=== PATIENT | male | born 1965 | race Caucasian/White ===

== ENCOUNTER 2018-01-21 14:20 | Observation (INO) | payer BC ==
--- OUTSIDE RECORDS SUMMARY | 2018-01-21 15:28 | XMS REPORT | Clinical Summary ---
:1965 Author Organization [facility] Address [address] [place] [address] Care Team Providers Name Role Phone French Walker MD Primary Care Provider Allergies Active Allergy Reactions Severity Noted Date Comments Codeine 02/08/2016 Iodinated Contrast- Oral And Iv Dye 02/08/2016 Penicillins 02/08/2016 Current Medications Prescription Sig. Disp. Refills Start Date End Date Status metoprolol succinate Toprol XL 25 mg Active XL (TOPROL XL) 25 MG tablet,extended 24 hr tablet release lovastatin (MEVACOR) lovastatin 20 mg Active 20 MG tablet tablet metoclopramide metoclopramide 10 mg Active (REGLAN) 10 MG tablet tablet oasukubr-dfqxhatjr-qff naproxen 500 mg tablet Active thol 500 mg -0.0375 %-5 % combo pack, tablet and patch traMADol (ULTRAM) 50 tramadol 50 mg tablet Active mg tablet Active Problems Problem Noted Date Abdominal pain 07/08/2016 SBO (small bowel obstruction) ([facility]) 03/26/2016 Ileostomy status ([facility]) 02/28/2016 Diverticulitis of colon 02/08/2016 Left lower quadrant pain 02/08/2016 Family History Medical History Relation Name Comments Diabetes Father Heart disease Father Relation Name Status Comments Father Social History Tobacco Use Types Packs/Day Years Used Date Never Smoker Alcohol Use Drinks/Week oz/Week Comments Yes occasionally Sex Assigned at Date Recorded Not on file Last Filed Vital Signs Not on file Plan of Treatment Health Maintenance Due Date Last Done Comments COLON CANCER SCREENING 2017 SHINGRIX VACCINE (#1) 2017 INFLUENZA VACCINE 10/31/2017 Results Not on fileafter 01/20/2017 Insurance Payer Benefit Plan / Group Subscriber ID Type Phone Address BCBS BCBS CHOICE PPO/F[employer]ER[employer] EMPL PPO xxxxxxxxxxxx PPO [id number] [place] Home: [phone]
--- OUTSIDE RECORDS SUMMARY | 2018-01-21 15:34 | XMS REPORT | Continuity of Care Document ---
:1965 Author Organization Interface Problems Problem Status Onset Classification Date Comments Source Date Reported ILEOSTOMY STATUS Active [address] DIVERTICULITIS Active [address] DIVERTICULITIS, ACUTE Active Condition Medical 014 4 Group Discharge Diagnosis: Diverticulitis 0[place] [address] [place] BACK PAIN Active [address] [place] PALPITATIONS Active Condition [facility] 014 4 Group INSOMNIA Active Condition Medical 014 4 Group Insomnia<sup>5</sup> Active Problem Data [facility] 014 6 migrated Medical from [facility] on 08/31/14. Palpitations<sup>6</brown Active Problem Data [facility] p> 014 6 migrated Medical from [facility] on 08/31/14. Insomnia<sup>6</sup> Active Problem Data [facility] 014 6 migrated Medical from [facility] on 08/31/14. Palpitations<sup>7</brown Active Problem Data [facility] p> 014 6 migrated Medical from [facility] on 08/31/14. BRONCHITIS, ACUTE WITH Inactive Condition [facility] MILD BRONCHOSPASM 013 4 Group Acute bronchitis with Resolved Problem Data [facility] bronchospasm<sup>1</brown 013 6 migrated Medical p> from [facility] on 10/16[facility]14. KNEE PAIN, LEFT, ACUTE Inactive Condition Medical 013 4 Group KNEE PAIN Inactive Condition [facility] 012 4 Group HYPERLIPIDEMIA Active Condition [facility] 012 4 Group Hyperlipidemia<sup>4</ Active Problem Data [facility] sup> 012 6 migrated Medical [facility] 08/31[facility]14. Hyperlipidemia<sup>5</ Active Problem Data [facility] sup> 012 6 migrated Medical [facility] 08/31[facility]14. NEED PROPHYLACTIC Inactive Condition Medical VACCINATION&INOCULATIO 012 4 Group N FLU WELL ADULT Active Condition Medical 012 4 Group BACK PAIN Inactive Condition Medical 012 4 Group NEED PROPH VAC W/COMB Inactive Condition Medical [id number] 012 4 Group VAC Backache<sup>1</sup> Resolved Problem Data [facility] 012 6 migrated Medical from [facility] on 10/16/14. Backache<sup>2</sup> Resolved Problem Data [facility] 012 6 migrated Medical from [facility] on 10/16/14. FH DIABETES - DM Inactive Condition Medical 4 Group FH HEART DISEASE Inactive Condition Medical 4 Group FH STROKE Inactive Condition Medical 4 Group HYPERTENSION - BENIGN Active Condition Medical ESSENTIAL 4 Group G E R D Active Condition Medical 4 Group Benign Active Problem Data [facility] hypertension<sup>2</brown 6 migrated Medical p> from [facility] on 08/31/14. Diverticulitis of Active Problem [facility] colon [address] [place] [address] Center Gastroesophageal Active Problem Data [facility] reflux 6 migrated Medical disease<sup>3</sup> from [facility] on 08/31/14. Chronic GERD Resolved Problem [address] HTN (<span Active Problem ID="[id number]">[facility] [address] [place], rmed</span>) [facility] Hypercholesterolemia Active Problem [address] Benign Active Problem Data [facility] hypertension<sup>3</brown 6 migrated Medical p> from [facility] on 08/31/14. Gastroesophageal Active Problem Data [facility] reflux 6 migrated Medical disease<sup>4</sup> from [facility] on 08/31/14. OTHER SPECIFIED Active [facility] CONGENITAL DEFORMITIES [facility] Medications Medication Details Route Status Patient Ordering Order Source Instructions Provider Date tramadol 50 mg=1 tab, PO, Active [place] hydrochloride 50 Q4H, PRN Pain, X 2016 Medical MG Oral Tablet 10 day, # 60 Center tab, 0 Refill(s), given to patient atorvastatin 10 mg, 1 tab, No Longer [facility] Route: PO, Drug Active 2015 Medical form: TAB, Center Bedtime, Dosing Weight 86.364, kg, Start date: 03/15/16 21:00:00 PERSONNEL ASSISTANT, Duration: 30 day, Stop date: 04/13/16 21:00:00 CSTNotes: (Same As: Lipitor) Enoxaparin 40 mg, 0.4 mL, No Longer [facility] Route: SUB-Q, Active 2015 Medical Drug form: INJ, [place] [id number], Dosing Weight 86.364, kg, Start date: 03/15/16 10:00:00 PERSONNEL ASSISTANT, Duration: 30 day, Stop date: 04/13/16 10:00:00 CSTNotes: (Same as: Lovenox) 24 HR Metoprolol 50 mg, 1 tab, No Longer [facility] Tartrate 50 MG Route: PO, Drug Active 2015 Medical Extended Release form: ERTAB, [place] Tablet [Toprol] Daily, Start date: 03/15/16 9:00:00 PERSONNEL ASSISTANT, Duration: 30 day, Stop date: 04/13/16 9:00:00 CSTNotes: (Same as: Toprol XL) May split tab, but do not crush. Nexium 10 mg, Route: Inactive [facility] PO, Daily, 2015 Medical Dosing Weight Center 86.364, kg, Start date: 03/15/16 9:00:00 PERSONNEL ASSISTANT, Duration: 30 day, Stop date: 04/13/16 9:00:00 PERSONNEL ASSISTANT Protonix 40 mg, 1 tab, No Longer [facility] Route: PO, Drug Active 2015 Medical form: ECTAB, Center Before Breakfast, Start date: 03/15/16 7:30:00 PERSONNEL ASSISTANT, Duration: 30 day, Stop date: 04/13/16 7:30:00 CSTNotes: Tablet should not be chewed or crushed. (Same as: Protonix) tramadol 100 mg, 2 tab, No Longer [place] hydrochloride 50 Route: PO, Drug Active 2015 Medical MG Oral Tablet form: TAB, Q4H, Center Dosing Weight 86.364, kg, PRN Pain Score 7-10, Start date: 03/15/16 7:26:00 PERSONNEL ASSISTANT, Duration: 30 day, Stop date: 04/14/16 7:25:00 CSTNotes: Not to exceed 400mg/day. (Same As: Ultram) gabapentin 300 300 mg, 1 cap, No Longer [place] MG Oral Capsule Route: PO, Drug Active 2015 Medical form: CAP, Q8H, Center Dosing Weight 87.727, kg, (CrCl > 60 ml/min), Start date: 03/15/16 0:00:00 PERSONNEL ASSISTANT, Duration: 30 day, Stop date: 04/13/16 16:00:00 CSTNotes: (Same as: Neurontin) Ofirmev 1,000 mg, 100 No Longer [place] mL, Route: IV, Active 2015 Medical Drug form: INJ, Center Q6H, Dosing Weight 87.727, kg, for > or=50 kg, Start date: 03/15/16 0:00:00 PERSONNEL ASSISTANT, Duration: 3 day, Stop date: 03/17/16 18:00:00 CSTNotes: Infuse over 15 minutes Do not exceed 4gm/day of acetaminophen MEDICATION WASTE Product Size: 1000 mg Product Wasted: ___ mg Ketorolac 15 mg, 1 mL, No Longer [place] Route: IVP, Drug Active 2015 Medical form: INJ, Q6H, Center Dosing Weight 86.364, kg, Start date: 03/15/16 0:00:00 PERSONNEL ASSISTANT, Duration: 6 doses or times, Stop date: 03/16/16 6:00:00 CSTNotes: (Same as:Toradol) IV bolus must be given >15 seconds. Give IM administration slowly and deeply into the muscle. Not for use > 4 days. Oxycodone 10 mg, 2 tab, No Longer [place] Hydrochloride 5 Route: PO, Drug Active 2015 Medical MG Oral Tablet form: TAB, Q4H, Center Dosing Weight 87.727, kg, PRN Pain Score 6-10, Start date: 03/14/16 19:32:00 PERSONNEL ASSISTANT, Duration: 30 day, Stop date: 04/13/16 19:31:00 CSTNotes: (Same as: Roxicodone) D5W 1/2NS + KCL 1,000 mL, Rate: No Longer [place] 20mEq/L 1000ml 50 ml/hr, Infuse Active 2015 Medical ([facility]) 1,000 over: 20 hr, Center mL Route: IV, Dosing Weight 86.364 kg, Total Volume: 1,000, Start date: 03/14/16 19:32:00 PERSONNEL ASSISTANT, Stop date: 04/13/16 19:31:00 CSTNotes: PREMIX IV - Do Not Alter WASTE: F/P - Sink; E - Municipal Trash Bin Saline Flush 10 ml, Route: No Longer [place] 0.9% IVP, Drug Form: Active 2015 Medical INJ, Dosing Center Weight 86.364, kg, PRN, PRN Line Flush, Start date: 03/14/16 19:32:00 PERSONNEL ASSISTANT, Duration: 30 day, Stop date: 04/13/16 19:31:00 CSTNotes: Same as: BD Posiflush Sterile Ondansetron 4 mg, 2 mL, No Longer [place] Route: IVP, Drug Active 2015 Medical form: INJ, Q6H, Center Dosing Weight 86.364, kg, PRN Nausea & Vomiting, Start date: 03/14/16 19:32:00 PERSONNEL ASSISTANT, Duration: 30 day, Stop date: 04/13/16 19:31:00 CSTNotes: (Same as: Josefina) MEDICATION WASTE Product Size: 4 mg Product Wasted: ___ mg Hydromorphone 0.2 mg, 0.1 mL, No Longer [place] Route: IVP, Drug Active 2015 Medical form: INJ, Q2H, Center Dosing Weight 87.727, kg, PRN Pain Score 4-6, Start date: 03/14/16 19:32:00 PERSONNEL ASSISTANT, Duration: 30 day, Stop date: 04/13/16 19:31:00 CSTNotes: Same as Dilaudid Ondansetron 4 mg, Route: Inactive 03/15[facility] IVP, ONCE, 2015 Medical Dosing Weight Center 86.364, kg, PRN Nausea & Vomiting, Start date: 03/14/16 19:25:00 PERSONNEL ASSISTANT Hydralazine 10 mg, Route: Inactive 03/15[facility] IVP, Q20Min, 2015 Medical Dosing Weight Center 86.364, kg, PRN Elevated BP, Start date: 03/14/16 19:25:00 PERSONNEL ASSISTANT, Duration: 2 doses or times, Stop date: Limited # of times Hydromorphone 0.5 mg, Route: Inactive 03/15[facility] IVP, Q5Min, 2015 Medical Dosing Weight Center 86.364, kg, PRN Pain Score 7-10, Start date: 03/14/16 19:25:00 PERSONNEL ASSISTANT, Duration: 4 doses or times, Stop date: Limited # of times Naloxone 0.4 mg, Route: Inactive 03/15[facility] IVP, Q2MIN, 2015 Medical Dosing Weight Center 86.364, kg, PRN Narcotic Reversal, Start date: 03/14/16 19:25:00 PERSONNEL ASSISTANT, Duration: 8 doses or times, Stop date: Limited # of times Flumazenil 0.2 mg, Route: Inactive 03/15[facility] IVP, PRN, Dosing 2015 Medical Weight 86.364, Center kg, PRN Benzodiazepine Reversal, Initial dose, Start date: 03/14/16 19:25:00 PERSONNEL ASSISTANT, Duration: 30 day, Stop date: 04/13/16 19:24:00 PERSONNEL ASSISTANT bupivacaine 20 mL, Route: No Longer 03/15[facility] liposome InFILtration(loc Active 2015 Medical al), Drug Form: Center INJ, ONCALL, Start date: 03/14/16 19:00:00 PERSONNEL ASSISTANT, Duration: 1 doses or timesNotes: (Same as: Exparel) NOT FOR IV use Postoperative analgesia: Infiltration (local): Dose is based on surgical site and volume required to cover the area (in general, the maximum total dose is 266 mg). Bunionectomy: 7 mL into the tissues surrounding the osteotomy and 1 mL into the subcutaneous tissue of the surgical site (total dose=8 mL [106 mg]) Hemorrhoidectomy : 30 mL (20 mL vial diluted with 10 mL NS) divided and administered as 6 injections of 5 mL each (total dose=30 mL [266 mg]) Flagyl 500 mg, 100 mL, No Longer [facility] Route: IVPB, Active 2015 Medical Drug form: INJ, Center PRE OP, Start date: 03/14/16 15:00:00 PERSONNEL ASSISTANT, Duration: 1 day, Stop date: 03/15/16 14:59:00 CSTNotes: (Same as: Flagyl) Avoid alcohol. Levaquin 750 mg, 150 mL, No Longer [facility] Route: IV, Drug Active 2015 Medical form: SOLN, PRE Center OP, Start date: 03/14/16 15:00:00 PERSONNEL ASSISTANT, Duration: 1 day, Stop date: 03/15/16 14:59:00 CSTNotes: (Same as:Levaquin) Lactated Ringers 1,000 mL, Rate: No Longer [facility] 1,000 mL 40 ml/hr, Infuse Active 2015 Medical over: 25 hr, [place] Route: IV, Dosing Weight 86.364 kg, Total Volume: 1,000, Start date: 03/14/16 13:56:00 PERSONNEL ASSISTANT, Duration: 30 day, Stop date: 04/13/16 13:55:00 PERSONNEL ASSISTANT tramadol See Active [facility] hydrochloride 50 Instructions, 2016 Medical MG Oral Tablet PRN Pain, 1-2 Center tab PO Q4-6h prn pain, # 50 tab, 0 Refill(s) Sodium Chloride 500 mL, 500 Inactive [facility] 0.154 MEQ/ML ml/hr, Infuse 2015 Medical Injectable Over: 1 hr, [place] Solution Route: IV, 500, Drug form: INJ, ONCE, Priority: STAT, Dosing Weight 87.727 kg, Start date: 01/13/16 17:43:00 CDT, Duration: 1 doses or times, Stop date: 01/13/16 17:43:00 CDT Tylenol 650 mg, 2 tab, No Longer [facility] Route: PO, Drug Active 2015 Medical form: TAB, Q6H, Center Dosing Weight 87.727, kg, PRN Pain Score 1-3, Start date: 01/13/16 7:16:00 CDT, Duration: 30 day, Stop date: 02/12/16 7:15:00 CSTNotes: Do not exceed 4 gm/day. (Same as: Tylenol) tramadol 100 mg, 2 tab, No Longer [place] hydrochloride 50 Route: PO, Drug Active 2015 Medical MG Oral Tablet form: TAB, Q4H, Center Dosing Weight 87.727, kg, PRN Pain Score 7-10, Start date: 01/13/16 7:16:00 CDT, Duration: 30 day, Stop date: 02/12/16 7:15:00 CSTNotes: Not to exceed 400mg/day. (Same As: Ultram) tramadol 50 mg, 1 tab, No Longer [place] hydrochloride 50 Route: PO, Drug Active 2015 Medical MG Oral Tablet form: TAB, Q4H, Center Dosing Weight 87.727, kg, PRN Pain Score 4-6, Start date: 01/13/16 7:15:00 CDT, Duration: 30 day, Stop date: 02/12/16 7:14:00 CSTNotes: Not to exceed 400mg/day. (Same As: Ultram) sodium chloride 500 mL, Rate: Inactive [facility] 0.9% 500 ml INJ 500 ml/hr, 2015 Medical 500 mL Infuse over: 1 Center hr, Route: IV, Dosing Weight 87.727 kg, Total Volume: 500, BOLUS, Priority: STAT, Start date: 01/10/16 17:46:00 CDT, Duration: 1 doses or times, Stop date: 01/11/16 17:45:00 CDT Reglan 10 mg, 2 mL, No Longer [facility] Route: IVP, Drug Active 2015 Medical form: INJ, Q6H, Center Dosing Weight 87.727, kg, Start date: 01/10/16 12:00:00 CDT, Duration: 30 day, Stop date: 02/09/16 6:00:00 CSTNotes: (Same as: Reglan) Ofirmev 1,000 mg, 100 No Longer [facility] mL, Route: IVPB, Active 2015 Medical Drug form: INJ, Center Q8H, PRN Pain 4-6/Temp > 100.4 F, Start date: 01/08/16 20:49:00 CDT, Stop date: 02/07/16 20:48:00 CSTNotes: Infuse over 15 minutes Do not exceed 4gm/day of acetaminophen MEDICATION WASTE Product Size: 1000 mg Product Wasted: ___ mg Ofirmev 1,000 mg, Route: Inactive [place] IV, Drug form: 2016 Medical INJ, Q8H, Dosing Center Weight 87.727, kg, PRN Pain 4-6/Temp > 100.4 F, for > or=50 kg, Start date: 01/08/16 20:16:00 CDT, Duration: 30 day, Stop date: 02/07/16 20:15:00 PERSONNEL ASSISTANT phenol 1 spray, Route: No Longer [facility] TOP, Daily, Drug Active 2015 Medical form: SPRY, PRN Center Sore Throat, Start date: 01/08/16 19:15:00 CDT, Duration: 30 day, Stop date: 02/07/16 19:14:00 CSTNotes: Chloraseptic [place] (Same as: Chloraseptic, Sore Throat [place]) WASTE: F/P - Black; E - Municipal Trash Bin D5W 1/2NS + KCL 1,000 mL, Rate: No Longer [place] 20mEq/L 1000ml 125 ml/hr, Active 2015 Medical ([facility]) 1,000 Infuse over: 8 Center mL hr, Route: IV, Dosing Weight 87.727 kg, Total Volume: 1,000, Start date: 01/08/16 5:21:00 CDT, Duration: 30 day, Stop date: 02/07/16 5:20:00 CSTNotes: PREMIX IV - Do Not Alter WASTE: F/P - Sink; E - Municipal Trash Bin Acetaminophen 1,000 mg, 2 tab, No Longer [facility] Route: PO, Drug Active 2015 Medical form: TAB, Q6H, Center Dosing Weight 87.727, kg, Start date: 01/07/16 18:00:00 CDT, Duration: 30 day, Stop date: 02/06/16 12:00:00 CSTNotes: Max acetaminophen 4000 mg/day (4 gm/day). (Same as: Tylenol Extra Strength) sodium chloride 1,000 mL, Rate: No Longer [place] 0.9% 1000 ml INJ 50 ml/hr, Infuse Active 2015 Medical 1,000 mL over: 20 hr, Center Route: IV, Dosing Weight 87.727 kg, Total Volume: 1,000, Start date: 01/07/16 8:25:00 CDT, Duration: 30 day, Stop date: 02/06/16 8:24:00 PERSONNEL ASSISTANT 24 HR Metoprolol 50 mg, 1 tab, No Longer [place] Tartrate 50 MG Route: PO, Drug Active 2015 Medical Extended Release form: ERTAB, [place] Tablet [Toprol] Daily, Start date: 01/06/16 9:00:00 CDT, Duration: 30 day, Stop date: 02/04/16 9:00:00 CDTNotes: (Same as: Toprol XL) May split tab, but do not crush. Nexium 40 mg, Route: No Longer [facility] PO, Daily, Active 2015 Medical Dosing Weight Center 87.727, kg, Start date: 01/06/16 9:00:00 CDT, Duration: 30 day, Stop date: 02/04/16 9:00:00 CDT atorvastatin 20 mg, 1 tab, No Longer [facility] Route: PO, Drug Active 2015 Medical form: TAB, Center Daily, Dosing Weight 87.727, kg, Start date: 01/06/16 9:00:00 CDT, Duration: 30 day, Stop date: 02/04/16 9:00:00 CDTNotes: (Same As: Lipitor) influenza virus 0.5 mL, Route: Inactive [place] vaccine, IM, Drug Form: 2015 Medical inactivated SUSP, Daily, Center Start date: 01/06/16 9:00:00 CDT, Duration: 1 doses or times, Stop date: 01/06/16 9:00:00 CDTNotes: (Same as: Fluzone Quadrivalent, Fluarix Quadrivalent) For 3 years of age and older (0.5 mL IM) Shake well before use Protonix 40 mg, 1 tab, No Longer [facility] Route: PO, Drug Active 2015 Medical form: ECTAB, Center Daily, Start date: 01/06/16 9:00:00 CDT, Duration: 30 day, Stop date: 02/04/16 9:00:00 CDT Enoxaparin 40 mg, 0.4 mL, No Longer [place] Route: SUB-Q, Active 2015 Medical Drug form: INJ, Center [id number], Dosing Weight 87.727, kg, Start date: 01/06/16 9:00:00 CDT, Duration: 30 day, Stop date: 02/04/16 9:00:00 CDTNotes: (Same as: Lovenox) Hydromorphone 15 mg, 30 mL, No Longer [place] Route: IV, EELER Active 2015 Medical Dose: 0.2 mg, Center EELER Lockout: 8 minutes, Continuous Basal Rate: 0 mg, 4 Hour Limit (In MG): 6, Drug Form: INJ, Continuous, Start date: 01/06/16 7:30:00 CDT, Duration: 30 day, Stop date: 02/05/16 7:29:00 CDTNotes: (Same as: Dilaudid) conc=0.5 mg/ml Hydromorphone EELER Dose: ;Delay: ;Basal: Hydromorphone 15 mg, 30 mL, No Longer [place] Route: IV, Active 2015 Medical Initial Loading Center Dose: 0.4mg, EELER Dose: 0.2 mg, [place] Lockout: 8 minutes, Continuous Basal Rate: 0.05 mg, 4 Hour Limit (In MG): 6, Drug Form: INJ, Continuous, Start date: 01/05/16 19:30:00 CDT, Duration: 30 day, Stop date: ...Notes: (Same as: Dilaudid) conc=0.5 mg/ml Hydromorphone EELER Dose: ;Delay: ;Basal: Naloxone 0.04 mg, 0.1 mL, No Longer [place] Route: IVP, Drug Active 2015 Medical form: INJ, Center Q2MIN, Dosing Weight 87.727, kg, PRN Narcotic Reversal, Start date: 01/05/16 19:20:00 CDT, Duration: 30 day, Stop date: 02/04/16 19:19:00 CDTNotes: Same as Narcan Ofirmev 1,000 mg, 100 No Longer [facility] mL, Route: IV, Active 2015 Medical Drug form: INJ, Center Q6H, Dosing Weight 87.727, kg, for > or=50 kg, Start date: 01/05/16 18:00:00 CDT, Duration: 3 day, Stop date: 01/08/16 12:00:00 CDTNotes: Infuse over 15 minutes Do not exceed 4gm/day of acetaminophen MEDICATION WASTE Product Size: 1000 mg Product Wasted: ___ mg Ketorolac 15 mg, 1 mL, No Longer [facility] Route: IVP, Drug Active 2015 Medical form: INJ, Q6H, Center Dosing Weight 87.727, kg, Start date: 01/05/16 18:00:00 CDT, Duration: 6 doses or times, Stop date: 01/07/16 0:00:00 CDTNotes: (Same as:Toradol) IV bolus must be given >15 seconds. Give IM administration slowly and deeply into the muscle. Not for use > 4 days. Dilaudid 1 mg, Route: Inactive [facility] IVP, ONCE, 2015 Medical Dosing Weight Center 87.727, kg, Priority: STAT, Start date: 01/05/16 17:49:00 CDT, Stop date: 01/05/16 17:49:00 CDT Dilaudid 1 mg, Route: IV, Inactive [facility] ONCE, Dosing 2015 Medical Weight 87.727, Center kg, Start date: 01/05/16 16:30:00 CDT, Stop date: 01/05/16 16:30:00 CDT gabapentin 300 300 mg, 1 cap, No Longer [facility] MG Oral Capsule Route: PO, Drug Active 2015 Medical form: CAP, Q8H, Center Dosing Weight 87.727, kg, (CrCl > 60 ml/min), Start date: 01/05/16 16:00:00 CDT, Duration: 30 day, Stop date: 02/04/16 8:00:00 CDTNotes: (Same as: Neurontin) Lyrica 100 mg, Route: Inactive [facility] PO, ONCE, Dosing 2015 Medical Weight 87.727, Center kg, Start date: 01/05/16 15:07:00 CDT, Stop date: 01/05/16 15:07:00 CDT tramadol 50 mg, 1 tab, Inactive [facility] hydrochloride 50 Route: PO, Drug 2015 Medical MG Oral Tablet form: TAB, ONCE, Center Dosing Weight 87.727, kg, Start date: 01/05/16 15:07:00 CDT, Stop date: 01/05/16 15:07:00 CDT Flumazenil 0.2 mg, 2 mL, Inactive [facility] Route: IVP, Drug 2015 Medical form: INJ, PRN, Center Dosing Weight 87.727, kg, PRN Benzodiazepine Reversal, Initial dose, Start date: 01/05/16 13:30:00 CDT, Duration: 1 day, Stop date: 01/06/16 13:29:00 CDTNotes: (Same as: Romazicon) Naloxone 0.4 mg, 1 mL, Inactive [facility] Route: IVP, Drug 2015 Medical form: INJ, Center Q2MIN, Dosing Weight 87.727, kg, PRN Narcotic Reversal, Start date: 01/05/16 13:30:00 CDT, Duration: 8 doses or times, Stop date: Limited # of timesNotes: Same as Narcan Ondansetron 4 mg, 2 mL, Inactive [facility] Route: IVP, Drug 2015 Medical form: INJ, ONCE, Center Dosing Weight 87.727, kg, PRN Nausea & Vomiting, Start date: 01/05/16 13:30:00 CDTNotes: (Same as: Zofran) MEDICATION WASTE Product Size: 4 mg Product Wasted: ___ mg Promethazine 6.25 mg, 0.25 Inactive [facility] mL, Route: IVPB, 2015 Medical Drug form: INJ, Center ONCE, Dosing Weight 87.727, kg, PRN Nausea & Vomiting, Start date: 01/05/16 13:30:00 CDTNotes: Do not give IV push. (Same as: Phenergan) Hydromorphone 0.5 mg, 0.25 mL, Inactive [facility] Route: IVP, Drug 2015 Medical form: INJ, Center Q5Min, Dosing Weight 87.727, kg, PRN Pain Score 7-10, Start date: 01/05/16 13:30:00 CDT, Duration: 8 doses or times, Stop date: 01/06/16 0:00:00 CDTNotes: Same as: Dilaudid Saline Flush 10 ml, Route: No Longer [facility] 0.9% IVP, Drug Form: Active 2016 Medical INJ, Dosing Center Weight 87.727, kg, PRN, PRN Line Flush, Start date: 01/05/16 13:21:00 CDT, Duration: 30 day, Stop date: 02/04/16 13:20:00 CDTNotes: (Same as: BD Posiflush) Oxycodone 5 mg, 1 tab, No Longer [facility] Hydrochloride 5 Route: PO, Drug Active 2015 Medical MG Oral Tablet form: TAB, Q4H, Center Dosing Weight 87.727, kg, PRN Pain Score 4-6, Start date: 01/05/16 13:21:00 CDT, Duration: 30 day, Stop date: 02/04/16 13:20:00 CDTNotes: (Same as: Roxicodone) D5W 1/2NS + KCL 1,000 mL, Rate: No Longer [facility] 20mEq/L 1000ml 100 ml/hr, Active 2015 Medical ([facility]) 1,000 Infuse over: 10 Center mL hr, Route: IV, Dosing Weight 87.727 kg, Total Volume: 1,000, Start date: 01/05/16 13:21:00 CDT, Duration: 30 day, Stop date: 02/04/16 13:20:00 CDTNotes: PREMIX IV - Do Not Alter WASTE: F/P - Sink; E - Municipal Trash Bin Hydromorphone 0.5 mg, 0.25 mL, No Longer [facility] Route: IVP, Drug Active 2015 Medical form: INJ, Q2H, Center Dosing Weight 87.727, kg, PRN Pain Score 4-6, Start date: 01/05/16 13:21:00 CDT, Stop date: 02/04/16 13:20:00 CDTNotes: (Same as: Dilaudid) Ondansetron 4 mg, 2 mL, No Longer [facility] Route: IVP, Drug Active 2015 Medical form: INJ, Q6H, [place] Dosing Weight 87.727, kg, PRN Nausea & Vomiting, Start date: 01/05/16 13:21:00 CDT, Duration: 30 day, Stop date: 02/04/16 13:20:00 CDTNotes: (Same as: Zofran) MEDICATION WASTE Product Size: 4 mg Product Wasted: ___ mg bupivacaine 20 mL, Route: Inactive [facility] liposome InFILtration(loc 2016 Medical al), Drug Form: [place] INJ, ONCE, Start date: 01/05/16 7:03:00 CDT, Stop date: 01/05/16 7:03:00 CDTNotes: (Same as: Exparel) NOT FOR IV use Postoperative analgesia: Infiltration (local): Dose is based on surgical site and volume required to cover the area (in general, the maximum total dose is 266 mg). Bunionectomy: 7 mL into the tissues surrounding the osteotomy and 1 mL into the subcutaneous tissue of the surgical site (total dose=8 mL [106 mg]) Hemorrhoidectomy : 30 mL (20 mL vial diluted with 10 mL NS) divided and administered as 6 injections of 5 mL each (total dose=30 mL [266 mg]) Aspirin 81 MG 81 mg=1 tab, PO, Active [facility] Enteric Coated Daily, # 90 tab, 2016 Medical Tablet 3 Refill(s) [place] Lactated Ringers 1,000 mL, Rate: No Longer [facility] 1,000 mL 40 ml/hr, Infuse Active 2015 Medical over: 25 hr, [place] Route: IV, Dosing Weight 87.727 kg, Total Volume: 1,000, Start date: 01/05/16 5:59:00 CDT, Duration: 30 day, Stop date: 02/04/16 5:58:00 CDT Flagyl 500 mg, 100 mL, Inactive [facility] Route: IVPB, 2015 Medical Drug form: INJ, Center PRE OP, Start date: 01/05/16 5:00:00 CDT, Duration: 1 day, Stop date: 01/06/16 4:59:00 CDTNotes: (Same as: Flagyl) Avoid alcohol. Levaquin 750 mg, 150 mL, Inactive [place] Route: IV, Drug 2015 Medical form: SOLN, PRE Center OP, Start date: 01/05/16 5:00:00 CDT, Duration: 1 day, Stop date: 01/06/16 4:59:00 CDTNotes: (Same as:Levaquin) Nexium PO, Daily, 0 Active [facility] Refill(s) 2015 [facility] atorvastatin PO, Daily, 0 Active [facility] Refill(s) 2015 [facility] 24 HR Metoprolol 50 mg=1 tab, PO, Active [place] Tartrate 50 MG Daily, # 90 tab, 2015 Medical Extended Release 3 Refill(s) [place] Tablet [Toprol] levofloxacin 500 500 mg=1 tab, No Longer [place] mg oral tablet PO, Daily, # 7 Active 2015 Medical tab, 0 Refill(s) Center Metronidazole 500 mg=1 tab, No Longer [place] PO, BID, # 14 Active 2015 Medical tab, 0 Refill(s) Center PRILOSEC OTC 1 tab by mouth Active Medical TBEC once a day 2013 Group CIPRO 500 MG 1 tab by mouth Active Medical TABS twice a day 2013 Group FLAGYL 500 MG 1 tab by mouth Active Medical TABS three times a 2013 Group day BENTYL 10 MG 1 tab four times Active Medical CAPS a day 2013 Group Ondansetron 4 MG 4 mg=1 tab, PO, Active Disintegrating TID, as needed 2013 Tablet [Zofran] for nausea/vomiting, # 12 tab, 0 Refill(s) Dicyclomine 20 mg=1 tab, PO, Active Hydrochloride 20 QID, # 28 tab, 0 2013 [place] [facility] Oral Tablet Refill(s) [Bentyl] Ciprofloxacin 500 mg=1 tab, Active 500 MG Oral PO, Q12H, # 14 2013 Tablet [Cipro] tab, 0 Refill(s) Metronidazole 500 mg=1 tab, Active 500 MG Oral PO, Q8H, # 21 2013 [facility] Tablet tab, 0 Refill(s) Zofran 4 mg, Route: Inactive IVP, Drug form: 2013 [facility] INJ, ONCE, Dosing Weight 90, kg, Priority: STAT, Start date: 12/17/13 0:08:00, Stop date: 12/17/13 0:08:00 Ciprofloxacin 500 mg, Route: Inactive PO, ONCE, Dosing 2013 [facility] Weight 90, kg, Priority: STAT, Start date: 12/17/13 0:08:00, Stop date: 12/17/13 0:08:00 Metronidazole 500 mg, Route: Inactive PO, ONCE, Dosing 2013 [facility] Weight 90, kg, Priority: STAT, Start date: 12/17/13 0:08:00, Stop date: 12/17/13 0:08:00 Ondansetron 4 mg, 2 mL, Inactive Route: IVP, Drug 2013 [facility] form: INJ, ONCE, Dosing Weight 90, kg, Priority: STAT, Start date: 12/16/13 22:33:00, Stop date: 12/16/13 22:33:00Notes: (Same as: Zofran) Morphine 4 mg, 2 mL, Inactive Route: IVP, Drug 2013 [facility] form: INJ, ONCE, Dosing Weight 90, kg, Priority: STAT, Start date: 12/16/13 22:33:00, Stop date: 12/16/13 22:33:00Notes: (Same as:MORPhine Sulfate) HYDROCODONE-ACET 1 tablet every No Longer Medical AMINOPHEN 5-325 4-6 hours as Active 2013 Group MG TABS needed for pain METOPROLOL 1 tablet daily Active Medical SUCCINATE ER 25 2013 Group MG [id number] ASPIRIN LOW DOSE one po daily Active Medical 81 MG TABS 2013 Group ZOLPIDEM one po q hs No Longer Medical TARTRATE ER 12.5 Active 2013 Group MG CR-TABS ZOLPIDEM one po q hs Active Medical TARTRATE ER 12.5 2013 Group MG CR-TABS PROMETHAZINE 5 mls po qhs prn Inactive Medical VC/CODEINE cough 2012 Group 6.25-5-10 MG/5ML SYRP BROMFED DM 5 ml q 8 hrs prn No Longer Medical 30-2-10 MG/5ML cough Active 2012 Group SYRP MEDROL (ZURI) 4 Take as directed No Longer Medical MG TABS with food x 6 Active 2012 Group days MEDROL (ZURI) 4 Take as directed No Longer Medical MG TABS with food x 6 Active 2012 Group days PROAIR HFA 108 1-2 puffs Q6 No Longer 11/25/ Medical (90 BASE) hours prn short Active 2012 Group MCG/ACT AERS of breath/wheezing ZITHROMAX TAB 2 tabs po now, No Longer Medical 250MG then 1 po q d x Active 2012 Group 4 days PROAIR HFA 108 1-2 puffs Q6 No Longer Medical (90 BASE) hours prn short Active 2012 Group MCG/ACT AERS of breath/wheezing PROAIR HFA 108 1-2 puffs Q6 No Longer Medical (90 BASE) hours prn short Active 2012 Group MCG/ACT AERS of breath/wheezing FAMOTIDINE 20 MG one po daily No Longer Medical TABS Active 2012 Group LOVASTATIN 20 MG Take on tablet Active Medical TABS by mouth every 2012 Group day LOVASTATIN 20 MG Take on tablet Active Medical TABS by mouth every 2012 Group day FAMOTIDINE 20 MG one po daily No Longer Medical TABS Active 2012 Group FAMOTIDINE 20 MG one po daily No Longer Medical TABS Active 2012 Group MOBIC 7.5 MG TAB 1 po qd No Longer Medical Active 2012 Group MOBIC 7.5 MG TAB 1 po qd No Longer Medical Active 2012 Group MOBIC 7.5 MG TAB one po daily No Longer Medical Active 2011 Group MOBIC 7.5 MG TAB one po daily No Longer Medical Active 2011 Group LISINOPRIL 20 MG One po daily No Longer Medical TABS Active 2011 Group LISINOPRIL 20 MG One po daily Active Medical TABS 2012 Group LISINOPRIL 20 MG One po daily No Longer 08/31/ Medical TABS Active 2012 Group Allergies, Adverse Reactions, Alerts Substance Category Reaction Severity Reaction Status Date Comments Source type Reported CODEINE Drug CODEINE allergy 2 Medical Group PCN Drug PCN allergy 2 Medical Group codeine<sup> Assertion Drug Active Data [facility] 1</sup> [facility]. Originally documented as CODEINE. Sick penicillins< Assertion Drug Active Data [place] sup>2</sup> allergy 2 migrated Medical from [facility] on 10/29/14. Originally documented as PCN. Child codeine Assertion Drug Active allergy [place] penicillins Assertion Drug Active allergy [place] contrast Assertion Drug Active [facility] media allergy Medical (iodine-base Center d) Immunizations Immunization Date Site Status Last Comments Source Given Updated influenza virus Left completed [facility] vaccine, 6 deltoid Medical inactivated Center diphtheria/pertu completed GE Result [facility] ssis, 2 Comment: tdap. Medical acel/tetanus Migrated from Center adult<sup>1</sup OBS ; Data > migrated from [employer] [facility] on 05/19/2015. dT (Diphtheria completed Medical and Tetanus) 2 Group booster dT (Diphtheria completed Medical and Tetanus) 2 Group booster given tetanus-diphther Right completed GE Result [facility] ia 2 Deltoid Comment: tdap. Medical toxoids<sup>3</s Migrated from Center up> OBS ; Data migrated from [facility] [employer] on 05/19/2015. diphtheria-tetan Right completed GE Result [facility] us 2 Deltoid Comment: tdap. Medical toxoids<sup>2</s Migrated from Center up> OBS ; Data migrated from [facility] [employer] on 10/14/2014. Results Order Name Results Value Reference Date Interpretation Comments Source Range CHEM PANEL eGFR 94 03/16 Result Comment: The eGFR is calculated using the CKD-EPI formula. In most young, healthy individuals the eGFR will be >90 mL/ min/1.73m2. The eGFR declines with age. An eGFR of 60-89 may be normal in [facility] mL/min/1.7 some populations, particularly the elderly, for whom the CKD-EPI formula has not been extensively validated. Use of the eGFR is not recommended in the following populations: [address] Individuals with unstable creatinine concentrations, including patients and those with serious co-morbid conditions. Patients with extremes in muscle mass or diet. The data above are obtained from the National Kidney Disease Education Program (NKDEP) which additionally recommends that when the eGFR is used in patients with extremes of body mass index for purposes of drug dosing, the eGFR should be multiplied by the estimated BMI. CHEM PANEL Creatinine 0.94 mg/dL 0.50 - 03/16 [facility] 1.40 [facility] CHEM PANEL Chloride Lvl 103 meq/L 95 - 109 03/16 [facility] CHEM PANEL CO2 30 meq/L 24 - 32 03/[address] CHEM PANEL Sodium Lvl 140 meq/L 135 - 145 03/16 [facility]2015 [facility] CHEM PANEL Potassium 3.6 meq/L 3.5 - 5.1 03/16 [facility] CHEM PANEL Calcium Lvl 8.2 mg/dL 8.5 - 10.5 03/[address] CHEM PANEL Glucose Lvl 117 mg/dL 70 - 99 03/16 [facility]2015 [facility] CHEM PANEL BUN 10 mg/dL 7 - 22 03/[address] CHEM PANEL AGAP 10.6 meq/L 10.0 - 03/16 [facility] 20.0 [facility] CHEM PANEL Phosphorus 2.6 mg/dL 2.5 - 4.5 03/16 [facility] CHEM PANEL Magnesium 2.6 mg/dL 1.8 - 2.4 03/16 [facility] HEMATOLOGY Monocytes # 0.5 K/CMM 0.0 - 0.8 03/16 [facility] HEMATOLOGY Eosinophils 0.1 K/CMM 0.0 - 0.5 03/16 [facility] 2016 [facility] HEMATOLOGY Lymphocytes 0.9 K/CMM 1.0 - 5.5 03/16 [facility] 2016 [facility] HEMATOLOGY Monocytes 10.1 % 2.0 - 12.0 03/16 [facility] HEMATOLOGY Basophils 0.3 % 0.0 - 1.0 03/16 [facility] HEMATOLOGY Segs-Bands # 3.6 K/CMM 1.5 - 8.1 03/16 [facility] HEMATOLOGY Eosinophils 1.4 % 0.0 - 4.0 03/16 [facility] HEMATOLOGY Segs 70.7 % 45.0 - 03/16 [place] 75.0 [facility] HEMATOLOGY Lymphocytes 17.5 % 20.0 - 03/16 [place] 40.0 [facility] HEMATOLOGY Platelet 195 K/CMM 133 - 450 03/16 [facility] HEMATOLOGY MPV 8.9 fL 7.4 - 10.4 03/16 [facility] HEMATOLOGY Hgb 12.7 g/dL 14.0 - 03/16 [place] 18.0 [facility] HEMATOLOGY MCHC 33.9 g/dL 32.0 - 03/16 [place] 36.0 [facility] HEMATOLOGY RDW 14.3 % 11.5 - 03/16 14.5 [facility] HEMATOLOGY MCV 83.0 fL 80.0 - 03/16 [place] 94.0 [facility] HEMATOLOGY MCH 28.2 pg 27.0 - 03/16 [facility] 31.0 [facility] HEMATOLOGY Hct 37.5 % 42.0 - 03/16 [place] 54.0 [facility] HEMATOLOGY WBC 5.1 K/CMM 3.7 - 10.4 03/16 [facility] HEMATOLOGY RBC 4.52 M/CMM 4.70 - 03/16 [place] 6.10 [facility] CHEM PANEL Phosphorus 2.9 mg/dL 2.5 - 4.5 03/15 [facility] CHEM PANEL Magnesium 2.1 mg/dL 1.8 - 2.4 03/15 [facility] Lvl [facility] CHEM PANEL eGFR 99 03/15 Result Comment: The eGFR is calculated using the CKD-EPI formula. In most young, healthy individuals the eGFR will be >90 mL/ min/1.73m2. The eGFR declines with age. An eGFR of 60-89 may be normal in [facility] mL/min/1. some populations, particularly the elderly, for whom the CKD-EPI formula has not been extensively validated. Use of the eGFR is not recommended in the following populations: [address] Individuals with unstable creatinine concentrations, including patients and those with serious co-morbid conditions. Patients with extremes in muscle mass or diet. The data above are obtained from the National Kidney Disease Education Program (NKDEP) which additionally recommends that when the eGFR is used in patients with extremes of body mass index for purposes of drug dosing, the eGFR should be multiplied by the estimated BMI. CHEM PANEL Creatinine 0.91 mg/dL 0.50 - 03/15 [facility] Lvl 1.40 [facility] CHEM PANEL BUN 11 mg/dL 7 - 22 03/15 [facility]2015 [facility] CHEM PANEL Potassium 4.0 meq/L 3.5 - 5.1 03/15 [facility] Lvl [facility] CHEM PANEL Sodium Lvl 137 meq/L 135 - 145 03/[address] CHEM PANEL Glucose Lvl 117 mg/dL 70 - 99 03/[address] CHEM PANEL Chloride Lvl 100 meq/L 95 - 109 03/[address] CHEM PANEL CO2 23 meq/L 24 - 32 03/[address] CHEM PANEL Calcium Lvl 8.1 mg/dL 8.5 - 10.5 03/[address] CHEM PANEL AGAP 18.0 meq/L 10.0 - 03/15 [facility] 20.0 [facility] HEMATOLOGY Monocytes # 0.2 K/CMM 0.0 - 0.8 03/15 [facility] HEMATOLOGY Basophils 0.1 % 0.0 - 1.0 03/[address] HEMATOLOGY Segs-Bands # 8.1 K/CMM 1.5 - 8.1 03/15 [facility] HEMATOLOGY Lymphocytes 0.5 K/CMM 1.0 - 5.5 03/15 [facility] # /2015 [facility] HEMATOLOGY Lymphocytes 5.2 % 20.0 - 03/15 [facility] 40.0 [facility] HEMATOLOGY Segs 92.9 % 45.0 - 03/15 [facility] 75.0 [facility] HEMATOLOGY Monocytes 1.7 % 2.0 - 12.0 03/[address] HEMATOLOGY Eosinophils 0.1 % 0.0 - 4.0 03/[address] HEMATOLOGY MPV 8.6 fL 7.4 - 10.4 03/[address] HEMATOLOGY Platelet 207 K/CMM 133 - 450 03/15 [facility] HEMATOLOGY RDW 14.1 % 11.5 - 03/15 [place] 14.5 [facility] HEMATOLOGY MCHC 34.7 g/dL 32.0 - 03/15 [place] 36.0 [facility] HEMATOLOGY MCH 28.3 pg 27.0 - 03/15 [place] 31.0 [facility] HEMATOLOGY MCV 81.7 fL 80.0 - 03/15 [place] 94.0 /2015 [facility] HEMATOLOGY WBC 8.8 K/CMM 3.7 - 10.4 03/15 /2015 [facility] HEMATOLOGY Hct 39.3 % 42.0 - 03/15 [place] 54.0 [facility] HEMATOLOGY Hgb 13.6 g/dL 14.0 - 03/15 [place] 18.0 [facility] HEMATOLOGY RBC 4.81 M/CMM 4.70 - 03/15 [place] 6. [facility] BLOOD BANK Antibody Negative 03/14 [facility] RESULTS Scr [facility] (03/14/16 2:01 PM) [place] BLOOD BANK ABO/Rh O POS 03/14 [facility] RESULTS [facility] ELECTROLYT CO2 25 meq/L 24 - 32 01/13 [facility] ES [facility] ELECTROLYT Calcium Lvl 9.2 mg/dL 8.5 - 10.5 01/13 [facility] ELECTROLYT eGFR 102 01/13 Result Comment: The eGFR is calculated using the CKD-EPI formula. In most young, healthy individuals the eGFR will be >90 mL/ min/1.73m2. The eGFR declines with age. An eGFR of 60-89 may be normal in [facility] mL/min/1. some populations, particularly the elderly, for whom the CKD-EPI formula has not been extensively validated. Use of the eGFR is not recommended in the following populations: [place] [address] [facility] Individuals with unstable creatinine concentrations, including patients and those with serious co-morbid conditions. Patients with extremes in muscle mass or diet. The data above are obtained from the National Kidney Disease Education Program (NKDEP) which additionally recommends that when the eGFR is used in patients with extremes of body mass index for purposes of drug dosing, the eGFR should be multiplied by the estimated BMI. ELECTROLYT Potassium 4.5 meq/L 3.5 - 5.1 01/13 [facility] Lvl /2015 [facility] ELECTROLYT Chloride Lvl 102 meq/L 95 - 109 01/13 [facility] ES [facility] Center ELECTROLYT Sodium Lvl 137 meq/L 135 - 145 01/13 [facility] ES [facility] ELECTROLYT Glucose Lvl 104 mg/dL 70 - 99 01/13 [facility] ES [facility] ELECTROLYT Creatinine 0.88 mg/dL 0.50 - 01/13 [facility] ES Lvl 1.40 /2015 [facility] ELECTROLYT BUN 9 mg/dL 7 - 22 01/13 [facility] ES [facility] ELECTROLYT AGAP 14.5 meq/L 10.0 - 01/13 [facility] ES 20.0 [facility] HEMATOLOGY RBC 4.33 M/CMM 4.70 - 01/13 [facility] 6.10 [facility] HEMATOLOGY WBC 5.4 K/CMM 3.7 - 10.4 01/13 /2015 [facility] HEMATOLOGY MCHC 35.4 g/dL 32.0 - 01/13 [facility] 36.0 [facility] HEMATOLOGY RDW 13.4 % 11.5 - 01/13 [facility] 14.5 [facility] HEMATOLOGY MCH 29.1 pg 27.0 - 01/13 [facility] 31.0 [facility] HEMATOLOGY Hgb 12.6 g/dL 14.0 - 01/13 [facility] 18.0 [facility] HEMATOLOGY Hct 35.5 % 42.0 - 01/13 [place] 54.0 [facility] HEMATOLOGY MCV 82.0 fL 80.0 - 01/13 [place] 94.0 [facility] HEMATOLOGY Platelet 359 K/CMM 133 - 450 01/13 [facility] HEMATOLOGY MPV 8.3 fL 7.4 - 10.4 01/13 /2015 [facility] HEMATOLOGY Eosinophils 0.1 K/CMM 0.0 - 0.5 01/13 [facility] HEMATOLOGY Monocytes # 0.6 K/CMM 0.0 - 0.8 01/13 [facility] HEMATOLOGY Lymphocytes 1.4 K/CMM 1.0 - 5.5 01/13 [facility] HEMATOLOGY Segs-Bands # 3.3 K/CMM 1.5 - 8.1 01/13 /2015 [facility] HEMATOLOGY Segs 61.8 % 45.0 - 01/13 [facility] 75.0 [facility] HEMATOLOGY Lymphocytes 25.2 % 20.0 - 01/13 [facility] 40.0 [facility] HEMATOLOGY Basophils 0.7 % 0.0 - 1.0 01/13 [facility] HEMATOLOGY Monocytes 10.4 % 2.0 - 12.0 01/13 [facility] HEMATOLOGY Eosinophils 1.9 % 0.0 - 4.0 01/13 [facility] CHEM PANEL BUN 12 mg/dL 7 - 22 01/12 [facility] CHEM PANEL Glucose Lvl 114 mg/dL 70 - 99 01/12 [facility] CHEM PANEL Calcium Lvl 9.4 mg/dL 8.5 - 10.5 01/12 [facility] CHEM PANEL Chloride Lvl 99 meq/L 95 - 109 01/12 [facility] CHEM PANEL Potassium 4.4 meq/L 3.5 - 5.1 01/12 [facility] l [facility] CHEM PANEL Sodium Lvl 134 meq/L 135 - 145 01/12 [facility] CHEM PANEL CO2 28 meq/L 24 - 32 01/12 [facility] CHEM PANEL Creatinine 0.83 mg/dL 0.50 - 01/12 [facility] Lvl 1.40 [facility] CHEM PANEL eGFR 104 01/12 Result Comment: The eGFR is calculated using the CKD-EPI formula. In most young, healthy individuals the eGFR will be >90 mL/ min/1.73m2. The eGFR declines with age. An eGFR of 60-89 may be normal in [facility] mL/min/1. some populations, particularly the elderly, for whom the CKD-EPI formula has not been extensively validated. Use of the eGFR is not recommended in the following populations: [address] Individuals with unstable creatinine concentrations, including patients and those with serious co-morbid conditions. Patients with extremes in muscle mass or diet. The data above are obtained from the National Kidney Disease Education Program (NKDEP) which additionally recommends that when the eGFR is used in patients with extremes of body mass index for purposes of drug dosing, the eGFR should be multiplied by the estimated BMI. CHEM PANEL AGAP 11.4 meq/L 10.0 - 01/12 [facility] 20.0 [facility] HEMATOLOGY Eosinophils 0.1 K/CMM 0.0 - 0.5 01/12 [place] # /2016 [facility] HEMATOLOGY Monocytes # 0.4 K/CMM 0.0 - 0.8 01/12 [facility] HEMATOLOGY Lymphocytes 1.3 K/CMM 1.0 - 5.5 01/12 # /2015 [facility] HEMATOLOGY Segs-Bands # 4.0 K/CMM 1.5 - 8.1 01/12 [facility] HEMATOLOGY Basophils 0.6 % 0.0 - 1.0 01/12 [facility] HEMATOLOGY Eosinophils 1.9 % 0.0 - 4.0 01/12 [facility] HEMATOLOGY Monocytes 7.2 % 2.0 - 12.0 01/12 [facility] HEMATOLOGY Lymphocytes 21.5 % 20.0 - 01/12 [place] 40.0 [facility] HEMATOLOGY Segs 68.8 % 45.0 - 01/12 [place] 75.0 [facility] HEMATOLOGY MPV 8.0 fL 7.4 - 10.4 01/12 [facility] HEMATOLOGY Platelet 322 K/CMM 133 - 450 01/12 [facility] HEMATOLOGY RDW 13.5 % 11.5 - 01/12 [place] 14.5 [facility] HEMATOLOGY MCHC 34.5 g/dL 32.0 - 01/12 [place] 36.0 [facility] HEMATOLOGY MCH 28.3 pg 27.0 - 01/12 [place] 31.0 [facility] HEMATOLOGY MCV 82.0 fL 80.0 - 01/12 [place] 94.0 [facility] HEMATOLOGY Hct 35.8 % 42.0 - 01/12 [place] 54.0 [facility] HEMATOLOGY Hgb 12.3 g/dL 14.0 - 01/12 [place] 18.0 [facility] HEMATOLOGY RBC 4.36 M/CMM 4.70 - 01/12 [place] 6.10 [facility] HEMATOLOGY WBC 5.8 K/CMM 3.7 - 10.4 01/12 [facility] CHEM PANEL Magnesium 2.3 mg/dL 1.8 - 2.4 01/11 [facility] Lvl [facility] ELECTROLYT Chloride Lvl 100 meq/L 95 - 109 01/11 [facility] ES [facility] ELECTROLYT CO2 28 meq/L 24 - 32 01/11 [facility] ELECTROLYT eGFR 107 01/11 Result Comment: The eGFR is calculated using the CKD-EPI formula. In most young, healthy individuals the eGFR will be >90 mL/ min/1.73m2. The eGFR declines with age. An eGFR of 60-89 may be normal in [facility] mL/min/1. some populations, particularly the elderly, for whom the CKD-EPI formula has not been extensively validated. Use of the eGFR is not recommended in the following populations: [address] Individuals with unstable creatinine concentrations, including patients and those with serious co-morbid conditions. Patients with extremes in muscle mass or diet. The data above are obtained from the National Kidney Disease Education Program (NKDEP) which additionally recommends that when the eGFR is used in patients with extremes of body mass index for purposes of drug dosing, the eGFR should be multiplied by the estimated BMI. ELECTROLYT Calcium Lvl 9.7 mg/dL 8.5 - 10.5 01/11 [facility] ELECTROLYT Potassium 3.9 meq/L 3.5 - 5.1 01/11 [facility] ELECTROLYT Creatinine 0.77 mg/dL 0.50 - 01/11 [facility] Lvl 1.40 [facility] ELECTROLYT Sodium Lvl 137 meq/L 135 - 145 01/11 [facility] ELECTROLYT BUN 10 mg/dL 7 - 22 01/11 [facility] ELECTROLYT Glucose Lvl 122 mg/dL 70 - 99 01/11 [facility] ELECTROLYT AGAP 12.9 meq/L 10.0 - 01/11 [facility] 20.0 [facility] HEMATOLOGY Basophils 0.6 % 0.0 - 1.0 01/11 [facility] /[address] [place] [address] HEMATOLOGY Segs-Bands # 4.0 K/CMM 1.5 - 8.1 01/[address] HEMATOLOGY Lymphocytes 1.3 K/CMM 1.0 - 5.5 01/11 [facility] /2015 [facility] HEMATOLOGY Monocytes # 0.5 K/CMM 0.0 - 0.8 01/11 [facility] /[address] [place] [address] HEMATOLOGY Eosinophils 0.1 K/CMM 0.0 - 0.5 01/11 [facility] HEMATOLOGY Monocytes 8.5 % 2.0 - 12.0 01/11 [facility] HEMATOLOGY Eosinophils 2.2 % 0.0 - 4.0 01/11 [facility] HEMATOLOGY Lymphocytes 21.7 % 20.0 - 01/11 [place] 40.0 [facility] HEMATOLOGY Segs 67.0 % 45.0 - 01/11 [place] 75.0 [facility] HEMATOLOGY Platelet 348 K/CMM 133 - 450 01/11 [facility] HEMATOLOGY MPV 8.2 fL 7.4 - 10.4 01/11 [facility] HEMATOLOGY MCHC 33.9 g/dL 32.0 - 01/11 [place] 36.0 [facility] HEMATOLOGY RDW 13.7 % 11.5 - 01/11 [place] 14.5 [facility] HEMATOLOGY Hgb 12.8 g/dL 14.0 - 01/11 [place] 18.0 [facility] HEMATOLOGY RBC 4.53 M/CMM 4.70 - 01/11 6. [facility] [facility] HEMATOLOGY WBC 6.0 K/CMM 3.7 - 10.4 01/11 [facility] HEMATOLOGY MCH 28.2 pg 27.0 - 01/11 [place] 31.0 [facility] HEMATOLOGY Hct 37.7 % 42.0 - 01/11 [place] 54.0 [facility] HEMATOLOGY MCV 83.1 fL 80.0 - 01/11 [place] 94.0 [facility] Abdomen AP Abdomen AP EXAM: XR ABDOMEN 1 VIEW 01/07 - [facility] DX DX - [facility] DATE: 01/08/2016 6:30 PM CDT Read by: Emilia De MD Dictated Date/time: 01/09/16 08:37 Electronically Signed by: Emilia De MD 01/09/16 08:37 FINAL REPORT INDICATION: Tube placement/removal/reposition ADDITIONAL INFORMATION: None. COMPARISON: None. TECHNIQUE: AP view of the abdomen. FINDINGS: Nasogastric tube side port overlies the gastric fundus. IMPRESSION: 1. Nasogastric tube side port overlies the gastric fundus. URINE AND UA Nitrite Negative Negative 01/07 [facility] STOOL [facility] (01/08/16 6:24 AM) [place] URINE AND UA Leuk Est Negative Negative 01/07 [facility] (01/08/16 6:24 AM) [place] URINE AND UA RBC 3 /HPF 0 - 2 01/07 [facility] URINE AND UA Mucus Few /LPF None Seen 01/07 [facility] /LPF [facility] URINE AND UA Sq Epi None Seen 01/07 [facility] URINE AND UA <=1.0 0.1 - 1.0 01/07 [facility] Urobilinogen mg/dL [facility] URINE AND UA Color Yellow Yellow 01/07 [facility] *NA* Center (01/08/16 6:24 AM) URINE AND UA Turbidity Clear Clear 01/07 [facility] (01/08/16 6:24 AM) [place] URINE AND UA Spec Grav 1.009 <=1.030 01/07 [facility] URINE AND UA pH 5.5 5.0 - 8.0 01/07 [facility] URINE AND UA Protein 10 mg/dL Negative 01/07 [facility] mg/dL [facility] URINE AND UA Glucose Negative Negative 01/07 [facility] mg/dL mg/dL [facility] URINE AND UA Ketones 20 mg/dL Negative 01/07 [facility] mg/dL [facility] URINE AND UA Bili Negative Negative 01/07 [facility] *NA* [place] (01/08/16 6:24 AM) URINE AND UA Blood Small Negative 01/07 [facility] *ABN* [place] (01/08/16 6:24 AM) URINE AND UA WBC 2 /HPF 0 - 5 01/07 [facility] [place] [facility] CHEM PANEL Phosphorus 2.8 mg/dL 2.5 - 4.5 01/07 [facility]2015 [facility] CHEM PANEL Magnesium 2.1 mg/dL 1.8 - 2.4 01/07 [facility] Lvl [facility] Abdomen AP Abdomen AP EXAM: XR ABDOMEN 1 VIEW 01/07 - [facility] DX DX - [facility] DATE: 01/08/2016 5:04 AM CDT Read by: Gene Skelton MD Dictated Date/time: 01/08/16 11:06 Electronically Signed by: Gene Skelton MD 01/08/16 11:08 FINAL REPORT INDICATION: Nausea COMPARISON: 01/05/2016 TECHNIQUE: Single AP view of the abdomen. 2 image(s) obtained. FINDINGS: Lines and tubes: None. Lower thorax: Unremarkable where visualized. Bowel: Mild to moderate diffuse gaseous distention of small bowel and proximal colon is noted with small bowel in the left upper central abdomen measuring 3.5 cm. No definite evidence of obstruction. Small air seen in the rectum. Solid organs: No abnormal mass or organomegaly seen. Calcifications: No abnormal calcifications found. Bones: No acute abnormality. Other: None IMPRESSION: Increase in moderate diffuse gaseous dilation of small bowel measuring up to 3.5 cm with small air and stool seen in the proximal colon and rectum. Findings may represent worsening ileus. Continued monitoring advised. Chest Chest 1view EXAM: XR CHEST 1 VIEW 01/[address] [facility] DATE: 01/08/2016 4:53 AM CDT Read by: Brett Comer MD Dictated Date/time: 01/08/16 14:01 Electronically Signed by: Brett Comer MD 01/08/16 14:03 FINAL REPORT INDICATION: Fever COMPARISON: 12/17/2012. TECHNIQUE: AP chest FINDINGS: Lines and tubes: None. Lungs and pleura: There is subsegmental atelectasis in the lung bases. No definite focal consolidation. Heart and mediastinum: Heart size is normal. Stable mediastinal contours. IMPRESSION: 1. No acute findings. 2. Mild subsegmental atelectasis in the lung bases. CHEM PANEL Phosphorus 2.6 mg/dL 2.5 - 4.5 01/[address] CHEM PANEL Magnesium 2.4 mg/dL 1.8 - 2.4 01/[address] CHEM PANEL Phosphorus 4.0 mg/dL 2.5 - 4.5 01/[address] Abdomen AP Abdomen AP EXAM: XR ABDOMEN 1 VIEW 01/04 [facility] DX [facility] DATE: 01/05/2016 4:32 PM CDT Read by: Evangelina Cardona MD Dictated Date/time: 01/06/16 09:00 Electronically Signed by: Evangelina Cardona MD 01/06/16 09:00 FINAL REPORT INDICATION: Abdominal pain, acute COMPARISON: 01/05/2016 TECHNIQUE: AP view of the abdomen. FINDINGS: A Ling catheter in situ. Bowel: Moderately gas-distended stomach. No dilated small bowel loops or colon. Solid organs: No abnormal mass or organomegaly seen. No abnormal calcifications found. Bones: Unremarkable. IMPRESSION: Moderately gas-distended stomach. No dilated bowel loops. Abdomen 2 Abdomen 2 EXAM: XR ABDOMEN 1 VIEW 01/04 - [facility] views DX views /2015 - [facility] DATE: 01/05/2016 1:23 PM CDT Read by: Emilia De MD Dictated Date/time: 01/05/16 13:51 Electronically Signed by: Emilia De MD 01/05/16 13:52 FINAL REPORT INDICATION: MISSING NEEDLE ADDITIONAL INFORMATION: None. COMPARISON: None. TECHNIQUE: AP and lateral views of the abdomen. FINDINGS: The missing needle is not identified overlying the abdomen and pelvis. IMPRESSION: No radiopaque foreign body is seen. BLOOD BANK Antibody Negative 01/04 [facility] RESULTS Scrn [facility] (01/05/16 6:01 AM) [place] BLOOD BANK ABO/Rh O POS 01/04 [place] RESULTS /2015 [facility] HEMATOLOGY PTT 41.1 s 22.9 - 01/04 [place] 35.8 /2015 [facility] HEMATOLOGY PT 13.3 s 12.0 - 01/04 [facility] 14.7 /2015 [facility] HEMATOLOGY INR 0.99 0.85 - 01/04 [facility] 1.17 [facility] Chemistry CHOLESTEROL 137 mg/dl - 199 12/25 Group [facility] TRIGLYCERIDE 173 mg/dl - 149 12/25 Group Chemistry HDL 39 mg/dl >=61 12/25 Group Chemistry LDL 63 mg/dl - 99 12/25 Group Chemistry SODIUM 137 MEQ/L 135 - 145 12/25 [facility] mmol/L Group Chemistry POTASSIUM 4.5 MEQ/L 3.5 - 5.1 12/25 [facility] mmol/L Group Chemistry CREATININE 1.0 mg/dL 0.5 - 1.4 12/25 Group Chemistry BUN 14 mg/dL 7 - 22 12/25 Group Chemistry BUN/CREAT 14 6 - 12/25 Group Chemistry ALBUMIN 4.1 g/dL 3.5 - 5.0 12/25 Group Chemistry CALCIUM 9.5 mg/dL 8.5 - 10.5 12/25 Group Chemistry SGPT (ALT) 36 U/L 0 - 65 12/25 Group Chemistry SGOT (AST) 19 U/L 0 - 37 12/25 Group Chemistry ALK PHOS 67 U/L 39 - 136 12/25 Group Chemistry TSH 3.140 0.360 - 12/25 [facility] uIU/mL 3.740 /2013 Group Chemistry PSA 1.12 ng/mL 0.00 - 12/25 4.00 Group Hematology HGB 15.4 g/dL 14.0 - 12/25 [facility] 18.0 Group Hematology HCT 45.4 % 42.0 - 12/25 54.0 Group Hematology PLATELETS 355 K/CMM 133 - 450 12/25 mm3 Group Urinalysis UA COLOR Yellow 12/25 Group Urinalysis BACTERIA URN Occasional 12/25 Group Chemistry SODIUM 139 MEQ/L 135 - 145 12/18 [facility] mmol/L Group Chemistry POTASSIUM 3.8 MEQ/L 3.5 - 5.1 12/18 [facility] mmol/L Group Chemistry CREATININE 1.1 mg/dL 0.5 - 1.4 12/18 Group Chemistry BUN 16 mg/dL 7 - 22 12/18 Group Chemistry BUN/CREAT 15 6 - 25 12/18 Group Chemistry ALBUMIN 3.9 g/dL 3.5 - 5.0 12/18 Group Chemistry CALCIUM 9.6 mg/dL 8.5 - 10.5 12/18 Group Chemistry SGPT (ALT) 32 U/L 0 - 65 12/18 Group Chemistry SGOT (AST) 14 U/L 0 - 37 12/18 Group Chemistry ALK PHOS 73 U/L 39 - 136 12/18 Group Chemistry SODIUM 139 MEQ/L 135 - 145 12/18 [facility] mmol/L Group Chemistry POTASSIUM 3.8 MEQ/L 3.5 - 5.1 12/18 [facility] mmol/L Group Chemistry CREATININE 1.1 mg/dL 0.5 - 1.4 12/18 Group Chemistry BUN 16 mg/dL 7 - 22 12/18 Group Chemistry BUN/CREAT 15 6 - 25 12/18 Group Chemistry ALBUMIN 3.9 g/dL 3.5 - 5.0 12/18 [facility] Chemistry CALCIUM 9.6 mg/dL 8.5 - 10.5 12/18 Group Chemistry SGPT (ALT) 32 U/L 0 - 65 12/18 Group Chemistry SGOT (AST) 14 U/L 0 - 37 12/18 Group Chemistry ALK PHOS 73 U/L 39 - 136 12/18 Group Chemistry SODIUM 139 MEQ/L 135 - 145 12/18 [facility] mmol/L Group Chemistry POTASSIUM 3.8 MEQ/L 3.5 - 5.1 12/18 [facility] mmol/L Group Chemistry CREATININE 1.1 mg/dL 0.5 - 1.4 12/18 Group Chemistry BUN 16 mg/dL 7 - 12/18 Group Chemistry BUN/CREAT 15 6 - 25 12/18 Group Chemistry SODIUM 139 MEQ/L 135 - 145 12/18 [facility] mmol/L Group Chemistry POTASSIUM 3.8 MEQ/L 3.5 - 5.1 12/18 [facility] mmol/L Group Chemistry CREATININE 1.1 mg/dL 0.5 - 1.4 12/18 Group Chemistry BUN 16 mg/dL 7 - 12/18 Group Chemistry BUN/CREAT 15 6 - 25 12/18 Group Hematology HGB 15.0 g/dL 14.0 - 12/18 [facility] Group Hematology HCT 44.6 % 42.0 - 12/18 Medical . Group Hematology PLATELETS 289 K/CMM 133 - 450 12/18 Group Hematology HGB 15.0 g/dL 14.0 - 12/18 Group Hematology HCT 44.6 % 42.0 - 12/18 Medical .0 Group Hematology PLATELETS 289 K/CMM 133 - 450 12/18 /mm3 Group URINE AND UA <=1.0 0.1 - 1.0 12/17 STOOL Urobilinogen mg/dL [facility] URINE AND UA Color Ltyellow 12/17 [place] URINE AND UA Sq Epi None Seen 12/17 [place] URINE AND UA Spec Grav 1.012 <=1.030 12/17 [place] URINE AND UA Turbidity Clear Clear 12/17 [facility] (12/16/13 10:35 PM) URINE AND UA Leuk Est Negative Negative 12/17 [facility] (12/16/13 10:35 PM) URINE AND UA Nitrite Negative Negative 12/17 [facility] (12/16/13 10:35 PM) URINE AND UA RBC 2 /HPF 0 - 2 12/17 [facility] URINE AND UA WBC 1 /HPF 0 - 5 12/17 [facility] URINE AND UA Bili Negative Negative 12/17 [facility] *NA* (12/16/13 10:35 PM) URINE AND UA Ketones Trace Negative 12/17 [facility] mg/dL mg/dL [facility] URINE AND UA pH 5.0 5.0 - 8.0 12/17 [facility] URINE AND UA Glucose Negative Negative 12/17 [facility] mg/dL mg/dL [facility] URINE AND UA Protein Negative Negative 12/17 [facility] mg/dL mg/dL [facility] URINE AND UA Blood Moderate Negative 12/17 [facility] *ABN* (12/16/13 10:35 PM) CHEM PANEL eGFR 90 12/17 1Result Comment: The eGFR is calculated using the CKD-EPI formula. In most young, healthy individuals the eGFR will be >90 mL/ min/1.73m2. The eGFR declines with age. An eGFR of 60-89 may be normal in mL/min/1.7 /2013 some populations, particularly the elderly, for whom the CKD-EPI formula has not been extensively validated. Use of the eGFR is not recommended in the following populations: [facility] 3m2 Individuals with unstable creatinine concentrations, including patients and those with serious co-morbid conditions. Patients with extremes in muscle mass or diet. The data above are obtained from the National Kidney Disease Education Program (NKDEP) which additionally recommends that when the eGFR is used in patients with extremes of body mass index for purposes of drug dosing, the eGFR should be multiplied by the estimated BMI. CHEM PANEL Alk Phos 79 unit/L 39 - 136 12/17 [place] CHEM PANEL AST 16 unit/L 0 - 37 12/17 [place] CHEM PANEL ALT 33 unit/L 0 - 65 12/17 [place] CHEM PANEL Bili Total 0.7 mg/dL 0.2 - 1.3 12/17 [place] CHEM PANEL Total 7.8 g/dL 6.4 - 8.4 12/17 [place] CHEM PANEL Calcium Lvl 9.3 mg/dL 8.5 - 10.5 12/17 [place] CHEM PANEL Albumin Lvl 4.2 g/dL 3.5 - 5.0 12/17 [place] CHEM PANEL CO2 27 meq/L 24 - 32 12/17 [place] CHEM PANEL Sodium Lvl 136 meq/L 135 - 145 12/17 [place] CHEM PANEL Creatinine 1.0 mg/dL 0.5 - 1.4 12/17 [facility] [place] CHEM PANEL BUN 12 mg/dL 7 - 22 12/17 [place] CHEM PANEL Chloride Lvl 102 meq/L 95 - 109 12/17 [place] CHEM PANEL Potassium 3.7 meq/L 3.5 - 5.1 12/17 [facility] [place] CHEM PANEL Glucose Lvl 100 mg/dL 70 - 99 12/17 2Interpretive Data: Adult reference range values reflect the clinical guidelines of the [place] [employer]. [facility] CHEM PANEL A/G Ratio 1.2 0.7 - 1.6 12/17 [place] CHEM PANEL B/C Ratio 12 6 - 25 12/17 [facility] CHEM PANEL Globulin 3.6 g/dL 2.0 - 4.0 12/17 [place] CHEM PANEL AGAP 10.7 meq/L 10.0 - 12/17 [facility] 20.0 [facility] HEMATOLOGY Lymphocytes 1.5 K/CMM 1.0 - 5.5 12/17 /2013 [facility] HEMATOLOGY Monocytes # 0.8 K/CMM 0.0 - 0.8 12/17 [facility] HEMATOLOGY Segs-Bands # 9.9 K/CMM 1.5 - 8.1 12/17 [facility] HEMATOLOGY Basophils 0.3 % 0.0 - 1.0 12/17 [facility] HEMATOLOGY Eosinophils 0.4 % 0.0 - 4.0 12/17 [facility] HEMATOLOGY Monocytes 6.4 % 2.0 - 12.0 12/17 [facility] HEMATOLOGY Lymphocytes 12.5 % 20.0 - 12/17 [facility] 40.0 /2013 [facility] HEMATOLOGY Segs 80.4 % 45.0 - 12/17 [facility] 75.0 /2013 [facility] HEMATOLOGY MCV 85.6 fL 80.0 - 12/17 94.0 /2013 [facility] HEMATOLOGY Hct 43.7 % 42.0 - 12/17 54.0 /2013 [facility] HEMATOLOGY Hgb 14.9 g/dL 14.0 - 12/17 18.0 /2013 [facility] HEMATOLOGY RBC 5.10 M/CMM 4.70 - 12/17 [facility] 6.10 /2013 [facility] HEMATOLOGY WBC 12.3 K/CMM 3.7 - 10.4 12/17 [facility] HEMATOLOGY Platelet 277 K/CMM 133 - 450 12/17 [facility] HEMATOLOGY MCH 29.1 pg 27.0 - 12/17 31.0 /2013 [facility] HEMATOLOGY MCHC 34.0 g/dL 32.0 - 12/17 36.0 /2013 [facility] HEMATOLOGY MPV 9.0 fL 7.4 - 10.4 12/17 [facility] HEMATOLOGY RDW 12.9 % 11.5 - 12/17 14.5 [place] Chemistry MAGNESIUM 2.1 mg/dL 1.8 - 2.4 09/25 Group Chemistry SODIUM 137 MEQ/L 135 - 145 09/25 [facility] mmol/L Group Chemistry POTASSIUM 4.2 MEQ/L 3.5 - 5.1 09/25 [facility] mmol/L Group Chemistry CREATININE 0.8 mg/dL 0.5 - 1.4 09/25 Group Chemistry BUN 16 mg/dL 7 - 22 09/25 Group Chemistry BUN/CREAT 20 6 - 25 09/25 Group Chemistry MAGNESIUM 2.1 mg/dL 1.8 - 2.4 09/25 Group Chemistry SODIUM 137 MEQ/L 135 - 145 09/25 [facility] mmol/L Group Chemistry POTASSIUM 4.2 MEQ/L 3.5 - 5.1 09/25 Medical mmol/L Group Chemistry CREATININE 0.8 mg/dL 0.5 - 1.4 09/25 Group Chemistry BUN 16 mg/dL 7 - 09/25 Group Chemistry MAGNESIUM 2.1 mg/dL 1.8 - 2.4 09/25 Group Chemistry MAGNESIUM 2.1 mg/dL 1.8 - 2.4 09/25 Group Chemistry SODIUM 137 MEQ/L 135 - 145 09/25 [facility] mmol/L Group Chemistry POTASSIUM 4.2 MEQ/L 3.5 - 5.1 09/25 [facility] mmol/L Group Chemistry CREATININE 0.8 mg/dL 0.5 - 1.4 09/25 Group Chemistry BUN 16 mg/dL - 09/25 Group Chemistry BUN/CREAT 20 - 09/25 Group Chemistry ALBUMIN 4.4 g/dL 3.5 - 5.0 09/25 [facility] CALCIUM 9.0 mg/dL 8.5 - 10.5 09/25 [facility] SGPT (ALT) 33 U/L 0 - 65 09/25 [facility] Chemistry SGOT (AST) 18 U/L 0 - 37 09/25 Group Chemistry ALK PHOS 76 U/L 39 - 136 09/25 Group Chemistry TSH 3.110 0.360 - 09/25 [facility] uIU/mL 3.740 /2013 Group Chemistry SODIUM 137 MEQ/L 135 - 145 09/25 [facility] mmol/L Group Chemistry POTASSIUM 4.2 MEQ/L 3.5 - 5.1 09/25 [facility] mmol/L Group Chemistry CREATININE 0.8 mg/dL 0.5 - 1.4 09/25 Group Chemistry BUN 16 mg/dL - 09/25 Group Chemistry BUN/CREAT 20 - 09/25 Group Chemistry ALBUMIN 4.4 g/dL 3.5 - 5.0 09/25 [facility] CALCIUM 9.0 mg/dL 8.5 - 10.5 09/25 [facility] Chemistry SGPT (ALT) 33 U/L 0 - 65 09/25 Group Chemistry SGOT (AST) 18 U/L 0 - 37 09/25 Group Chemistry ALK PHOS 76 U/L 39 - 136 09/25 Group Chemistry TSH 3.110 0.360 - 09/25 [facility] uIU/mL 3.740 Group Chemistry MAGNESIUM 2.1 mg/dL 1.8 - 2.4 09/25 Group Chemistry SODIUM 137 MEQ/L 135 - 145 09/25 Medical mmol/L Group Chemistry POTASSIUM 4.2 MEQ/L 3.5 - 5.1 09/25 [facility] mmol/L Group Chemistry CREATININE 0.8 mg/dL 0.5 - 1.4 09/25 Group Chemistry BUN 16 mg/dL 7 - 09/25 Group Chemistry BUN/CREAT 20 6 - 25 09/25 Group Chemistry ALBUMIN 4.4 g/dL 3.5 - 5.0 09/25 Group Chemistry CALCIUM 9.0 mg/dL 8.5 - 10.5 09/25 Group Chemistry SGPT (ALT) 33 U/L 0 - 65 09/25 Group Chemistry SGOT (AST) 18 U/L 0 - 37 09/25 Group Chemistry ALK PHOS 76 U/L 39 - 136 09/25 Group Chemistry TSH 3.110 0.360 - 09/25 [facility] uIU/mL 3.740 Group Chemistry MAGNESIUM 2.1 mg/dL 1.8 - 2.4 09/25 Group Chemistry SODIUM 137 MEQ/L 135 - 145 09/25 mmol/L Group Chemistry POTASSIUM 4.2 MEQ/L 3.5 - 5.1 09/25 [facility] mmol/L Group Chemistry CREATININE 0.8 mg/dL 0.5 - 1.4 09/25 Group Chemistry BUN 16 mg/dL 7 - 09/25 Group Hematology HGB 14.6 g/dL 14.0 - 09/25 18. Group Hematology HCT 44.3 % 42.0 - 09/25 [facility] 54.0 Group Hematology PLATELETS 263 K/CMM 133 - 450 09/25 Group Hematology HGB 14.6 g/dL 14.0 - 09/25 18. Group Hematology HCT 44.3 % 42.0 - 09/25 [facility] 54.0 /2013 Group Hematology PLATELETS 263 K/CMM 133 - 450 09/25 Medical / Group Hematology HGB 14.6 g/dL 14.0 - 09/25 Medical 18.0 Group Hematology HCT 44.3 % 42.0 - 09/25 [facility] 54.0 /2013 Group Hematology PLATELETS 263 K/CMM 133 - 450 09/25 Medical /mm3 Group Chemistry SODIUM 135 MEQ/L 135 - 145 05/14 [facility] mmol/L Group Chemistry POTASSIUM 4.1 MEQ/L 3.5 - 5.1 05/14 [facility] mmol/L Group Chemistry CREATININE 1.1 mg/dL 0.5 - 1.4 05/14 Group Chemistry BUN 16 mg/dL - 05/14 Group Chemistry BUN/CREAT 15 6 - 25 05/14 Group Chemistry ALBUMIN 4.3 g/dL 3.5 - 5.0 05/14 Group Chemistry SODIUM 135 MEQ/L 135 - 145 05/14 Medical mmol/L Group Chemistry POTASSIUM 4.1 MEQ/L 3.5 - 5.1 05/14 [facility] mmol/L Group Chemistry CREATININE 1.1 mg/dL 0.5 - 1.4 05/14 Group Chemistry BUN 16 mg/dL - 05/14 Group Chemistry SODIUM 135 MEQ/L 135 - 145 05/14 [facility] mmol/L Group Chemistry POTASSIUM 4.1 MEQ/L 3.5 - 5.1 05/14 [facility] mmol/L Group Chemistry CREATININE 1.1 mg/dL 0.5 - 1.4 05/14 Group Chemistry BUN 16 mg/dL - 05/14 Group Chemistry BUN/CREAT 15 6 - 25 05/14 Group Chemistry ALBUMIN 4.3 g/dL 3.5 - 5.0 05/14 Group Chemistry CALCIUM 9.6 mg/dL 8.5 - 10.5 05/14 Group Chemistry SGPT (ALT) 34 U/L 0 - 65 05/14 Group Chemistry SGOT (AST) 17 U/L 0 - 37 05/14 Group Chemistry ALK PHOS 76 U/L 39 - 136 05/14 Group Chemistry SODIUM 135 MEQ/L 135 - 145 05/14 [facility] mmol/L Group Chemistry POTASSIUM 4.1 MEQ/L 3.5 - 5.1 05/14 [facility] mmol/L Group Chemistry CREATININE 1.1 mg/dL 0.5 - 1.4 05/14 Group Chemistry BUN 16 mg/dL 7 - 22 05/14 Group Chemistry BUN/CREAT 15 6 - 25 05/14 Group Chemistry ALBUMIN 4.3 g/dL 3.5 - 5.0 05/14 Group Chemistry CALCIUM 9.6 mg/dL 8.5 - 10.5 05/14 Group Chemistry SGPT (ALT) 34 U/L 0 - 65 05/14 Group Chemistry SGOT (AST) 17 U/L 0 - 37 05/14 Group Chemistry ALK PHOS 76 U/L 39 - 136 05/14 Group Chemistry SODIUM 135 MEQ/L 135 - 145 05/14 [facility] mmol/L Group Chemistry POTASSIUM 4.1 MEQ/L 3.5 - 5.1 05/14 Medical mmol/L Group Chemistry CREATININE 1.1 mg/dL 0.5 - 1.4 05/14 Group Chemistry BUN 16 mg/dL 7 - 05/14 Group Chemistry BUN/CREAT 15 6 - 25 05/14 Group Chemistry ALBUMIN 4.3 g/dL 3.5 - 5.0 05/14 Group Chemistry CALCIUM 9.6 mg/dL 8.5 - 10.5 05/14 Group Chemistry SGPT (ALT) 34 U/L 0 - 65 05/14 Group Chemistry SGOT (AST) 17 U/L 0 - 37 05/14 Group Chemistry ALK PHOS 76 U/L 39 - 136 05/14 Group Chemistry BUN/CREAT 15 6 - 25 05/14 Group Chemistry SODIUM 135 MEQ/L 135 - 145 05/14 Medical mmol/L Group Chemistry POTASSIUM 4.1 MEQ/L 3.5 - 5.1 05/14 [facility] mmol/L Group Chemistry CREATININE 1.1 mg/dL 0.5 - 1.4 05/14 Group Chemistry BUN 16 mg/dL 7 - 05/14 Group Chemistry BUN/CREAT 15 6 - 25 05/14 Group Chemistry CHOLESTEROL 159 mg/dl 120 - 200 12/04 Group Chemistry TRIGLYCERIDE 104 mg/dl 0 - 200 12/04 Group Chemistry HDL 59 mg/dl >=35 12/04 Group Chemistry SODIUM 136 MEQ/L 135 - 145 12/04 [facility] mmol/L Group Chemistry POTASSIUM 3.8 MEQ/L 3.5 - 5.1 12/04 [facility] mmol/L Group Chemistry BUN 15 mg/dL 7 - 12/04 Group Chemistry CHOLESTEROL 159 mg/dl 120 - 200 12/04 Group Chemistry TRIGLYCERIDE 104 mg/dl 0 - 200 12/04 Group Chemistry HDL 59 mg/dl >=35 12/04 Group Chemistry SODIUM 136 MEQ/L 135 - 145 12/04 [facility] mmol/L Group Chemistry POTASSIUM 3.8 MEQ/L 3.5 - 5.1 12/04 [facility] mmol/L Group Chemistry CHOLESTEROL 159 mg/dl 120 - 200 12/04 Group Chemistry TRIGLYCERIDE 104 mg/dl 0 - 200 12/04 Group Chemistry CHOLESTEROL 159 mg/dl 120 - 200 12/04 Group Chemistry TRIGLYCERIDE 104 mg/dl 0 - 200 12/04 Group Chemistry HDL 59 mg/dl >=35 12/04 Group Chemistry LDL 79 mg/dl 0 - 129 12/04 Group Chemistry SODIUM 136 MEQ/L 135 - 145 12/04 [facility] mmol/L Group Chemistry POTASSIUM 3.8 MEQ/L 3.5 - 5.1 12/04 [facility] mmol/L Group Chemistry BUN 15 mg/dL 7 - 12/04 Group Chemistry CREATININE 1.0 mg/dL 0.5 - 1.4 12/04 Group Chemistry BUN/CREAT 15 6 - 25 12/04 Group Chemistry ALBUMIN 4.1 g/dL 3.5 - 5.0 12/04 Group Chemistry CALCIUM 9.1 mg/dL 8.5 - 10.5 12/04 Group Chemistry SGOT (AST) 16 U/L 0 - 37 12/04 Group Chemistry SGPT (ALT) 41 U/L 0 - 65 12/04 Group Chemistry ALK PHOS 67 U/L 39 - 136 12/04 Group Chemistry HDL 59 mg/dl >=35 12/04 Group Chemistry SODIUM 136 MEQ/L 135 - 145 12/04 [facility] mmol/L Group Chemistry POTASSIUM 3.8 MEQ/L 3.5 - 5.1 12/04 [facility] mmol/L Group Chemistry BUN 15 mg/dL 7 - 22 12/04 Group Chemistry CREATININE 1.0 mg/dL 0.5 - 1.4 12/04 Group Chemistry BUN/CREAT 15 6 - 25 12/04 Group Chemistry ALBUMIN 4.1 g/dL 3.5 - 5.0 12/04 Group Chemistry CALCIUM 9.1 mg/dL 8.5 - 10.5 12/04 Group Chemistry SGOT (AST) 16 U/L 0 - 37 12/04 Group Chemistry SGPT (ALT) 41 U/L 0 - 65 12/04 Group Chemistry ALK PHOS 67 U/L 39 - 136 12/04 Group Chemistry CHOLESTEROL 159 mg/dl 120 - 200 12/04 Group Chemistry TRIGLYCERIDE 104 mg/dl 0 - 200 12/04 Group Chemistry HDL 59 mg/dl >=35 12/04 Group Chemistry LDL 79 mg/dl 0 - 129 12/04 Group Chemistry SODIUM 136 MEQ/L 135 - 145 12/04 [facility] mmol/L Group Chemistry POTASSIUM 3.8 MEQ/L 3.5 - 5.1 12/04 mmol/L Group Chemistry BUN 15 mg/dL 7 - 22 12/04 Group Chemistry CREATININE 1.0 mg/dL 0.5 - 1.4 12/04 Group Chemistry BUN/CREAT 15 6 - 25 12/04 Group Chemistry ALBUMIN 4.1 g/dL 3.5 - 5.0 12/04 Group Chemistry CALCIUM 9.1 mg/dL 8.5 - 10.5 12/04 Group Chemistry SGOT (AST) 16 U/L 0 - 37 12/04 Group Chemistry SGPT (ALT) 41 U/L 0 - 65 12/04 Group Chemistry ALK PHOS 67 U/L 39 - 136 12/04 Group Chemistry CHOLESTEROL 159 mg/dl 120 - 200 12/04 Group Chemistry TRIGLYCERIDE 104 mg/dl 0 - 200 12/04 Group Chemistry HDL 59 mg/dl >=35 12/04 Group Chemistry LDL 79 mg/dl 0 - 129 12/04 Group Chemistry SODIUM 136 MEQ/L 135 - 145 12/04 [facility] mmol/L Group Chemistry CHOLESTEROL 209 mg/dl 120 - 200 08/31 Group Chemistry TRIGLYCERIDE 110 mg/dl 0 - 200 08/31 Group Chemistry HDL 49 mg/dl >=35 08/31 Group Chemistry LDL 138 mg/dl 0 - 129 08/31 Group Chemistry TSH 2.300 0.360 - 08/31 [facility] uIU/mL 3.740 Group Chemistry SODIUM 140 MEQ/L 135 - 145 08/31 [facility] mmol/L Group Chemistry POTASSIUM 4.3 MEQ/L 3.5 - 5.1 08/31 [facility] mmol/L Group Chemistry BUN 15 mg/dL 7 - 22 08/31 Group Chemistry CREATININE 1.0 mg/dL 0.5 - 1.4 08/31 Group Chemistry BUN/CREAT 15 6 - 25 08/31 Group Chemistry ALBUMIN 4.4 g/dL 3.5 - 5.0 08/31 Group Chemistry CALCIUM 9.5 mg/dL 8.5 - 10.5 08/31 Group Chemistry SGOT (AST) 14 U/L 0 - 37 08/31 Group Chemistry SGPT (ALT) 32 U/L 0 - 65 08/31 Group Chemistry ALK PHOS 63 U/L 39 - 136 08/31 Group Chemistry PSA 0.83 ng/mL 0.00 - 08/31 4. Group Chemistry CHOLESTEROL 209 mg/dl 120 - 200 06 Group Chemistry TRIGLYCERIDE 110 mg/dl 0 - 200 08/31 Group Chemistry HDL 49 mg/dl >=35 08/31 Group Chemistry LDL 138 mg/dl 0 - 129 08/31 Group Chemistry TSH 2.300 0.360 - 08/31 [facility] uIU/mL 3.74 Group Chemistry SODIUM 140 MEQ/L 135 - 145 08/31 [facility] mmolL Group Chemistry POTASSIUM 4.3 MEQ/L 3.5 - 5.1 08/31 [facility] mmolL Group Chemistry BUN 15 mg/dL 7 - 22 08/31 Group Chemistry CREATININE 1.0 mg/dL 0.5 - 1.4 08/31 Group Chemistry BUN/CREAT 15 6 - 25 08/31 Group Chemistry ALBUMIN 4.4 g/dL 3.5 - 5.0 08/31 Group Chemistry CALCIUM 9.5 mg/dL 8.5 - 10.5 08/31 Group Chemistry SGOT (AST) 14 U/L 0 - 37 08/31 Group Chemistry SGPT (ALT) 32 U/L 0 - 65 08/31 Group Chemistry ALK PHOS 63 U/L 39 - 136 08/31 Group Chemistry PSA 0.83 ng/mL 0.00 - 08/31 4.00 Group Chemistry CHOLESTEROL 209 mg/dl 120 - 200 08/31 Group Chemistry TRIGLYCERIDE 110 mg/dl 0 - 200 08/31 Group Chemistry HDL 49 mg/dl >=35 08/31 Group Chemistry LDL 138 mg/dl 0 - 129 08/31 Group Chemistry TSH 2.300 0.360 - 08/31 [facility] uIU/mL 3.740 Group Hematology HGB 14.5 g/dL 14.0 - 08/31 18.0 Group Hematology HCT 43.6 % 42.0 - 08/31 54.0 Group Hematology PLATELETS 266 K/CMM 133 - 450 06 Group Hematology HGB 14.5 g/dL 14.0 - 08/31 [facility] 18.0 [facility] Hematology HCT 43.6 % 42.0 - 08/31 Medical 54.0 /2012 Group Hematology PLATELETS 266 K/CMM 133 - 450 08/31 Medical /mm3 /2011 Group Vital Signs Vital Sign Value Date Comments Source Respitory Rate 18 03/16/2016 [facility] Systolic (mm Hg) 115 03/16/2016 [facility] Diastolic (mm Hg) 67 03/16/2016 [facility] Temperature Oral (F) 97.9 F 03/16/2016 [facility] Heart Rate 61 03/16/2016 [facility] Temperature Oral (F) 98.0 F 03/16/2016 [facility] Respitory Rate 18 03/16/2016 [facility] Systolic (mm Hg) 117 03/16/2016 [facility] Diastolic (mm Hg) 77 03/16/2016 [facility] Heart Rate 58 03/16/2016 [facility] Respitory Rate 16 03/16/2016 [facility] Heart Rate 61 03/16/2016 [facility] Temperature Oral (F) 97.9 F 03/16/2016 [facility] Systolic (mm Hg) 107 03/16/2016 [facility] Diastolic (mm Hg) 67 03/16/2016 [facility] Weight 86.364 03/15/2016 [facility] Height 180.34 cm 03/15/2016 [facility] BMI Calculated 26.56 03/15/2016 [facility] Weight 86.364 03/14/2016 [facility] BMI Calculated 26.56 03/14/2016 [facility] Height 180.34 cm 03/14/2016 [facility] Weight 86.364 2016 [facility] BMI Calculated 26.56 2016 [facility] Height 180.34 cm 2016 [facility] Heart Rate 74 01/14/2016 [facility] Systolic (mm Hg) 124 01/14/2016 [facility] Diastolic (mm Hg) 72 01/14/2016 [facility] Temperature Oral (F) 98.0 F 01/14/2016 [facility] Respitory Rate 18 01/14/2016 [facility] Systolic (mm Hg) 129 01/14/2016 [facility] Diastolic (mm Hg) 80 01/14/2016 [facility] Respitory Rate 18 01/14/2016 [facility] Heart Rate 78 01/14/2016 [facility] Temperature Oral (F) 97.9 F 01/14/2016 [facility] Heart Rate 80 01/14/2016 [facility] Systolic (mm Hg) 118 01/14/2016 [facility] Diastolic (mm Hg) 80 01/14/2016 [facility] Respitory Rate 18 01/14/2016 [facility] Temperature Oral (F) 98.1 F 01/14/2016 [facility] Weight 87.727 01/06/2016 [facility] BMI Calculated 26.97 01/06/2016 [facility] Height 180.34 cm 01/06/2016 [facility] Weight 87.727 01/05/2016 [facility] BMI Calculated 26.97 01/05/2016 [facility] Height 180.34 cm 01/05/2016 [facility] Height 180.34 cm 12/31/2015 [facility] BMI Calculated 26.97 12/31/2015 [facility] Weight 87.727 12/31/2015 [facility] Weight 193.8 12/25/2013 [facility] Temperature Oral (F) 96.5 F 12/25/2013 [facility] Respitory Rate 16 12/25/2013 [facility] Heart Rate 86 12/25/2013 [facility] Systolic (mm Hg) 115 12/25/2013 [facility] Diastolic (mm Hg) 70 12/25/2013 [facility] Height 70 12/18/2013 [facility] Weight 194.13 12/18/2013 [facility] Temperature Oral (F) 96.9 F 12/18/2013 [facility] Heart Rate 77 12/18/2013 [facility] Systolic (mm Hg) 102 12/18/2013 [facility] Diastolic (mm Hg) 78 12/18/2013 [facility] Temperature Oral (F) 99.3 F 12/17/2013 [facility] 80 12/17/2013 [facility] Systolic (mm Hg) 109 12/17/2013 [facility] Respitory Rate 20 12/17/2013 [facility] Diastolic (mm Hg) 69 12/17/2013 [facility] Temperature Oral (F) 100.4 F 12/17/2013 [facility] Height 182.88 cm 12/17/2013 [facility] BMI Calculated 26.91 12/17/2013 [facility] Weight 90 12/17/2013 [facility] Systolic (mm Hg) 139 12/17/2013 [facility] Diastolic (mm Hg) 82 12/17/2013 [facility] Heart Rate 101 12/17/2013 [facility] Respitory Rate 20 12/17/2013 [facility] Temperature Oral (F) 98.3 F 12/17/2013 [facility] Weight 198.25 10/28/2013 [facility] Temperature Oral (F) 97.3 F 10/28/2013 [facility] Systolic (mm Hg) 110 10/28/2013 [facility] Diastolic (mm Hg) 60 10/28/2013 [facility] Heart Rate 97 10/28/2013 [facility] Weight 201 09/25/2013 [facility] Temperature Oral (F) 97.2 F 09/25/2013 [facility] Systolic (mm Hg) 112 09/25/2013 [facility] Diastolic (mm Hg) 70 09/25/2013 [facility] Heart Rate 87 09/25/2013 [facility] Weight 197 11/25/2012 [facility] Temperature Oral (F) 96.5 F 11/25/2012 [facility] Systolic (mm Hg) 109 11/25/2012 [facility] Diastolic (mm Hg) 71 11/25/2012 [facility] Heart Rate 104 11/25/2012 [facility] Weight 197.25 09/11/2012 [facility] Temperature Oral (F) 96.6 F 09/11/2012 [facility] Systolic (mm Hg) 117 09/11/2012 [facility] Diastolic (mm Hg) 69 09/11/2012 [facility] Heart Rate 100 09/11/2012 [facility] Weight 193 05/14/2012 [facility] Temperature Oral (F) 96.0 F 05/14/2012 [facility] Systolic (mm Hg) 106 05/14/2012 [facility] Diastolic (mm Hg) 67 05/14/2012 [facility] Heart Rate 70 05/14/2012 [facility] Weight 194 12/05/2011 [facility] Temperature Oral (F) 95.1 F 12/05/2011 [facility] Systolic (mm Hg) 109 12/05/2011 [facility] Diastolic (mm Hg) 72 12/05/2011 [facility] Heart Rate 72 12/05/2011 [facility] Weight 194.4 09/01/2011 [facility] Height 70 09/01/2011 [facility] Temperature Oral (F) 96.4 F 09/01/2011 [facility] Systolic (mm Hg) 113 09/01/2011 [facility] Diastolic (mm Hg) 63 09/01/2011 [facility] Heart Rate 78 09/01/2011 [facility] Encounters Location Location Encounter Encounter Reason Attending ADM DC Status Source Details Type Number For Provider Date Date Visit [facility] Office [id number] Fabby 09/25 09/25 [facility] Visit 0010 MD Anand /2013 Medical [facility] Lab Report [id number] Fabby 09/25 09/25 [place] 5880 MD Anand /2013 Medical [facility] Office [id number] [facility] 10/28 10/28 [facility] Visit 2030 MD Anand /2013 [facility] Lab Report [id number] Fabby 12/17 12/17 [place] 8230 MD Anand /2013 Medical Medical [facility] [id number] [place] 12/17 12/17 [facility] Emergency Athamn /2013 [facility] Lab Report [id number] Fabby 12/18 12/18 [place] 3050 MD Anand /2013 Medical [facility] Lab Report [id number] Fabby 12/25 12/25 [place] 2190 MD Anand /2013 Medical [facility] Office [id number] [facility] 12/25 12/25 [facility] Visit 8180 MD Anand /2013 Medical Medical [facility] Outpatient [id number] [facility] 09/28 [facility] QUDD [facility] Inpatient [id number] Ted Flores 01/04 01/13 [facility] /2015 [facility] Inpatient [id number] Ted Flores 03/14 03/16 [facility] /2015 [facility] Procedures Procedure Code Date Perfomer Comments Source smoking/tobacco 12/18/2013 yes Medical cessation, Group patient education and counseling smoking/tobacco 10/28/2013 yes Medical cessation, Group patient education and counseling smoking/tobacco 14 09/25/2013 yes Medical cessation, Group patient education and counseling [facility] [id number] [id number] [facility] Vasectomy [id number] [facility]
--- OUTSIDE RECORDS SUMMARY | 2018-01-21 15:35 | XMS REPORT | Continuity of Care Document ---
:1965 Author Organization [facility] Care Team Providers Name Role Phone MD Anand, Fabby Unavailable Unavailable Insurance Providers Payer name Policy type / Coverage Policy ID Covered green party ID Policy Sullivan type AETNA - AHF - CHOICE (POS II) AETNA - AHF - CHOICE (POS II) [place]ET[place] - [place] - CHOICE (POS II) AETNA - AHF - CHOICE (POS II) AETNA - AHF - CHOICE (POS II) AETNA - AHF - CHOICE (POS II) AETNA - AHF - CHOICE (POS II) AETNA - AHF - CHOICE (POS II) AETNA - AHF - CHOICE (POS II) AETNA - AHF - CHOICE (POS II) AETNA - AHF - CHOICE (POS II) AETNA - AHF - CHOICE (POS II) AETNA - AHF - CHOICE (POS II) AETNA - AHF - CHOICE (POS II) Encounters Encounter Performer Location Date Office Visit Fabby Michel MD [facility] Sep 25, 2013 [place] Allergies, Adverse Reactions, Alerts Type Substance Reaction Status Drug allergy CODEINE Sick Active Drug allergy PCN Child Active Problems Problem Effective Dates Problem Status FH DIABETES - DM Inactive FH HEART DISEASE Inactive FH STROKE Inactive NEED PROPHYLACTIC VACCINATION&INOCULATION FLU Sep 01, 2011 Inactive HYPERTENSION - BENIGN ESSENTIAL Active G E R D Active WELL ADULT Sep 01, 2011 Inactive BACK PAIN Sep 01, 2011 Inactive NEED PROPH VAC W/COMB [id number] VAC Sep 01, 2011 Inactive HYPERLIPIDEMIA Sep 04, 2011 Active KNEE PAIN Dec 05, 2011 Inactive KNEE PAIN, LEFT, ACUTE Sep 11, 2012 Inactive BRONCHITIS, ACUTE WITH MILD BRONCHOSPASM Nov 25, 2012 Inactive PALPITATIONS Sep 25, 2013 Active INSOMNIA Sep 25, 2013 Active Procedures Date Description Comments Sep 01, 2011 smoking status former smoker Sep 25, 2013 smoking status Former smoker Sep 25, 2013 smoking/tobacco cessation, patient education and yes counseling Medications Medication Instructions Start Date Status LISINOPRIL 20 MG TABS One po daily Sep 01, 2011 Active MOBIC 7.5 MG TAB one po daily Dec 05, 2011 Inactive LOVASTATIN 20 MG TABS Take on tablet by mouth every Sep 11, 2012 Active day MOBIC 7.5 MG TAB 1 po qd May 14, 2012 Inactive PROMETHAZINE VC/CODEINE 5 mls po qhs prn cough Dec 20, 2012 Inactive 6.25-5-10 MG/5ML SYRP BROMFED DM 30-2-10 MG/5ML SYRP 5 ml q 8 hrs prn cough Dec 20, 2012 Inactive MEDROL (ZURI) 4 MG TABS Take as directed with food x 6 Dec 16, 2012 Inactive days PROAIR HFA 108 (90 BASE) MCG/ACT 1-2 puffs Q6 hours prn short of Nov 25, 2012 Inactive AERS breath/wheezing ZITHROMAX TAB 250MG 2 tabs po now, then 1 po q d x Nov 25, 2012 Inactive 4 days FAMOTIDINE 20 MG TABS one po daily Sep 11, 2012 Inactive ZOLPIDEM TARTRATE ER 12.5 MG one po q hs Sep 25, 2013 Active CR-TABS Immunizations Vaccine Date Status dT (Diphtheria and Tetanus) booster Sep 01, 2011 completed Vital Signs Date Description Test Result Sep 01, 2011 weight E&M WEIGHT 194.4 lb Sep 01, 2011 height E&M HEIGHT 70 in Sep 01, 2011 temperature E&M TEMPERATURE 96.4 deg f Sep 01, 2011 blood pressure, systolic BP SYSTOLIC 113 mm Hg Sep 01, 2011 blood pressure, diastolic BP DIASTOLIC 63 mm Hg Sep 01, 2011 pulse rate E&M PULSE RATE 78 /min Dec 05, 2011 weight E&M WEIGHT 194 lb Dec 05, 2011 temperature E&M TEMPERATURE 95.1 deg f Dec 05, 2011 blood pressure, systolic BP SYSTOLIC 109 mm Hg Dec 05, 2011 blood pressure, diastolic BP DIASTOLIC 72 mm Hg Dec 05, 2011 pulse rate E&M PULSE RATE 72 /min May 14, 2012 weight E&M WEIGHT 193 lb May 14, 2012 temperature E&M TEMPERATURE 96.0 deg f May 14, 2012 blood pressure, systolic BP SYSTOLIC 106 mm Hg May 14, 2012 blood pressure, diastolic BP DIASTOLIC 67 mm Hg May 14, 2012 pulse rate E&M PULSE RATE 70 /min Sep 11, 2012 weight E&M WEIGHT 197.25 lb Sep 11, 2012 temperature E&M TEMPERATURE 96.6 deg f Sep 11, 2012 blood pressure, systolic BP SYSTOLIC 117 mm Hg Sep 11, 2012 blood pressure, diastolic BP DIASTOLIC 69 mm Hg Sep 11, 2012 pulse rate E&M PULSE RATE 100 /min Nov 25, 2012 weight E&M WEIGHT 197 lb Nov 25, 2012 temperature E&M TEMPERATURE 96.5 deg f Nov 25, 2012 blood pressure, systolic BP SYSTOLIC 109 mm Hg Nov 25, 2012 blood pressure, diastolic BP DIASTOLIC 71 mm Hg Nov 25, 2012 pulse rate E&M PULSE RATE 104 /min Sep 25, 2013 weight E&M WEIGHT 201 lb Sep 25, 2013 temperature E&M TEMPERATURE 97.2 deg f Sep 25, 2013 blood pressure, systolic BP SYSTOLIC 112 mm Hg Sep 25, 2013 blood pressure, diastolic BP DIASTOLIC 70 mm Hg Sep 25, 2013 pulse rate E&M PULSE RATE 87 /min Results Date Description Test Name Value Reference Interpretation Status Sep 25, hemoglobin, blood HGB 14.6 g/dL 14.0-18.0 2013Sep 25, hematocrit, blood HCT 44.3 % 42.0-54.0 2013Sep 25, platelet count PLATELETS 263 K/CMM [phone] /mm3 Aug 31, hemoglobin, blood HGB 14.5 g/dL 14.0-18.0 2011Aug 31, hematocrit, blood HCT 43.6 % 42.0-54.0 2011Aug 31, platelet count PLATELETS 266 K/CMM [phone] /mm3 Sep 25, hemoglobin, blood HGB 14.6 g/dL 14.0-18.0 2013Sep 25, hematocrit, blood HCT 44.3 % 42.0-54.0 2013Sep 25, platelet count PLATELETS 263 K/CMM 298-492 5815 /mm3 Dec 04, cholesterol, serum CHOLESTEROL 159 mg/dl [phone] Dec 04, triglyceride, serum, TRIGLYCERIDE 104 mg/dl 0-200 2011 fasting Dec 04, HDL cholesterol, HDL 59 mg/dl >=35 2011 serum Dec 04, sodium, serum SODIUM 136 MEQ/L [phone] mmol/L Dec 04, potassium, serum POTASSIUM 3.8 MEQ/L 3.5-5.1 2011 mmol/L Dec 04, urea nitrogen, blood BUN 15 mg/dL 7-22 2011Dec 04, creatinine, serum CREATININE 1.0 mg/dL 0.5-1.4 2011Dec 04, urea BUN/CREAT 15 null 6-25 2011 nitrogen/creatinine ratio, serum Dec 04, albumin, serum ALBUMIN 4.1 g/dL 3.5-5.0 2011Dec 04, calcium, serum CALCIUM 9.1 mg/dL 8.5-10.5 2011Dec 04, aspartate SGOT (AST) 16 U/L 0-37 2011 aminotransferase (SGOT), serum Dec 04, alanine SGPT (ALT) 41 U/L 0-65 2011 aminotransferase (SGPT), serum Dec 04, alkaline ALK PHOS 67 U/L 39-136 2011 phosphatase, serum May 14, sodium, serum SODIUM 135 MEQ/L [phone] mmol/L May 14, potassium, serum POTASSIUM 4.1 MEQ/L 3.5-5.1 2012 mmol/L May 14, creatinine, serum CREATININE 1.1 mg/dL 0.5-1.4 2012May 14, urea nitrogen, blood BUN 16 mg/dL 10-21May 14, urea BUN/CREAT 15 null 6-2012 nitrogen/creatinine ratio, serum May 14, albumin, serum ALBUMIN 4.3 g/dL 3.5-5.0 2012May 14, calcium, serum CALCIUM 9.6 mg/dL 8.5-10.5 2012May 14, alanine SGPT (ALT) 34 U/L 0-65 2012 aminotransferase (SGPT), serum May 14, aspartate SGOT (AST) 17 U/L 0-37 2012 aminotransferase (SGOT), serum May 14, alkaline ALK PHOS 76 U/L 39-136 2012 phosphatase, serum Sep 25, magnesium, serum MAGNESIUM 2.1 mg/dL 1.8-2.4 2013Sep 25, sodium, serum SODIUM 137 MEQ/L 142-213 7280 mmol/L Sep 25, potassium, serum POTASSIUM 4.2 MEQ/L 3.5-5.1 2013 mmol/L Sep 25, creatinine, serum CREATININE 0.8 mg/dL 0.5-1.4 2013Sep 25, urea nitrogen, blood BUN 16 mg/dL -2013Sep 25, urea BUN/CREAT 20 null 6-25 2013 nitrogen/creatinine ratio, serum Sep 25, albumin, serum ALBUMIN 4.4 g/dL 3.5-5.0 2013Sep 25, calcium, serum CALCIUM 9.0 mg/dL 8.5-10.5 2013Sep 25, alanine SGPT (ALT) 33 U/L 0-65 2013 aminotransferase (SGPT), serum Sep 25, aspartate SGOT (AST) 18 U/L 0-37 2013 aminotransferase (SGOT), serum Sep 25, alkaline ALK PHOS 76 U/L 39-136 2013 phosphatase, serum Sep 25, thyroid stimulating TSH 3.110 0.360-3.740 2013 hormone, serum uIU/mL Aug 31, cholesterol, serum CHOLESTEROL 209 mg/dl 120-200 High 2011Aug 31, triglyceride, serum, TRIGLYCERIDE 110 mg/dl 0-200 2011 fasting Aug 31, HDL cholesterol, HDL 49 mg/dl >=35 2011 serum Aug 31, LDL cholesterol, LDL 138 mg/dl 0-129 High 2011 serum Aug 31, thyroid stimulating TSH 2.300 0.360-3.740 2011 hormone, serum uIU/mL Aug 31, sodium, serum SODIUM 140 MEQ/L [phone] mmol/L Aug 31, potassium, serum POTASSIUM 4.3 MEQ/L 3.5-5.1 2011 mmol/L Aug 31, urea nitrogen, blood BUN 15 mg/dL 7-22 2011Aug 31, creatinine, serum CREATININE 1.0 mg/dL 0.5-1.4 2011Aug 31, urea BUN/CREAT 15 null 6-25 2011 nitrogen/creatinine ratio, serum Aug 31, albumin, serum ALBUMIN 4.4 g/dL 3.5-5.0 2011Aug 31, calcium, serum CALCIUM 9.5 mg/dL 8.5-10.5 2011Aug 31, aspartate SGOT (AST) 14 U/L 0-37 2011 aminotransferase (SGOT), serum Aug 31, alanine SGPT (ALT) 32 U/L 0-65 2011 aminotransferase (SGPT), serum Aug 31, alkaline ALK PHOS 63 U/L 39-136 2011 phosphatase, serum Aug 31, prostate specific PSA 0.83 0.00-4.00 2012 antigen ng/mL Sep , cholesterol, serum CHOLESTEROL 159 mg/dl [phone] Sep 04, triglyceride, serum, TRIGLYCERIDE 104 mg/dl 0-200 2011 fasting Sep 04, HDL cholesterol, HDL 59 mg/dl >=35 2012 serum Sep 04, LDL cholesterol, LDL 79 mg/dl 0-129 2011 serum Sep , sodium, serum SODIUM 136 MEQ/L [phone] mmol/L Sep , potassium, serum POTASSIUM 3.8 MEQ/L 3.5-5.1 2011 mmol/L Dec 04, urea nitrogen, blood BUN 15 mg/dL -2011Dec 04, creatinine, serum CREATININE 1.0 mg/dL 0.5-1.4 2011Dec 04, urea BUN/CREAT 15 null 6-25 2011 nitrogen/creatinine ratio, serum Dec 04, albumin, serum ALBUMIN 4.1 g/dL 3.5-5.0 2011Dec 04, calcium, serum CALCIUM 9.1 mg/dL 8.5-10.5 2011Dec 04, aspartate SGOT (AST) 16 U/L 0-37 2011 aminotransferase (SGOT), serum Dec 04, alanine SGPT (ALT) 41 U/L 0-65 2011 aminotransferase (SGPT), serum Dec 04, alkaline ALK PHOS 67 U/L 39-136 2011 phosphatase, serum May 14, sodium, serum SODIUM 135 MEQ/L [phone] mmol/L May 14, potassium, serum POTASSIUM 4.1 MEQ/L 3.5-5.1 2012 mmol/L May 14, creatinine, serum CREATININE 1.1 mg/dL 0.5-1.4 2012May 14, urea nitrogen, blood BUN 16 mg/dL -2012May 14, urea BUN/CREAT 15 null 6-25 2012 nitrogen/creatinine ratio, serum May 14, albumin, serum ALBUMIN 4.3 g/dL 3.5-5.0 2012May 14, calcium, serum CALCIUM 9.6 mg/dL 8.5-10.5 2012May 14, alanine SGPT (ALT) 34 U/L 0-65 2012 aminotransferase (SGPT), serum May 14, aspartate SGOT (AST) 17 U/L 0-37 2012 aminotransferase (SGOT), serum May 14, alkaline ALK PHOS 76 U/L 39-136 2012 phosphatase, serum Sep 25, magnesium, serum MAGNESIUM 2.1 mg/dL 1.8-2.4 2013Sep 25, sodium, serum SODIUM 137 MEQ/L [phone] mmol/L Sep 25, potassium, serum POTASSIUM 4.2 MEQ/L 3.5-5.1 2013 mmol/L Sep 25, creatinine, serum CREATININE 0.8 mg/dL 0.5-1.4 2013Sep 25, urea nitrogen, blood BUN 16 mg/dL -2013Sep 25, urea BUN/CREAT 20 null 6-25 2013 nitrogen/creatinine ratio, serum Sep 25, albumin, serum ALBUMIN 4.4 g/dL 3.5-5.0 2013Sep 25, calcium, serum CALCIUM 9.0 mg/dL 8.5-10.5 2013Sep 25, alanine SGPT (ALT) 33 U/L 0-65 2013 aminotransferase (SGPT), serum Sep 25, aspartate SGOT (AST) 18 U/L 0-37 2013 aminotransferase (SGOT), serum Sep 25, alkaline ALK PHOS 76 U/L 39-136 2013 phosphatase, serum Sep 25, thyroid stimulating TSH 3.110 0.360-3.740 2014 hormone, serum uIU/mL
--- OUTSIDE RECORDS SUMMARY | 2018-01-21 15:36 | XMS REPORT | Continuity of Care Document ---
:1965 Author Organization [facility] Care Team Providers Name Role Phone MD Anand, Fabby Unavailable Unavailable Insurance Providers Payer name Policy type / Coverage Policy ID Covered constitution party ID Policy Sullivan type AETNA - [...] Location Date Office Visit Fabby Michel MD [facility] Dec 25, 2013 [place] Allergies, Adverse Reactions, Alerts Type Substance Reaction Status Drug allergy CODEINE Sick Active Drug allergy PCN Child Active Problems Problem Effective Dates Problem Status FH DIABETES - DM Inactive FH HEART DISEASE Inactive FH STROKE Inactive NEED PROPHYLACTIC VACCINATION&INOCULATION FLU Sep 01, 2011 Inactive HYPERTENSION - BENIGN ESSENTIAL Active G E R D Active WELL ADULT Sep 01, 2011 Active BACK PAIN Sep 01, 2011 Inactive NEED PROPH VAC W/COMB [id number] VAC Sep 01, 2011 Inactive HYPERLIPIDEMIA Sep 04, 2011 Active KNEE PAIN Dec 05, 2011 Inactive KNEE PAIN, LEFT, ACUTE Sep 11, 2012 Inactive BRONCHITIS, ACUTE WITH MILD BRONCHOSPASM Nov 25, 2012 Inactive PALPITATIONS Sep 25, 2013 Active INSOMNIA Sep 25, 2013 Active DIVERTICULITIS, ACUTE Dec 18, 2013 Active Procedures Date Description Comments Sep 01, 2011 smoking status former smoker Sep 25, 2013 smoking status Former smoker Sep 25, 2013 smoking/tobacco cessation, patient education and yes counseling Oct 28, 2013 smoking status Former smoker Oct 28, 2013 smoking/tobacco cessation, patient education and yes counseling Dec 18, 2013 smoking status Former smoker Dec 18, 2013 smoking/tobacco cessation, patient education and yes counseling Dec 25, 2013 smoking status Never smoker Medications Medication Instructions Start Date Status MOBIC 7.5 MG TAB one po daily Dec 05, 2011 Inactive MOBIC 7.5 MG TAB 1 po qd [...] one po daily Sep 11, 2012 Inactive LISINOPRIL 20 MG TABS One po daily Sep 01, 2011 Inactive LOVASTATIN 20 MG TABS Take on tablet by mouth every Sep 11, 2012 Active day METOPROLOL SUCCINATE ER 25 MG 1 tablet daily Oct 28, 2013 Active [id number] ASPIRIN LOW DOSE 81 MG TABS one po daily Oct 28, 2013 Active HYDROCODONE-ACETAMINOPHEN 5-325 1 tablet every 4-6 hours as Dec 17, 2013 Inactive MG TABS needed for pain ZOLPIDEM TARTRATE ER 12.5 MG one po q hs Sep 25, 2013 Inactive CR-TABS PRILOSEC OTC TBEC 1 tab by mouth once a day Dec 18, 2013 Active CIPRO 500 MG TABS 1 tab by mouth twice a day Dec 18, 2013 Active FLAGYL 500 MG TABS 1 tab by mouth three times a Dec 18, 2013 Active day BENTYL 10 MG CAPS 1 tab four times a day Dec 18, 2013 Active Immunizations Vaccine Date Status dT (Diphtheria and Tetanus) booster given Sep 01, 2011 completed Vital Signs Date Description Test Result Sep 01, 2011 weight Alonzo Boyer WEIGHT 194.4 lb Sep 01, 2011 height E&M - 8302-2 HEIGHT 70 in Sep 01, 2011 temperature E&M TEMPERATURE 96.4 deg f Sep 01, 2011 blood pressure, systolic - 8480-6 BP SYSTOLIC 113 mm Hg Sep 01, 2011 blood pressure, diastolic - 8462-4 BP DIASTOLIC 63 mm Hg Sep 01, 2011 pulse rate E&M - 8867-4 PULSE RATE 78 /min Dec 05, 2011 weight Alonzo Boyer WEIGHT 194 lb Dec 05, 2011 temperature E&M TEMPERATURE 95.1 deg f Dec 05, 2011 blood pressure, systolic - 8480-6 BP SYSTOLIC 109 mm Hg Dec 05, 2011 blood pressure, diastolic - 8462-4 BP DIASTOLIC 72 mm Hg Dec 05, 2011 pulse rate E&M - 8867-4 PULSE RATE 72 /min May 14, 2012 weight Alonzo Boyer WEIGHT 193 lb May 14, 2012 temperature E&M TEMPERATURE 96.0 deg f May 14, 2012 blood pressure, systolic - 8480-6 BP SYSTOLIC 106 mm Hg May 14, 2012 blood pressure, diastolic - 8462-4 BP DIASTOLIC 67 mm Hg May 14, 2012 pulse rate E&M - 8867-4 PULSE RATE 70 /min Sep 11, 2012 weight Alonzo Boyer WEIGHT 197.25 lb Sep 11, 2012 temperature E&M TEMPERATURE 96.6 deg f Sep 11, 2012 blood pressure, systolic - 8480-6 BP SYSTOLIC 117 mm Hg Sep 11, 2012 blood pressure, diastolic - 8462-4 BP DIASTOLIC 69 mm Hg Sep 11, 2012 pulse rate E&M - 8867-4 PULSE RATE 100 /min Nov 25, 2012 weight Alonzo Cabrales9 WEIGHT 197 lb Nov 25, 2012 temperature E&M TEMPERATURE 96.5 deg f Nov 25, 2012 blood pressure, systolic - 8480-6 BP SYSTOLIC 109 mm Hg Nov 25, 2012 blood pressure, diastolic - 8462-4 BP DIASTOLIC 71 mm Hg Nov 25, 2012 pulse rate E&M - 8867-4 PULSE RATE 104 /min Sep 25, 2013 weight Lilliam&M - 3141-9 WEIGHT 201 lb Sep 25, 2013 temperature E&M TEMPERATURE 97.2 deg f Sep 25, 2013 blood pressure, systolic - 8480-6 BP SYSTOLIC 112 mm Hg Sep 25, 2013 blood pressure, diastolic - 8462-4 BP DIASTOLIC 70 mm Hg Sep 25, 2013 pulse rate E&M - 8867-4 PULSE RATE 87 /min Oct 28, 2013 weight E&M - 3141-9 WEIGHT 198.25 lb Oct 28, 2013 temperature E&M TEMPERATURE 97.3 deg f Oct 28, 2013 blood pressure, systolic - 8480-6 BP SYSTOLIC 110 mm Hg Oct 28, 2013 blood pressure, diastolic - 8462-4 BP DIASTOLIC 60 mm Hg Oct 28, 2013 pulse rate E&M - 8867-4 PULSE RATE 97 /min Dec 18, 2013 height E&M - 8302-2 HEIGHT 70 in Dec 18, 2013 weight Lilliam&M - 3141-9 WEIGHT 194.13 lb Dec 18, 2013 temperature E&M TEMPERATURE 96.9 deg f Dec 18, 2013 pulse rate E&M - 8867-4 PULSE RATE 77 /min Dec 18, 2013 blood pressure, systolic - 8480-6 BP SYSTOLIC 102 mm Hg Dec 18, 2013 blood pressure, diastolic - 8462-4 BP DIASTOLIC 78 mm Hg Dec 25, 2013 weight Lilliam&M - 3141-9 WEIGHT 193.8 lb Dec 25, 2013 temperature E&M TEMPERATURE 96.5 deg f Dec 25, 2013 respiratory rate E&M - 9279-1 RESP RATE 16 /min Dec 25, 2013 pulse rate E&M - 8867-4 PULSE RATE 86 /min Dec 25, 2013 blood pressure, systolic - 8480-6 BP SYSTOLIC 115 mm Hg Dec 25, 2013 blood pressure, diastolic - 8462-4 BP DIASTOLIC 70 mm Hg Results Date Description Test Name Value Reference Interpretation Status Sep 25, hemoglobin, blood HGB 14.6 g/dL 14.0-18.0 2013Sep 25, hematocrit, blood HCT 44.3 % 42.0-54.0 2013Sep 25, platelet count PLATELETS 263 K/CMM 189-241 2514 /mm3 Dec 18, hemoglobin, blood HGB 15.0 g/dL 14.0-18.0 2013Dec 18, hematocrit, blood HCT 44.6 % 42.0-54.0 2013Dec 18, platelet count PLATELETS 289 K/CMM 575-925 7158 /mm3 Aug 31, hemoglobin, blood HGB 14.5 g/dL 14.0-18.0 2011Aug 31, hematocrit, blood HCT 43.6 % 42.0-54.0 2011Aug 31, platelet count PLATELETS 266 K/CMM 834-043 3742 /mm3 Sep 25, hemoglobin, blood HGB 14.6 g/dL 14.0-18.0 2013Sep 25, hematocrit, blood HCT 44.3 % 42.0-54.0 2013Sep 25, platelet count PLATELETS 263 K/CMM 861-839 8098 /mm3 Dec 18, hemoglobin, blood HGB 15.0 g/dL 14.0-18.0 2013Dec 18, hematocrit, blood HCT 44.6 % 42.0-54.0 2013Dec 18, platelet count PLATELETS 289 K/CMM 665-962 1101 /mm3 Dec 25, hemoglobin, blood HGB 15.4 g/dL 14.0-18.0 2013Dec 25, hematocrit, blood HCT 45.4 % 42.0-54.0 2013Dec 25, platelet count PLATELETS 355 K/CMM 854-056 1370 /mm3 Dec 25, urine color UA COLOR Yellow null Yellow 2013Dec 25, bacteria, urine BACTERIA URN Occasional None Seen 2013 microscopy null Dec 04, cholesterol, serum CHOLESTEROL 159 mg/dl [phone] Dec 04, triglyceride, TRIGLYCERIDE 104 mg/dl 0-200 2011 serum, fasting Dec 04, HDL cholesterol, HDL 59 mg/dl >=35 2011 serum Dec 04, sodium, serum SODIUM 136 MEQ/L 225-174 6302 mmol/L Dec 04, potassium, serum POTASSIUM 3.8 MEQ/L 3.5-5.1 2011 mmol/L Dec 04, urea nitrogen, BUN 15 mg/dL 7-22 2011 blood Dec 04, creatinine, serum CREATININE 1.0 mg/dL 0.5-1.4 [...] May 14, sodium, serum SODIUM 135 MEQ/L 270-548 1105 mmol/L May 14, potassium, serum POTASSIUM 4.1 MEQ/L 3.5-5.1 2012 mmol/L May 14, creatinine, serum CREATININE 1.1 mg/dL 0.5-1.4 2012May 14, urea nitrogen, BUN 16 mg/dL -2012 blood May 14, urea BUN/CREAT 15 null 6-25 2012 [...] 2013Sep 25, sodium, serum SODIUM 137 MEQ/L 974-534 3552 mmol/L Sep 25, potassium, serum POTASSIUM 4.2 MEQ/L 3.5-5.1 2013 mmol/L Sep 25, creatinine, serum CREATININE 0.8 mg/dL 0.5-1.4 2013Sep 25, urea nitrogen, BUN 16 mg/dL -2013 blood Sep 25, urea BUN/CREAT 20 null 6-25 2013 [...] serum Sep 25, thyroid stimulating TSH 3.110 uIU/mL 0.360-3.740 2014 hormone, serum Dec 18, sodium, serum SODIUM 139 MEQ/L 521-139 9215 mmol/L Dec 18, potassium, serum POTASSIUM 3.8 MEQ/L 3.5-5.1 2013 mmol/L Dec 18, creatinine, serum CREATININE 1.1 mg/dL 0.5-1.4 2013Dec 18, urea nitrogen, BUN 16 mg/dL 7-2013 blood Dec 18, urea BUN/CREAT 15 null 6-25 2013 nitrogen/creatinine ratio, serum Dec 18, albumin, serum ALBUMIN 3.9 g/dL 3.5-5.0 2013Dec 18, calcium, serum CALCIUM 9.6 mg/dL 8.5-10.5 2013Dec 18, alanine SGPT (ALT) 32 U/L 0-65 2013 aminotransferase (SGPT), serum Dec 18, aspartate SGOT (AST) 14 U/L 0-37 2013 aminotransferase (SGOT), serum Dec 18, alkaline ALK PHOS 73 U/L 39-136 2013 phosphatase, serum Aug 31, cholesterol, serum CHOLESTEROL 209 mg/dl 120-200 High 2011Aug 31, triglyceride, TRIGLYCERIDE 110 mg/dl 0-200 2011 serum, fasting Aug 31, HDL cholesterol, HDL 49 mg/dl >=35 2011 serum Aug 31, LDL cholesterol, LDL 138 mg/dl 0-129 High 2011 serum Aug 31, thyroid stimulating TSH 2.300 uIU/mL 0.360-3.740 2011 hormone, serum Aug 31, sodium, serum SODIUM 140 MEQ/L 308-685 6940 mmol/L Aug 31, potassium, serum POTASSIUM 4.3 MEQ/L 3.5-5.1 2011 mmol/L Aug 31, urea nitrogen, BUN 15 mg/dL -2011 blood Aug 31, creatinine, serum CREATININE 1.0 mg/dL 0.5-1.4 [...] serum Aug 31, prostate specific PSA 0.83 ng/mL 0.00-4.00 2012 antigen Dec 04, cholesterol, serum CHOLESTEROL 159 mg/dl [phone] Sep , triglyceride, TRIGLYCERIDE 104 mg/dl 0-200 2011 serum, fasting Dec 04, HDL cholesterol, HDL 59 mg/dl >=35 2011 serum Sep , LDL cholesterol, LDL 79 mg/dl 0-129 2011 serum Sep , sodium, serum SODIUM 136 MEQ/L 201-911 4072 mmol/L Dec 04, potassium, serum POTASSIUM 3.8 MEQ/L 3.5-5.1 2011 mmol/L Dec 04, urea nitrogen, BUN 15 mg/dL -2011 blood Dec 04, creatinine, serum CREATININE 1.0 mg/dL 0.5-1.4 2011 Sep , urea BUN/CREAT 15 null 6-25 2011 nitrogen/creatinine ratio, serum Dec 04, albumin, serum ALBUMIN 4.1 g/dL 3.5-5.0 2011 Sep , calcium, serum CALCIUM 9.1 mg/dL 8.5-10.5 2011 Sep , aspartate SGOT (AST) 16 U/L 0-37 2011 aminotransferase (SGOT), serum Dec 04, alanine SGPT (ALT) 41 U/L 0-65 2011 aminotransferase (SGPT), serum Dec 04, alkaline ALK PHOS 67 U/L 39-136 2011 phosphatase, serum Feb , sodium, serum SODIUM 135 MEQ/L 158-897 9133 mmol/L b , potassium, serum POTASSIUM 4.1 MEQ/L 3.5-5.1 2012 mmol/L Feb , creatinine, serum CREATININE 1.1 mg/dL 0.5-1.4 2012 Feb , urea nitrogen, BUN 16 mg/dL -2012 blood Feb , urea BUN/CREAT 15 null 6-25 2012 nitrogen/creatinine ratio, serum May 14, albumin, serum ALBUMIN 4.3 g/dL 3.5-5.0 2012 Feb , calcium, serum CALCIUM 9.6 mg/dL 8.5-10.5 2012 Fe, alanine SGPT (ALT) 34 U/L 0-65 2012 aminotransferase (SGPT), serum b , aspartate SGOT (AST) 17 U/L 0-37 2012 aminotransferase (SGOT), serum b , alkaline ALK PHOS 76 U/L 39-136 2012 phosphatase, serum Renny 26, magnesium, serum MAGNESIUM 2.1 mg/dL 1.8-2.4 2013Sep 25, sodium, serum SODIUM 137 MEQ/L 654-125 4076 mmol/L Sep 25, potassium, serum POTASSIUM 4.2 MEQ/L 3.5-5.1 2013 mmol/L Sep 25, creatinine, serum CREATININE 0.8 mg/dL 0.5-1.4 2013Sep 25, urea nitrogen, BUN 16 mg/dL -2013 blood Sep 25, urea BUN/CREAT 20 null 6-25 2013 [...] serum Sep 25, thyroid stimulating TSH 3.110 uIU/mL 0.360-3.740 2013 hormone, serum Dec 18, sodium, serum SODIUM 139 MEQ/L 852-557 0587 mmol/L Dec 18, potassium, serum POTASSIUM 3.8 MEQ/L 3.5-5.1 2013 mmol/L Dec 18, creatinine, serum CREATININE 1.1 mg/dL 0.5-1.4 2013Dec 18, urea nitrogen, BUN 16 mg/dL 10-21 blood Dec 18, urea BUN/CREAT 15 null 6-25 2013 nitrogen/creatinine ratio, serum Dec 18, albumin, serum ALBUMIN 3.9 g/dL 3.5-5.0 2013Dec 18, calcium, serum CALCIUM 9.6 mg/dL 8.5-10.5 2013Dec 18, alanine SGPT (ALT) 32 U/L 0-65 2013 aminotransferase (SGPT), serum Dec 18, aspartate SGOT (AST) 14 U/L 0-37 2013 aminotransferase (SGOT), serum Dec 18, alkaline ALK PHOS 73 U/L 39-136 2013 phosphatase, serum Sep , cholesterol, serum CHOLESTEROL 137 mg/dl <=199 2013 Sep , triglyceride, TRIGLYCERIDE 173 mg/dl <=149 High 2013 serum, fasting Dec 25, HDL cholesterol, HDL 39 mg/dl >=61 Low 2013 serum Dec 25, LDL cholesterol, LDL 63 mg/dl <=99 2013 serum Dec 25, sodium, serum SODIUM 137 MEQ/L 572-278 5627 mmol/L Dec 25, potassium, serum POTASSIUM 4.5 MEQ/L 3.5-5.1 2013 mmol/L Dec 25, creatinine, serum CREATININE 1.0 mg/dL 0.5-1.4 2013Dec 25, urea nitrogen, BUN 14 mg/dL 7-2013 blood Dec 25, urea BUN/CREAT 14 null 6-2013 nitrogen/creatinine ratio, serum Dec 25, albumin, serum ALBUMIN 4.1 g/dL 3.5-5.0 2013Dec 25, calcium, serum CALCIUM 9.5 mg/dL 8.5-10.5 2013Dec 25, alanine SGPT (ALT) 36 U/L 0-65 2013 aminotransferase (SGPT), serum Dec 25, aspartate SGOT (AST) 19 U/L 0-37 2013 aminotransferase (SGOT), serum Dec 25, alkaline ALK PHOS 67 U/L 39-136 2013 phosphatase, serum Dec 25, thyroid stimulating TSH 3.140 uIU/mL 0.360-3.740 2013 hormone, serum Dec 25, prostate specific PSA 1.12 ng/mL 0.00-4.00 2013 antigen
--- OUTSIDE RECORDS SUMMARY | 2018-01-21 15:36 | XMS REPORT | Continuity of Care Document ---
:[address] [facility] Care Team Providers Name Role Phone MD Anand, Fabby Unavailable Unavailable Insurance Providers Payer name Policy type / Coverage Policy ID Covered alliance party ID Policy Sullivan type AETNA - [...] Location Date Office Visit Fabby Michel MD [facility] Oct 28, 2013 [place] Allergies, Adverse Reactions, Alerts Type Substance Reaction [...] 01, 2011 Inactive NEED PROPH VAC W/COMB [id number] VAC Sep 01, 2011 Inactive HYPERLIPIDEMIA Sep [...] counseling Medications Medication Instructions Start Date Status MOBIC [...] q hs Sep 25, 2013 Active CR-TABS LISINOPRIL 20 MG TABS One po daily Sep 01, 2011 Inactive LOVASTATIN 20 MG TABS Take on tablet by mouth every Sep 11, 2012 Active day METOPROLOL SUCCINATE ER 25 MG 1 tablet daily Oct 28, 2013 Active [id number] ASPIRIN LOW DOSE 81 MG TABS one po daily Oct 28, 2013 Active Immunizations Vaccine Date Status dT [...] pulse rate E&M PULSE RATE 87 /min Oct 28, 2013 weight E&M WEIGHT 198.25 lb Oct 28, 2013 temperature E&M TEMPERATURE 97.3 deg f Oct 28, 2013 blood pressure, systolic BP SYSTOLIC 110 mm Hg Oct 28, 2013 blood pressure, diastolic BP DIASTOLIC 60 mm Hg Oct 28, 2013 pulse rate E&M PULSE RATE 97 /min Results Date Description Test Name Value Reference Interpretation Status Sep 25, hemoglobin, blood HGB 14.6 g/dL 14.0-18.0 2013Sep 25, hematocrit, blood HCT 44.3 % 42.0-54.0 2013Sep 25, platelet count PLATELETS 263 K/CMM 509-645 5133 /mm3 Aug 31, hemoglobin, blood HGB 14.5 g/dL 14.0-18.0 2011Aug 31, hematocrit, blood HCT 43.6 % 42.0-54.0 2011Aug 31, platelet count PLATELETS 266 K/CMM 812-825 8408 /mm3 Sep 25, hemoglobin, blood HGB 14.6 g/dL 14.0-18.0 2013Sep 25, hematocrit, blood HCT 44.3 % 42.0-54.0 2013Sep 25, platelet count PLATELETS 263 K/CMM 037-958 9004 /mm3 Dec 04, cholesterol, serum CHOLESTEROL 159 mg/dl [phone] Dec 04, triglyceride, serum, TRIGLYCERIDE 104 mg/dl 0-200 2011 fasting Dec 04, HDL cholesterol, HDL 59 mg/dl >=35 2011 serum Dec 04, sodium, serum SODIUM 136 MEQ/L 178-607 8770 mmol/L Dec 04, potassium, serum POTASSIUM 3.8 MEQ/L 3.5-5.1 2011 mmol/L Dec 04, urea nitrogen, blood BUN 15 mg/dL 7-2011Dec 04, creatinine, serum CREATININE 1.0 mg/dL 0.5-1.4 [...] May 14, sodium, serum SODIUM 135 MEQ/L 681-690 0728 mmol/L May 14, potassium, serum POTASSIUM 4.1 [...] 2013Sep 25, sodium, serum SODIUM 137 MEQ/L 498-199 6842 mmol/L Sep 25, potassium, serum POTASSIUM 4.2 MEQ/L 3.5-5.1 2013 mmol/L Sep 25, creatinine, serum CREATININE 0.8 mg/dL 0.5-1.4 2013Sep 25, urea nitrogen, blood BUN 16 mg/dL 7-2013Sep 25, urea BUN/CREAT 20 null 6-25 2013 [...] Aug 31, sodium, serum SODIUM 140 MEQ/L 309-049 8005 mmol/L Aug 31, potassium, serum POTASSIUM 4.3 MEQ/L 3.5-5.1 2011 mmol/L Aug 31, urea nitrogen, blood BUN 15 mg/dL -2011Aug 31, creatinine, serum CREATININE 1.0 mg/dL 0.5-1.4 [...] Aug 31, prostate specific PSA 0.83 0.00-4.00 2011 antigen ng/mL Dec 04, cholesterol, serum CHOLESTEROL 159 mg/dl [phone] Dec 04, triglyceride, serum, TRIGLYCERIDE 104 mg/dl 0-200 2011 fasting Dec 04, HDL cholesterol, HDL 59 mg/dl >=35 2011 serum Dec 04, LDL cholesterol, LDL 79 mg/dl 0-129 2011 serum Dec 04, sodium, serum SODIUM 136 MEQ/L 924-377 7601 mmol/L Dec 04, potassium, serum POTASSIUM 3.8 [...] May 14, sodium, serum SODIUM 135 MEQ/L [phone] mmol/L May 14, potassium, serum POTASSIUM 4.1 MEQ/L 3.5-5.1 2012 mmol/L May 14, creatinine, serum CREATININE 1.1 mg/dL 0.5-1.4 2012May 14, urea nitrogen, blood BUN 16 mg/dL 7-22 2012May 14, urea BUN/CREAT 15 null 6-25 2012 nitrogen/creatinine ratio, serum May 14, albumin, serum ALBUMIN 4.3 g/dL 3.5-5.0 2012May 14, calcium, serum CALCIUM 9.6 mg/dL 8.5-10.5 2012May 14, alanine SGPT (ALT) 34 U/L 0-65 2012 aminotransferase (SGPT), serum Feb 12, aspartate SGOT (AST) 17 U/L 0-37 2012 aminotransferase (SGOT), serum May 14, alkaline ALK PHOS 76 U/L 39-136 2012 phosphatase, serum Sep 25, magnesium, serum MAGNESIUM 2.1 mg/dL 1.8-2.4 2013Sep 25, sodium, serum SODIUM 137 MEQ/L 355-559 5153 mmol/L Sep 25, potassium, serum POTASSIUM 4.2 MEQ/L 3.5-5.1 2013 mmol/L Sep 25, creatinine, serum CREATININE 0.8 mg/dL 0.5-1.4 2013Sep 25, urea nitrogen, blood BUN 16 mg/dL 7-2013Sep 25, urea BUN/CREAT 20 null 6-25 2013 [...]
--- OUTSIDE RECORDS SUMMARY | 2018-01-21 15:36 | XMS REPORT | Continuity of Care Document ---
:1965 Author Organization [facility] Care Team Providers Name Role Phone MD Anand, Fabby Unavailable Unavailable Insurance Providers Payer name Policy type / Coverage Policy ID Covered democrat ID Policy Sullivan type AETNA - AHF [...] (POS II) Encounters Encounter Performer Location Date Lab Report Fabby Michel MD [facility] Sep 25, 2013 Allergies, Adverse Reactions, Alerts Type Substance Reaction [...] 01, 2011 Inactive NEED PROPH VAC W/COMB [id number] VAC Sep 01, 2011 Inactive HYPERLIPIDEMIA Sep [...] 2013Sep 25, platelet count PLATELETS 263 K/CMM [phone] /mm3 Aug 31, hemoglobin, blood HGB 14.5 g/dL 14.0-18.0 2011Aug 31, hematocrit, blood HCT 43.6 % 42.0-54.0 2011Aug 31, platelet count PLATELETS 266 K/CMM 385-141 2040 /mm3 Sep 25, hemoglobin, blood HGB 14.6 g/dL 14.0-18.0 2013Sep 25, hematocrit, blood HCT 44.3 % 42.0-54.0 2013Sep 25, platelet count PLATELETS 263 K/CMM 755-886 2613 /mm3 Dec 04, cholesterol, serum CHOLESTEROL 159 mg/dl [phone] Dec 04, triglyceride, serum, TRIGLYCERIDE 104 mg/dl 0-200 2011 fasting Dec 04, HDL cholesterol, HDL 59 mg/dl >=35 2011 serum Dec 04, sodium, serum SODIUM 136 MEQ/L 666-712 5833 mmol/L Dec 04, potassium, serum POTASSIUM 3.8 [...] May 14, sodium, serum SODIUM 135 MEQ/L 726-236 0243 mmol/L May 14, potassium, serum POTASSIUM 4.1 [...] 2013Sep 25, sodium, serum SODIUM 137 MEQ/L [phone] mmol/L Sep 25, potassium, serum POTASSIUM 4.2 [...] Aug 31, sodium, serum SODIUM 140 MEQ/L [phone] mmol/L Aug 31, potassium, serum POTASSIUM 4.3 [...] Sep , cholesterol, serum CHOLESTEROL 159 mg/dl [phone] Sep 04, triglyceride, serum, TRIGLYCERIDE 104 mg/dl 0-200 2011 fasting Sep 04, HDL cholesterol, HDL 59 mg/dl >=35 2012 serum Sep 04, LDL cholesterol, LDL 79 mg/dl 0-129 2011 serum Sep , sodium, serum SODIUM 136 MEQ/L [phone] mmol/L Sep , potassium, serum POTASSIUM 3.8 [...] May 14, sodium, serum SODIUM 135 MEQ/L 472-714 4789 mmol/L May 14, potassium, serum POTASSIUM 4.1 [...] 2013Sep 25, sodium, serum SODIUM 137 MEQ/L [phone] mmol/L Sep 25, potassium, serum POTASSIUM 4.2 [...]
--- OUTSIDE RECORDS SUMMARY | 2018-01-21 15:37 | XMS REPORT | Continuity of Care Document ---
:1965 Author Organization [facility] Care Team Providers Name Role Phone MD [...] Location Date Lab Report Fabby Michel MD [facility] Dec 18, 2013 Allergies, Adverse Reactions, Alerts Type Substance [...] 01, 2011 Inactive NEED PROPH VAC W/COMB [id number] VAC Sep 01, 2011 Inactive HYPERLIPIDEMIA Sep [...] 1 tablet daily Oct 28, 2013 Active [id number] ASPIRIN LOW DOSE 81 MG TABS one [...] Description Test Result Sep 01, 2011 weight Lilliam&M - 3141-9 WEIGHT 194.4 lb Sep 01, 2011 height [...] RATE 78 /min Dec 05, 2011 weight Lilliam&M - 3141-9 WEIGHT 194 lb Dec 05, 2011 temperature E&M TEMPERATURE 95.1 deg f Dec 05, 2011 blood pressure, systolic - 8480-6 BP SYSTOLIC 109 mm Hg Dec 05, 2011 blood pressure, diastolic - 8462-4 BP DIASTOLIC 72 mm Hg Dec 05, 2011 pulse rate E&M - 8867-4 PULSE RATE 72 /min May 14, 2012 weight Lilliam&M - 3141-9 WEIGHT 193 lb May 14, 2012 temperature E&M TEMPERATURE 96.0 deg f May 14, 2012 blood pressure, systolic - 8480-6 BP SYSTOLIC 106 mm Hg May 14, 2012 blood pressure, diastolic - 8462-4 BP DIASTOLIC 67 mm Hg May 14, 2012 pulse rate E&M - 8867-4 PULSE RATE 70 /min Sep 11, 2012 weight Lilliam&Dada - Jaden1-9 WEIGHT 197.25 lb Sep 11, 2012 temperature E&M TEMPERATURE 96.6 deg f Sep 11, 2012 blood pressure, systolic - 8480-6 BP SYSTOLIC 117 mm Hg Sep 11, 2012 blood pressure, diastolic - 8462-4 BP DIASTOLIC 69 mm Hg Sep 11, 2012 pulse rate E&M - 8867-4 PULSE RATE 100 /min Nov 25, 2012 weight Lilliam&M - 3141-9 WEIGHT 197 lb Nov 25, 2012 temperature E&M TEMPERATURE 96.5 deg f Nov 25, 2012 blood pressure, systolic - 8480-6 BP SYSTOLIC 109 mm Hg Nov 25, 2012 blood pressure, diastolic - 8462-4 BP DIASTOLIC 71 mm Hg Nov 25, 2012 pulse rate E&M - 8867-4 PULSE RATE 104 /min Sep 25, 2013 weight Lilliam&Dada - 3141-9 WEIGHT 201 lb Sep 25, [...] HEIGHT 70 in Dec 18, 2013 weight E&M - 3141-9 WEIGHT 194.13 lb Dec 18, 2013 temperature E&M TEMPERATURE 96.9 deg f Dec 18, 2013 pulse rate E&M - 8867-4 PULSE RATE 77 /min Dec 18, 2013 blood pressure, systolic - 8480-6 BP SYSTOLIC 102 mm Hg Dec 18, 2013 blood pressure, diastolic - 8462-4 BP DIASTOLIC 78 mm Hg Results Date Description Test Name Value Reference Interpretation Status Sep 25, hemoglobin, blood HGB 14.6 g/dL 14.0-18.0 2013Sep 25, hematocrit, blood HCT 44.3 % 42.0-54.0 2013Sep 25, platelet count PLATELETS 263 K/CMM 509-037 6462 /mm3 Dec 18, hemoglobin, blood HGB 15.0 g/dL 14.0-18.0 2013Dec 18, hematocrit, blood HCT 44.6 % 42.0-54.0 2013Dec 18, platelet count PLATELETS 289 K/CMM 181-565 7929 /mm3 Aug 31, hemoglobin, blood HGB 14.5 g/dL 14.0-18.0 2011Aug 31, hematocrit, blood HCT 43.6 % 42.0-54.0 2011Aug 31, platelet count PLATELETS 266 K/CMM 138-921 1916 /mm3 Sep 25, hemoglobin, blood HGB 14.6 g/dL 14.0-18.0 2013Sep 25, hematocrit, blood HCT 44.3 % 42.0-54.0 2013Sep 25, platelet count PLATELETS 263 K/CMM 535-902 2725 /mm3 Dec 18, hemoglobin, blood HGB 15.0 g/dL 14.0-18.0 2013Dec 18, hematocrit, blood HCT 44.6 % 42.0-54.0 2013Dec 18, platelet count PLATELETS 289 K/CMM 445-929 2838 /mm3 Dec 04, cholesterol, serum CHOLESTEROL 159 mg/dl 142-027 0994 Dec 04, triglyceride, serum, TRIGLYCERIDE 104 mg/dl 0-200 2011 fasting Dec 04, HDL cholesterol, HDL 59 mg/dl >=35 2011 serum Dec 04, sodium, serum SODIUM 136 MEQ/L 552-462 5232 mmol/L Dec 04, potassium, serum POTASSIUM 3.8 [...] May 14, sodium, serum SODIUM 135 MEQ/L 965-242 2439 mmol/L May 14, potassium, serum POTASSIUM 4.1 [...] 2013Sep 25, sodium, serum SODIUM 137 MEQ/L 182-455 8277 mmol/L Sep 25, potassium, serum POTASSIUM 4.2 [...] TSH 3.110 0.360-3.740 2013 hormone, serum uIU/mL Dec 18, sodium, serum SODIUM 139 MEQ/L 479-600 7727 mmol/L Dec 18, potassium, serum POTASSIUM 3.8 MEQ/L 3.5-5.1 2013 mmol/L Dec 18, creatinine, serum CREATININE 1.1 mg/dL 0.5-1.4 2013Dec 18, urea nitrogen, blood BUN 16 mg/dL -2013Dec 18, urea BUN/CREAT 15 null 6-25 2013 [...] Aug 31, sodium, serum SODIUM 140 MEQ/L 214-683 7338 mmol/L Aug 31, potassium, serum POTASSIUM 4.3 MEQ/L 3.5-5.1 2011 mmol/L Aug 31, urea nitrogen, blood BUN 15 mg/dL 7-2011Aug 31, creatinine, serum CREATININE 1.0 mg/dL 0.5-1.4 [...] Dec 04, cholesterol, serum CHOLESTEROL 159 mg/dl 718-740 2279 Dec 04, triglyceride, serum, TRIGLYCERIDE 104 mg/dl 0-200 2011 fasting Dec 04, HDL cholesterol, HDL 59 mg/dl >=35 2011 serum Dec 04, LDL cholesterol, LDL 79 mg/dl 0-129 2011 serum Dec 04, sodium, serum SODIUM 136 MEQ/L 302-872 1215 mmol/L Dec 04, potassium, serum POTASSIUM 3.8 [...] May 14, sodium, serum SODIUM 135 MEQ/L 302-261 5371 mmol/L May 14, potassium, serum POTASSIUM 4.1 [...] 2013Sep 25, sodium, serum SODIUM 137 MEQ/L 645-257 7120 mmol/L Sep 25, potassium, serum POTASSIUM 4.2 [...] TSH 3.110 0.360-3.740 2013 hormone, serum uIU/mL Dec 18, sodium, serum SODIUM 139 MEQ/L 366-541 6354 mmol/L Dec 18, potassium, serum POTASSIUM 3.8 MEQ/L 3.5-5.1 2013 mmol/L Dec 18, creatinine, serum CREATININE 1.1 mg/dL 0.5-1.4 2013Dec 18, urea nitrogen, blood BUN 16 mg/dL 7-2013Dec 18, urea BUN/CREAT 15 null 6-25 2013 [...]
--- OUTSIDE RECORDS SUMMARY | 2018-01-21 15:37 | XMS REPORT | Continuity of Care Document ---
:1965 Author Organization [facility] Care Team Providers Name Role Phone MD [...] Location Date Lab Report Fabby Michel MD [facility] Dec 25, 2013 Allergies, Adverse Reactions, Alerts Type [...] 01, 2011 Inactive NEED PROPH VAC W/COMB [id number] VAC Sep 01, 2011 Inactive HYPERLIPIDEMIA Sep [...] 1 tablet daily Oct 28, 2013 Active [id number] ASPIRIN LOW DOSE 81 MG TABS one [...] 2013Sep 25, platelet count PLATELETS 263 K/CMM 015-581 2191 /mm3 Dec 18, hemoglobin, blood HGB 15.0 g/dL 14.0-18.0 2013Dec 18, hematocrit, blood HCT 44.6 % 42.0-54.0 2013Dec 18, platelet count PLATELETS 289 K/CMM 193-701 4773 /mm3 Aug 31, hemoglobin, blood HGB 14.5 g/dL 14.0-18.0 2011Aug 31, hematocrit, blood HCT 43.6 % 42.0-54.0 2011Aug 31, platelet count PLATELETS 266 K/CMM 235-467 3291 /mm3 Sep 25, hemoglobin, blood HGB 14.6 g/dL 14.0-18.0 2013Sep 25, hematocrit, blood HCT 44.3 % 42.0-54.0 2013Sep 25, platelet count PLATELETS 263 K/CMM 721-059 9760 /mm3 Dec 18, hemoglobin, blood HGB 15.0 g/dL 14.0-18.0 2013Dec 18, hematocrit, blood HCT 44.6 % 42.0-54.0 2013Dec 18, platelet count PLATELETS 289 K/CMM 577-428 8740 /mm3 Dec 25, hemoglobin, blood HGB 15.4 g/dL 14.0-18.0 2013Dec 25, hematocrit, blood HCT 45.4 % 42.0-54.0 2013Dec 25, platelet count PLATELETS 355 K/CMM 451-751 1864 /mm3 Dec 25, urine color UA COLOR Yellow null Yellow 2013Dec 25, bacteria, urine BACTERIA URN Occasional None Seen 2013 microscopy null Dec 04, cholesterol, serum CHOLESTEROL 159 mg/dl [phone] Dec 04, triglyceride, TRIGLYCERIDE 104 mg/dl 0-200 2011 serum, fasting Dec 04, HDL cholesterol, HDL 59 mg/dl >=35 2011 serum Dec 04, sodium, serum SODIUM 136 MEQ/L 214-196 9044 mmol/L Dec 04, potassium, serum POTASSIUM 3.8 [...] May 14, sodium, serum SODIUM 135 MEQ/L 212-878 4616 mmol/L May 14, potassium, serum POTASSIUM 4.1 [...] 2013Sep 25, sodium, serum SODIUM 137 MEQ/L 060-461 4648 mmol/L Sep 25, potassium, serum POTASSIUM 4.2 [...] Dec 18, sodium, serum SODIUM 139 MEQ/L 037-655 5168 mmol/L Dec 18, potassium, serum POTASSIUM 3.8 [...] Aug 31, sodium, serum SODIUM 140 MEQ/L 920-740 2932 mmol/L Aug 31, potassium, serum POTASSIUM 4.3 [...] Dec 04, cholesterol, serum CHOLESTEROL 159 mg/dl [phone] Sep , triglyceride, TRIGLYCERIDE 104 mg/dl 0-200 2011 serum, fasting Dec 04, HDL cholesterol, HDL 59 mg/dl >=35 2011 serum Sep , LDL cholesterol, LDL 79 mg/dl 0-129 2011 serum Sep , sodium, serum SODIUM 136 MEQ/L 167-839 8674 mmol/L Dec 04, potassium, serum POTASSIUM 3.8 [...] Feb , sodium, serum SODIUM 135 MEQ/L 191-072 6604 mmol/L b , potassium, serum POTASSIUM 4.1 [...] 2013Sep 25, sodium, serum SODIUM 137 MEQ/L 826-529 8969 mmol/L Sep 25, potassium, serum POTASSIUM 4.2 [...] Dec 18, sodium, serum SODIUM 139 MEQ/L 742-995 8263 mmol/L Dec 18, potassium, serum POTASSIUM 3.8 [...] Dec 25, sodium, serum SODIUM 137 MEQ/L 581-264 5736 mmol/L Dec 25, potassium, serum POTASSIUM 4.5 [...]
--- OUTSIDE RECORDS SUMMARY | 2018-01-21 15:37 | XMS REPORT | Continuity of Care Document ---
:1965 Author Organization [facility] Care Team Providers Name Role [...] Location Date Lab Report Fabby Michel MD [facility] [place] Dec 17, 2013 Allergies, Adverse Reactions, Alerts Type Substance [...] 01, 2011 Inactive NEED PROPH VAC W/COMB [id number] VAC Sep 01, 2011 Inactive HYPERLIPIDEMIA Sep [...] 1 tablet daily Oct 28, 2013 Active [id number] ASPIRIN LOW DOSE 81 MG TABS one po daily Oct 28, 2013 Active HYDROCODONE-ACETAMINOPHEN 5-325 1 tablet every 4-6 hours as Dec 17, 2013 Active MG TABS needed for pain Immunizations Vaccine Date Status dT (Diphtheria and Tetanus) booster given Sep 01, 2011 completed Vital Signs Date Description Test Result Sep 01, 2011 weight E&M - 3141-9 WEIGHT 194.4 lb Sep 01, [...] 78 /min Dec 05, 2011 weight E&M - 3141-9 WEIGHT 194 lb Dec 05, 2011 temperature E&M TEMPERATURE 95.1 deg f Dec 05, 2011 blood pressure, systolic - 8480-6 BP SYSTOLIC 109 mm Hg Dec 05, 2011 blood pressure, diastolic - 8462-4 BP DIASTOLIC 72 mm Hg Dec 05, 2011 pulse rate E&M - 8867-4 PULSE RATE 72 /min May 14, 2012 weight E&M - Jaden1-9 WEIGHT 193 lb May 14, 2012 temperature E&M TEMPERATURE 96.0 deg f May 14, 2012 blood pressure, systolic - 8480-6 BP SYSTOLIC 106 mm Hg May 14, 2012 blood pressure, diastolic - 8462-4 BP DIASTOLIC 67 mm Hg May 14, 2012 pulse rate E&M - 8867-4 PULSE RATE 70 /min Sep 11, 2012 weight E&M - Jaden1-9 WEIGHT 197.25 lb Sep 11, 2012 temperature E&M TEMPERATURE 96.6 deg f Sep 11, 2012 blood pressure, systolic - 8480-6 BP SYSTOLIC 117 mm Hg Sep 11, 2012 blood pressure, diastolic - 8462-4 BP DIASTOLIC 69 mm Hg Sep 11, 2012 pulse rate E&M - 8867-4 PULSE RATE 100 /min Nov 25, 2012 weight Lilliam&Dada - Jaden1-9 WEIGHT 197 lb Nov 25, 2012 temperature E&M TEMPERATURE 96.5 deg f Nov 25, 2012 blood pressure, systolic - 8480-6 BP SYSTOLIC 109 mm Hg Nov 25, 2012 blood pressure, diastolic - 8462-4 BP DIASTOLIC 71 mm Hg Nov 25, 2012 pulse rate E&M - 8867-4 PULSE RATE 104 /min Sep 25, 2013 weight Lilliam&Dada - Jaden1-9 WEIGHT 201 lb Sep 25, 2013 temperature [...] E&M - 8867-4 PULSE RATE 97 /min Results Date Description Test Name Value Reference Interpretation Status Sep 25, hemoglobin, blood HGB 14.6 g/dL 14.0-18.0 2013Sep 25, hematocrit, blood HCT 44.3 % 42.0-54.0 2013Sep 25, platelet count PLATELETS 263 K/CMM 921-281 8720 /mm3 Aug 31, hemoglobin, blood HGB 14.5 g/dL 14.0-18.0 2011Aug 31, hematocrit, blood HCT 43.6 % 42.0-54.0 2011Aug 31, platelet count PLATELETS 266 K/CMM 259-675 0717 /mm3 Sep 25, hemoglobin, blood HGB 14.6 g/dL 14.0-18.0 2013Sep 25, hematocrit, blood HCT 44.3 % 42.0-54.0 2013Sep 25, platelet count PLATELETS 263 K/CMM 612-867 2918 /mm3 Dec 04, cholesterol, serum CHOLESTEROL 159 mg/dl [phone] Dec 04, triglyceride, serum, TRIGLYCERIDE 104 mg/dl 0-200 2011 fasting Dec 04, HDL cholesterol, HDL 59 mg/dl >=35 2011 serum Dec 04, sodium, serum SODIUM 136 MEQ/L 490-939 0967 mmol/L Dec 04, potassium, serum POTASSIUM 3.8 [...] May 14, sodium, serum SODIUM 135 MEQ/L 567-063 0854 mmol/L May 14, potassium, serum POTASSIUM 4.1 MEQ/L 3.5-5.1 2012 mmol/L May 14, creatinine, serum CREATININE 1.1 mg/dL 0.5-1.4 2012May 14, urea nitrogen, blood BUN 16 mg/dL 7-2012May 14, urea BUN/CREAT 15 null 6-25 2012 [...] 2013Sep 25, sodium, serum SODIUM 137 MEQ/L 871-608 9416 mmol/L Sep 25, potassium, serum POTASSIUM 4.2 [...] Aug 31, sodium, serum SODIUM 140 MEQ/L 915-249 3041 mmol/L Aug 31, potassium, serum POTASSIUM 4.3 [...] Dec 04, cholesterol, serum CHOLESTEROL 159 mg/dl [phone] Dec 04, triglyceride, serum, TRIGLYCERIDE 104 mg/dl 0-200 2011 fasting Dec 04, HDL cholesterol, HDL 59 mg/dl >=35 2011 serum Dec 04, LDL cholesterol, LDL 79 mg/dl 0-129 2011 serum Dec 04, sodium, serum SODIUM 136 MEQ/L 962-786 3407 mmol/L Dec 04, potassium, serum POTASSIUM 3.8 MEQ/L 3.5-5.1 2011 mmol/L Dec 04, urea nitrogen, blood BUN 15 mg/dL 10-21Dec 04, creatinine, serum CREATININE 1.0 mg/dL 0.5-1.4 [...] May 14, sodium, serum SODIUM 135 MEQ/L 113-257 9837 mmol/L May 14, potassium, serum POTASSIUM 4.1 MEQ/L 3.5-5.1 2012 mmol/L May 14, creatinine, serum CREATININE 1.1 mg/dL 0.5-1.4 2012May 14, urea nitrogen, blood BUN 16 mg/dL 7-2012May 14, urea BUN/CREAT 15 null 6-25 2012 [...] 2013Sep 25, sodium, serum SODIUM 137 MEQ/L 164-248 6529 mmol/L Sep 25, potassium, serum POTASSIUM 4.2 [...]
--- OUTSIDE RECORDS SUMMARY | 2018-01-21 15:38 | XMS REPORT | Summary of Care ---
:1965 Author Organization [facility] Address [address] [place] [id number]- Encounter HQ Virgilio(AMY) [id number] Date(s): 01/05/16 - 01/14/[address] Professional Services provided by [facility] [place] [address]- Discharge Disposition: Home or Self Care Attending Physician: Ted Flores MD Admitting Physician: Ted Flores MD Referring Physician: Ted Flores MD Vital Signs Most recent to oldest 1 2 3 [Reference Range]: Height 180.34 cm 180.34 cm 180.34 cm (01/05/16 11:12 PM) (01/05/16 6:14 AM) (12/31/15 11:14 AM) Temperature Oral [96.4-99.1 98.0 DegF 97.9 DegF 98.1 DegF DegF] (01/14/16 11:45 AM) (01/14/16 9:28 AM) (01/14/16 3:00 AM) Blood Pressure 124/72 mmHg 129/80 mmHg 118/80 mmHg [90-140/60-90 mmHg] (01/14/16 11:45 AM) (01/14/16 9:28 AM) (01/14/16 3:00 AM ) Respiratory Rate [14-20 18 BRMIN 18 BRMIN 18 BRMIN BRMIN] (01/14/16 11:45 AM) (01/14/16 9:28 AM) (01/14/16 3:00 AM) Peripheral Pulse Rate 74 bpm 78 bpm 80 bpm [60-100 bpm] (01/14/16 11:45 AM) (01/14/16 9:28 AM) (01/14/16 3:00 AM) Weight 87.727 kg 87.727 kg 87.727 kg (01/05/16 11:12 PM) (01/05/16 6:14 AM) (12/31/15 11:14 AM) Body Mass Index 26.97 m2 26.97 m2 26.97 m2 (01/05/16 11:12 PM) (01/05/16 6:14 AM) (12/31/15 11:14 AM) Problem List Condition Effective Dates Status Health Status Informant Acute bronchitis with bronchospasm1 11/25/12 Resolved Backache2 09/01/11 Resolved Benign hypertension3 Active Diverticulitis of colon(Confirmed) Active Gastroesophageal reflux disease4 Active HTN (hypertension)(Confirmed) Active Hypercholesterolemia(Confirmed) Active Hyperlipidemia5 09/04/11 Active Insomnia6 09/25/13 Active Palpitations7 09/25/13 Active 1Data migrated from [employer] on 10/16/14.2Data migrated from [employer] on 10/16/14.3Data migrated from [employer] on 08/31/14.4Data migrated from [employer] on 08/31/14.5Data migrated from [employer] on 08/31/14.6Data migrated from [employer] on 08/31/14.7Data migrated from [employer] on 08/31/14. Allergies, Adverse Reactions, Alerts Substance Reaction Severity Status codeine1 Active contrast media (iodine-based) Active penicillins2 Active 1Data migrated from [employer] on 06/02/15. Originally documented as CODEINE. [id number] migrated from [employer] on 10/29/14. Originally documented as PCN. Child Medications acetaminophen 1,000 mg, 2 tab, Route: PO, Drug form: TAB, Q6H, Dosing Weight 87.727, kg, Start date: 01/07/16 18:00:00 CDT, Duration: 30 day, Stop date: 02/06/16 12:00: 00 HOSPITAL LIBRARIAN Notes: Max acetaminophen 4000 mg/day (4 gm/day). (Same as: Tylenol Extra Strength) Start Date: 01/07/16 Stop Date: 01/08/16 Status: DiscontinuedANES flumazenil 0.2 mg, 2 mL, Route: IVP, Drug form: INJ, PRN, Dosing Weight 87.727, kg, PRN Benzodiazepine Reversal, Initial dose, Start date: 01/05/16 13:30:00 CDT, Duration: 1 day, Stop date: 01/06/16 13:29:00 CDT Notes: (Same as: Romazicon) Start Date: 01/05/16 Stop Date: 01/05/16 Status: DiscontinuedANES HYDROmorphone 0.5 mg, 0.25 mL, Route: IVP, Drug form: INJ, Q5Min, Dosing Weight 87.727, kg, PRN Pain Score 7-10, Start date: 01/05/16 13:30:00 CDT, Duration: 8 doses or times, Stop date: 01/06/16 0:00:00 CDT Notes: Same as: Dilaudid Start Date: 01/05/16 Stop Date: 01/05/16 Status: DiscontinuedANES naloxone 0.4 mg, 1 mL, Route: IVP, Drug form: INJ, Q2MIN, Dosing Weight 87.727, kg, PRN Narcotic Reversal, Start date: 01/05/16 13:30:00 CDT, Duration: 8 doses or times , Stop date: Limited # of times Notes: Same as Narcan Start Date: 01/05/16 Stop Date: 01/05/16 Status: DiscontinuedANES ondansetron 4 mg, 2 mL, Route: IVP, Drug form: INJ, ONCE, Dosing Weight 87.727, kg, PRN Nausea & Vomiting, Start date: 01/05/16 13:30:00 CDT Notes: (Same as: Josefina) MEDICATION WASTE Product Size: 4 mgProduct Wasted: ___ mg Start Date: 01/05/16 Stop Date: 01/05/16 Status: DiscontinuedANES promethazine 6.25 mg, 0.25 mL, Route: IVPB, Drug form: INJ, ONCE, Dosing Weight 87.727, kg, PRN Nausea & Vomiting, Start date: 01/05/16 13:30:00 CDT Notes: Do not give IV push. (Same as: Phenergan) Start Date: 01/05/16 Stop Date: 01/05/16 Status: Discontinuedaspirin 81 mg tablet, enteric coated 81 mg=1 tab, PO, Daily, # 90 tab, 3 Refill(s) Start Date: 01/05/16 Status: Orderedatorvastatin PO, Daily, 0 Refill(s) Start Date: 12/31/15 Status: Orderedatorvastatin 20 mg, 1 tab, Route: PO, Drug form: TAB, Daily, Dosing Weight 87.727, kg, Start date: 01/06/16 9:00:00 CDT, Duration: 30 day, Stop date: 02/04/16 9:00:00 CDT Notes: (Same As: Lipitor) Start Date: 01/06/16 Stop Date: 01/14/16 Status: Discontinuedbupivacaine liposome 20 mL, Route: InFILtration(local), Drug Form: INJ, ONCE, Start date: 01/05/16 7: 03:00 CDT, Stop date: 01/05/16 7:03:00 CDT Notes: (Same as: Exparel) NOT FOR IV use Postoperative analgesia: Infiltration (local): Dose is based on surgical site and volume required to cover the area (in general, the maximum total dose is 266 mg).Bunionectomy: 7 mL into the tissues surrounding the osteotomy and 1 mL into the subcutaneous tissue of the surgical site (total dose=8 mL [106 mg])Hemorrhoidectomy: 30 mL ( 20 mL vial diluted with 10 mL NS) divided and administered as 6 injections of 5 mL each (total dose=30 mL [266 mg]) Start Date: 01/05/16 Stop Date: 01/05/16 Status: CompletedChloraseptic 1.4% spray 1 spray, Route: TOP, Daily, Drug form: MATT LARIOS Sore Throat, Start date: 19:15:00 CDT, Duration: 30 day, Stop date: 02/07/16 19:14:00 HOSPITAL LIBRARIAN Notes: Chloraseptic Jenkins(Same as: Chloraseptic, Sore Throat Jenkins)WASTE: F/P - Black; E - MunicipalTrash Bin Start Date: 01/08/16 Stop Date: 01/14/16 Status: [id number] 1/2NS + KCL 20mEq/L 1000ml (Premix) 1,000 mL 1,000 mL, Rate: 125 ml/hr, Infuse over: 8 hr, Route: IV, Dosing Weight 87.727 kg , Total Volume: 1,000, Start date: 01/08/16 5:21:00 CDT, Duration: 30 day, Stop date: 02/07/16 5:20:00 HOSPITAL LIBRARIAN Notes: PREMIX IV - Do Not AlterWASTE: F/P - Sink; E - Municipal Trash Bin Start Date: 01/08/16 Stop Date: 01/14/16 Status: [id number] 1/2NS + KCL 20mEq/L 1000ml (Premix) 1,000 mL 1,000 mL, Rate: 100 ml/hr, Infuse over: 10 hr, Route: IV, Dosing Weight 87.727 kg, Total Volume: 1,000, Start date: 01/05/16 13:21:00 CDT, Duration: 30 day, Stop date: 02/04/16 13:20:00 CDT Notes: PREMIX IV - Do Not AlterWASTE: F/P - Sink; E - Municipal Trash Bin Start Date: 01/05/16 Stop Date: 01/07/16 Status: DiscontinuedDilaudid 1 mg, Route: IVP, ONCE, Dosing Weight 87.727, kg, Priority: STAT, Start date: 17:49:00 CDT,Stop date: 01/05/16 17:49:00 CDT Start Date: 01/05/16 Stop Date: 01/05/16 Status: CompletedDilaudid 1 mg, Route: IV, ONCE, Dosing Weight 87.727, kg, Start date: 01/05/16 16:30:00 CDT, Stop date: 01/05/16 16:30:00 CDT Start Date: 01/05/16 Stop Date: 01/05/16 Status: Completedenoxaparin 40 mg, 0.4 mL, Route: SUB-Q, Drug form: INJ, [id number], Dosing Weight 87.727, kg , Start date: 01/06/16 9:00:00 CDT, Duration: 30 day, Stop date: 02/04/16 9:00: 00 CDT Notes: (Same as: Lovenox) Start Date: 01/06/16 Stop Date: 01/14/16 Status: DiscontinuedFlagyl 500 mg, 100 mL, Route: IVPB, Drug form: INJ, PRE OP, Start date: 01/05/16 5:00: 00 CDT, Duration: 1 day, Stop date: 01/06/16 4:59:00 CDT Notes: (Same as: Flagyl) Avoid alcohol. Start Date: 01/05/16 Stop Date: 01/05/16 Status: Completedgabapentin 300 mg oral capsule 300 mg, 1 cap, Route: PO, Drug form: CAP, Q8H, Dosing Weight 87.727, kg, (CrCl > 60 ml/min), Start date: 01/05/16 16:00:00 CDT, Duration: 30 day, Stop date: 8:00:00 CDT Notes: (Same as: Neurontin) Start Date: 01/05/16 Stop Date: 01/14/16 Status: Discontinuedhydromorphone 0.5 mg, 0.25 mL, Route: IVP, Drug form: INJ, Q2H, Dosing Weight 87.727, kg, PRN Pain Score 4-6, Start date: 01/05/16 13:21:00 CDT, Stop date: 02/04/16 13:20:00 CDT Notes: (Same as: Dilaudid) Start Date: 01/05/16 Stop Date: 01/14/16 Status: DiscontinuedHYDROmorphone MEDICAL IMAGING TECH 0.5mg/ml 30ml INJ 15 mg 15 mg, 30 mL, Route: IV, MEDICAL IMAGING TECH Dose: 0.2 mg, MEDICAL IMAGING TECH Lockout: 8 minutes, Continuous Basal Rate: 0 mg, 4 Hour Limit (In MG): 6, Drug Form: INJ, Continuous, Start date: 01/06/16 7:30:00 CDT, Duration: 30 day, Stop date: 02/05/16 7:29:00 CDT Notes: (Same as: Dilaudid) conc=0.5 mg/mlHydromorphone MEDICAL IMAGING TECH Dose: ;Delay : ;Basal: Start Date: 01/06/16 Stop Date: 01/07/16 Status: DiscontinuedHYDROmorphone MEDICAL IMAGING TECH 0.5mg/ml 30ml INJ 15 mg 15 mg, 30 mL, Route: IV, Initial Loading Dose: 0.4mg, MEDICAL IMAGING TECH Dose: 0.2 mg, MEDICAL IMAGING TECH Lockout: 8 minutes, Continuous Basal Rate: 0.05 mg, 4 Hour Limit (In MG): 6, Drug Form: INJ, Continuous, Start date: 01/04/1619:30:00 CDT, Duration: 30 day, Stop date: ... Notes: (Same as: Dilaudid) conc=0.5 mg/mlHydromorphone MEDICAL IMAGING TECH Dose: ;Delay : ;Basal: Start Date: 01/05/16 Stop Date: 01/06/16 Status: Discontinuedinfluenza virus vaccine, inactivated 0.5 mL, Route: IM, Drug Form: SUSP, Daily, Start date: 01/06/16 9:00:00 CDT, Duration: 1 doses or times, Stop date: 01/06/16 9:00:00 CDT Notes: (Same as: Fluzone Quadrivalent, Fluarix Quadrivalent)For 3 years of age and older (0.5 mL IM)Shake well before use Start Date: 01/06/16 Stop Date: 01/06/16 Status: CompletedketOROLAC 15 mg, 1 mL, Route: IVP, Drug form: INJ, Q6H, Dosing Weight 87.727, kg, Start date: 01/05/16 18:00:00 CDT, Duration: 6 doses or times, Stop date: 01/07/16 0: 00:00 CDT Notes: (Same as:Toradol) IV bolus must be given >15 seconds. Give IM administration slowly and deeply into the muscle. Not for use > 4 days. Start Date: 01/05/16 Stop Date: 01/07/16 Status: CompletedLactated Ringers 1,000 mL 1,000 mL, Rate: 40 ml/hr, Infuse over: 25 hr, Route: IV, Dosing Weight 87.727 kg , Total Volume: 1,000, Start date: 01/05/16 5:59:00 CDT, Duration: 30 day, Stop date: 02/04/16 5:58:00 CDT Start Date: 01/05/16 Stop Date: 01/06/16 Status: DiscontinuedLevaquin 750 mg, 150 mL, Route: IV, Drug form: SOLN, PRE OP, Start date: 01/05/16 5:00: 00 CDT, Duration: 1 day, Stop date: 01/06/16 4:59:00 CDT Notes: (Same as:Levaquin) Start Date: 01/05/16 Stop Date: 01/05/16 Status: Completedlevofloxacin 500 mg oral tablet 500 mg=1 tab, PO, Daily, # 7 tab, 0 Refill(s) Start Date: 12/31/15 Stop Date: 01/14/16 Status: DiscontinuedLyrica 100 mg, Route: PO, ONCE, Dosing Weight 87.727, kg, Start date: 01/05/16 15:07: 00 CDT, Stop date: 01/05/16 15:07:00 CDT Start Date: 01/05/16 Stop Date: 01/05/16 Status: CompletedmetroNIDAZOLE 500 mg=1 tab, PO, BID, # 14 tab, 0 Refill(s) Start Date: 12/31/15 Stop Date: 01/14/16 Status: Discontinuednaloxone 0.04 mg, 0.1 mL, Route: IVP, Drug form: INJ, Q2MIN, Dosing Weight 87.727, kg, PRN Narcotic Reversal,Start date: 01/05/16 19:20:00 CDT, Duration: 30 day, Stop date: 02/04/16 19:19:00 CDT Notes: Same as Narcan Start Date: 01/05/16 Stop Date: 01/14/16 Status: DiscontinuedNexIUM PO, Daily, 0 Refill(s) Start Date: 12/31/15 Status: OrderedNexIUM 40 mg, Route: PO, Daily, Dosing Weight 87.727, kg, Start date: 01/06/16 9:00:00 CDT, Duration: 30 day, Stop date: 02/04/16 9:00:00 CDT Start Date: 01/06/16 Stop Date: 01/05/16 Status: DeletedNS (Bolus) IV 500 mL, 500 ml/hr, Infuse Over: 1 hr, Route: IV, 500, Drug form: INJ, ONCE, Priority: STAT, Dosing Weight 87.727 kg, Start date: 01/13/16 17:43:00 CDT, Duration: 1 doses or times, Stop date: 01/13/16 17:43:00 CDT Start Date: 01/13/16 Stop Date: 01/13/16 Status: CompletedOfirmev 1,000 mg, 100 mL, Route: IVPB, Drug form: INJ, Q8H, PRN Pain 4-6/Temp > 100.4 F , Start date: 01/08/16 20:49:00 CDT, Stop date: 02/07/16 20:48:00 HOSPITAL LIBRARIAN Notes: Infuse over 15 minutesDo not exceed 4gm/day of acetaminophen MEDICATION WASTE ProductSize: 1000 mgProduct Wasted: ___ mg Start Date: 01/08/16 Stop Date: 01/13/16 Status: DiscontinuedOfirmev 1,000 mg, 100 mL, Route: IV, Drug form: INJ, Q6H, Dosing Weight 87.727, kg, for > or=50 kg, Start date: 01/05/16 18:00:00 CDT, Duration: 3 day, Stop date: 01/07 12:00:00 CDT Notes: Infuse over 15 minutesDo not exceed 4gm/day of acetaminophen MEDICATION WASTE ProductSize: 1000 mgProduct Wasted: ___ mg Start Date: 01/05/16 Stop Date: 01/07/16 Status: DiscontinuedOfirmev 1,000 mg, Route: IV, Drug form: INJ, Q8H, Dosing Weight 87.727, kg, PRN Pain 4-6 /Temp > 100.4 F, for > or=50 kg, Start date: 01/08/16 20:16:00 CDT, Duration: 30 day, Stop date: 02/07/16 20:15:00 HOSPITAL LIBRARIAN Start Date: 01/08/16 Stop Date: 01/08/16 Status: Deletedondansetron 4 mg, 2 mL, Route: IVP, Drug form: INJ, Q6H, Dosing Weight 87.727, kg, PRN Nausea & Vomiting, Start date: 01/05/16 13:21:00 CDT, Duration: 30 day, Stop date: 02/04/16 13:20:00 CDT Notes: (Same as: Zofran) MEDICATION WASTE Product Size: 4 mgProduct Wasted: ___ mg Start Date: 01/05/16 Stop Date: 01/14/16 Status: DiscontinuedoxyCODONE 5 mg immediate release 5 mg, 1 tab, Route: PO, Drug form: TAB, Q4H, Dosing Weight 87.727, kg, PRN Pain Score 4-6, Start date: 01/05/16 13:21:00 CDT, Duration: 30 day, Stop date: 02/03 13:20:00 CDT Notes: (Same as: Roxicodone) Start Date: 01/05/16 Stop Date: 01/14/16 Status: DiscontinuedoxyCODONE 5 mg immediate release 10 mg, 2 tab, Route: PO, Drug form: TAB, Q4H, Dosing Weight 87.727, kg, PRN Pain Score 6-10, Start date: 01/05/16 13:21:00 CDT, Duration: 30 day, Stop date : 02/04/16 13:20:00 CDT Notes: (Same as: Roxicodone) Start Date: 01/05/16 Stop Date: 01/14/16 Status: DiscontinuedProtonix 40 mg, 1 tab, Route: PO, Drug form: ECTAB, Daily, Start date: 01/06/16 9:00:00 CDT, Duration: 30 day, Stop date: 02/04/16 9:00:00 CDT Start Date: 01/06/16 Stop Date: 01/14/16 Status: DiscontinuedReglan 10 mg, 2 mL, Route: IVP, Drug form: INJ, Q6H, Dosing Weight 87.727, kg, Start date: 01/10/16 12:00:00 CDT, Duration: 30 day, Stop date: 02/09/16 6:00:00 HOSPITAL LIBRARIAN Notes: (Same as: Reglan) Start Date: 01/10/16 Stop Date: 01/14/16 Status: DiscontinuedSaline Flush 0.9% 10 ml, Route: IVP, Drug Form: INJ, Dosing Weight 87.727, kg, PRN, PRN Line Flush , Start date: 01/05/16 13:21:00 CDT, Duration: 30 day, Stop date: 02/04/16 13:20 :00 CDT Notes: (Same as: BD Posiflush) Start Date: 01/05/16 Stop Date: 01/14/16 Status: Discontinuedsodium chloride 0.9% 1000 ml INJ 1,000 mL 1,000 mL, Rate: 50 ml/hr, Infuse over: 20 hr, Route: IV, Dosing Weight 87.727 kg , Total Volume: 1,000, Start date: 01/07/16 8:25:00 CDT, Duration: 30 day, Stop date: 02/06/16 8:24:00 HOSPITAL LIBRARIAN Start Date: 01/07/16 Stop Date: 01/10/16 Status: Discontinuedsodium chloride 0.9% 500 ml INJ 500 mL 500 mL, Rate: 500 ml/hr, Infuse over: 1 hr, Route: IV, Dosing Weight 87.727 kg, Total Volume: 500, BOLUS, Priority: STAT, Start date: 01/10/16 17:46:00 CDT, Duration: 1 doses or times, Stop date: 01/11/16 17:45:00 CDT Start Date: 01/10/16 Stop Date: 01/10/16 Status: CompletedToprol-XL 50 mg oral tablet, extended release 50 mg, 1 tab, Route: PO, Drug form: ERTAB, Daily, Start date: 01/06/16 9:00:00 CDT, Duration: 30 day, Stop date: 02/04/16 9:00:00 CDT Notes: (Same as: Toprol XL) May split tab, but do not crush. Start Date: 01/06/16 Stop Date: 01/14/16 Status: DiscontinuedToprol-XL 50 mg oral tablet, extended release 50 mg=1 tab, PO, Daily, # 90 tab, 3 Refill(s) Start Date: 12/31/15 Status: Orderedtramadol 50 mg oral tablet See Instructions, PRN Pain, 1-2 tab PO Q4-6h prn pain, # 50 tab, 0 Refill(s) Start Date: 01/14/16 Stop Date: 01/28/16 Status: Orderedtramadol 50 mg oral tablet 100 mg, 2 tab, Route: PO, Drug form: TAB, Q4H, Dosing Weight 87.727, kg, PRN Pain Score 7-10, Start date: 01/13/16 7:16:00 CDT, Duration: 30 day, Stop date: 02/12/16 7:15:00 HOSPITAL LIBRARIAN Notes: Not to exceed 400mg/day. (Same As: Ultram) Start Date: 01/13/16 Stop Date: 01/14/16 Status: Discontinuedtramadol 50 mg oral tablet 50 mg, 1 tab, Route: PO, Drug form: TAB, Q4H, Dosing Weight 87.727, kg, PRN Pain Score 4-6, Start date: 01/13/16 7:15:00 CDT, Duration: 30 day, Stop date: 02/12/16 7:14:00 HOSPITAL LIBRARIAN Notes: Not to exceed 400mg/day. (Same As: Ultram) Start Date: 01/13/16 Stop Date: 01/14/16 Status: Discontinuedtramadol 50 mg oral tablet 50 mg, 1 tab, Route: PO, Drug form: TAB, ONCE, Dosing Weight 87.727, kg, Start date: 01/05/16 15:07:00 CDT, Stop date: 01/05/16 15:07:00 CDT Start Date: 01/05/16 Stop Date: 01/05/16 Status: CompletedTylenol 650 mg, 2 tab, Route: PO, Drug form: TAB, Q6H, Dosing Weight 87.727, kg, PRN Pain Score 1-3, Start date: 01/13/16 7:16:00 CDT, Duration: 30 day, Stop date: 02/12/16 7:15:00 HOSPITAL LIBRARIAN Notes: Do not exceed 4 gm/day. (Same as: Tylenol) Start Date: 01/13/16 Stop Date: 01/14/16 Status: Discontinued Results BLOOD BANK RESULTS Most recent to oldest [Reference Range]: 1 2 3 ABO/Rh O POS *Unknown* (01/05/16 6:01 AM) Antibody Scrn Negative (01/05/16 6:01 AM) ELECTROLYTES Most recent to oldest 1 2 3 [Reference Range]: Sodium Lvl [135-145 mEq/L] 137 mEq/L 134 mEq/L 137 mEq/L (01/14/16 4:12 AM) *LOW* (01/12/16 3:25 AM) (01/13/16 4:18 AM) Potassium Lvl [3.5-5.1 4.5 mEq/L 4.4 mEq/L 3.9 mEq/L mEq/L] (01/14/16 4:12 AM) (01/13/16 4:18 AM) (01/12/16 3:25 AM) Chloride Lvl [95-109 mEq/L] 102 mEq/L 99 mEq/L 100 mEq/L (01/14/16 4:12 AM) (01/13/16 4:18 AM) (01/12/16 3:25 AM) CO2 [24-32 mEq/L] 25 mEq/L 28 mEq/L 28 mEq/L (01/14/16 4:12 AM) (01/13/16 4:18 AM) (01/12/16 3:25 AM) AGAP [10.0-20.0 mEq/L] 14.5 mEq/L 11.4 mEq/L 12.9 mEq/L (01/14/16 4:12 AM) (01/13/16 4:18 AM) (01/12/16 3:25 AM) CHEM PANEL Most recent to oldest 1 2 3 [Reference Range]: Creatinine Lvl [0.50-1.40 0.88 mg/dL 0.83 mg/dL 0.77 mg/dL mg/dL] (01/14/16 4:12 AM) (01/13/16 4:18 AM) (01/12/16 3:25 AM) eGFR 102 mL/min/1.73m2 1 104 mL/min/1.73m2 2 107 mL/min/1.73m2 3 *NA* *NA* *NA* (01/14/16 4:12 AM) (01/13/16 4:18 AM) (01/12/16 3:25 AM) BUN [7-22 mg/dL] 9 mg/dL 12 mg/dL 10 mg/dL (01/14/16 4:12 AM) (01/13/16 4:18 AM) (01/12/16 3:25 AM) Glucose Lvl [70-99 mg/dL] 104 mg/dL 114 mg/dL 122 mg/dL *HI* *HI* *HI* (01/14/16 4:12 AM) (01/13/16 4:18 AM) (01/12/16 3:25 AM) Calcium Lvl [8.5-10.5 9.2 mg/dL 9.4 mg/dL 9.7 mg/dL mg/dL] (01/14/16 4:12 AM) (01/13/16 4:18 AM) (01/12/16 3:25 AM) Phosphorus [2.5-4.5 mg/dL] 2.8 mg/dL 2.6 mg/dL 4.0 mg/dL (01/08/16 4:18 AM) (01/07/16 5:13 AM) (01/06/16 3:00 AM) Magnesium Lvl [1.8-2.4 2.3 mg/dL 2.1 mg/dL 2.4 mg/dL mg/dL] (01/12/16 12:57 PM) (01/08/16 4:18 AM) (01/07/16 5:13 AM) 1Result Comment: The eGFR is calculated using the CKD-EPI formula. In most young , healthy individualsthe eGFR will be >90 mL/min/1.73m2. The eGFR declines with age. An eGFR of 60-89 may be normal in some populations, particularly the elderly, for whom the CKD-EPI formula has not been extensively validated. Use of the eGFR is not recommended in the following populations: Individuals with unstable creatinine concentrations, including patients and those with serious co-morbid conditions. Patients with extremes in muscle mass or diet. The data above are obtained from the National Kidney Disease Education Program ( NKDEP) which additionally recommends that when the eGFR is used in patients with extremes of body mass index for purposesof drug dosing, the eGFR should be multiplied by the estimated BMI.2Result Comment: The eGFR is calculated using the CKD-EPI formula. In most young, healthy individualsthe eGFR will be >90 mL/ min/1.73m2. The eGFR declines with age. An eGFR of 60-89 may be normal in some populations, particularly the elderly, for whom the CKD-EPI formula has not been extensively validated. Use of the eGFR is not recommended in the following populations: Individuals with unstable creatinine concentrations, including patients and those with serious co-morbid conditions. Patients with extremes in muscle mass or diet. The data above are obtained from the National Kidney Disease Education Program ( NKDEP) which additionally recommends that when the eGFR is used in patients with extremes of body mass index for purposesof drug dosing, the eGFR should be multiplied by the estimated BMI.3Result Comment: The eGFR is calculated using the CKD-EPI formula. In most young, healthy individualsthe eGFR will be >90 mL/ min/1.73m2. The eGFR declines with age. An eGFR of 60-89 may be normal in some populations, particularly the elderly, for whom the CKD-EPI formula has not been extensively validated. Use of the eGFR is not recommended in the following populations: Individuals with unstable creatinine concentrations, including patients and those with serious co-morbid conditions. Patients with extremes in muscle mass or diet. The data above are obtained from the National Kidney Disease Education Program ( NKDEP) which additionally recommends that when the eGFR is used in patients with extremes of body mass index for purposesof drug dosing, the eGFR should be multiplied by the estimated BMI.URINE AND STOOL Most recent to oldest [Reference Range]: 1 2 3 UA Turbidity [Clear] Clear (01/08/16 6:24 AM) UA Color [Yellow] Yellow *NA* (01/08/16 6:24 AM) UA pH [5.0-8.0] 5.5 (01/08/16 6:24 AM) UA Spec Grav [<=1.030] 1.009 (01/08/16 6:24 AM) UA Glucose [Negative mg/dL] Negative mg/dL *NA* (01/08/16 6:24 AM) UA Blood [Negative] Small *ABN* (01/08/16 6:24 AM) UA Ketones [Negative mg/dL] 20 mg/dL *ABN* (01/08/16 6:24 AM) UA Protein [Negative mg/dL] 10 mg/dL *ABN* (01/08/16 6:24 AM) UA Urobilinogen [0.1-1.0 mg/dL] <=1.0 mg/dL *NA* (01/08/16 6:24 AM) UA Bili [Negative] Negative *NA* (01/08/16 6:24 AM) UA Leuk Est [Negative] Negative (01/08/16 6:24 AM) UA Nitrite [Negative] Negative (01/08/16 6:24 AM) UA WBC [0-5 /HPF] 2 /HPF (01/08/16 6:24 AM) UA RBC [0-2 /HPF] 3 /HPF *HI* (01/08/16 6:24 AM) UA Sq Epi None Seen *NA* (01/08/16 6:24 AM) UA Mucus [None Seen /LPF] Few /LPF *NA* (01/08/16 6:24 AM) HEMATOLOGY Most recent to oldest 1 2 3 [Reference Range]: WBC [3.7-10.4 K/CMM] 5.4 K/CMM 5.8 K/CMM 6.0 K/CMM (01/14/16 4:12 AM) (01/13/16 4:18 AM) (01/12/16 3:25 AM) RBC [4.70-6.10 M/CMM] 4.33 M/CMM 4.36 M/CMM 4.53 M/CMM *LOW* *LOW* *LOW* (01/14/16 4:12 AM) (01/13/16 4:18 AM) (01/12/16 3:25 AM) Hgb [14.0-18.0 g/dL] 12.6 g/dL 12.3 g/dL 12.8 g/dL *LOW* *LOW* *LOW* (01/14/16 4:12 AM) (01/13/16 4:18 AM) (01/12/16 3:25 AM) Hct [42.0-54.0 %] 35.5 % 35.8 % 37.7 % *LOW* *LOW* *LOW* (01/14/16 4:12 AM) (01/13/16 4:18 AM) (01/12/16 3:25 AM) MCV [80.0-94.0 fL] 82.0 fL 82.0 fL 83.1 fL (01/14/16 4:12 AM) (01/13/16 4:18 AM) (01/12/16 3:25 AM) MCH [27.0-31.0 pg] 29.1 pg 28.3 pg 28.2 pg (01/14/16 4:12 AM) (01/13/16 4:18 AM) (01/12/16 3:25 AM) MCHC [32.0-36.0 g/dL] 35.4 g/dL 34.5 g/dL 33.9 g/dL (01/14/16 4:12 AM) (01/13/16 4:18 AM) (01/12/16 3:25 AM) RDW [11.5-14.5 %] 13.4 % 13.5 % 13.7 % (01/14/16 4:12 AM) (01/13/16 4:18 AM) (01/12/16 3:25 AM) Platelet [133-450 K/CMM] 359 K/CMM 322 K/CMM 348 K/CMM (01/14/16 4:12 AM) (01/13/16 4:18 AM) (01/12/16 3:25 AM) MPV [7.4-10.4 fL] 8.3 fL 8.0 fL 8.2 fL (01/14/16 4:12 AM) (01/13/16 4:18 AM) (01/12/16 3:25 AM) Segs [45.0-75.0 %] 61.8 % 68.8 % 67.0 % (01/14/16 4:12 AM) (01/13/16 4:18 AM) (01/12/16 3:25 AM) Lymphocytes [20.0-40.0 %] 25.2 % 21.5 % 21.7 % (01/14/16 4:12 AM) (01/13/16 4:18 AM) (01/12/16 3:25 AM) Monocytes [2.0-12.0 %] 10.4 % 7.2 % 8.5 % (01/14/16 4:12 AM) (01/13/16 4:18 AM) (01/12/16 3:25 AM) Eosinophils [0.0-4.0 %] 1.9 % 1.9 % 2.2 % (01/14/16 4:12 AM) (01/13/16 4:18 AM) (01/12/16 3:25 AM) Basophils [0.0-1.0 %] 0.7 % 0.6 % 0.6 % (01/14/16 4:12 AM) (01/13/16 4:18 AM) (01/12/16 3:25 AM) Segs-Bands # [1.5-8.1 3.3 K/CMM 4.0 K/CMM 4.0 K/CMM K/CMM] (01/14/16 4:12 AM) (01/13/16 4:18 AM) (01/12/16 3:25 AM) Lymphocytes # [1.0-5.5 1.4 K/CMM 1.3 K/CMM 1.3 K/CMM K/CMM] (01/14/16 4:12 AM) (01/13/16 4:18 AM) (01/12/16 3:25 AM) Monocytes # [0.0-0.8 K/CMM] 0.6 K/CMM 0.4 K/CMM 0.5 K/CMM (01/14/16 4:12 AM) (01/13/16 4:18 AM) (01/12/16 3:25 AM) Eosinophils # [0.0-0.5 0.1 K/CMM 0.1 K/CMM 0.1 K/CMM K/CMM] (01/14/16 4:12 AM) (01/13/16 4:18 AM) (01/12/16 3:25 AM) PT [12.0-14.7 seconds] 13.3 seconds (01/05/16 6:01 AM) INR [0.85-1.17] 0.99 (01/05/16 6:01 AM) PTT [22.9-35.8 seconds] 41.1 seconds *HI* (01/05/16 6:01 AM) Immunizations Given and Recorded Vaccine Date Status Refusal Reason diphtheria/pertussis, acel/tetanus adult1 09/01/11 Given diphtheria-tetanus toxoids2 09/01/11 Given influenza virus vaccine, inactivated 01/14/16 Given tetanus-diphtheria toxoids3 09/01/11 Given 1Result Comment: tdap. Migrated from OBS ; Data migrated from [employer] on 05/19/2015.2Result Comment: tdap. Migrated from OBS ; Data migrated from [employer] on 10/14/2014.3Result Comment: tdap. Migrated from OBS ; Data migrated from [employer] on 05/19/2015. Procedures Procedure Date Related Diagnosis Body Site Vasectomy Social History Social History Type Response Alcohol Current, Type Beer, Liquor. Frequency: 1-2 times per week. Previous treatment: None. Alcohol use interferes with work or home: No. Drinks more than intended: No. Others hurt by drinking: No. Ready to change: No. Household alcohol concerns: No. Smoking Status Never smoker; Previous treatment: None; Ready to change: No; Concerns about tobacco use in household: No; Exposure to Tobacco Smoke None; Cigarette Smoking Last 365 Days No; Reg Smoking Cessation Counseling No Assessment and Plan Extracted from: Title: Clinical Document Author: Tennille Tolentino MD Date: 01/14/16 Hospitalist note pt seen and examined at bed side no acute ovenight complaints, tolerating soft diet no recurrence of rectal bleed vitals well controlled on resumed home dosage of Toprol XL pt instructed to follow up with PCP in 3-5 days after discharge for follow up on blood pressure and HR management and adjusting medications as needed Extracted from: Title: Discharge Summary Author: Yohannes Kay MD Date: Admission Dx: Diverticulitis Discharge Dx: Same Procedures (01/05/16): Lap LAR w/ loop ileostomy Discharge Location: Home Discharge Diet: Soft Discharge Activity: As tolerated, no heavy lifting, no driving Discharge Meds: Tramadol Follow-up: Dr Flores 2 weeks Discharge Summary: Pt is a 50 y/o M w/ h/o of diverticulitis presented for lap LAR w/ diversion. Post-op patient had a lot of pain requiring large amounts of pain medication and a MEDICAL IMAGING TECH. Patient's pain gradually improved. Patient ambulated. Ling removed POD #2, urinated. Patient initially had some gas from ostomy, placed on soft diet, but began to have N/V. Placed NPO, NGT placed. He required s everal days of NGT decompression but output from ostomy improved with both gas and liquid stool. Ngt output decreased and it was removed. Patient placed on ice chips, had no N/V, advanced to liquid di et. Tolerated liquid diet, good ostomy output, advanced to soft. Tolerated this. Ready for discharge home. Extracted from: Title: Hospitalist Consult Note Author: Yovanny Saravia MD Date: Assessment/Plan Patient is a 50 y/o male with PMH of HTN, HLD, GERD, palpitation and recurrent diverticulitis now s/p elective lysis of adhesions, partial colectomy and colostomy placement. 1. Recurrent Diverticulitis: s/p lysis of adhesions, partial colectomy and colostomy placement. Continue analgesia per surgery team. Monitor for return of bowel function and advance diet as tolerated per surgery team. No abxs for now. 2. HTN: resumemetoprolol succinate. 3. HLD: resume statin. 4. GERD: resume PPI. 5. Palpitations: unclear of etiology. Continue metoprolol succinate. Prophylaxis DVT PPX: SCDs Disposition Home when cleared by surgery team.
--- OUTSIDE RECORDS SUMMARY | 2018-01-21 15:38 | XMS REPORT | Summary of Care ---
:1965 Author Encounter WILLIE Poole(AMY) [id number] Date(s): 12/16/13 - 12/17/13 [facility] [address] [address] - [facility] Discharge Diagnosis: Diverticulitis Discharge Disposition: Home Physician Attending: Domo Cunningham MD Reason for Visit BACK PAIN Vital Signs Most recent to oldest 1 2 3 [Reference Range]: Height 182.88 cm (12/16/13 7:40 PM) Temperature Oral [96.4-99.1 99.3 DegF 100.4 DegF 98.3 DegF DegF] *HI* *HI* (12/16/13 7:40 PM) (12/17/13 1:13 AM) (12/16/13 11:32 PM) Systolic Blood Pressure 109 mmHg 139 mmHg [90-140 mmHg] (12/17/13 1:13 AM) (12/16/13 7:40 PM) Diastolic Blood Pressure 69 mmHg 82 mmHg [60-90 mmHg] (12/17/13 1:13 AM) (12/16/13 7:40 PM) Respiratory Rate [14-20 BRMIN] 20 BRMIN 20 BRMIN (12/17/13 1:13 AM) (12/16/13 7:40 PM) Peripheral Pulse Rate [60-100 80 bpm 101 bpm bpm] (12/17/13 1:13 AM) *HI* (12/16/13 7:40 PM) Weight 90 kg (12/16/13 7:40 PM) Body Mass Index 26.91 m2 (12/16/13 7:40 PM) Problem List Condition Effective Dates Status Health Status Informant HTN (hypertension)(Confirmed) Resolved Allergies, Adverse Reactions, Alerts Substance Reaction Severity Status codeine Active penicillins Active Medications Bentyl 20 mg oral tablet 20 mg=1 tab, PO, QID, # 28 tab, 0 Refill(s) Start Date: 12/17/13 Stop Date: 12/24/13 Status: OrderedCipro 500 mg oral tablet 500 mg=1 tab, PO, Q12H, # 14 tab, 0 Refill(s) Start Date: 12/17/13 Stop Date: 12/24/13 Status: Orderedciprofloxacin 500 mg, Route: PO, ONCE, Dosing Weight 90, kg, Priority: STAT, Start date: 12/17 0:08:00, Stop date: 12/17/13 0:08:00 Start Date: 12/17/13 Stop Date: 12/17/13 Status: CompletedmetroNIDAZOLE 500 mg, Route: PO, ONCE, Dosing Weight 90, kg, Priority: STAT, Start date: 12/17 0:08:00, Stop date: 12/17/13 0:08:00 Start Date: 12/17/13 Stop Date: 12/17/13 Status: CompletedmetroNIDAZOLE 500 mg oral tablet 500 mg=1 tab, PO, Q8H, # 21 tab, 0 Refill(s) Start Date: 12/17/13 Stop Date: 12/24/13 Status: Orderedmorphine Sulfate 4 mg, 2 mL, Route: IVP, Drug form: INJ, ONCE, Dosing Weight 90, kg, Priority: STAT, Start date: 12/16/13 22:33:00, Stop date: 12/16/13 22:33:00 Notes: (Same as:MORPhine Sulfate) Start Date: 12/16/13 Stop Date: 12/16/13 Status: Completedondansetron 4 mg, 2 mL, Route: IVP, Drug form: INJ, ONCE, Dosing Weight 90, kg, Priority: STAT, Start date: 12/16/13 22:33:00, Stop date: 12/16/13 22:33:00 Notes: (Same as: Zofran) Start Date: 12/16/13 Stop Date: 12/16/13 Status: CompletedZofran 4 mg, Route: IVP, Drug form: INJ, ONCE, Dosing Weight 90, kg, Priority: STAT, Start date: 12/17/13 0:08:00, Stop date: 12/17/13 0:08:00 Start Date: 12/17/13 Stop Date: 12/17/13 Status: CompletedZofran ODT 4 mg oral tablet, disintegrating 4 mg=1 tab, PO, TID, as needed for nausea/vomiting, # 12 tab, 0 Refill(s) Start Date: 12/17/13 Status: Ordered Results ELECTROLYTES Most recent to oldest [Reference Range]: 1 Sodium Lvl [135-145 mEq/L] 136 mEq/L (12/16/13 10:34 PM) Potassium Lvl [3.5-5.1 mEq/L] 3.7 mEq/L (12/16/13 10:34 PM) Chloride Lvl [95-109 mEq/L] 102 mEq/L (12/16/13 10:34 PM) CO2 [24-32 mEq/L] 27 mEq/L (12/16/13 10:34 PM) AGAP [10.0-20.0 mEq/L] 10.7 mEq/L (12/16/13 10:34 PM) CHEM PANEL Most recent to oldest [Reference Range]: 1 Creatinine Lvl [0.5-1.4 mg/dL] 1.0 mg/dL (12/16/13 10:34 PM) eGFR 90 mL/min/1.73m2 1 *NA* (12/16/13 10:34 PM) BUN [7-22 mg/dL] 12 mg/dL (12/16/13 10:34 PM) B/C Ratio [6-25] 12 (12/16/13 10:34 PM) Glucose Lvl [70-99 mg/dL] 100 mg/dL 2 *HI* (12/16/13 10:34 PM) Total Protein [6.4-8.4 g/dL] 7.8 g/dL (12/16/13 10:34 PM) Albumin Lvl [3.5-5.0 g/dL] 4.2 g/dL (12/16/13 10:34 PM) Globulin [2.0-4.0 g/dL] 3.6 g/dL (12/16/13 10:34 PM) A/G Ratio [0.7-1.6] 1.2 (12/16/13 10:34 PM) Calcium Lvl [8.5-10.5 mg/dL] 9.3 mg/dL (12/16/13 10:34 PM) ALT [0-65 unit/L] 33 unit/L (12/16/13 10:34 PM) AST [0-37 unit/L] 16 unit/L (12/16/13 10:34 PM) Alk Phos [39-136 unit/L] 79 unit/L (12/16/13 10:34 PM) Bili Total [0.2-1.3 mg/dL] 0.7 mg/dL (12/16/13 10:34 PM) 1Result Comment: The eGFR is calculated using [...] eGFR should be multiplied by the estimated BMI.2Interpretive Data: Adult reference range values reflect the clinical guidelines of the [employer] [employer].URINE AND STOOL Most recent to oldest [Reference Range]: 1 UA Turbidity [Clear] Clear (12/16/13 10:35 PM) UA Color Ltyellow *NA* (12/16/13 10:35 PM) UA pH [5.0-8.0] 5.0 (12/16/13 10:35 PM) UA Spec Grav [<=1.030] 1.012 (12/16/13 10:35 PM) UA Glucose [Negative mg/dL] Negative mg/dL *NA* (12/16/13 10:35 PM) UA Blood [Negative] Moderate *ABN* (12/16/13 10:35 PM) UA Ketones [Negative mg/dL] Trace mg/dL *ABN* (12/16/13 10:35 PM) UA Protein [Negative mg/dL] Negative mg/dL (12/16/13 10:35 PM) UA Urobilinogen [0.1-1.0 mg/dL] <=1.0 mg/dL *NA* (12/16/13 10:35 PM) UA Bili [Negative] Negative *NA* (12/16/13 10:35 PM) UA Leuk Est [Negative] Negative (12/16/13 10:35 PM) UA Nitrite [Negative] Negative (12/16/13 10:35 PM) UA WBC [0-5 /HPF] 1 /HPF (12/16/13 10:35 PM) UA RBC [0-2 /HPF] 2 /HPF (12/16/13 10:35 PM) UA Sq Epi None Seen *NA* (12/16/13 10:35 PM) HEMATOLOGY Most recent to oldest [Reference Range]: 1 WBC [3.7-10.4 K/CMM] 12.3 K/CMM *HI* (12/16/13 10:34 PM) RBC [4.70-6.10 M/CMM] 5.10 M/CMM (12/16/13 10:34 PM) Hgb [14.0-18.0 g/dL] 14.9 g/dL (12/16/13 10:34 PM) Hct [42.0-54.0 %] 43.7 % (12/16/13 10:34 PM) MCV [80.0-94.0 fL] 85.6 fL (12/16/13 10:34 PM) MCH [27.0-31.0 pg] 29.1 pg (12/16/13 10:34 PM) MCHC [32.0-36.0 g/dL] 34.0 g/dL (12/16/13 10:34 PM) RDW [11.5-14.5 %] 12.9 % (12/16/13 10:34 PM) Platelet [133-450 K/CMM] 277 K/CMM (12/16/13 10:34 PM) MPV [7.4-10.4 fL] 9.0 fL (12/16/13 10:34 PM) Segs [45.0-75.0 %] 80.4 % *HI* (12/16/13 10:34 PM) Lymphocytes [20.0-40.0 %] 12.5 % *LOW* (12/16/13 10:34 PM) Monocytes [2.0-12.0 %] 6.4 % (12/16/13 10:34 PM) Eosinophils [0.0-4.0 %] 0.4 % (12/16/13 10:34 PM) Basophils [0.0-1.0 %] 0.3 % (12/16/13 10:34 PM) Segs-Bands # [1.5-8.1 K/CMM] 9.9 K/CMM *HI* (12/16/13 10:34 PM) Lymphocytes # [1.0-5.5 K/CMM] 1.5 K/CMM (12/16/13 10:34 PM) Monocytes # [0.0-0.8 K/CMM] 0.8 K/CMM (12/16/13 10:34 PM) Medications Administered During Your Visit No data available for this section Immunizations No data available for this section Social History Social History Type Response Alcohol Use: Current, Type: Beer, Type: Liquor, Frequency: 1-2 times per week, Previous treatment: None, Has alcohol use interfered with work or home life? No, Do you ever drink more than intended? No, Has anyone been hurt or at risk by your drinking? No, Ready to change: No, Concerns about alcohol use in household: No Smoking Status Never smoker, Previous treatment: None, Ready to change: No, Concerns about tobacco use in household: No, Exposure to Tobacco Smoke None, Cigarette Smoking Last 365 Days No, Reg Smoking Cessation Counseling No
--- OUTSIDE RECORDS SUMMARY | 2018-01-21 15:38 | XMS REPORT | Summary of Care ---
:1965 Author Organization [facility] Address [address] [place] [id number]- Encounter HQ Virgilio(AMY) [id number] Date(s): 03/14/16 - 03/16/[address] Professional Services provided by [facility] [place] [address]- Discharge Disposition: Home or Self Care Attending Physician: Ted Flores MD Admitting Physician: Ted Flores MD Referring Physician: Ted Flores MD Vital Signs Most recent to oldest 1 2 3 [Reference Range]: Height 180.34 cm 180.34 cm 180.34 cm (03/14/16 10:02 PM) (03/14/16 1:58 PM) (03/10/16 9:05 AM) Temperature Oral [96.4-99.1 97.9 DegF 98.0 DegF 97.9 DegF DegF] (03/16/16 12:19 PM) (03/16/16 9:12 AM) (03/16/16 3:49 AM) Blood Pressure 115/67 mmHg 117/77 mmHg 107/67 mmHg [90-140/60-90 mmHg] (03/16/16 12:19 PM) (03/16/16 9:12 AM) (03/16/16 3:49 AM ) Respiratory Rate [14-20 18 BRMIN 18 BRMIN 16 BRMIN BRMIN] (03/16/16 12:19 PM) (03/16/16 9:12 AM) (03/16/16 3:49 AM) Peripheral Pulse Rate 61 bpm 58 bpm 61 bpm [60-100 bpm] (03/16/16 12:19 PM) *LOW* (03/16/16 3:49 AM) (03/16/16 9:12 AM) Weight 86.364 kg 86.364 kg 86.364 kg (03/14/16 10:02 PM) (03/14/16 1:58 PM) (03/10/16 9:05 AM) Body Mass Index 26.56 m2 26.56 m2 26.56 m2 (03/14/16 10:02 PM) (03/14/16 1:58 PM) (03/10/16 9:05 AM) Problem List Condition Effective Dates Status Health Status Informant Backache1 09/01/11 Resolved Benign hypertension2 Active Diverticulitis of colon(Confirmed) Active Gastroesophageal reflux disease3 Active Chronic GERD(Confirmed) Resolved HTN (hypertension)(Confirmed) Active Hypercholesterolemia(Confirmed) Active Hyperlipidemia4 09/04/11 Active Insomnia5 09/25/13 Active Palpitations6 09/25/13 Active 1Data migrated from [employer] on 10/16/14.2Data migrated from [employer] on 08/31/14.3Data migrated from [employer] on 08/31/14.4Data migrated from [employer] on 08/31/14.5Data migrated from [employer] on 08/31/14.6Data migrated from [employer] on 08/31/14. Allergies, Adverse Reactions, Alerts Substance Reaction Severity Status codeine1 Active contrast media (iodine-based) Active penicillins2 Active 1Data migrated from [employer] on 06/02/15. Originally documented as CODEINE. [id number] migrated from [employer] on 10/29/14. Originally documented as PCN. Child Medications ANES flumazenil 0.2 mg, Route: IVP, PRN, Dosing Weight 86.364, kg, PRN Benzodiazepine Reversal, Initial dose, Start date: 03/14/16 19:25:00 RE ETCHER, Duration: 30 day, Stop date: 19:24:00 RE ETCHER Start Date: 03/14/16 Stop Date: 03/14/16 Status: DiscontinuedANES hydrALAZINE 10 mg, Route: IVP, Q20Min, Dosing Weight 86.364, kg, PRN Elevated BP, Start date : 03/14/16 19:25:00 RE ETCHER, Duration: 2 doses or times, Stop date: Limited # of times Start Date: 03/14/16 Stop Date: 03/14/16 Status: DiscontinuedANES HYDROmorphone 0.5 mg, Route: IVP, Q5Min, Dosing Weight 86.364, kg, PRN Pain Score 7-10, Start date: 03/14/16 19:25:00 RE ETCHER, Duration: 4 doses or times, Stop date: Limited # of times Start Date: 03/14/16 Stop Date: 03/14/16 Status: DiscontinuedANES naloxone 0.4 mg, Route: IVP, Q2MIN, Dosing Weight 86.364, kg, PRN Narcotic Reversal, Start date: 03/14/16 19:25:00 RE ETCHER, Duration: 8 doses or times, Stop date: Limited # of times Start Date: 03/14/16 Stop Date: 03/14/16 Status: DiscontinuedANES ondansetron 4 mg, Route: IVP, ONCE, Dosing Weight 86.364, kg, PRN Nausea & Vomiting, Start date: 03/14/16 19:25:00 RE ETCHER Start Date: 03/14/16 Stop Date: 03/14/16 Status: Discontinuedatorvastatin 10 mg, 1 tab, Route: PO, Drug form: TAB, Bedtime, Dosing Weight 86.364, kg, Start date: 03/15/16 21:00:00 RE ETCHER, Duration: 30 day, Stop date: 04/13/16 21:00: 00 RE ETCHER Notes: (Same As: Lipitor) Start Date: 03/15/16 Stop Date: 03/16/16 Status: Discontinuedbupivacaine liposome 20 mL, Route: InFILtration(local), Drug Form: INJ, ONCALL, Start date: 03/14/16 19:00:00 RE ETCHER, Duration: 1 doses or times Notes: (Same as: Exparel) NOT FOR IV [...] (total dose=30 mL [266 mg]) Start Date: 03/14/16 Stop Date: 03/16/16 Status: [id number] 1/2NS + KCL 20mEq/L 1000ml (Premix) 1,000 mL 1,000 mL, Rate: 50 ml/hr, Infuse over: 20 hr, Route: IV, Dosing Weight 86.364 kg , Total Volume: 1,000, Start date: 03/14/16 19:32:00 RE ETCHER, Stop date: 04/13/16 19 :31:00 RE ETCHER Notes: PREMIX IV - Do Not AlterWASTE: F/P - Sink; E - Municipal Trash Bin Start Date: 03/14/16 Stop Date: 03/16/16 Status: Discontinuedenoxaparin 40 mg, 0.4 mL, Route: SUB-Q, Drug form: INJ, [id number], Dosing Weight 86.364, kg , Start date: 03/15/16 10:00:00 RE ETCHER, Duration: 30 day, Stop date: 04/13/16 10:00 :00 RE ETCHER Notes: (Same as: Lovenox) Start Date: 03/15/16 Stop Date: 03/16/16 Status: DiscontinuedFlagyl 500 mg, 100 mL, Route: IVPB, Drug form: INJ, PRE OP, Start date: 03/14/16 15:00: 00 RE ETCHER, Duration: 1 day, Stop date: 03/15/16 14:59:00 RE ETCHER Notes: (Same as: Flagyl) Avoid alcohol. Start Date: 03/14/16 Stop Date: 03/16/16 Status: Discontinuedgabapentin 300 mg oral capsule 300 mg, 1 cap, Route: PO, Drug form: CAP, Q8H, Dosing Weight 87.727, kg, (CrCl > 60 ml/min), Start date: 03/15/16 0:00:00 RE ETCHER, Duration: 30 day, Stop date: 03/18 16:00:00 RE ETCHER Notes: (Same as: Neurontin) Start Date: 03/15/16 Stop Date: 03/16/16 Status: Discontinuedhydromorphone 0.2 mg, 0.1 mL, Route: IVP, Drug form: INJ, Q2H, Dosing Weight 87.727, kg, PRN Pain Score 4-6, Startdate: 03/14/16 19:32:00 RE ETCHER, Duration: 30 day, Stop date: 04/13/16 19:31:00 RE ETCHER Notes: Same as Dilaudid Start Date: 03/14/16 Stop Date: 03/16/16 Status: DiscontinuedketOROLAC 15 mg, 1 mL, Route: IVP, Drug form: INJ, Q6H, Dosing Weight 86.364, kg, Start date: 03/15/16 0:00:00CST, Duration: 6 doses or times, Stop date: 03/16/16 6:00: 00 RE ETCHER Notes: (Same as:Toradol) IV bolus must be given >15 seconds. Give IM administration slowly and deeply into the muscle. Not for use > 4 days. Start Date: 03/15/16 Stop Date: 03/16/16 Status: CompletedLactated Ringers 1,000 mL 1,000 mL, Rate: 40 ml/hr, Infuse over: 25 hr, Route: IV, Dosing Weight 86.364 kg , Total Volume: 1,000, Start date: 03/14/16 13:56:00 RE ETCHER, Duration: 30 day, Stop date: 04/13/16 13:55:00 RE ETCHER Start Date: 03/14/16 Stop Date: 03/15/16 Status: DiscontinuedLevaquin 750 mg, 150 mL, Route: IV, Drug form: SOLN, PRE OP, Start date: 03/14/16 15:00: 00 RE ETCHER, Duration: 1 day, Stop date: 03/15/16 14:59:00 RE ETCHER Notes: (Same as:Levaquin) Start Date: 03/14/16 Stop Date: 03/16/16 Status: DiscontinuedNexIUM 10 mg, Route: PO, Daily, Dosing Weight 86.364, kg, Start date: 03/15/16 9:00:00 RE ETCHER, Duration: 30 day, Stop date: 04/13/16 9:00:00 RE ETCHER Start Date: 03/15/16 Stop Date: 03/15/16 Status: DiscontinuedOfirmev 1,000 mg, 100 mL, Route: IV, Drug form: INJ, Q6H, Dosing Weight 87.727, kg, for > or=50 kg, Start date: 03/15/16 0:00:00 RE ETCHER, Duration: 3 day, Stop date: 18:00:00 RE ETCHER Notes: Infuse over 15 minutesDo not exceed 4gm/day of acetaminophen MEDICATION WASTE ProductSize: 1000 mgProduct Wasted: ___ mg Start Date: 03/15/16 Stop Date: 03/16/16 Status: Discontinuedondansetron 4 mg, 2 mL, Route: IVP, Drug form: INJ, Q6H, Dosing Weight 86.364, kg, PRN Nausea & Vomiting, Start date: 03/14/16 19:32:00 RE ETCHER, Duration: 30 day, Stop date: 04/13/16 19:31:00 RE ETCHER Notes: (Same as: Zofran) MEDICATION WASTE Product Size: 4 mgProduct Wasted: ___ mg Start Date: 03/14/16 Stop Date: 03/16/16 Status: DiscontinuedoxyCODONE 5 mg immediate release 10 mg, 2 tab, Route: PO, Drug form: TAB, Q4H, Dosing Weight 87.727, kg, PRN Pain Score 6-10, Start date: 03/14/16 19:32:00 RE ETCHER, Duration: 30 day, Stop date : 04/13/16 19:31:00 RE ETCHER Notes: (Same as: Roxicodone) Start Date: 03/14/16 Stop Date: 03/15/16 Status: DiscontinuedoxyCODONE 5 mg immediate release 5 mg, 1 tab, Route: PO, Drug form: TAB, Q4H, Dosing Weight 87.727, kg, PRN Pain Score 4-6, Start date: 03/14/16 19:32:00 RE ETCHER, Duration: 30 day, Stop date: 04/13 19:31:00 RE ETCHER Notes: (Same as: Roxicodone) Start Date: 03/14/16 Stop Date: 03/15/16 Status: DiscontinuedProtonix 40 mg, 1 tab, Route: PO, Drug form: ECTAB, Before Breakfast, Start date: 7:30:00 RE ETCHER, Duration: 30 day, Stop date: 04/13/16 7:30:00 RE ETCHER Notes: Tablet should not be chewed or crushed.(Same as: Protonix) Start Date: 03/15/16 Stop Date: 03/16/16 Status: DiscontinuedSaline Flush 0.9% 10 ml, Route: IVP, Drug Form: INJ, Dosing Weight 86.364, kg, PRN, PRN Line Flush , Start date: 03/14/16 19:32:00 RE ETCHER, Duration: 30 day, Stop date: 04/13/16 19:31 :00 RE ETCHER Notes: Same as: BD Posiflush Sterile Start Date: 03/14/16 Stop Date: 03/16/16 Status: DiscontinuedToprol-XL 50 mg oral tablet, extended release 50 mg, 1 tab, Route: PO, Drug form: ERTAB, Daily, Start date: 03/15/16 9:00:00 RE ETCHER, Duration: 30 day, Stop date: 04/13/16 9:00:00 RE ETCHER Notes: (Same as: Toprol XL) May split tab, but do not crush. Start Date: 03/15/16 Stop Date: 03/16/16 Status: Discontinuedtramadol 50 mg oral tablet 100 mg, 2 tab, Route: PO, Drug form: TAB, Q4H, Dosing Weight 86.364, kg, PRN Pain Score 7-10, Start date: 03/15/16 7:26:00 RE ETCHER, Duration: 30 day, Stop date: 04/14/16 7:25:00 RE ETCHER Notes: Not to exceed 400mg/day. (Same As: Ultram) Start Date: 03/15/16 Stop Date: 03/16/16 Status: Discontinuedtramadol 50 mg oral tablet 50 mg, 1 tab, Route: PO, Drug form: TAB, Q4H, Dosing Weight 86.364, kg, PRN Pain Score 4-6, Start date: 03/15/16 7:26:00 RE ETCHER, Duration: 30 day, Stop date: 04/14/16 7:25:00 RE ETCHER Notes: Not to exceed 400mg/day. (Same As: Ultram) Start Date: 03/15/16 Stop Date: 03/16/16 Status: Discontinuedtramadol 50 mg oral tablet 50 mg=1 tab, PO, Q4H, PRN Pain, X 10 day, # 60 tab, 0 Refill(s), given to patient Start Date: 03/16/16 Stop Date: 03/26/16 Status: Ordered Results BLOOD BANK RESULTS Most recent to oldest [Reference Range]: 1 2 ABO/Rh O POS *Unknown* (03/14/16 2:01 PM) Antibody Scrn Negative (03/14/16 2:01 PM) ELECTROLYTES Most recent to oldest [Reference Range]: 1 2 Sodium Lvl [135-145 mEq/L] 140 mEq/L 137 mEq/L (03/16/16 5:32 AM) (03/15/16 12:38 AM) Potassium Lvl [3.5-5.1 mEq/L] 3.6 mEq/L 4.0 mEq/L (03/16/16 5:32 AM) (03/15/16 12:38 AM) Chloride Lvl [95-109 mEq/L] 103 mEq/L 100 mEq/L (03/16/16 5:32 AM) (03/15/16 12:38 AM) CO2 [24-32 mEq/L] 30 mEq/L 23 mEq/L (03/16/16 5:32 AM) *LOW* (03/15/16 12:38 AM) AGAP [10.0-20.0 mEq/L] 10.6 mEq/L 18.0 mEq/L (03/16/16 5:32 AM) (03/15/16 12:38 AM) CHEM PANEL Most recent to oldest [Reference Range]: 1 2 Creatinine Lvl [0.50-1.40 mg/dL] 0.94 mg/dL 0.91 mg/dL (03/16/16 5:32 AM) (03/15/16 12:38 AM) eGFR 94 mL/min/1.73m2 1 99 mL/min/1.73m2 2 *NA* *NA* (03/16/16 5:32 AM) (03/15/16 12:38 AM) BUN [7-22 mg/dL] 10 mg/dL 11 mg/dL (03/16/16 5:32 AM) (03/15/16 12:38 AM) Glucose Lvl [70-99 mg/dL] 117 mg/dL 117 mg/dL *HI* *HI* (03/16/16 5:32 AM) (03/15/16 12:38 AM) Calcium Lvl [8.5-10.5 mg/dL] 8.2 mg/dL 8.1 mg/dL *LOW* *LOW* (03/16/16 5:32 AM) (03/15/16 12:38 AM) Phosphorus [2.5-4.5 mg/dL] 2.6 mg/dL 2.9 mg/dL (03/16/16 5:32 AM) (03/15/16 12:38 AM) Magnesium Lvl [1.8-2.4 mg/dL] 2.6 mg/dL 2.1 mg/dL *HI* (03/15/16 12:38 AM) (03/16/16 5:32 AM) 1Result Comment: The eGFR is calculated [...] eGFR should be multiplied by the estimated BMI.HEMATOLOGY Most recent to oldest [Reference Range]: 1 2 WBC [3.7-10.4 K/CMM] 5.1 K/CMM 8.8 K/CMM (03/16/16 5:32 AM) (03/15/16 12:38 AM) RBC [4.70-6.10 M/CMM] 4.52 M/CMM 4.81 M/CMM *LOW* (03/15/16 12:38 AM) (03/16/16 5:32 AM) Hgb [14.0-18.0 g/dL] 12.7 g/dL 13.6 g/dL *LOW* *LOW* (03/16/16 5:32 AM) (03/15/16 12:38 AM) Hct [42.0-54.0 %] 37.5 % 39.3 % *LOW* *LOW* (03/16/16 5:32 AM) (03/15/16 12:38 AM) MCV [80.0-94.0 fL] 83.0 fL 81.7 fL (03/16/16 5:32 AM) (03/15/16 12:38 AM) MCH [27.0-31.0 pg] 28.2 pg 28.3 pg (03/16/16 5:32 AM) (03/15/16 12:38 AM) MCHC [32.0-36.0 g/dL] 33.9 g/dL 34.7 g/dL (03/16/16 5:32 AM) (03/15/16 12:38 AM) RDW [11.5-14.5 %] 14.3 % 14.1 % (03/16/16 5:32 AM) (03/15/16 12:38 AM) Platelet [133-450 K/CMM] 195 K/CMM 207 K/CMM (03/16/16 5:32 AM) (03/15/16 12:38 AM) MPV [7.4-10.4 fL] 8.9 fL 8.6 fL (03/16/16 5:32 AM) (03/15/16 12:38 AM) Segs [45.0-75.0 %] 70.7 % 92.9 % (03/16/16 5:32 AM) *HI* (03/15/16 12:38 AM) Lymphocytes [20.0-40.0 %] 17.5 % 5.2 % *LOW* *LOW* (03/16/16 5:32 AM) (03/15/16 12:38 AM) Monocytes [2.0-12.0 %] 10.1 % 1.7 % (03/16/16 5:32 AM) *LOW* (03/15/16 12:38 AM) Eosinophils [0.0-4.0 %] 1.4 % 0.1 % (03/16/16 5:32 AM) (03/15/16 12:38 AM) Basophils [0.0-1.0 %] 0.3 % 0.1 % (03/16/16 5:32 AM) (03/15/16 12:38 AM) Segs-Bands # [1.5-8.1 K/CMM] 3.6 K/CMM 8.1 K/CMM (03/16/16 5:32 AM) (03/15/16 12:38 AM) Lymphocytes # [1.0-5.5 K/CMM] 0.9 K/CMM 0.5 K/CMM *LOW* *LOW* (03/16/16 5:32 AM) (03/15/16 12:38 AM) Monocytes # [0.0-0.8 K/CMM] 0.5 K/CMM 0.2 K/CMM (03/16/16 5:32 AM) (03/15/16 12:38 AM) Eosinophils # [0.0-0.5 K/CMM] 0.1 K/CMM (03/16/16 5:32 AM) Immunizations Given and Recorded Vaccine Date Status Refusal Reason diphtheria/pertussis, acel/tetanus adult1 09/01/11 Given diphtheria-tetanus toxoids2 09/01/11 Given influenza virus vaccine, inactivated 01/14/16 Given tetanus-diphtheria toxoids3 09/01/11 Given 1Result Comment: tdap. Migrated from OBS ; Data migrated from [employer] on 05/19/2015.2Result Comment: tdap. Migrated from OBS ; Data migrated from [employer] on 10/14/2014.3Result Comment: tdap. Migrated from OBS ; Data migrated from [employer] on 05/19/2015. Procedures Procedure Date Related Diagnosis Body Site Closure of ileostomy Creation of ileostomy Vasectomy Social History Social History Type Response Substance Abuse Use: None. Alcohol Current, Type Beer, Liquor. Frequency: 1-2 [...] No Assessment and Plan Extracted from: Title: Discharge Summary Author: Yohannes Kay MD Date: Admission Dx: Ileostomy status Discharge Dx: Same Procedures Performed: Lap takedown loop ileostomy Discharge Location: Home Discharge Activity: No driving, no heavy lifting Discharge Meds: Tramadol Discharge Diet: Soft Follow-up: [address] Flores Discharge Summary: Pt presented for lap takedown loop ileostomy. Post-op patient did very well. Pain well controlled. Ambulated. Began to have flatus POD #1. Tolerated clears. Advanced to soft di et. Tolerated this. Began to have multiple BMs. Taught wound care. Stable for discharge. Extracted from: Title: CRS POD #2 Author: Yohannes Kay MD Date: 03/16/16 Progress Note - Daily [facility] Completed: , MAR 16, 2016, 07: 34 by Yohannes Kay MD RM: [id number] - [id number], [id number] SERGIO RICHARD 51y (: 1965) M Attending: Ted Flores MD Service: Colon & Rectal Surg Service Reason for Admission: ILEOSTOMY STATUS Working DRG: Other musculoskeletal sys & connective tissue diagnoses w/o CC/MCFP Code status: None Specified=FULL CODE Current diet: Isolation: None Documented Allergies: contrast media (iodine-based), codeine, penicillins SUBJECTIVE Patient doing well. Pain well controlled. Ambulating. Tolerating soft diet, no N/V. +Flatus, Diarrhea. No acute events OBJECTIVE AOx3 NAD CTAB RRR Soft, ND, mild incisional ttp, incisions c/d/i, ostomy site mild s/s drainage 24hr Labs 03/16 0532 Glucose Lvl 117 H BUN 10 Creatinine Lvl 0.94 Sodium Lvl 140 Potassium Lvl 3.6 Chloride Lvl 103 CO2 30 AGAP 10.6 Calcium Lvl 8.2 L eGFR 94 Magnesium Lvl 2.6 H Phosphorus 2.6 WBC 5.1 RBC 4.52 L Hgb 12.7 L Hct 37.5 L MCV 83.0 MCH 28.2 MCHC 33.9 RDW 14.3 Platelet 195 MPV 8.9 Segs 70.7 Monocytes 10.1 Lymphocytes 17.5 L Eosinophils 1.4 Basophils 0.3 Segs-Bands # 3.6 Lymphocytes # 0.9 L Monocytes # 0.5 Eosinophils # 0.1 Ling still necessary (Yes/No): Line still necessary (Yes/No): Vitals Tmp(F) Pulse BP RR SpO2 FIO2 03/16 03:49 97.9 61 107/67 16 96 --- 03/15 23:29 98.2 81 115/72 18 96 --- 03/15 20:40 ---- --- ----- -- 98 --- 03/15 19:13 98.1 86 121/69 18 98 --- 03/15 17:13 98.1 89 126/77 18 96 --- 24 Hr Tmax: 98.2F (36.78c) at 03/15 23:29 Vital Signs are the last 5 in the past 48 hours. Date Wt(kg) Wt(lb) Ht(cm) Ht(in) Method 03/14 86.36 190.00 180.34 71.00 Estimated 03/10 (initial) 86.36 190.00 Estimated 03/10 180.34 71.00 Stated I&O Record In Out Bal 03/15 24hr Tot 2580 1300 1280 03/14 24hr Tot 881 345 536 Medications (15) Active Scheduled Meds (6): 03/15/16 acetaminophen (Ofirmev) 1,000 mg IV Q6H 400 ml/hr 03/15/16 atorvastatin 10 mg PO Bedtime 03/15/16 enoxaparin 40 mg SUB-Q [id number] 03/15/16 gabapentin (gabapentin 300 mg oral capsule) 300 mg PO Q8H 03/15/16 metoprolol (Toprol-XL 50 mg oral tablet, extended release) 50 mg PO Daily 03/15/16 pantoprazole (Protonix) 40 mg PO Before Breakfast Unscheduled Meds (3): 03/14/16 bupivacaine liposome 20 mL InFILtration(local) ONCALL 03/14/16 levofloxacin (Levaquin) 750 mg IV PRE OP 100 ml/hr 03/14/16 metroNIDAZOLE (Flagyl) 500 mg IVPB PRE OP 200 ml/hr PRN Meds (5): 03/14/16 hydromorphone 0.2 mg IVP Q2H 03/14/16 ondansetron 4 mg IVP Q6H 03/14/16 sodium chloride (Saline Flush 0.9%) 10 ml IVP PRN 03/15/16 tramadol (tramadol 50 mg oral tablet) 50 mg PO Q4H 03/15/16 tramadol (tramadol 50 mg oral tablet) 100 mg PO Q4H One Time Meds: None Continuous Infusions (1): 03/14/16 D5W 1/2NS + KCL 20mEq/L 1000ml (Premix) 1,000 mL 1,000 mL 50 ml/hr ASSESSMENT & EXAM s/p ileostomy takedown POD #2 PLAN & TREATMENT 1) Pain mgmt 2) Soft diet 3) Monitor bowel function 4) Ambulate 5) If tolerates breakfast D/C home DIAGNOSES & PROBLEMS Ready for Discharge (Yes/No)? TEACHING ATTESTATION
[2018-01-21] MEDS ORDERED: ONDANSETRON 4 MG/2 ML VIAL IV PRN (15:43)
[2018-01-21] MEDS ORDERED: MORPHINE 2 MG/ML SYR IV PRN (15:43)
[2018-01-21 16:11] VITALS: BMI 29.1
[2018-01-21 16:16] LABS: Absolute Lymphocytes (CBC) 1.4 K/uL (0.7-4.9); Absolute Monocytes 0.4 K/uL (0.1-1.3); Absolute Neutrophil 3.5 K/uL (1.8-8.0); Basophils % 0.8 % (0-1.3); Eosinophils % 1.9 % (0-4.4); Hematocrit 43.6 % (39.6-49.0); Lymphocytes % 25.8 % (15.3-44.8); MCH 27.3 pg (27.0-35.0); MCV 81.7 fL (80-100); MPV 8.6 fL (7.6-11.3); Monocytes % 6.9 % (3.3-12.3); RBC Red Blood Cell Count 5.33 M/uL (4.33-5.43)
[2018-01-21 16:31] LABS: Albumin 3.7 g/dL (3.4-5.0); Bilirubin Total 0.5 mg/dL (0.2-1.0); Magnesium 2.3 mg/dL (1.8-2.4); Potassium 3.8 mmol/L (3.5-5.1); Protein, Total 7.8 g/dL (6.4-8.2)
[2018-01-21 17:19] VITALS: O2SAT 95
[2018-01-21] MEDS: D5 0.9 NS 1,000 ML IV SCH (17:26)
[2018-01-21] MEDS ORDERED: SODIUM CHLORIDE 0.9% 10ML INJ IV PRN (18:49)
[2018-01-21] MEDS ORDERED: PANTOPRAZOLE 40 MG INJ IVP ONE (18:49)
--- NOTE | 2018-01-21 19:18 | RAD REPORT ---
EXAM DESCRIPTION: CT - Abdomen Pelvis Wo Contrast - 01/21/2018 7:01 pm CLINICAL HISTORY: Abdominal pain with periumbilical pain COMPARISON: January 2017 TECHNIQUE: Computed axial tomography of the abdomen and pelvis was obtained. IV was not requested. O ral contrast was given. Coronal reconstructions performed. All CT scans are performed using dose optimization technique as appropriate and may include automated exposure control or mA/KV adjustment according to patient size. FINDINGS: The evaluation of solid organs and vessels is limited secondary to the lack of contrast a dministration. The liver has a mildly diminished attenuation consistent with fatty infiltration. The gallbladder is been removed Spleen, pancreas, adrenals and kidneys appear grossly normal. The appendix is normal. There is no evidence of diverticulitis. Sigmoidectomy has been performed. Small inguinal hernias contain fat. Tiny umbilical hernia is noted. IMPRESSION: No acute abnormality is displayed.
[2018-01-21 20:43] LABS: Urine Appearance CLEAR; Urine Blood NEGATIVE (NEG); Urine Color YELLOW; Urine Glucose NEGATIVE (NEG); Urine Protein NEGATIVE (NEG); Urine Specific Gravity 1.015 (1.005-1.030); Urine Urobilinogen 0.2 mg/dL (0.2-1.0); Urine pH 5.5 (5.0-7.0)
[2018-01-21] MEDS ORDERED: KCL 20 MEQ/100 mL IVPB 20 MEQ/100 ML BAG IV SCH (21:00)
[2018-01-21 22:01] LABS: Urine Bilirubin NEGATIVE (NEG)
[2018-01-21 22:02] LABS: Urine Bacteria NONE SEEN /HPF (NONE SEEN); Urine Culture Reflex Order NOT NEEDED; Urine RBC NONE SEEN /HPF (NONE SEEN)
[2018-01-22] MEDS: D5 0.9 NS 1,000 ML IV SCH (03:45)
[2018-01-22 04:37] VITALS: BP 119/82; TEMP 98.4
[2018-01-22 05:55] LABS: Potassium 4.3 mmol/L (3.5-5.1)
[2018-01-22] MEDS ORDERED: PANTOPRAZOLE 40 MG INJ IVP ONE (07:45)
[2018-01-22] MEDS ORDERED: SODIUM CHLORIDE 0.9% 10ML INJ IV PRN (07:45)
--- NOTE | 2018-01-23 04:07 | HP ---
Date of Admission: 01/21/2018 Chief Complaint: Abdominal pain. History Of Present Illness: This is a 52-year-old pleasant male patient, came into office with 1-day history of abdominal pain. It started in the epigastric region and then he also started to have constanza n in right upper quadrant and right anterior flank region. Pain was almost continuous. Had some jaime sea. No vomiting. No fever, chills, constipation, or diarrhea. After he was evaluated at the [facility], he was admitted to the hospital. Allergies: TO PENICILLIN, IODINE, AND CODEINE. Medications: List reviewed. Review of Systems: GI: As mentioned above. All other systems reviewed and negative. Family History: Significant for father with coronary artery disease and diabetes. Social History: Negative for smoking. Occasional use of alcohol. Past Surgical History: Cholecystectomy, partial colectomy, and reversal of ileostomy. Past Medical History: Hypertension, hyperlipidemia, and gastroesophageal reflux disease. Physical Examination: Vital Signs: Initial temperature 98.2, pulse 88, respiratory rate 16, blood pressure 145/97, oxygen saturation 95%. Height 5 feet 11 inches, weight 209 pounds. General: Awake, alert, oriented, not in distress. HEENT: Head atraumatic, normocephalic. Conjunctivae nonerythematous. Sclerae white. Mouth, no thr ush or edema noted. Ears/Nose, no mass, lesion, discharge noted. Neck: Supple. No JVD, lymph nodes, bruit, thyromegaly noted. Lungs: Bilateral good equal air entry. Clear to auscultation. No rhonchi. No rales. Heart: Normal heart sounds, no murmur or gallop. Abdomen: Soft. No distention, guarding, rigidity. No rebound tenderness. Bowel sounds normoactive . No hepatosplenomegaly. The patient has significant tenderness in the right upper quadrant and rig ht anterior flank region. He has mild tenderness in the epigastric region. Extremities: No leg edema. No calf tenderness. Skin: No rash, ulcer, cellulitis. Lymphatics: No lymph node enlargement in neck, supraclavicular, infraclavicular region. Neuro: No focal neurological deficit. Chest: Unremarkable. External Genitalia: Deferred. Rectal: Deferred. Laboratory Data: White count 5.5, hemoglobin 14.6, platelets 260. Sodium 138, potassium 3.8, chlori de 104, bicarb 28, BUN 12, creatinine 1, glucose 92. Liver function tests unremarkable. Procalciton in less than 0.05. Urinalysis normal. CAT scan of abdomen and pelvis without contrast was unremarka ble. Impression: 1.Abdominal pain. 2.Hypertension. 3.Hyperlipidemia. 4.Gastroesophageal reflux disease. Plan: Admit the patient to hospital for further evaluation and management of this problem. After sina moss was evaluated at the office, he was admitted to the hospital. Further workup was done. No acu te significant findings noted. IV Protonix 40 mg x1 dose was ordered. I will see him tomorrow michael bustillo for followup. Depending on his condition, we will decide further plan of treatment. The patient never had EGD done. He had a colonoscopy done with his heavy mobile equipment operator, Dr. Burrell in [facility] about 3 or 4 months ago and it was reported as unremarkable per patient. I do not have a copy of the report and we have requested copy of the result from office. TAMMIE/DORA Voice ID: [id number]
--- NOTE | 2018-01-23 04:18 | DS ---
Date of Discharge: 01/22/2018 Disposition: Discharged to go home. Physical Examination: HEENT: Unremarkable. Lungs: Clear to auscultation. Heart: Sounds normal. Abdomen: Soft. Bowel sounds normal. No guarding, rigidity, tenderness, distention except tendernes s in epigastric region and right anterior flank, right upper quadrant region. Tenderness is unchange d from yesterday. Extremities: No leg edema. Discharge Medications And Instructions: 1.Continue all prior home medication except stop aspirin, did not take any etodolac which he has bee n taking for last 2 months per his orthopedic surgeon, Dr. Blank. I have also informed him not to take any [id number] nonsteroidal anti-inflammatory medication like Aleve, Advil, Motrin, etc. 2.Continue all prior home medication, otherwise, except stop aspirin and increase dose of Nexium 40 mg 2 times a day for 1 month and then drop dose down to 40 mg once a day again to continue. 3.Follow with Dr. Burrell as soon as possible for EGD details. 4.Follow up at my office within few days after EGD is done. Final Diagnoses: 1.Abdominal pain. 2.Acute gastritis without hemorrhage. 3.Gastroesophageal reflux disease. 4.Hypertension. 5.Hyperlipidemia. Hospital Course: A 52-year-old male patient came into office yesterday with complaints of abdominal pain. Please see dictated H and P for more information. After the patient was evaluated at the [facility], decision was made to admit him to hospital. Further evaluation revealed unremarkable CBC and michelle ernestina. CAT scan of abdomen without contrast was unremarkable. This morning when I saw him, he was feeling fine. No new complaints or problems reported. Abdominal pain and tenderness remains unchang ed. There is no evidence of any acute surgical abdomen. Yesterday, he was given 1 dose of Protonix IV. Today, second dose of IV Protonix was ordered and I did find out talking to patient's today that he has been taking etodolac daily for last 2 months. I have advised him to discontinue that co mpletely. I have also advised him to discontinue aspirin and not to take any other form of nonsteroi gloria anti-inflammatory medication. 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 I have informed the patient and his that if he has trouble getting appointment with his postdoctoral fellow, then to contact me so I can communicate with his postdoctoral fellow. TAMMIE/DORA Voice ID: [id number] Report ID: [id number]
== END 2018-01-22 09:30 | disposition home or self-care (01) ==
LOC: INTOOBSV 15:26 → 4TH 15:26
PROVIDERS: ADMIT Internal Medicine; ATTEND Internal Medicine
DX: K29.00 Acute gastritis without bleeding (principal); I10 Essential (primary) hypertension; E78.5 Hyperlipidemia, unspecified; K21.9 Gastro-esophageal reflux disease without esophagitis; Z88.0 Allergy status to penicillin
CPT/HCPCS: 36415; 74176; 80048; 80053; 81001; 83735; 84145; 85025; C9113; G0378; J2270

== ENCOUNTER 2020-07-24 08:49 | Inpatient (IN) | payer BC ==
[2020-07-24] MEDS ORDERED: NA CHLORIDE 0.9% 1,000 ML ONE (09:45)
[2020-07-24] MEDS ORDERED: ONDANSETRON 4 MG/2 ML VIAL ONE ×2 (09:45→12:32)
[2020-07-24] MEDS ORDERED: MORPHINE 4 MG/ML SYR ONE ×4 (09:45→17:49)
[2020-07-24 09:52] LABS: Absolute Lymphocytes (CBC) 1.3 K/uL (0.7-4.9); Basophils % 0.3 % (0-1.3); Hematocrit 42.3 % (39.6-49.0); Lymphocytes % 12.4 % (15.3-44.8); MPV 8.9 fL (7.6-11.3)
[2020-07-24 10:09] LABS: Albumin 3.7 g/dL (3.4-5.0); Bilirubin Direct 0.2 mg/dL (0-0.2); Bilirubin Total 0.9 mg/dL (0.2-1.0); Potassium 4.2 mmol/L (3.5-5.1); Protein, Total 7.7 g/dL (6.4-8.2)
--- NOTE | 2020-07-24 10:25 | RAD REPORT ---
EXAM DESCRIPTION: CTAbdomen Pelvis W Contrast - 07/24/2020 9:53 am CLINICAL HISTORY: Abdominal pain. ABD PAIN COMPARISON: Abdomen Pelvis W Contrast dated 07/31/2016; Abdomen Pelvis W Contrast dated 07/07/2016; Abdomen Pelvis W Contrast dated 10/05/2015 TECHNIQUE: Biphasic CT imaging of the abdomen and pelvis was performed with 100 ml non-ionic IV cont rast. All CT scans are performed using dose optimization technique as appropriate and may include automated exposure control or mA/KV adjustment according to patient size. FINDINGS: The lung bases are clear.Cholecystectomy. The liver, spleen, pancreas, adrenal glands and kidneys are within normal limits. No bowel obstruction, free air, free fluid or abscess. 5-6 cm length of sigmoid colon demonstrates mo derate inflammation. This is also the site previous colon resection with anastomosis noted. Several d iverticula are seen in the region. The appendix is normal. No evidence of significant lymphadenopath y. No suspicious bony findings. IMPRESSION: 5-6 cm length of sigmoid colon demonstrates moderate inflammation likely acute diverticu litis. This is also the site of a previous colon resection with anastomosis. After appropriate therap y, consider follow-up colonoscopy direct visualization this region. No abscess is present.
[2020-07-24 10:36] LABS: SARS-COV-2 RT PCR NEGATIVE (NEGATIVE)
--- NOTE | 2020-07-24 10:45 | EDPHYS ---
Physician Documentation [facility] Name: Kenji Case Age: 55 yrs Sex: Male : 1965 Arrival Date: 07/24/2020 Time: 08:55 Bed 7 Private MD: ED Physician Marin Herzog HPI: 07/24 09:18 This 55 yrs old Male presents to ER via Unassigned with complaints of pm1 Abdominal Pain. 09:18 The patient presents with abdominal pain in the left lower quadrant. Onset: The pm1 symptoms/episode began/occurred yesterday. The symptoms do not radiate. Associated signs and symptoms: Pertinent positives: diarrhea, Pertinent negatives: nausea and vomiting, chest pain, constipation, fever, shortness of breath, Cough. The symptoms are described as achy. Modifying factors: The symptoms are alleviated by nothing, the symptoms are aggravated by movement. Severity of pain: in the emergency department the pain is actually worse. The patient has experienced similar episodes in the past, several times, today's symptoms are similar, to previous diverticulitis. The patient has not recently seen a physician. Historical: - Allergies: 09:21 Codeine; nausea; ss 09:21 Iodine; ss 09:21 PENICILLINS; ss - Home Meds: 09:21 aspirin 81 mg Oral chew 1 tab once daily [Active]; Lopressor 50 mg Oral tab 1 tab once ss daily for Hypertension [Active]; lovastatin 40 mg Oral tab 1 tab once daily [Active]; Nexium 40 mg Oral cpDR 1 cap 2 times per day [Active]; - PMHx: 09:21 carpal tunnel; Diverticulitis; GERD; High Cholesterol; Hypertension; mesenteric ss necrosis; - PSHx: 09:21 Cholecystectomy; Colon resection with ileostomy and reversal; ss - Immunization history:: Adult Immunizations up to date. - Social history:: Smoking status: Patient denies any tobacco usage or history of. ROS: 09:18 Cardiovascular: Negative for chest pain, palpitations, and edema, Respiratory: Negative pm1 for shortness of breath, cough, wheezing, and pleuritic chest pain. 09:18 Back: Negative for injury and pain, : Negative for injury, bleeding, discharge, and swelling, MS/Extremity: Negative for injury and deformity, Skin: Negative for injury, rash, and discoloration, Neuro: Negative for headache, weakness, numbness, tingling, and seizure. 09:18 Constitutional: Positive for chills, poor PO intake, Negative for fever. 09:18 Abdomen/GI: Positive for abdominal pain, diarrhea, Negative for nausea and vomiting. Exam: 09:18 Constitutional: This is a well developed, well nourished patient who is awake, alert, pm1 and in no acute distress. Head/Face: Normocephalic, atraumatic. 09:18 Back: No spinal tenderness. No costovertebral tenderness. Full range of motion. 09:18 Skin: Warm, dry with normal turgor. Normal color with no rashes, no lesions, and no evidence of cellulitis. MS/ Extremity: Pulses equal, no cyanosis. Neurovascular intact. Full, normal range of motion. 09:18 Cardiovascular: Exam negative for acute changes, Rate: normal, Rhythm: regular, Pulses: no pulse deficits are appreciated. 09:18 Respiratory: Exam negative for acute changes, respiratory distress, shortness of breath. 09:18 Abdomen/GI: Inspection: obese scar(s), are noted in the suprapubic area and right lower quadrant, Palpation: soft, in all quadrants, mild abdominal tenderness, in the left lower quadrant. 09:18 Neuro: Exam negative for acute changes, Orientation: is normal, Mentation: is normal, Motor: moves all fours, Gait: is steady, at a normal pace, without difficulty. Vital Signs: 09:14 BP 145 / 105; Pulse 97; Resp 17; Temp 97.6(TE); Pulse Ox 99% on R/A; Weight 92.08 kg; ss Height 5 ft. 11 in. (180.34 cm); Pain 6/10; 11:01 BP 133 / 81; Pulse 78; Resp 16; Pulse Ox 99% on R/A; Pain 8/10; hb 11:45 BP 117 / 74; Pulse 75; Resp 16; Pulse Ox 97% ; sv 12:30 BP 120 / 72; Pulse 74; Resp 16; Pulse Ox 98% ; sv 13:15 BP 133 / 90; Pulse 73; Resp 18; Pulse Ox 96% ; sv 14:00 BP 122 / 78; Pulse 69; Resp 16; Pulse Ox 97% ; sv 15:00 BP 128 / 78; Pulse 68; Resp 14; Pulse Ox 97% on R/A; hb 16:00 BP 130 / 80; Pulse 67; Resp 15; Pulse Ox 100% ; hb 17:00 BP 136 / 86; Pulse 64; Resp 16; Pulse Ox 99% ; hb 09:14 Body Mass Index 28.31 (92.08 kg, 180.34 cm) ss MDM: 09:11 Patient medically screened. pm1 10:31 Counseling: I had a detailed discussion with the patient and/or guardian regarding: the pm1 historical points, exam findings, and any diagnostic results supporting the discharge/admit diagnosis, lab results, radiology results, the need for further work-up and treatment in the hospital. 10:41 Physician consultation: A Stacey PONCE was called at 10:41, was contacted at 10:41, pm1 regarding admission, patient's condition, NPO, IV fluids, cipro, flagyl, pain medications. Wants no surgical consultation at the time since no free air, free fluid, or abscess. 11:03 Data reviewed: vital signs. Data interpreted: Pulse oximetry: on room air is 99 %. pm1 Interpretation: normal. 07/24 09:07 Order name: Basic Metabolic Panel pm07/24 09:07 Order name: CBC with Diff pm07/24 09:07 Order name: Hepatic Function pm07/24 09:07 Order name: Lipase pm07/24 09:08 Order name: Basic Metabolic Panel; Complete Time: 10:11 EDMS 07/24 09:08 Order name: CBC with Automated Diff; Complete Time: 10:11 EDMS 07/24 09:08 Order name: Liver (Hepatic) Function; Complete Time: 10:11 ED07/24 09:08 Order name: Lipase; Complete Time: 10:11 EDMS 07/24 09:17 Order name: CT Abd/Pelvis - IV Contrast Only; Complete Time: 10:26 pm07/24 10:36 Order name: COVID-19/FLU A+B; Complete Time: 10:49 EDMS 07/24 09:07 Order name: IV Saline Lock; Complete Time: 09:40 pm1 07/24 09:07 Order name: Labs collected and sent; Complete Time: 09:40 pm1 07/24 11:01 Order name: NPO; Complete Time: 11:05 pm1 Administered Medications: 09:38 Drug: NS 0.9% 1000 ml Route: IV; Rate: 1000 ml; Site: right antecubital; hb 09:39 Drug: morphine 4 mg Route: IVP; Site: right antecubital; hb 10:15 Follow up: Response: No adverse reaction hb 09:39 Drug: Zofran (Ondansetron) 4 mg Route: IVP; Site: right antecubital; hb 10:15 Follow up: Response: No adverse reaction hb 11:00 Drug: Ciprofloxacin 400 mg Volume: 200 ml; Route: IVPB; Infused Over: 60 mins; Site: hb right antecubital; 12:03 Follow up: IV Status: Completed infusion; IV Intake: 200ml ss 11:00 Drug: morphine 4 mg Route: IVP; Site: right antecubital; hb 11:45 Follow up: Response: No adverse reaction hb 11:01 Drug: Flagyl (metroNIDAZOLE) 500 mg Volume: 100 ml; Route: IVPB; Rate: 200 ml/hr; hb Infused Over: 30 mins; Site: right antecubital; 11:30 Follow up: IV Status: Completed infusion ss 12:17 Drug: D5-1/2 NS 1000 ml Route: IV; Rate: 125 ml/hr; Site: right antecubital; hb 12:18 Drug: Zofran (Ondansetron) 4 mg Route: IVP; Site: right antecubital; hb 13:00 Follow up: Response: No adverse reaction hb 13:02 Drug: morphine 4 mg {Note: rass1.} Route: IVP; Site: right antecubital; sv 13:45 Follow up: Response: No adverse reaction hb 14:40 Drug: Phenergan (promethazine) 12.5 mg Route: IVP; Site: right antecubital; sv 18:00 Follow up: Response: No adverse reaction hb 17:33 Drug: morphine 4 mg Route: IVP; Site: right antecubital; ss Disposition: 07/25 08:13 Co-signature as Attending Physician, Marin Herzog MD I agree with the assessment and herman plan of care. Disposition: 07/24/20 10:44 Hospitalization ordered by Francesca Ibarra for Inpatient Admission. Preliminary diagnosis is Diverticulitis of large intestine without perforation or abscess without bleeding. - Bed requested for Telemetry/MedSurg (Inpatient). - Status is Inpatient Admission. eb - Condition is Stable. - Problem is new. - Symptoms have improved. Signatures: Dispatcher [employer] EDCT Anni Lobato, RN Nessa wDyer RN Marin Art MD MD cha Smirch, Shelby, RN RN ss Sanjay Tom, VENEER STOCK LAYER VENEER STOCK LAYER pm1 Mag Sutton RN RN hb Botello, Elizabeth eb Corrections: (The following items were deleted from the chart) 07/24 09:57 09:26 CORONAVIRUS+MR.LAB.BRZ ordered. EDCT EDCT 09:57 09:26 Influenza Screen (A \T\ B)+BA.LAB.BRZ ordered. [facility] EDCT 16:02 10:44 Hospitalization Ordered by A Stacey PONCE for Inpatient Admission. Preliminary dw diagnosis is Diverticulitis of large intestine without perforation or abscess without bleeding. Bed requested for Telemetry/MedSurg (Inpatient). Status is Inpatient Admission. Condition is Stable. Problem is new. Symptoms have improved. pm1 17:40 16:02 07/24/2020 10:44 Hospitalization Ordered by A Stacey PONCE for Inpatient Admission. eb Preliminary diagnosis is Diverticulitis of large intestine without perforation or abscess without bleeding. Bed requested for Telemetry/MedSurg (Inpatient). Status is Inpatient Admission. Condition is Stable. Problem is new. Symptoms have improved. dw
--- NOTE | 2020-07-24 10:45 | ER ---
Nurse's Notes [facility] Name: Kenji Case Age: 55 yrs Sex: Male : 1965 Arrival Date: 07/24/2020 Time: 08:55 Bed 7 Private MD: Diagnosis: Diverticulitis of large intestine without perforation or abscess without bleeding Presentation: 07/24 09:14 Chief complaint: Patient states: L lower quadrant pain that began yesterday afternoon. ss HX of diverticulitis. Pt reports this feels similar to his last episode. Coronavirus screen: Client denies travel out of the [place] in the last 14 days. Ebola Screen: Patient denies exposure to infectious person. Patient denies travel to an Ebola-affected area in the 21 days before illness onset. Initial Sepsis Screen: Does the patient meet any 2 criteria? No. Patient's initial sepsis screen is negative. Does the patient have a suspected source of infection? No. Patient's initial sepsis screen is negative. Risk Assessment: Do you want to hurt yourself or someone else? Patient reports no desire to harm self or others. Onset of symptoms was July 23, 2020. 09:14 Method Of Arrival: Ambulatory ss 09:14 Acuity: MARCIA 3 ss Historical: - Allergies: 09:21 Codeine; nausea; ss 09:21 Iodine; ss 09:21 PENICILLINS; ss - Home Meds: 09:21 aspirin 81 mg Oral chew 1 tab once daily [Active]; Lopressor 50 mg Oral tab 1 tab once ss daily for Hypertension [Active]; lovastatin 40 mg Oral tab 1 tab once daily [Active]; Nexium 40 mg Oral cpDR 1 cap 2 times per day [Active]; - PMHx: 09:21 carpal tunnel; Diverticulitis; GERD; High Cholesterol; Hypertension; mesenteric ss necrosis; - PSHx: 09:21 Cholecystectomy; Colon resection with ileostomy and reversal; ss - Immunization history:: Adult Immunizations up to date. - Social history:: Smoking status: Patient denies any tobacco usage or history of. Screenin:35 Fall Risk None identified. sv 09:41 Abuse screen: Denies threats or abuse. Denies injuries from another. Nutritional sv screening: No deficits noted. Tuberculosis screening: No symptoms or risk factors identified. Assessment: 09:30 General: Appears in no apparent distress. Behavior is calm, cooperative. Pain: Pain hb currently is 6 out of 10 on a pain scale. at worst was 9 out of 10 on a pain scale. Neuro: Level of Consciousness is awake, alert, obeys commands, Oriented to person, place, time, situation. Cardiovascular: Capillary refill < 3 seconds Patient's skin is warm and dry. Respiratory: Respiratory effort is even, unlabored, Respiratory pattern is regular, symmetrical. GI: Reports lower abdominal pain, upper abdominal pain, diarrhea, nausea. : No signs and/or symptoms were reported regarding the genitourinary system. EENT: No signs and/or symptoms were reported regarding the EENT system. Derm: Skin is pink, warm \T\ dry. Musculoskeletal: No signs and/or symptoms reported regarding the musculoskeletal system. 11:01 Reassessment: Patient appears in no apparent distress at this time. Patient and/or hb family updated on plan of care and expected duration. Pain level reassessed. Patient is alert, oriented x 3, equal unlabored respirations, skin warm/dry/pink. 12:00 Reassessment: Patient appears in no apparent distress at this time. Patient and/or hb family updated on plan of care and expected duration. Pain level reassessed. Patient is alert, oriented x 3, equal unlabored respirations, skin warm/dry/pink. 13:00 Reassessment: Patient appears in no apparent distress at this time. Patient and/or hb family updated on plan of care and expected duration. Pain level reassessed. Patient is alert, oriented x 3, equal unlabored respirations, skin warm/dry/pink. 14:00 Reassessment: Patient appears in no apparent distress at this time. Patient and/or hb family updated on plan of care and expected duration. Pain level reassessed. Patient is alert, oriented x 3, equal unlabored respirations, skin warm/dry/pink. 15:00 Reassessment: Patient appears in no apparent distress at this time. Patient and/or hb family updated on plan of care and expected duration. Pain level reassessed. Patient is alert, oriented x 3, equal unlabored respirations, skin warm/dry/pink. 16:00 Reassessment: Patient appears in no apparent distress at this time. No changes from previously documented assessment. Patient and/or family updated on plan of care and expected duration. Pain level reassessed. Patient is alert, oriented x 3, equal unlabored respirations, skin warm/dry/pink. 16:58 Reassessment: Attempted to call report, nurse unavailable. sv 17:00 Reassessment: Patient appears in no apparent distress at this time. No changes from hb previously documented assessment. Patient and/or family updated on plan of care and expected duration. Pain level reassessed. Patient is alert, oriented x 3, equal unlabored respirations, skin warm/dry/pink. Vital Signs: 09:14 BP 145 / 105; Pulse 97; Resp 17; Temp 97.6(TE); Pulse Ox 99% on R/A; Weight 92.08 kg; ss Height 5 ft. 11 in. (180.34 cm); Pain 6/10; 11:01 BP 133 / 81; Pulse 78; Resp 16; Pulse Ox 99% on R/A; Pain 8/10; hb 11:45 BP 117 / 74; Pulse 75; Resp 16; Pulse Ox 97% ; sv 12:30 BP 120 / 72; Pulse 74; Resp 16; Pulse Ox 98% ; sv 13:15 BP 133 / 90; Pulse 73; Resp 18; Pulse Ox 96% ; sv 14:00 BP 122 / 78; Pulse 69; Resp 16; Pulse Ox 97% ; sv 15:00 BP 128 / 78; Pulse 68; Resp 14; Pulse Ox 97% on R/A; hb 16:00 BP 130 / 80; Pulse 67; Resp 15; Pulse Ox 100% ; hb 17:00 BP 136 / 86; Pulse 64; Resp 16; Pulse Ox 99% ; hb 09:14 Body Mass Index 28.31 (92.08 kg, 180.34 cm) ED Course: 08:55 Patient arrived in ED. mr 09:07 Sanjay Tom NP is PHCP. pm1 09:07 Marin Herzog MD is Attending Physician. pm1 09:20 Triage completed. ss 09:21 Arm band placed on right wrist. ss 09:26 Inserted saline lock: 20 gauge in right antecubital area, using aseptic technique. hb Blood collected. 09:35 Patient has correct armband on for positive identification. Placed in gown. Bed in low sv position. Call light in reach. Pulse ox on. NIBP on. Door closed. Head of bed elevated. 09:35 COVID swab sent to lab. Flu and/or RSV swab sent to lab. sv 09:38 Mag Sutton, RN is Primary Nurse. hb 09:53 CT Abd/Pelvis - IV Contrast Only In Process Unspecified. EDMS 09:[address]. sv 10:44 Francesca Ibarra MD is Hospitalizing Provider. pm1 16:51 Assisted with urinal. mt 17:11 No provider procedures requiring assistance completed. Patient admitted, IV remains in hb place. Administered Medications: 09:38 Drug: NS 0.9% 1000 ml Route: IV; Rate: 1000 ml; Site: right antecubital; hb 09:39 Drug: morphine 4 mg Route: IVP; Site: right antecubital; hb 10:15 Follow up: Response: No adverse reaction hb 09:39 Drug: Zofran (Ondansetron) 4 mg Route: IVP; Site: right antecubital; hb 10:15 Follow up: Response: No adverse reaction hb 11:00 Drug: Ciprofloxacin 400 mg Volume: 200 ml; Route: IVPB; Infused Over: 60 mins; Site: hb right antecubital; 12:03 Follow up: IV Status: Completed infusion; IV Intake: 200ml ss 11:00 Drug: morphine 4 mg Route: IVP; Site: right antecubital; hb 11:45 Follow up: Response: No adverse reaction hb 11:01 Drug: Flagyl (metroNIDAZOLE) 500 mg Volume: 100 ml; Route: IVPB; Rate: 200 ml/hr; hb Infused Over: 30 mins; Site: right antecubital; 11:30 Follow up: IV Status: Completed infusion ss 12:17 Drug: D5-1/2 NS 1000 ml Route: IV; Rate: 125 ml/hr; Site: right antecubital; hb 12:18 Drug: Zofran (Ondansetron) 4 mg Route: IVP; Site: right antecubital; hb 13:00 Follow up: Response: No adverse reaction hb 13:02 Drug: morphine 4 mg {Note: rass1.} Route: IVP; Site: right antecubital; sv 13:45 Follow up: Response: No adverse reaction hb 14:40 Drug: Phenergan (promethazine) 12.5 mg Route: IVP; Site: right antecubital; sv 18:00 Follow up: Response: No adverse reaction hb 17:33 Drug: morphine 4 mg Route: IVP; Site: right antecubital; ss Intake: 12:03 IV: 200ml; Total: 200ml. ss Outcome: 10:44 Decision to Hospitalize by Provider. pm1 17:11 Admitted to Tele accompanied by tech, room 220. hb 17:11 Condition: stable 17:11 Instructed on the need for admit, Demonstrated understanding of instructions. 17:40 Patient left the ED. eb Signatures: Dispatcher [employer] Anni Chance, KIMBERLYN SOFIA Juliette Meadows Shelby, RN RN ss Sanjay Tom, BOTTOM POUNDER CEMENT SHOES BOTTOM POUNDER CEMENT SHOES pm1 Mag Sutton RN RN hb Thompson, Moriah mt Botello, Elizabeth eb
[2020-07-24] MEDS ORDERED: CIPROFLOXACIN 400mg IV 400 MG/200 ML BAG IV ONE (11:01)
[2020-07-24] MEDS ORDERED: METRONIDAZOLE 500mg IVPB 500 MG/100 ML BAG IV ONE (11:01)
[2020-07-24] MEDS ORDERED: D5 0.45 NS 1,000 ML IV ONE (12:32)
[2020-07-24] MEDS ORDERED: PROMETHAZINE INJ 25 MG/ML AMP ONE (14:46)
[2020-07-24] MEDS: METRONIDAZOLE 500mg IVPB 500 MG/100 ML BAG IV SCH ×2 (17:12→18:00)
[2020-07-24] MEDS ORDERED: D5 0.45 NS 1,000 ML IV SCH (17:12)
[2020-07-24] MEDS: D5 0.45 NS 1,000 ML IV SCH (18:16)
[2020-07-24] MEDS: ENOXAPARIN 40 MG/0.4 ML SQ SCH (18:25)
[2020-07-24 18:48] VITALS: BMI 28.0
[2020-07-24] MEDS: CIPROFLOXACIN 400mg IV 400 MG/200 ML BAG IV SCH (21:09)
[2020-07-24] MEDS: MORPHINE 4 MG/ML SYR IV PRN (21:12)
--- NOTE | 2020-07-24 21:59 | HP ---
Date of Admission: 07/24/2020 Chief Complaint: Abdominal pain. History Of Present Illness: This is a 55-year-old pleasant male patient, who was doing fine, in his normal usual state of health until last few days, he started to have left lower quadrant abdominal pa in and as of yesterday, the pain got lot worse and started to have chills associated with this pain. With worsening pain, he came to emergency room this morning and after he came to ER, he had some jaime sea, vomiting. Denies any bleeding. No constipation. After he was evaluated in the ER, he was diag nosed as having acute diverticulitis without any complication and I was contacted requesting admissio n to the hospital. Allergies: PENICILLIN, DETAILS UNKNOWN; CODEINE CAUSING NAUSEA, VOMITING; IODINE CAUSING HIVES. Medications: Aspirin 81 mg daily, Nexium 40 mg daily, Levsin 1 tablet under tongue 4 times a day as needed for stomach cramps, lovastatin 20 mg daily in the evening, and metoprolol succinate 25 mg p.o. daily. Review of Systems: GI: As mentioned above. Constitutional: As mentioned above. All other systems reviewed and negative. Past Medical History: Significant for hypertension, hyperlipidemia, gastroesophageal reflux disease. Past Surgical History: Partial resection of colon and this was done in [address] Flores and he also had cholecystectomy in the past, surgery for right hand carpal tunnel release, and left elbow surgery . Family History: Father , had coronary artery disease, diabetes and hypertension. Mother is aliv e and well. Social History: Negative for smoking. Use of alcohol socially. Physical Examination: Vital Signs: When he came into emergency room, blood pressure 145/105, temperature was 97.6, pulse r ate 97, oxygen saturation 99%, respiratory rate 17. Weight 92.08 kg, height 5 feet 11 inches. General: Awake, alert, oriented, not in distress. HEENT: Head atraumatic, normocephalic. Conjunctivae nonerythematous. Sclerae white. Mouth, no thr ush or edema noted. Ears/Nose, no mass, lesion, discharge noted. Neck: Supple. No JVD, lymph nodes, bruit, thyromegaly noted. Lungs: Bilateral good equal air entry. Clear to auscultation. No rhonchi. No rales. Heart: Normal heart sounds. No murmur or gallop. Abdomen: Soft. Bowel sounds hypoactive. No guarding. No rigidity. No hepatosplenomegaly. No bru it. The patient has severe tenderness in left lower quadrant. Extremities: No leg edema. No calf tenderness. Skin: No rash, ulcer, cellulitis. Lymphatics: No lymph node enlargement in neck, supraclavicular, infraclavicular region. Neuro: No focal neurological deficit. Chest: Unremarkable. External Genitalia: Deferred. Rectal: Deferred. Laboratory Data: White count 10.2, hemoglobin 14.4, platelets 265. Sodium 135, potassium 4.2, chlor stas 105, bicarb 25, BUN 14, creatinine 0.96, glucose 125. Liver function tests normal. Lipase 74. Influenza A and B test negative. COVID-19 test negative. CAT scan of the abdomen shows 5 to 6 cm le ngth of sigmoid diverticulitis. No free air. No fluid collection around the colon. Impression: 1.Acute sigmoid diverticulitis without complication. 2.Hypertension. 3.Hyperlipidemia. 4.Gastroesophageal reflux disease. Plan: Admit the patient to the hospital for further evaluation and management of this problem. The patient is appropriate for inpatient and is expected to spend 2 midnights in hospital. We will go ah ead and give him IV fluid, start him on IV antibiotics, Cipro and Flagyl, and will continue home medi cations per order. Give DVT prophylaxis with Lovenox per order. We will keep him n.p.o. except he m ay have few ice chips or few sips of water p.r.n. for dry mouth. I will see him tomorrow for followu p. Depending on his condition, we will decide if we can start clear liquid diet tomorrow or not. He reports that his last colonoscopy was about [address] Burrell and it was reported no rmal as he says. I have advised him to avoid foods like nuts, popcorn, tomato, strawberries, or any other food or foods with seeds inside, and he was made aware that there is no scientific proof that e ating certain type of food makes him more susceptible, but given his clinical scenario, I would recom mend for him to avoid certain foods like this. TAMMIE/MODL Voice ID: [id number]
[2020-07-25] MEDS: D5 0.45 NS 1,000 ML IV SCH ×4 (01:01→20:32)
[2020-07-25] MEDS: METRONIDAZOLE 500mg IVPB 500 MG/100 ML BAG IV SCH ×4 (01:02→19:13)
[2020-07-25 04:59] LABS: Basophils % 0.5 % (0-1.3); Hematocrit 37.4 % (39.6-49.0); Lymphocytes % 15.2 % (15.3-44.8); MPV 8.9 fL (7.6-11.3); RBC Red Blood Cell Count 4.44 M/uL (4.33-5.43)
[2020-07-25 05:14] LABS: Bilirubin Direct 0.2 mg/dL (0-0.2); Bilirubin Total 0.8 mg/dL (0.2-1.0); Potassium 3.8 mmol/L (3.5-5.1); Protein, Total 6.5 g/dL (6.4-8.2)
[2020-07-25] MEDS: MORPHINE 4 MG/ML SYR IV PRN ×3 (06:23→20:33)
[2020-07-25] MEDS: CIPROFLOXACIN 400mg IV 400 MG/200 ML BAG IV SCH ×2 (08:33→20:34)
--- NOTE | 2020-07-25 10:12 | PN ---
Date of Progress Note: 07/25/2020 Subjective: The patient was seen this morning for followup. He was lying in bed, not in distress. Denies any nausea or vomiting or any bowel movement since admission. He still has abdominal pain, wh ich tends to get worse when he gets up and moves around or when he urinates. Objective: Vital Signs: Reviewed. Remains afebrile, hemodynamically stable. HEENT: Unremarkable. Lungs: Clear to auscultation. Heart: Sounds normal. Abdomen: Soft. Bowel sounds normal. No guarding, rigidity, distention. Presence of tenderness in left lower quadrant, which is better today than yesterday. No rebound tenderness. Extremities: No leg edema. Laboratory Data: White count 6.7, hemoglobin 12.4, platelets 214. Sodium 138, potassium 3.8, chlori de 104, bicarb 31, BUN 10, creatinine 0.98, glucose 118. Liver function tests unremarkable. Lipase 73. Impression: 1.Acute diverticulitis without complication. 2.Hypertension. 3.Hyperlipidemia. Plan: We will go ahead and continue current IV antibiotics and IV fluid. We will reduce IV fluid to 70 mL/hour and we will go ahead and start the patient on clear liquid diet. His abdominal pain has improved in the last 24 hours. We will go ahead and re-evaluate him tomorrow and depending on his co ndition, we will decide if we can advance diet tomorrow or not. Ambulation was encouraged. We will continue home medications per order and DVT prophylaxis will be given using Lovenox per order. TAMMIE/MODL Voice ID: [id number] Report ID: [id number]
[2020-07-25] MEDS: ONDANSETRON 4 MG/2 ML VIAL IV PRN (16:46)
[2020-07-25] MEDS: ENOXAPARIN 40 MG/0.4 ML SQ SCH (16:46)
[2020-07-26] MEDS: ONDANSETRON 4 MG/2 ML VIAL IV PRN ×3 (05:14→23:59)
[2020-07-26] MEDS: METRONIDAZOLE 500mg IVPB 500 MG/100 ML BAG IV SCH ×5 (05:32→23:59)
[2020-07-26] MEDS: METOPROLOL XL 25 MG TAB PO SCH (08:27)
[2020-07-26] MEDS: ASPIRIN EC 81 MG TAB PO SCH (08:27)
[2020-07-26] MEDS: CIPROFLOXACIN 400mg IV 400 MG/200 ML BAG IV SCH ×2 (08:28→21:39)
[2020-07-26] MEDS: PANTOPRAZOLE 40MG TABLET PO SCH (08:28)
[2020-07-26] MEDS: D5 0.45 NS 1,000 ML IV SCH (13:40)
[2020-07-26] MEDS: ENOXAPARIN 40 MG/0.4 ML SQ SCH (18:55)
--- NOTE | 2020-07-26 21:09 | PN ---
Date of Progress Note: 07/26/2020 Subjective: The patient was seen this morning for followup. No new complaints or problems reported by the patient. Lying in bed, not in distress. Abdominal pain is better. He still has it, especial ly when he moves around, but overall it is better than before as he reports. He is tolerating clear liquid diet. No nausea. No vomiting. Objective: Vital Signs: Reviewed. HEENT: Unremarkable. Lungs: Clear to auscultation. Heart: Sounds normal. Abdomen: Soft. Bowel sounds normal. No guarding, rigidity, distention. Presence of left lower dorian drant tenderness. No rebound tenderness. Extremities: No leg edema. Impression: 1.Acute diverticulitis without complication. 2.Hypertension. 3.Hyperlipidemia. Plan: We will go ahead and continue current medications. Continue current IV fluid, IV antibiotics. We will repeat blood work tomorrow morning. Continue clear liquid diet today and depending on his condition tomorrow, we will decide if we can advance diet and possible discharge to go home tomorrow or not. TAMMIE/MODL Voice ID: [id number] Report ID: [id number]
[2020-07-27 04:47] LABS: Basophils % 0.5 % (0-1.3); Hematocrit 37.3 % (39.6-49.0); Lymphocytes % 18.2 % (15.3-44.8); MPV 8.7 fL (7.6-11.3); RBC Red Blood Cell Count 4.51 M/uL (4.33-5.43)
[2020-07-27 05:09] LABS: Magnesium 2.5 mg/dL (1.8-2.4); Potassium 3.9 mmol/L (3.5-5.1)
[2020-07-27] MEDS: METRONIDAZOLE 500mg IVPB 500 MG/100 ML BAG IV SCH ×3 (05:45→17:33)
[2020-07-27] MEDS: D5 0.45 NS 1,000 ML IV SCH ×2 (05:46→17:33)
[2020-07-27] MEDS: CIPROFLOXACIN 400mg IV 400 MG/200 ML BAG IV SCH ×2 (08:20→21:06)
[2020-07-27] MEDS: ASPIRIN EC 81 MG TAB PO SCH (08:20)
[2020-07-27] MEDS: METOPROLOL XL 25 MG TAB PO SCH (08:21)
[2020-07-27] MEDS: PANTOPRAZOLE 40MG TABLET PO SCH (08:21)
[2020-07-27] MEDS: ONDANSETRON 4 MG/2 ML VIAL IV PRN (14:42)
[2020-07-27] MEDS: ENOXAPARIN 40 MG/0.4 ML SQ SCH (17:33)
--- NOTE | 2020-07-27 20:53 | PN ---
Date of Progress Note: 07/27/2020 Subjective: The patient was seen this morning for followup. His abdominal pain is better, but he salguero d nausea, vomiting last night. He has been on clear liquid diet all along. Objective: Vital Signs: Reviewed. He remains afebrile. HEENT: Unremarkable. Lungs: Clear to auscultation. Heart: Sounds normal. Abdomen: Soft. Bowel sounds normal. No guarding, rigidity, distention. No rebound tenderness. No hepatosplenomegaly. Mild tenderness in left lower quadrant, which is improving on a day-to-day basi s. Extremities: No leg edema. Laboratory Data: White count 5.4, hemoglobin 12.8, platelets 262. Sodium 138, potassium 3.9, chlori de 105, bicarb 27, BUN 9, creatinine 0.90, glucose 116. Impression: 1.Acute diverticulitis without complication. 2.Hypertension. 3.Hyperlipidemia. Plan: We will go ahead and continue current medications, continue current antibiotic, and we will ad laguerre diet to soft diet. Ambulation was encouraged. Continue current Lovenox for DVT prophylaxis. I will see him tomorrow for followup. TAMMIE/MODL Voice ID: [id number] Report ID: [id number]
[2020-07-27 23:10] VITALS: O2SAT 99
[2020-07-28] MEDS: METRONIDAZOLE 500mg IVPB 500 MG/100 ML BAG IV SCH ×2 (00:29→05:55)
[2020-07-28] MEDS ORDERED: PROMETHAZINE 25 MG TABLET PO PRN (06:42)
[2020-07-28] MEDS ORDERED: D5 0.45 NS 1,000 ML IV SCH (06:43)
[2020-07-28] MEDS ORDERED: CIPROFLOXACIN HCL 500 MG TAB PO SCH (09:00)
[2020-07-28] MEDS: ASPIRIN EC 81 MG TAB PO SCH (09:39)
[2020-07-28] MEDS: METOPROLOL XL 25 MG TAB PO SCH (09:40)
[2020-07-28] MEDS: PANTOPRAZOLE 40MG TABLET PO SCH (09:40)
[2020-07-28] MEDS: metroNIDAZOLE 250 MG TABLET PO SCH ×2 (09:57→14:51)
[2020-07-28 14:30] VITALS: TEMP 97.4
[2020-07-28] MEDS: ENOXAPARIN 40 MG/0.4 ML SQ SCH (17:00)
[2020-07-28 17:37] VITALS: BP 130/82
--- NOTE | 2020-07-29 15:18 | DS ---
Date of Discharge: 07/28/2020 Disposition: Discharged to go home. Physical Examination: HEENT: Unremarkable. Lungs: Clear to auscultation. Heart: Sounds normal. Abdomen: Soft. Bowel sounds normal. No guarding, rigidity, distention. Minimum left lower quadran t tenderness present, but much better than before. No rebound tenderness. No hepatosplenomegaly. N o bruit. No abdominal distention. Extremities: No leg edema. Discharge Medications And Instructions: 1.Continue all prior home medications. 2.Take Cipro 500 mg 2 times a day for 10 days, Flagyl 250 mg 3 times a day for 10 days, and take Phe nergan 25 mg 4 times a day as needed for nausea, vomiting. 3.Follow up at my office next week on Sunday or Sunday. Laboratory Data: Upon admission; white count 10.2, hemoglobin 14.4, platelets 165. Sodium was 135, potassium 4.2, chloride 105, bicarb 25, BUN 14, creatinine 0.96, glucose 125. Lipase 74. Liver func tion tests unremarkable. Last chemistry from yesterday; sodium 138, potassium 3.9, chloride 105, bic arb 27, BUN 9, creatinine 0.90, glucose 116. Last CBC from yesterday; white count 5.4, hemoglobin 12 .8, platelets 262. Final Diagnoses: 1.Acute sigmoid diverticulitis without complication. 2.Hypertension. 3.Hyperlipidemia. 4.Gastroesophageal reflux disease. 5.Anemia, unspecified. 6.Hyponatremia, resolved. Hospital Course: This is a 55-year-old male patient, admitted to the hospital with nausea, vomiting, abdominal pain. Please see dictated H and P for more information. After the patient was evaluated in the emergency room, he was admitted to the hospital. The patient had significant tenderness in le ft lower quadrant when he first came in. He was kept n.p.o., except ice chips. IV fluid and IV anti biotics, Cipro, and Flagyl were started. Pain medication and nausea medication were ordered. Overal l, his condition improved over a period of this hospitalization and initially we started him on clear liquid diet which was day after admission and then we continued that for 2 to 3 days and as of today , we started him on soft diet. He started ambulating well. His pain has improved significantly. In the last 48 hours, he has not required any pain medications. He is having trouble tolerating Flagyl and in the past he had nausea and vomiting and also during this hospitalization, he had similar prob ludivina with Flagyl; so as of today, we have reduced the dose from 500 mg 3 times a day down to 250 mg 3 times a day and we started him on soft diet and started him on oral Cipro and oral Flagyl along with Phenergan and he tolerated all this very well, tolerated diet very well and he requested this afterno on that he is comfortable going home. Medically, he is stable for discharge and I will see him as ou tpatient next week. TAMMIE/MODL Voice ID: [id number] Report ID: [id number]
== END 2020-07-28 17:42 | disposition home or self-care (01) | DRG 392 ==
LOC: ER 08:49 → ERHOLD 10:52 → 2ND 16:48
PROVIDERS: ADMIT Internal Medicine; ATTEND Internal Medicine
DX: K57.32 Diverticulitis of large intestine without perforation or abscess without bleeding (principal); E87.1 Hypo-osmolality and hyponatremia; I10 Essential (primary) hypertension; D64.9 Anemia, unspecified; E78.5 Hyperlipidemia, unspecified; K21.9 Gastro-esophageal reflux disease without esophagitis; Z88.5 Allergy status to narcotic agent; Z88.0 Allergy status to penicillin; Z90.49 Acquired absence of other specified parts of digestive tract; Z88.8 Allergy status to other drugs, medicaments and biological substances; Z79.82 Long term (current) use of aspirin; Z79.899 Other long term (current) drug therapy; Z20.822 Contact with and (suspected) exposure to COVID-19
CPT/HCPCS: 0240U; 36415; 74177; 80048; 80076; 82565; 83690; 83735; 85025; 96365; 96375; 99285; J0744; J1650; J2405; J2550; J7030; J7799; Q9967

== ENCOUNTER 2021-11-09 18:11 | Observation (INO) | payer BC ==
--- OUTSIDE RECORDS SUMMARY | 2021-11-09 18:16 | XMS REPORT | Continuity of Care Document ---
:1965 Author Organization [facility] t Address [address] [place] [address] [place] [id number] Care Team Providers Name Role Phone French Walker MD Primary Care Physician JOSIANE ANAYA Attending Clinician Unavailable Jaclyn WORKFORCE STAFFING ADVISORJosiane Attending Clinician Fany Plasencia Attending Clinician CASSIA MORALES Attending Clinician Unavailable Only, Ang Db Test Attending Clinician Unavailable Cassia Morales MD Attending Clinician Payers Payer Name Policy Type Policy Number Effective Date Expiration Date S [facility] [id number] 2016 00:00:00 Problems Condition Condition Condition Status Onset Resolution Last Treating Co mments Source Name Details Category Date Date Treatment Clinician Date Abdominal Abdominal Disease Active Met [facility] pain pain 07-08 st 00:00: Hospita 00 l SBO (small SBO (small Disease Active 2015-04 M ethodi bowel bowel 05-27 st obstructio obstructio 00:00: Ho spita n) n) 00 l Ileostomy Ileostomy Disease Active 2015-04 Met hodi status status 04-29 00:00: Hospita 00 l ILEOSTOMY ILEOSTOMY Diagnosis Active 2015-042016-03-21 Memoria STATUS STATUS 04-29 21:56:00 l Active 00:00: [place] 02/28/2016 00 [facility] Diverticul Diverticul Disease Active 2015-04 M ethodi itis of itis of 04-09 st colon colon 00:00: Hospita 00 l Left lower Left lower Disease Active 2015-04 M ethodi quadrant quadrant 1-08 st pain pain 00:00: Hospita 00 l DIVERTICUL DIVERTICU Diagnosis Active 2016-01-06 Memoria ITIS LITIS 12-27 08:50:00 l Active 00:00: [place] 12/28/2015 00 [facility] BACK PAIN BACK PAIN Diagnosis Active 2013-12-17 Memoria Active 12-16 00:35:00 l 12/16/2013 19:36: Mark n 00 [place] Insomnia Insomnia Problem Active 2016-03-19 Memoria (disorder) (disorder) 09-25 01:44:18 l Active 00:00: [place] 09/25/2013 00 Problem 03/19/2016 Data migrated from [employer] on 08/31/14. [facility] Palpitatio Palpitati Problem Active 2016-03-19 Memoria ns ons 09-25 01:44:18 l (finding) (finding) 00:00: Herm rosalino Active 00 09/25/2013 Problem 03/19/2016 Data migrated from [employer] on 08/31/14. [facility] Hyperlipid Hyperlipi Problem Active 2016-03-19 Memoria emia demia 6 01:44:18 l (disorder) (disorder) 00:00: He rmann Active 00 09/04/2011 Problem 03/19/2016 Data migrated from [employer] on 08/31/14. [facility] Benign Benign Problem Active 2016-03-19 Chaz nora hypertensi hypertensi 01:44:18 l on on [place] (disorder) (disorder) Active Problem 03/19/2016 Data migrated from [employer] on 08/31/14. [facility] Gastroesop Gastroeso Problem Active 2016-03-19 Memoria hageal phageal 01:44:18 l reflux reflux [place] disease disease (disorder) (disorder) Active Problem 03/19/2016 Data migrated from [employer] on 08/31/14. 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 [facility] Acute Acute Problem Resolve 2016-01-17 2016-01-17 Memoria bronchitis bronchitis d 11-25 00:35:31 00:35:31 l with with 00:00: [place] bronchospa bronchospa 00 sm sm (disorder) (disorder) Resolved 11/25/2012 Problem 01/17/2016 Data migrated from 5 CUPS and some sugar on 10/16/14. [facility] History of Past Illness Condition Condition Condition Status Onset Resolution Last Treating Co mments Source Name Details Category Date Date Treatment Clinician Date Discharge Discharge Problem 2013-12-20 2013-12-20 Memoria Diagnosis: Diagnosis: 12-17 02:54:48 02:54:48 l Diverticul Diverticul 05:00: He jennifer itis itis 00 12/17/2013 12/20/2013 [facility] Allergies, Adverse Reactions, Alerts Allergy Allergy Status Severity Reaction(s) Onset Inactive Treating Comm ents Source Name Type Date Date Clinician Codeine Propensi Active 2015-04 Methodi [facility] adverse 00:00: Hospita reaction 00 l s to drug Iodinate Propensi Active 2015-04 Method i d ty to 04-09 st Contrast adverse 00:00: Hospita Media reaction 00 l s to drug Penicill Propensi Active 2015-04 Method i ins ty to 04-09 st adverse 00:00: Hospita reaction 00 l s to drug CODEINE DRUG Active N/V Univers INGREDI 2-04 ity of 00:00: [place] 00 [facility] PENICILL Drug Active Rash Univers INS Class 2-04 ity of 00:00: [place] 00 [facility] Codeine Drug Active Nausea Univers Allergy and/or 2-04 ity of Vomiting 00:00: [place] [facility] Penicill Drug Active Rash CAN'T Univers ins Allergy 2-04 REMEMBER, ity of 00:00: CHILDHOOD [place] 00 REACTION [facility] codeine codeine Active Memoria 6- l 05:00: [place] 00 penicill penicill Active Memori a ins<sup> ins<sup> 6-01 l 2</sup> 2</sup> 05:00: [place] NO KNOWN Drug Active Univers ALLERGIE Class ity of S [facility] penicill penicill Active Memori a ins ins l [place] contrast contrast Active Memori a media media l (iodine- (iodine- Mark n based) based) Family History Family Member Diagnosis Comments Start Date Stop Date Source Natural father Diabetes [facility] Natural [facility] Social History Social Habit Start Date Stop Date Quantity Comments Source History SDOH [facility] History SDOH [facility] Alcohol Frequency Hospita l History SDOH [facility] Std [facility] Drinks Exposure to Not sure [facility]-CoV-2 [facility] (event) [place] Tobacco use and 2021-04-19 2021-04-19 Never used Universit y of exposure 00:00:00 00:00:00 [facility] Alcohol intake 2016-12-28 2016-12-28 Current drinker of Me thodist 00:00:00 00:00:00 alcohol (finding) Hospita l Alcohol Comment 2016-02-10 2016-02-[address] 00:00:00 00:00:00 Hospital Social History 2013-12-17 2013-12-17 [facility] 04:30:26 04:30:26 Sex [birth year] At [birth year] [facility] 00:00:00 00:00:00 Hospital Smoking Status Start Date Stop Date Source Unknown if ever smoked Universit y of [facility] Never smoker [facility] Medications Ordered Filled Start Stop Current Ordering Indication Dosage Frequency Signature Comments Components Source Medication Medication Date Date Medication? Clinician (SIG) Name Name aspirin 81 Yes 81mg Take 81 mg U nivers mg Cap 1-18 by mouth. ity of 12:45: [address] esomeprazol Yes Take by Uni vers e 10 mg 1-18 mouth. ity of packet 12:45: [address] metoprolol Yes Take by [facility] ers tartrate 1-18 mouth. ity of 100 mg 12:45: [address] aspirin 81 Yes 81mg Take 81 mg U nivers mg Cap 1-18 by mouth. ity of 12:45: [address] esomeprazol Yes Take by Uni vers e 10 mg 1-18 mouth. ity of packet 12:45: [address] metoprolol Yes Take by [facility] ers tartrate 1-18 mouth. ity of 100 mg 12:45: [address] promethazin Yes [id number] 5mL Take 5 mL Univers e-dextromet 1-18 by mouth 4 it y of horphan 00:00: (four) [place] 6.25-15 00 times Medical mg/5 mL daily as Branch syrup needed for Cough or Cold symptoms. albuterol Yes [id number] 2{puff} Inhale 2 Univers 90 1-18 Puffs ity of mcg/actuati 00:00: every 6 [place] as on inhaler 00 (six) Medical hours as Branch needed for Wheezing, Shortness of Breath or Chest tightness. promethazin Yes [id number] 5mL Take 5 mL Univers e-dextromet 1-18 by mouth 4 it y of horphan 00:00: (four) [place] 6.25-15 00 times Medical mg/5 mL daily as Branch syrup needed for Cough or Cold symptoms. albuterol Yes [id number] 2{puff} Inhale 2 Univers 90 1-18 Puffs ity of mcg/actuati 00:00: every 6 [place] as on inhaler 00 (six) Medical hours as Branch needed for Wheezing, Shortness of Breath or Chest tightness. naproxen-ca 2017-0 Yes naproxen Me thodi psaicin-men 4-[address] thol 500 mg 10:45: tablet Hosp azeem -0.0375 %-5 06 l % combo pack, tablet and patch traMADol Yes tramadol Metho di (ULTRAM) 50 4-[address] mg tablet 10:45: tablet Hospit a 06 l metoprolol Yes Toprol XL Me thodi succinate 4-[address] XL (TOPROL 10:45: tablet,ext H ospita XL) 25 MG 06 ended l 24 hr release tablet lovastatin Yes lovastatin M ethodi (MEVACOR) [address] 20 MG 10:45: tablet Hospita tablet 06 l metoclopram Yes metoclopra Methodi stas [address] (REGLAN) 10 10:45: tablet Hosp azeem MG tablet 06 l tramadol 2015-04 Yes 50 mg = 1 Chaz nora hydrochlori 2-15 tab, PO, l de 50 MG 13:33: Q4H, PRN Emelia nn Oral Tablet 00 Pain, X 10 day, # 60 tab, 0 Refill(s), given to patient atorvastati 2015-04 No Notes: Chaz nora n 2-15 (Same As: l 03:00: Lipitor) [place] 00 Enoxaparin 2015-04 No Notes: Memor ia 2-14 (Same as: l 16:00: Lovenox) [place] 00 24 HR 2015-04 No Notes: Memoria Metoprolol 2-14 (Same as: l Tartrate 50 15:00: Toprol XL) [place] MG Extended 00 May split Release tab, but Tablet do not [Toprol] crush. Nexium 2015-04 No 10 mg, Memoria 2-14 Route: PO, l 15:00: Daily, [place] 00 Dosing Weight 86.364, kg, Start date: 03/15/16 9:00:00 CARDIOLOGY CLINICAL CONSULTANT, Duration: 30 day, Stop date: 04/13/16 9:00:00 CARDIOLOGY CLINICAL CONSULTANT Protonix 2015-04 No Notes: Memoria 2-14 Tablet l 13:30: should not [place] 00 be chewed or crushed. (Same as: Protonix) tramadol 2015-04 No Notes: Not Mem oria hydrochlori 2-14 to exceed l de 50 MG 13:26: 400mg/day. Her ferrer Oral Tablet 00 (Same As: Ultram) gabapentin 2015-04 No Notes: Memor ia 300 MG Oral 2-14 (Same as: l Capsule 06:00: Neurontin) Herm rosalino 00 Ofirmev 2015-04 No Notes: Memoria 2-14 Infuse l 06:00: over 15 [place] 00 minutes Do not exceed 4gm/day of acetaminop hen MEDICATION WASTE Product Size: 1000 mg Product Wasted: ___ mg Ketorolac 2015-04 No 4 days. Chaz nora 2-14 l 06:00: [place] 00 Oxycodone 2015-04 No Notes: Memori a Hydrochlori 2-14 (Same as: l de 5 MG 01:32: Roxicodone Herm rosalino Oral Tablet 00 ) D5W 1/2NS + 2015-04 No Notes: Chaz nora KCL 20mEq/L 2-14 PREMIX IV l 1000ml 01:32: - Do Not [place] (Premix) 00 Alter 1,000 mL WASTE: F/P - Sink; E - Municipal Trash Bin Saline 2015-04 No Notes: Memoria Flush 0.9% 2-14 Same as: l 01:32: BD [place] 00 Posiflush Sterile Ondansetron 2015-04 No Notes: Chaz nora 2-14 (Same as: l 01:32: Zofran) [place] 00 MEDICATION WASTE Product Size: 4 mg Product Wasted: ___ mg Hydromorpho 2015-04 No Notes: Chaz nora ne 2-14 Same as l 01:32: Dilaudid [place] Ondansetron 2015-04 No 4 mg, Memor ia 2-14 Route: l 01:25: IVP, ONCE, [place] 00 Dosing Weight 86.364, kg, PRN Nausea & Vomiting, Start date: 03/14/16 19:25:00 CARDIOLOGY CLINICAL CONSULTANT Hydralazine 2015-04 No 10 mg, Chaz nora 2-14 Route: l 01:25: IVP, [place] 00 Q20Min, Dosing Weight 86.364, kg, PRN Elevated BP, Start date: 03/14/16 19:25:00 CARDIOLOGY CLINICAL CONSULTANT, Duration: 2 doses or times, Stop date: Limited # of times Hydromorpho 2015-04 No 0.5 mg, Mem oria ne 2-14 Route: l 01:25: IVP, [place] 00 Q5Min, Dosing Weight 86.364, kg, PRN Pain Score 7-10, Start date: 03/14/16 19:25:00 CARDIOLOGY CLINICAL CONSULTANT, Duration: 4 doses or times, Stop date: Limited # of times Naloxone 2015-04 No 0.4 mg, Memori a 2-14 Route: l 01:25: IVP, [place] 00 Q2MIN, Dosing Weight 86.364, kg, PRN Narcotic Reversal, Start date: 03/14/16 19:25:00 CARDIOLOGY CLINICAL CONSULTANT, Duration: 8 doses or times, Stop date: Limited # of times Flumazenil 2015-04 No 0.2 mg, Chaz nora 2-14 Route: l 01:25: IVP, PRN, [place] 00 Dosing Weight 86.364, kg, PRN Benzodiaze pine Reversal, Initial dose, Start date: 03/14/16 19:25:00 CARDIOLOGY CLINICAL CONSULTANT, Duration: 30 day, Stop date: 04/13/16 19:24:00 CARDIOLOGY CLINICAL CONSULTANT bupivacaine 2015-04 No Notes: Chaz nora liposome 2-14 (Same as: l 01:00: Exparel) NOT FOR IV use Postoperat carlos analgesia: Infiltrati on (local): Dose is based on surgical site and volume required to cover the area (in general, the maximum total dose is 266 mg). Bunionecto my: 7 mL into the tissues surroundin g the osteotomy and 1 mL into the subcutaneo us tissue of the surgical site (total dose = 8 mL [106 mg]) Hemorrhoid ectomy: 30 mL (20 mL vial diluted with 10 mL NS) divided and administer ed as 6 injections of 5 mL each (total dose = 30 mL [266 mg]) Flagyl 2015-04 No Notes: Memoria 2-13 (Same as: l 21:00: Flagyl) Avoid alcohol. Levaquin 2015-04 No Notes: Memoria 2-13 (Same l 21:00: as:Levaqui n) Lactated 2015-04 No 1,000 mL, Chaz nora Ringers 2-13 Rate: 40 l 1,000 mL 19:56: ml/hr, Infuse over: 25 hr, Route: IV, Dosing Weight 86.364 kg, Total Volume: 1,000, Start date: 03/14/16 13:56:00 CARDIOLOGY CLINICAL CONSULTANT, Duration: 30 day, Stop date: 04/13/16 13:55:00 CARDIOLOGY CLINICAL CONSULTANT tramadol 2015-04 Yes See Memoria hydrochlori 0-14 Instructio l de 50 MG 12:14: ns, PRN Mark n Oral Tablet 00 Pain, 1-2 tab PO Q4-6h prn pain, # 50 tab, 0 Refill(s) Sodium 2015-04 No 500 mL, Memoria Chloride 0-13 500 ml/hr, l 0.154 22:43: Infuse [place] MEQ/ML 00 Over: 1 Injectable hr, Route: Solution IV, 500, Drug form: INJ, ONCE, Priority: STAT, Dosing Weight 87.727 kg, Start date: 01/13/16 17:43:00 CDT, Duration: 1 doses or times, Stop date: 01/13/16 17:43:00 CDT Tylenol 2015-04 No Notes: Do Memor ia 0-13 not exceed l 12:16: 4 gm/day. [place] 00 (Same as: Tylenol) tramadol 2015-04 No Notes: Not Mem oria hydrochlori 0-13 to exceed l de 50 MG 12:16: 400mg/day. Her ferrer Oral Tablet 00 (Same As: Ultram) tramadol 2015-04 No Notes: Not Mem oria hydrochlori 0-13 to exceed l de 50 MG 12:15: 400mg/day. Her ferrer Oral Tablet 00 (Same As: Ultram) sodium 2015-04 No 500 mL, Memoria chloride 0-10 Rate: 500 l 0.9% 500 ml 22:46: ml/hr, Herm rosalino INJ 500 mL 00 Infuse over: 1 hr, Route: IV, Dosing Weight 87.727 kg, Total Volume: 500, BOLUS, Priority: STAT, Start date: 01/10/16 17:46:00 CDT, Duration: 1 doses or times, Stop date: 01/11/16 17:45:00 CDT Reglan 2015-04 No Notes: Memoria 0-10 (Same as: l 17:00: Reglan) [place] 00 Ofirmev 2015-04 No Notes: Memoria 0-09 Infuse l 01:49: over 15 [place] 00 minutes Do not exceed 4gm/day of acetaminop hen MEDICATION WASTE Product Size: 1000 mg Product Wasted: ___ mg Ofirmev 2015-04 No or = 50 Memori a 0-09 kg, Start l 01:16: date: [place] 00 01/08/16 20:16:00 CDT, Duration: 30 day, Stop date: 02/07/16 20:15:00 CARDIOLOGY CLINICAL CONSULTANT phenol 2015-04 No Notes: Memoria 0-09 Chlorasept l 00:15: ic [place] 00 (Same as: Chlorasept ic, Sore Throat [place]) WASTE: F/P - Black; E - Municipal Trash Bin D5W 1/2NS + 2015-04 No Notes: Chaz nora KCL 20mEq/L 0-08 PREMIX IV l 1000ml 10:21: - Do Not [place] (Premix) 00 Alter 1,000 mL WASTE: F/P - Sink; E - Municipal Trash Bin Acetaminoph 2015-04 No Notes: Max Memoria en 0-07 acetaminop l 23:00: hen 4000 [place] 00 mg/day (4 gm/day). (Same as: Tylenol Extra Strength) sodium 2015-04 No 1,000 mL, Memori a chloride 0-07 Rate: 50 l 0.9% 1000 13:25: ml/hr, Mark n ml INJ 00 Infuse 1,000 mL over: 20 hr, Route: IV, Dosing Weight 87.727 kg, Total Volume: 1,000, Start date: 01/07/16 8:25:00 CDT, Duration: 30 day, Stop date: 02/06/16 8:24:00 CARDIOLOGY CLINICAL CONSULTANT 24 HR 2015-04 No Notes: Memoria Metoprolol 0-06 (Same as: l Tartrate 50 14:00: Toprol XL) [place] MG Extended May split Release tab, but Tablet do not [Toprol] crush. Nexium 2015-04 No 40 mg, Memoria 0-06 Route: PO, l 14:00: Daily, [place] 00 Dosing Weight 87.727, kg, Start date: 01/06/16 9:00:00 CDT, Duration: 30 day, Stop date: 02/04/16 9:00:00 CDT atorvastati 2015-04 No Notes: Chaz nora n 0-06 (Same As: l 14:00: Lipitor) influenza 2015-04 No Notes: Memori a virus 0-06 (Same as: l vaccine, 14:00: Fluzone Mark n inactivated 00 Quadrivale nt, Fluarix Quadrivale nt) For 3 years of age and older (0.5 mL IM) Shake well before use Protonix 2015-04 No 40 mg, 1 Memor ia 0-06 tab, l 14:00: Route: PO, Drug form: ECTAB, Daily, Start date: 01/06/16 9:00:00 CDT, Duration: 30 day, Stop date: 02/04/16 9:00:00 CDT Enoxaparin 2015-04 No Notes: Memor ia 0-06 (Same as: l 14:00: Lovenox) Hydromorpho 2015-04 No Notes: Chaz nora ne 0-06 (Same as: l 12:30: Dilaudid) conc = 0.5 mg/ml Hydromorph one MACHINE [employer]OL ELECT[employer]ICIAN Dose: ;Delay: ;Basal: Hydromorpho 2015-04 No Notes: Chaz nora ne 0-06 (Same as: l 00:30: Dilaudid) conc = 0.5 mg/ml Hydromorph one MACHINE TOOL ELECTRICIAN Dose: ;Delay: ;Basal: Naloxone 2015-04 No Notes: Memoria 0-06 Same as l 00:20: Narcan Ofirmev 2015-04 No Notes: Memoria 0-05 Infuse l 23:00: over 15 minutes Do not exceed 4gm/day of acetaminop hen MEDICATION WASTE Product Size: 1000 mg Product Wasted: ___ mg Ketorolac 2015-04 No 4 days. Chaz nora 0-05 l 23:00: Dilaudid 2015-04 No 1 mg, Memoria 0-05 Route: l 22:49: IVP, ONCE, Dosing Weight 87.727, kg, Priority: STAT, Start date: 01/05/16 17:49:00 CDT, Stop date: 01/05/16 17:49:00 CDT Dilaudid 2015-04 No 1 mg, Memoria 0-05 Route: IV, l 21:30: ONCE, Dosing Weight 87.727, kg, Start date: 01/05/16 16:30:00 CDT, Stop date: 01/05/16 16:30:00 CDT gabapentin 2015-04 No Notes: Memor ia 300 MG Oral 0-05 (Same as: l Capsule 21:00: Neurontin) Herm Lyrica 2015-04 No 100 mg, Memoria 0-05 Route: PO, l 20:07: ONCE, [place] Dosing Weight 87.727, kg, Start date: 01/05/16 15:07:00 CDT, Stop date: 01/05/16 15:07:00 CDT tramadol 2015-04 No 50 mg, 1 Memor ia hydrochlori 0-05 tab, l de 50 MG 20:07: Route: PO, Her ferrer Oral Tablet 00 Drug form: TAB, ONCE, Dosing Weight 87.727, kg, Start date: 01/05/16 15:07:00 CDT, Stop date: 01/05/16 15:07:00 CDT Flumazenil 2015-04 No Notes: Memor ia 0-05 (Same as: l 18:30: Romazicon) Naloxone 2015-04 No Notes: Memoria 0-05 Same as l 18:30: Narcan Ondansetron 2015-04 No Notes: Chaz nora 0-05 (Same as: l 18:30: Zofran) MEDICATION WASTE Product Size: 4 mg Product Wasted: ___ mg Promethazin 2015-04 No Notes: Do M emoria e 0-05 not give l 18:30: IV push. (Same as: Phenergan) Hydromorpho 2015-04 No Notes: Chaz nora ne 0-05 Same as: l 18:30: Dilaudid Saline 2015-04 No Notes: Memoria Flush 0.9% 0-05 (Same as: l 18:21: BD Posiflush) Oxycodone 2015-04 No Notes: Memori a Hydrochlori 0-05 (Same as: l de 5 MG 18:21: Roxicodone Herm rosalino Oral Tablet 00 ) D5W 1/2NS + 2015-04 No Notes: Chaz nora KCL 20mEq/L 0-05 PREMIX IV l 1000ml 18:21: - Do Not [place] (Premix) 00 Alter 1,000 mL WASTE: F/P - Sink; E - Municipal Trash Bin Hydromorpho 2015-04 No Notes: Chaz nora ne 0-05 (Same as: l 18:21: Dilaudid) [place] 00 Ondansetron 2015-04 No Notes: Chaz nora 0-05 (Same as: l 18:21: Zofran) [place] MEDICATION WASTE Product Size: 4 mg Product Wasted: ___ mg bupivacaine 2015-04 No Notes: Chaz nora liposome 0-05 (Same as: l 12:03: Exparel) [place] NOT FOR IV use Postoperat carlos analgesia: Infiltrati on (local): Dose is based on surgical site and volume required to cover the area (in general, the maximum total dose is 266 mg). Bunionecto my: 7 mL into the tissues surroundin g the osteotomy and 1 mL into the subcutaneo us tissue of the surgical site (total dose = 8 mL [106 mg]) Hemorrhoid ectomy: 30 mL (20 mL vial diluted with 10 mL NS) divided and administer ed as 6 injections of 5 mL each (total dose = 30 mL [266 mg]) Aspirin 81 2015-04 Yes 81 mg = 1 Me moria MG Enteric 0-05 tab, PO, l Coated 11:16: Daily, # [place] Tablet 00 90 tab, 3 Refill(s) Lactated 2015-04 No 1,000 mL, Chaz nora Ringers 0-05 Rate: 40 l 1,000 mL 10:59: ml/hr, [place] 00 Infuse over: 25 hr, Route: IV, Dosing Weight 87.727 kg, Total Volume: 1,000, Start date: 01/05/16 5:59:00 CDT, Duration: 30 day, Stop date: 02/04/16 5:58:00 CDT Flagyl 2015-04 No Notes: Memoria 0-05 (Same as: l 10:00: Flagyl) [place] 00 Avoid alcohol. Levaquin 2015-04 No Notes: Memoria 0-05 (Same l 10:00: as:Levaqui [place] n) Nexium Yes PO, Daily, Memor ia 30 0 l 16:19: Refill(s) [place] atorvastati Yes PO, Daily, Memoria n 30 0 l 16:19: Refill(s) [place] 00 24 HR Yes 50 mg = 1 Memoria Metoprolol -30 tab, PO, l Tartrate 50 16:19: Daily, # He rmann MG Extended 00 90 tab, 3 Release Refill(s) Tablet [Toprol] levofloxaci No 500 mg = 1 Memoria n 500 mg 30 tab, PO, l oral tablet 16:19: Daily, # 7 [place] 00 tab, 0 Refill(s) Metronidazo No 500 mg = 1 Memoria le 30 tab, PO, l 16:18: BID, # 14 [place] 00 tab, 0 Refill(s) Ciprofloxac Yes 500 mg = 1 Memoria in 500 MG 17 tab, PO, l Oral Tablet 05:11: Q12H, # 14 [place] [Cipro] 00 tab, 0 Refill(s) Metronidazo Yes 500 mg = 1 Memoria le 500 MG 17 tab, PO, l Oral Tablet 05:11: Q8H, # 21 H ermann tab, 0 Refill(s) Ondansetron Yes 4 mg = 1 Me moria 4 MG 17 tab, PO, l Disintegrat 05:11: TID, as Her ferrer ing Tablet 00 needed for [Zofran] nausea/vom iting, # 12 tab, 0 Refill(s) Dicyclomine Yes 20 mg = 1 M emoria Hydrochlori 12-17 tab, PO, l de 20 MG 05:11: QID, # 28 Herm rosalino Oral Tablet 00 tab, 0 [Bentyl] Refill(s) Zofran No 4 mg, Memoria 12-17 Route: l 05:08: IVP, Drug [place] 00 form: INJ, ONCE, Dosing Weight 90, kg, Priority: STAT, Start date: 12/17/13 0:08:00, Stop date: 12/17/13 0:08:00 Ciprofloxac No 500 mg, Mem oria in 12-17 Route: PO, l 05:08: ONCE, [place] 00 Dosing Weight 90, kg, Priority: STAT, Start date: 12/17/13 0:08:00, Stop date: 12/17/13 0:08:00 Metronidazo No 500 mg, Mem oria le 12-17 Route: PO, l 05:08: ONCE, [place] 00 Dosing Weight 90, kg, Priority: STAT, Start date: 12/17/13 0:08:00, Stop date: 12/17/13 0:08:00 Ondansetron No Notes: Chaz nora 12-17 (Same as: l 03:33: Zofran) [place] 00 Morphine No Notes: Memoria 12-17 (Same l 03:33: as:MORPhin [place] e Sulfate) Immunizations Ordered Immunization Filled Immunization Date Status Commen ts Source Name Name influenza virus 2016-01-14 Completed [facility] vaccine, inactivated 16:56:00 Elvin rosalino diphtheria/pertussis 2011-09-01 Completed Chaz rial , acel/tetanus 19:10:54 [place] adult<sup>1</sup> tetanus-diphtheria 2011-09-01 Completed Memori al toxoids<sup>3</sup> 14:29:10 Emelia nn diphtheria-tetanus 2011-09-01 Completed Memori al toxoids<sup>2</sup> 14:29:10 Emelia nn Vital Signs Vital Name Observation Time Observation Value Comments Source Systolic blood 2021-04-19 18:45:00 117 mm[facility]Hg[facility] 2021-04-19 18:45:00 89 mm[facility]Hg[facility] 2021-04-19 18:45:00 86 /min [facility] Body temperature 2021-04-19 18:45:00 36.22 [facility] Res[facility] rate 2021-04-19 18:45:00 18 /min [facility] Body height 2021-04-19 18:45:00 180.3 cm [facility] Body weight 2021-04-19 18:45:00 90.719 kg [facility] BMI 2021-04-19 18:45:00 27.89 kg/m2 [facility] Oxygen saturation in 2021-04-19 18:45:00 99 /min [facility] Arterial blood by [facility] Pulse oximetry Branch Respitory Rate 2016-03-16 18:19:00 Memori al [place] Systolic (mm Hg) 2016-03-16 18:19:00 Chaz rial [place] Diastolic (mm Hg) 2016-03-16 18:19:00 Mem orial [place] Temperature Oral (F) 2016-03-16 18:19:00 97.9 F [facility] [place] Heart Rate 2016-03-16 18:19:00 [facility] [place] Temperature Oral (F) 2016-03-16 15:12:00 98.0 F [facility] [place] Respitory Rate 2016-03-16 15:12:00 Memori al [place] Systolic (mm Hg) 2016-03-16 15:12:00 Chaz rial [place] Diastolic (mm Hg) 2016-03-16 15:12:00 Mem orial [place] Heart Rate 2016-03-16 15:12:00 Memorial [place] Respitory Rate 2016-03-16 09:49:00 [facility] Heart Rate 2016-03-16 09:49:00 [facility] Temperature Oral (F) 2016-03-16 09:49:00 97.9 F [facility] Systolic (mm Hg) 2016-03-16 09:49:00 Chaz [facility] [place] Diastolic (mm Hg) 2016-03-16 09:49:00 [facility] Weight 2016-03-15 04:02:00 [facility] Height 2016-03-15 04:02:00 180.34 cm [facility] BMI Calculated 2016-03-15 04:02:00 [facility] [place] Weight 2016-03-14 19:58:00 [facility] BMI Calculated 2016-03-14 19:58:00 [facility] [place] Height 2016-03-14 19:58:00 180.34 cm [facility] Weight 2016 15:05:00 [facility] BMI Calculated 2016 15:05:00 [facility] Height 2016 15:05:00 180.34 cm [facility] Heart Rate 2016-01-14 16:45:00 [facility] Systolic (mm Hg) 2016-01-14 16:45:00 Chaz [facility] [place] Diastolic (mm Hg) 2016-01-14 16:45:00 [facility] Temperature Oral (F) 2016-01-14 16:45:00 98.0 F [facility] Respitory Rate 2016-01-14 16:45:00 [facility] Systolic (mm Hg) 2016-01-14 14:28:00 [facility] [place] Diastolic (mm Hg) 2016-01-14 14:28:00 [facility] [place] Respitory Rate 2016-01-14 14:28:00 [facility] Heart Rate 2016-01-14 14:28:00 [facility] Temperature Oral (F) 2016-01-14 14:28:00 97.9 F [facility] Heart Rate 2016-01-14 08:00:00 [facility] Systolic (mm Hg) 2016-01-14 08:00:00 Chaz [facility] [place] Diastolic (mm Hg) 2016-01-14 08:00:00 [facility] [place] Respitory Rate 2016-01-14 08:00:00 [facility] [place] Temperature Oral (F) 2016-01-14 08:00:00 98.1 F [facility] Weight 2016-01-06 04:12:00 [facility] BMI Calculated 2016-01-06 04:12:00 [facility] Height 2016-01-06 04:12:00 180.34 cm [facility] Weight 2016-01-05 11:14:00 [facility] BMI Calculated 2016-01-05 11:14:00 [facility] Height 2016-01-05 11:14:00 180.34 cm [facility] Height 2015-12-31 16:14:00 180.34 cm [facility] BMI Calculated 2015-12-31 16:14:00 [facility] Weight 2015-12-31 16:14:00 [facility] Temperature Oral (F) 2013-12-17 06:13:00 99.3 F [facility] Heart Rate 2013-12-17 06:13:00 [facility] Systolic (mm Hg) 2013-12-17 06:13:00 [facility] [place] Respitory Rate 2013-12-17 06:13:00 [facility] [place] Diastolic (mm Hg) 2013-12-17 06:13:00 [facility] Temperature Oral (F) 2013-12-17 04:32:00 100.4 F [facility] Height 2013-12-17 00:40:00 182.88 cm [facility] BMI Calculated 2013-12-17 00:40:00 [facility] Weight 2013-12-17 00:40:00 [facility] Systolic (mm Hg) 2013-12-17 00:40:00 [facility] [place] Diastolic (mm Hg) 2013-12-17 00:40:00 [facility] Heart Rate 2013-12-17 00:40:00 [facility] [place] Respitory Rate 2013-12-17 00:40:00 [facility] Temperature Oral (F) 2013-12-17 00:40:00 98.3 F [facility] [place] Procedures Procedure Date / Time Performed Performing Clinician Sour e XR CHEST 2 VW 2021-04-19 19:06:00 [facility] Closure of ileostomy [facility] He rmann Creation of ileostomy [facility] ermann Vasectomy [facility] Plan of Care Planned Activity Planned Date Details Comments Source Future Scheduled 2021-05-03 COVID-19 VACCINE (1) [facility] Test 13:16:08 [code = COVID-19 VACCINE (1)] Future Scheduled 2021-05-03 COLONOSCOPY SCREENING [facility] Test 13:16:08 [code = COLONOSCOPY SCREENING] Future Scheduled 2021-05-03 SHINGLES VACCINES [facility] Test 13:16:08 (#1) [code = SHINGLES VACCINES (#1)] Future Scheduled 2021-05-03 INFLUENZA VACCINE [facility] Test 13:16:08 [code = INFLUENZA VACCINE] Encounters Start End Encounter Admission Attending Care Care Encounter Source Date/Time Date/Time Type Type Clinicians Facility Department ID 2021-04-19 2021-04-19 Outpatient R JACLYN [facility] [id number] Univers 13:00:29 23:59:00 [facility] 2021-04-19 2021-04-19 Hospital [facility] [id number] Univers 13:00:29 23:59:00 Encounter [facility] [id number] ity of [place] [id number] Braden as JACKSON?BLEA [id number] Sc nawaf RYAN [address] MEDICAL OFFICE [facility] 2021-04-19 2021-04-[address] [facility] [id number] Univers 13:00:00 13:10:17 Care Fany Pierre [facility] [id number] ity of [place] [id number] Braden as JACKSON?BLEA [id number] Sc nawaf [facility] [address] [facility] OFFICE [facility] 2021-04-19 2021-04-19 Outpatient R [facility] [id number] Univers 13:00:00 13:00:00 [id number] [facility] 2021-04-09 2021-04-09 [facility] [id number] Univers 20:45:00 20:45:00 CASSIA [facility] 2021-04-09 2021-04-09 Laboratory Only, Ang Db Test [facility] [id number] Univers 13:00:00 13:00:00 Only Mario Alberto [facility] [id number] ity of [place] [id number] Braden as JACKSON?BLEA [id number] Sc nawaf [facility] 370 [facility] 2016-03-14 2016-03-16 Inpatient [facility] [id number] Memoria 19:18:00 18:15:00 r [place] 02 [facility] 2016-01-05 2016-01-14 Inpatient [facility] [id number] Memoria 10:17:00 17:15:00 r [place] 01 [facility] 2015-09-29 2015-09-29 Outpatient [facility] [id number] Memoria 13:15:00 13:15:00 00 [facility] 2013-12-17 2013-12-17 [facility] [id number] Memoria 00:36:00 06:14:00 Emergency r [place] 00 [facility] Results Test Description Test Time Test Comments Results Result Comments Source HEMATOLOGY 2016-03-16 11:32:00 Test Item Value Reference Range Interpretation Comme nts Monocytes (test code = Monocytes) 10.1 2.0-12.0 [facility]eqasytEDJGVSMGMB2657-34-11 11:32:00 Test Item Value Reference Range Interpretation Comments Basophils (test code = 0.3 See_Comment [Aut omated message] The Basophils) system which ge nerated this result tra nsmitted reference range : <=1.0. The reference r charlee was not used to int erpret this result as normal/abnormal . [facility] CenterMmqffglCGTTOEBOOF3703-93-68 11:32:00 Test Item Value Reference Range Interpretation Comments Segs-Bands # (test code = Segs-Bands #) 3.6 1.5-8.1 [facility] CenterHfqsvzuQVVQHRFQNP2650-04-10 11:32:00 Test Item Value Reference Range Interpretation Comments Eosinophils (test code = 1.4 See_Comment [A utomated message] The Eosinophils) system which ge nerated this result tra nsmitted reference range : <=4.0. The reference r charlee was not used to int erpret this result as normal/abnormal . [facility] CenterQgxauvsDTDLDEUVHL2631-43-56 11:32:00 Test Item Value Reference Range Interpretation Comments Segs (test code = Segs) 70.7 45.0-75.0 [facility] CenterVzjwjjzVKUWTDSIOH5057-09-29 11:32:00 Test Item Value Reference Range Interpretation Comments Lymphocytes (test code = Lymphocytes) 17.5 20.0-40.0 [facility] CenterVggqegcBKDBUMRUCB3798-90-95 11:32:00 Test Item Value Reference Range Interpretation Comments Platelet (test code = Platelet) 195 133-450 [facility] CenterGaxyjwcWROPRDRRKV8770-90-18 11:32:00 Test Item Value Reference Range Interpretation Comments MPV (test code = MPV) 8.9 7.4-10.4 [facility] CenterEzwlebsWKHUUUEOCR1678-15-85 11:32:00 Test Item Value Reference Range Interpretation Comments Hgb (test code = Hgb) 12.7 14.0-18.0 [facility] CenterMglihykJPZZZUOVWG1816-68-24 11:32:00 Test Item Value Reference Range Interpretation Comments MCHC (test code = MCHC) 33.9 32.0-36.0 [facility] CenterQatmsqfLJWYVNSNRV1218-33-13 11:32:00 Test Item Value Reference Range Interpretation Comments RDW (test code = RDW) 14.3 11.5-14.5 [facility] CenterLoqxmwiFFUVNBMQAO8998-36-62 11:32:00 Test Item Value Reference Range Interpretation Comments MCV (test code = MCV) 83.0 80.0-94.0 [facility] CenterBiyspeaXBNSOBCQUN5453-37-17 11:32:00 Test Item Value Reference Range Interpretation Comments MCH (test code = MCH) 28.2 pg 27.0-31.0 [facility] CenterDryzralBXULYVBCYP2293-23-15 11:32:00 Test Item Value Reference Range Interpretation Comments Hct (test code = Hct) 37.5 42.0-54.0 [facility] CenterGuymuhlAWHQBFYDEE0592-43-90 11:32:00 Test Item Value Reference Range Interpretation Comments WBC (test code = WBC) 5.1 3.7-10.4 [facility] CenterCfoutrzIQBITMDSGH7286-84-27 11:32:00 Test Item Value Reference Range Interpretation Comments RBC (test code = RBC) 4.52 4.70-6.10 [facility]2016-12-15 11:32:00 Test Item Value Reference Range Interpretation Comments eGFR (test code = eGFR) 94 [facility]2016-12-15 11:32:00 Test Item Value Reference Range Interpretation Comments Creatinine Lvl (test code = Creatinine 0.94 0.50-1.40 Lvl) [facility]2016-12-15 11:32:00 Test Item Value Reference Range Interpretation Comments Chloride Lvl (test code = Chloride Lvl) 103 95-109 [facility]2016-12-15 11:32:00 Test Item Value Reference Range Interpretation Comments CO2 (test code = CO2) 30 24-32 [facility]2016-12-15 11:32:00 Test Item Value Reference Range Interpretation Comments Sodium Lvl (test code = Sodium Lvl) 140 135-145 [facility]2016-12-15 11:32:00 Test Item Value Reference Range Interpretation Comments Potassium Lvl (test code = Potassium 3.6 3.5-5.1 Lvl) [facility]2016-12-15 11:32:00 Test Item Value Reference Range Interpretation Comments Calcium Lvl (test code = Calcium Lvl) 8.2 8.5-10.5 [facility]2016-12-15 11:32:00 Test Item Value Reference Range Interpretation Comments Glucose Lvl (test code = Glucose Lvl) 117 70-99 [facility]2016-12-15 11:32:00 Test Item Value Reference Range Interpretation Comments BUN (test code = BUN) 10 7-22 [facility]2016-12-15 11:32:00 Test Item Value Reference Range Interpretation Comments AGAP (test code = AGAP) 10.6 10.0-20.0 [facility]2016-12-15 11:32:00 Test Item Value Reference Range Interpretation Comments Phosphorus (test code = Phosphorus) 2.6 2.5-4.5 [facility]2016-12-15 11:32:00 Test Item Value Reference Range Interpretation Comments Magnesium Lvl (test code = Magnesium 2.6 1.8-2.4 Lvl) [facility] CenterTrgyxkiUYURGLKLZN2271-36-62 11:32:00 Test Item Value Reference Range Interpretation Comments Monocytes # (test code 0.5 See_Comment [Aut omated message] The = Monocytes #) system which generated this result tra nsmitted reference range : <=0.8. The reference r charlee was not used to int erpret this result as normal/abnormal . [facility] CenterOrqnckrDGOSWBMWDP7342-04-64 11:32:00 Test Item Value Reference Range Interpretation Comments Eosinophils # (test code 0.1 See_Comment [A utomated message] The = Eosinophils #) system whic h generated this result tra nsmitted reference range : <=0.5. The reference r charlee was not used to int erpret this result as normal/abnormal . [facility] CenterVezsahjDBHXLWKDMF2998-51-61 11:32:00 Test Item Value Reference Range Interpretation Comments Lymphocytes # (test code = Lymphocytes 0.9 1.0-5.5 #) [facility]2016-12-14 06:38:00 Test Item Value Reference Range Interpretation Comments Phosphorus (test code = Phosphorus) 2.9 2.5-4.5 [facility]2016-12-14 06:38:00 Test Item Value Reference Range Interpretation Comments Magnesium Lvl (test code = Magnesium 2.1 1.8-2.4 Lvl) [facility]2016-12-14 06:38:00 Test Item Value Reference Range Interpretation Comments eGFR (test code = eGFR) 99 [facility]2016-12-14 06:38:00 Test Item Value Reference Range Interpretation Comments Creatinine Lvl (test code = Creatinine 0.91 0.50-1.40 Lvl) [facility]2016-12-14 06:38:00 Test Item Value Reference Range Interpretation Comments BUN (test code = BUN) 11 7-22 [place] 212976-12-14 06:38:00 Test Item Value Reference Range Interpretation Comments Potassium Lvl (test code = Potassium 4.0 3.5-5.1 Lvl) [facility]2016-12-14 06:38:00 Test Item Value Reference Range Interpretation Comments Sodium Lvl (test code = Sodium Lvl) 137 135-145 [place] 212976-12-14 06:38:00 Test Item Value Reference Range Interpretation Comments Glucose Lvl (test code = Glucose Lvl) 117 70-99 [place] 212976-12-14 06:38:00 Test Item Value Reference Range Interpretation Comments Chloride Lvl (test code = Chloride Lvl) 100 95-109 [place] 212976-12-14 06:38:00 Test Item Value Reference Range Interpretation Comments CO2 (test code = CO2) 23 24-32 [facility]2016-12-14 06:38:00 Test Item Value Reference Range Interpretation Comments Calcium Lvl (test code = Calcium Lvl) 8.1 8.5-10.5 [facility]2016-12-14 06:38:00 Test Item Value Reference Range Interpretation Comments AGAP (test code = AGAP) 18.0 10.0-20.0 [facility] CenterJemeujaSVUPLGUJFX2653-08-64 06:38:00 Test Item Value Reference Range Interpretation Comments Monocytes # (test code 0.2 See_Comment [Aut omated message] The = Monocytes #) system which generated this result tra nsmitted reference range : <=0.8. The reference r charlee was not used to int erpret this result as normal/abnormal . [facility] CenterHodrxovOSMVBVNWYC8331-79-01 06:38:00 Test Item Value Reference Range Interpretation Comments Basophils (test code = 0.1 See_Comment [Aut omated message] The Basophils) system which ge nerated this result tra nsmitted reference range : <=1.0. The reference r charlee was not used to int erpret this result as normal/abnormal . [facility] CenterWvcwjojYCZYUMDUCX4662-67-43 06:38:00 Test Item Value Reference Range Interpretation Comments Segs-Bands # (test code = Segs-Bands #) 8.1 1.5-8.1 [facility] CenterZssweoyPXZEODCDKL6514-28-82 06:38:00 Test Item Value Reference Range Interpretation Comments Lymphocytes # (test code = Lymphocytes 0.5 1.0-5.5 #) [facility] CenterYvkhlwpSAHOIXHHAE6341-09-04 06:38:00 Test Item Value Reference Range Interpretation Comments Lymphocytes (test code = Lymphocytes) 5.2 20.0-40.0 [facility] CenterRpodiggMZZFRBREKZ0224-13-25 06:38:00 Test Item Value Reference Range Interpretation Comments Segs (test code = Segs) 92.9 45.0-75.0 [facility] CenterKveuwtwWJJENWDPTR3730-49-29 06:38:00 Test Item Value Reference Range Interpretation Comments Monocytes (test code = Monocytes) 1.7 2.0-12.0 [facility] CenterBtyozodOVJAWSHCMR2109-92-24 06:38:00 Test Item Value Reference Range Interpretation Comments Eosinophils (test code = 0.1 See_Comment [A utomated message] The Eosinophils) system which ge nerated this result tra nsmitted reference range : <=4.0. The reference r charlee was not used to int erpret this result as normal/abnormal . [facility] CenterVtygxnyYJJCEQJWZO0456-54-21 06:38:00 Test Item Value Reference Range Interpretation Comments MPV (test code = MPV) 8.6 7.4-10.4 [facility] CenterZdhvbnxQJDDMRCJZB9819-09-15 06:38:00 Test Item Value Reference Range Interpretation Comments Platelet (test code = Platelet) 207 133-450 [facility] CenterHcavsawTUGEYRNJWO7409-61-62 06:38:00 Test Item Value Reference Range Interpretation Comments RDW (test code = RDW) 14.1 11.5-14.5 [facility] CenterXuoaskkWINZBDXAIF5885-93-32 06:38:00 Test Item Value Reference Range Interpretation Comments MCHC (test code = MCHC) 34.7 32.0-36.0 [facility] CenterAlzxrwnAAIVBZKGKN1613-48-44 06:38:00 Test Item Value Reference Range Interpretation Comments MCH (test code = MCH) 28.3 pg 27.0-31.0 [facility] ClinicDtautziGWUHKYSKSP5985-78-45 06:38:00 Test Item Value Reference Range Interpretation Comments MCV (test code = MCV) 81.7 80.0-94.0 [facility] CenterSwnudwqOADJJGIILZ5842-22-99 06:38:00 Test Item Value Reference Range Interpretation Comments WBC (test code = WBC) 8.8 3.7-10.4 [facility] CenterXmxvzlrTBROZLUQBI9112-43-63 06:38:00 Test Item Value Reference Range Interpretation Comments Hct (test code = Hct) 39.3 42.0-54.0 [facility] CenterEzzgnfkWFJRGOWMLU5635-93-47 06:38:00 Test Item Value Reference Range Interpretation Comments Hgb (test code = Hgb) 13.6 14.0-18.0 [facility] CenterNuaopcoGGECGXDDBB6645-96-77 06:38:00 Test Item Value Reference Range Interpretation Comments RBC (test code = RBC) 4.81 4.70-6.10 [facility] [id number] 20:01:00 Test Item Value Reference Range Interpretation Comments Antibody Scrn (test Negative (03/14/16 code = Antibody Scrn) 2:01 PM) [facility] [id number] 20:01:00 Test Item Value Reference Range Interpretation Comments ABO/Rh (test code = ABO/Rh) [facility]LnnjiqiFIPQZYYSQRQS5966-56-23 09:12:00 Test Item Value Reference Range Interpretation Comments CO2 (test code = CO2) 25 24-32 [facility]xrbpkbETFZKTJPNIDN9251-99-36 09:12:00 Test Item Value Reference Range Interpretation Comments Calcium Lvl (test code = Calcium Lvl) 9.2 8.5-10.5 [facility] CenterCfjwereFZUBZZBZRMEX7349-06-90 09:12:00 Test Item Value Reference Range Interpretation Comments eGFR (test code = eGFR) 102 [facility]VoyxkcdEFXBSZUCNDPL4504-98-16 09:12:00 Test Item Value Reference Range Interpretation Comments Potassium Lvl (test code = Potassium 4.5 3.5-5.1 Lvl) [facility] HospitalOldwrmdCYQWDKOIGBFU5564-13-15 09:12:00 Test Item Value Reference Range Interpretation Comments Chloride Lvl (test code = Chloride Lvl) 102 95-109 [facility] HospitalGubleybLMHHYGCAUUUL9970-47-44 09:12:00 Test Item Value Reference Range Interpretation Comments Sodium Lvl (test code = Sodium Lvl) 137 135-145 [facility] HospitalTxsqtlqRIBHUMWKYAJE0148-29-35 09:12:00 Test Item Value Reference Range Interpretation Comments Glucose Lvl (test code = Glucose Lvl) 104 70-99 [facility] HospitalWvitkboMBDMBOXTYXQF7106-17-16 09:12:00 Test Item Value Reference Range Interpretation Comments Creatinine Lvl (test code = Creatinine 0.88 0.50-1.40 Lvl) [facility] HospitalQuwigufSMABUNRUJJRC2010-51-76 09:12:00 Test Item Value Reference Range Interpretation Comments BUN (test code = BUN) 9 7-22 [facility] HospitalKcnfaftPIZUQCVMTXKZ4350-98-18 09:12:00 Test Item Value Reference Range Interpretation Comments AGAP (test code = AGAP) 14.5 10.0-20.0 [facility] CenterOvarsyaSOIGZDFTDQ2220-12-33 09:12:00 Test Item Value Reference Range Interpretation Comments RBC (test code = RBC) 4.33 4.70-6.10 [facility] CenterFzagckgIZJQOTRXFQ1819-88-31 09:12:00 Test Item Value Reference Range Interpretation Comments WBC (test code = WBC) 5.4 3.7-10.4 [facility] CenterQklhutaBADDHUDUKV1002-91-63 09:12:00 Test Item Value Reference Range Interpretation Comments MCHC (test code = MCHC) 35.4 32.0-36.0 [facility] CenterDiagjtwRUCXPNOYKN7856-21-52 09:12:00 Test Item Value Reference Range Interpretation Comments RDW (test code = RDW) 13.4 11.5-14.5 [facility] CenterHyjzjbbHQKYBTYENW1084-57-57 09:12:00 Test Item Value Reference Range Interpretation Comments MCH (test code = MCH) 29.1 pg 27.0-31.0 [facility] CenterGufdxosLYSQPLNNIO3050-26-60 09:12:00 Test Item Value Reference Range Interpretation Comments Hgb (test code = Hgb) 12.6 14.0-18.0 [facility] CenterYngyzpgRHZDPRRXKF8875-89-88 09:12:00 Test Item Value Reference Range Interpretation Comments Hct (test code = Hct) 35.5 42.0-54.0 [facility] CenterAgalbloHMUJAIDCOT4474-83-79 09:12:00 Test Item Value Reference Range Interpretation Comments MCV (test code = MCV) 82.0 80.0-94.0 [facility] CenterSuhrnkeHJSCWVVRYZ4742-83-89 09:12:00 Test Item Value Reference Range Interpretation Comments Platelet (test code = Platelet) 359 133-450 [facility] CenterOudmkolWPJBKJSARR5603-36-89 09:12:00 Test Item Value Reference Range Interpretation Comments MPV (test code = MPV) 8.3 7.4-10.4 [facility] CenterVlmvzrzYTZOBQESMZ0008-68-71 09:12:00 Test Item Value Reference Range Interpretation Comments Eosinophils # (test code 0.1 See_Comment [A utomated message] The = Eosinophils #) system whic h generated this result tra nsmitted reference range : <=0.5. The reference r charlee was not used to int erpret this result as normal/abnormal . [facility] CenterZlsvjihTXOATGIVIW3881-55-68 09:12:00 Test Item Value Reference Range Interpretation Comments Monocytes # (test code 0.6 See_Comment [Aut omated message] The = Monocytes #) system which generated this result tra nsmitted reference range : <=0.8. The reference r charlee was not used to int erpret this result as normal/abnormal . [facility] CenterCtswmhaBWQPAQDZMB9445-31-64 09:12:00 Test Item Value Reference Range Interpretation Comments Lymphocytes # (test code = Lymphocytes 1.4 1.0-5.5 #) [facility] CenterFjybhlxLDWQPVUIBK5036-43-45 09:12:00 Test Item Value Reference Range Interpretation Comments Segs-Bands # (test code = Segs-Bands #) 3.3 1.5-8.1 [facility] CenterFrmspkcWFZJWZQBZO6652-17-69 09:12:00 Test Item Value Reference Range Interpretation Comments Segs (test code = Segs) 61.8 45.0-75.0 [facility] CenterHggfsfnLAPEVTNZUA3173-12-12 09:12:00 Test Item Value Reference Range Interpretation Comments Lymphocytes (test code = Lymphocytes) 25.2 20.0-40.0 [facility] CenterYhwmoluLQNRVWVRMD7022-09-16 09:12:00 Test Item Value Reference Range Interpretation Comments Basophils (test code = 0.7 See_Comment [Aut omated message] The Basophils) system which ge nerated this result tra nsmitted reference range : <=1.0. The reference r charlee was not used to int erpret this result as normal/abnormal . [facility] CenterXeqbuqxNJFNEUEQFH0561-23-71 09:12:00 Test Item Value Reference Range Interpretation Comments Monocytes (test code = Monocytes) 10.4 2.0-12.0 [facility] CenterTodflswPFXGLDTUYX4213-02-08 09:12:00 Test Item Value Reference Range Interpretation Comments Eosinophils (test code = 1.9 See_Comment [A utomated message] The Eosinophils) system which ge nerated this result tra nsmitted reference range : <=4.0. The reference r charlee was not used to int erpret this result as normal/abnormal . [facility]2016-10-13 09:18:00 Test Item Value Reference Range Interpretation Comments BUN (test code = BUN) 12 7-22 [place] 212976-10-13 09:18:00 Test Item Value Reference Range Interpretation Comments Glucose Lvl (test code = Glucose Lvl) 114 70-99 [facility]2016-10-13 09:18:00 Test Item Value Reference Range Interpretation Comments Calcium Lvl (test code = Calcium Lvl) 9.4 8.5-10.5 [facility]2016-10-13 09:18:00 Test Item Value Reference Range Interpretation Comments Chloride Lvl (test code = Chloride Lvl) 99 95-109 [facility]2016-10-13 09:18:00 Test Item Value Reference Range Interpretation Comments Potassium Lvl (test code = Potassium 4.4 3.5-5.1 Lvl) [facility]2016-10-13 09:18:00 Test Item Value Reference Range Interpretation Comments Sodium Lvl (test code = Sodium Lvl) 134 135-145 [facility]2016-10-13 09:18:00 Test Item Value Reference Range Interpretation Comments CO2 (test code = CO2) 28 24-32 [facility] [facility] 09:18:00 Test Item Value Reference Range Interpretation Comments Creatinine Lvl (test code = Creatinine 0.83 0.50-1.40 Lvl) [facility]2016-10-13 09:18:00 Test Item Value Reference Range Interpretation Comments eGFR (test code = eGFR) 104 [place] 212976-10-13 09:18:00 Test Item Value Reference Range Interpretation Comments AGAP (test code = AGAP) 11.4 10.0-20.0 [facility]aj[facility]mlPPJUZSNIPK[facility]:18:00 Test Item Value Reference Range Interpretation Comments Eosinophils # (test code 0.1 See_Comment [A utomated message] The = Eosinophils #) system [facility] generated this result tra nsmitted reference range : <=0.5. The reference r charlee was not used to int erpret this result as normal/abnormal . [facility] CenterEaymxwbPXKNFZZRYR2859-97-29 09:18:00 Test Item Value Reference Range Interpretation Comments Monocytes # (test code 0.4 See_Comment [Aut omated message] The = Monocytes #) system which generated this result tra nsmitted reference range : <=0.8. The reference r charlee was not used to int erpret this result as normal/abnormal . [facility] CenterDypnbzfHIVYFJXWFM7901-33-20 09:18:00 Test Item Value Reference Range Interpretation Comments Lymphocytes # (test code = Lymphocytes 1.3 1.0-5.5 #) [facility] CenterHekhrtwRQDRQBDZMS5579-91-45 09:18:00 Test Item Value Reference Range Interpretation Comments Segs-Bands # (test code = Segs-Bands #) 4.0 1.5-8.1 [facility] CenterKgqspwfRXCUAYMDDA7257-71-77 09:18:00 Test Item Value Reference Range Interpretation Comments Basophils (test code = 0.6 See_Comment [Aut omated message] The Basophils) system which ge nerated this result tra nsmitted reference range : <=1.0. The reference r charlee was not used to int erpret this result as normal/abnormal . [facility] CenterYdtnmuiSTMEJHDNWR1509-44-96 09:18:00 Test Item Value Reference Range Interpretation Comments Eosinophils (test code = 1.9 See_Comment [A utomated message] The Eosinophils) system which ge nerated this result tra nsmitted reference range : <=4.0. The reference r charlee was not used to int erpret this result as normal/abnormal . [facility] CenterXxmmxlhYXMZVUDMIL6079-54-78 09:18:00 Test Item Value Reference Range Interpretation Comments Monocytes (test code = Monocytes) 7.2 2.0-12.0 [place] [address]-10-13 09:18:00 Test Item Value Reference Range Interpretation Comments Lymphocytes (test code = Lymphocytes) 21.5 20.0-40.0 [facility] CenterUueoqpbFDEMUBSCQC1956-55-34 09:18:00 Test Item Value Reference Range Interpretation Comments Segs (test code = Segs) 68.8 45.0-75.0 [facility] CenterNoxwrsnIEGOHQKIRQ3642-01-55 09:18:00 Test Item Value Reference Range Interpretation Comments MPV (test code = MPV) 8.0 7.4-10.4 [facility] CenterWapngexMTJWSNNUTI4796-18-15 09:18:00 Test Item Value Reference Range Interpretation Comments Platelet (test code = Platelet) 322 133-450 [facility] CenterFqezirnFIXRRBYYAJ5302-37-84 09:18:00 Test Item Value Reference Range Interpretation Comments RDW (test code = RDW) 13.5 11.5-14.5 [facility] CenterVhseqfuAAFYXMRDJA3552-39-67 09:18:00 Test Item Value Reference Range Interpretation Comments MCHC (test code = MCHC) 34.5 32.0-36.0 [facility] CenterPdtumpnFVZYOOYVQB9775-44-84 09:18:00 Test Item Value Reference Range Interpretation Comments MCH (test code = MCH) 28.3 pg 27.0-31.0 [facility] CenterMskchtaNRUXAVRPMJ6778-69-70 09:18:00 Test Item Value Reference Range Interpretation Comments MCV (test code = MCV) 82.0 80.0-94.0 [facility] CenterDaogofdASLKFWXDHA6761-21-41 09:18:00 Test Item Value Reference Range Interpretation Comments Hct (test code = Hct) 35.8 42.0-54.0 [facility] CenterFgbqwqlEVBUGGSHIA1922-67-89 09:18:00 Test Item Value Reference Range Interpretation Comments Hgb (test code = Hgb) 12.3 14.0-18.0 [facility] CenterUanfxcxASGHHDMHUU9536-10-07 09:18:00 Test Item Value Reference Range Interpretation Comments RBC (test code = RBC) 4.36 4.70-6.10 [facility] CenterPaywlrtWYXDRGVPSH8134-03-64 09:18:00 Test Item Value Reference Range Interpretation Comments WBC (test code = WBC) 5.8 3.7-10.4 [facility]2016-10-12 17:57:00 Test Item Value Reference Range Interpretation Comments Magnesium Lvl (test code = Magnesium 2.3 1.8-2.4 Lvl) [facility]KB7023[facility]:25:00 Test Item Value Reference Range Interpretation Comments Chloride Lvl (test code = Chloride Lvl) 100 95-109 [facility]HabavviERCGDZJPOTIW9844-00-74 08:25:00 Test Item Value Reference Range Interpretation Comments CO2 (test code = CO2) 28 24-32 [facility] HospitalOzwnsqpIWFNDOIRHBBD6356-97-97 08:25:00 Test Item Value Reference Range Interpretation Comments eGFR (test code = eGFR) 107 [facility] HospitalMzqnmrlJRYZGFVPLAQO2604-41-00 08:25:00 Test Item Value Reference Range Interpretation Comments Calcium Lvl (test code = Calcium Lvl) 9.7 8.5-10.5 [facility] HospitalBuaemhjUBFIQSKRLTLN1615-85-49 08:25:00 Test Item Value Reference Range Interpretation Comments Potassium Lvl (test code = Potassium 3.9 3.5-5.1 Lvl) [facility] HospitalUtncosyNACSANTTLNTW0852-23-28 08:25:00 Test Item Value Reference Range Interpretation Comments Creatinine Lvl (test code = Creatinine 0.77 0.50-1.40 Lvl) [facility] HospitalYzipaxyWSYLACNKOTFU9007-88-86 08:25:00 Test Item Value Reference Range Interpretation Comments Sodium Lvl (test code = Sodium Lvl) 137 135-145 [facility] HospitalPybxgwaAQFAVWAEGAZT8021-51-45 08:25:00 Test Item Value Reference Range Interpretation Comments BUN (test code = BUN) 10 7-22 [facility] HospitalMlowthtQQDUEXOZEOMY9639-60-14 08:25:00 Test Item Value Reference Range Interpretation Comments Glucose Lvl (test code = Glucose Lvl) 122 70-99 [facility] HospitalPsxpxxxNNPYIKFXZLJI5408-49-64 08:25:00 Test Item Value Reference Range Interpretation Comments AGAP (test code = AGAP) 12.9 10.0-20.0 [facility] CenterEvglghuNFVBPNZZFS6127-10-82 08:25:00 Test Item Value Reference Range Interpretation Comments Basophils (test code = 0.6 See_Comment [Aut omated message] The Basophils) system which ge nerated this result tra nsmitted reference range : <=1.0. The reference r charlee was not used to int erpret this result as normal/abnormal . [facility] CenterTjmjtamHBKAZZGAAS1869-59-06 08:25:00 Test Item Value Reference Range Interpretation Comments Segs-Bands # (test code = Segs-Bands #) 4.0 1.5-8.1 [facility] CenterOynzwlxDRRZVWOKZN9225-71-05 08:25:00 Test Item Value Reference Range Interpretation Comments Lymphocytes # (test code = Lymphocytes 1.3 1.0-5.5 #) [facility] CenterLnaslwqVVMTCWAYJX5494-91-78 08:25:00 Test Item Value Reference Range Interpretation Comments Monocytes # (test code 0.5 See_Comment [Aut omated message] The = Monocytes #) system which generated this result tra nsmitted reference range : <=0.8. The reference r charlee was not used to int erpret this result as normal/abnormal . [facility] CenterGeyftkvJEKTOYVXSR7729-46-39 08:25:00 Test Item Value Reference Range Interpretation Comments Eosinophils # (test code 0.1 See_Comment [A utomated message] The = Eosinophils #) system whic h generated this result tra nsmitted reference range : <=0.5. The reference r charlee was not used to int erpret this result as normal/abnormal . [facility] CenterZmyzsdxNMHRHFXVXA0610-41-85 08:25:00 Test Item Value Reference Range Interpretation Comments Monocytes (test code = Monocytes) 8.5 2.0-12.0 [facility] CenterJephipeWBBRXZMLCH5933-53-56 08:25:00 Test Item Value Reference Range Interpretation Comments Eosinophils (test code = 2.2 See_Comment [A utomated message] The Eosinophils) system which ge nerated this result tra nsmitted reference range : <=4.0. The reference r charlee was not used to int erpret this result as normal/abnormal . [facility] CenterFifqjckXDVDTELIRV8409-56-52 08:25:00 Test Item Value Reference Range Interpretation Comments Lymphocytes (test code = Lymphocytes) 21.7 20.0-40.0 [facility] CenterTfwbfyiJEPGFEDHUF1848-42-08 08:25:00 Test Item Value Reference Range Interpretation Comments Segs (test code = Segs) 67.0 45.0-75.0 [facility] CenterZvusnktZPSMTBTWEX1432-35-43 08:25:00 Test Item Value Reference Range Interpretation Comments Platelet (test code = Platelet) 348 133-450 [facility] CenterKlrwwifOGMRKMSYTY3508-03-06 08:25:00 Test Item Value Reference Range Interpretation Comments MPV (test code = MPV) 8.2 7.4-10.4 [facility] CenterBzykhmrHFJZFBPDUR3761-73-73 08:25:00 Test Item Value Reference Range Interpretation Comments MCHC (test code = MCHC) 33.9 32.0-36.0 [facility] CenterFlxdwegUQCIYLBHHM4838-39-52 08:25:00 Test Item Value Reference Range Interpretation Comments RDW (test code = RDW) 13.7 11.5-14.5 [facility] CenterNfzvajmHJVXGDHSPR7313-02-43 08:25:00 Test Item Value Reference Range Interpretation Comments Hgb (test code = Hgb) 12.8 14.0-18.0 [facility] CenterIvhuefdRNQJKUBGFN1945-71-53 08:25:00 Test Item Value Reference Range Interpretation Comments RBC (test code = RBC) 4.53 4.70-6.10 [facility] CenterOikgugvJQXPZNULFV6564-93-62 08:25:00 Test Item Value Reference Range Interpretation Comments WBC (test code = WBC) 6.0 3.7-10.4 [facility] CenterSszcerjKBJHOSIUZU2547-95-31 08:25:00 Test Item Value Reference Range Interpretation Comments MCH (test code = MCH) 28.2 pg 27.0-31.0 [facility] CenterOdwajynOJTOIJOZBE2704-00-43 08:25:00 Test Item Value Reference Range Interpretation Comments Hct (test code = Hct) 37.7 42.0-54.0 [facility] CenterKmrckiaRLPULYQVPI5456-83-59 08:25:00 Test Item Value Reference Range Interpretation Comments MCV (test code = MCV) 83.1 80.0-94.0 [facility]2016-10-08 11:24:00 Test Item Value Reference Range Interpretation Comments UA Nitrite (test code Negative (01/08/16 6:24 = UA Nitrite) AM) [facility] AND [id number] 11:24:00 Test Item Value Reference Range Interpretation Comments UA Leuk Est (test Negative (01/08/16 6:24 code = UA Leuk Est) AM) [facility] AND [id number] 11:24:00 Test Item Value Reference Range Interpretation Comments UA RBC (test code = 3 See_Comment [Automa concha message] The UA RBC) system which ge nerated this result transmit concha reference range : <=2. The reference range was not used to interpr et this result as juancarlos l/abnormal. [facility] AND [id number] 11:24:00 Test Item Value Reference Range Interpretation Comments UA Mucus (test code = UA Mucus) Few /LPF [facility] AND [id number] 11:24:00 Test Item Value Reference Range Interpretation Comments UA Sq Epi (test code = UA Sq Epi) None Seen [facility] AND [id number] 11:24:00 Test Item Value Reference Range Interpretation Comments UA Urobilinogen (test code = UA <=1.0 mg/dL 0.1-1.0 Urobilinogen) [facility] AND [id number] 11:24:00 Test Item Value Reference Range Interpretation Comments UA Color (test code = Yellow *NA*(01/08/16 UA Color) 6:24 AM) [facility] AND [id number] 11:24:00 Test Item Value Reference Range Interpretation Comments UA Turbidity (test code = Clear (01/08/16 6:24 UA Turbidity) AM) [facility] AND [id number] 11:24:00 Test Item Value Reference Range Interpretation Comments UA Spec Grav (test code = UA Spec Grav) 1.009 [facility] AND [id number] 11:24:00 Test Item Value Reference Range Interpretation Comments UA pH (test code = UA pH) 5.5 5.0-8.0 [facility] AND [id number] 11:24:00 Test Item Value Reference Range Interpretation Comments UA Protein (test code = UA Protein) 10 mg/dL [facility] AND [id number] 11:24:00 Test Item Value Reference Range Interpretation Comments UA Glucose (test code = UA Negative mg/dL Glucose) [facility] AND [id number] 11:24:00 Test Item Value Reference Range Interpretation Comments UA Ketones (test code = UA Ketones) 20 mg/dL [facility] AND [id number] 11:24:00 Test Item Value Reference Range Interpretation Comments UA Bili (test code = Negative *NA*(01/08/16 UA Bili) 6:24 AM) [facility] AND [id number] 11:24:00 Test Item Value Reference Range Interpretation Comments UA Blood (test code = Small *ABN*(01/08/16 UA Blood) 6:24 AM) [facility] AND [id number] 11:24:00 Test Item Value Reference Range Interpretation Comments UA WBC (test code = 2 See_Comment [Automa concha message] The UA WBC) system which ge nerated this result transmit concha reference range : <=5. The reference range was not used to interpr et this result as juancarlos l/abnormal. [facility] [place] CJICP0258-11-71 09:18:00 Test Item Value Reference Range Interpretation Comments Phosphorus (test code = Phosphorus) 2.8 2.5-4.5 [facility] [place] [id number] 09:18:00 Test Item Value Reference Range Interpretation Comments Magnesium Lvl (test code = Magnesium 2.1 1.8-2.4 Lvl) [facility] [place] [id number] 10:13:33 Test Item Value Reference Range Interpretation Comments Phosphorus (test code = Phosphorus) 2.6 2.5-4.5 [facility] [place] [id number] 10:13:33 Test Item Value Reference Range Interpretation Comments Magnesium Lvl (test code = Magnesium 2.4 1.8-2.4 Lvl) [facility] [place] [id number] 08:00:00 Test Item Value Reference Range Interpretation Comments Phosphorus (test code = Phosphorus) 4.0 2.5-4.5 [employer] [id number] 11:01:00 Test Item Value Reference Range Interpretation Comments Antibody Scrn (test Negative (01/05/16 6:01 code = Antibody Scrn) AM) [facility] [employer] [id number] 11:01:00 Test Item Value Reference Range Interpretation Comments ABO/Rh (test code = ABO/Rh) O POS [facility] TpaotooQUXPGNHUGF5156-00-41 11:01:00 Test Item Value Reference Range Interpretation Comments PTT (test code = PTT) 41.1 s 22.9-35.8 [facility] EbqhipwPCBQYSDMBN3098-63-37 11:01:00 Test Item Value Reference Range Interpretation Comments PT (test code = PT) 13.3 s 12.0-14.7 [facility] 11:01:00 Test Item Value Reference Range Interpretation Comments INR (test code = INR) 0.99 0.85-1.17 [facility] AND [id number] 03:35:48 Test Item Value Reference Range Interpretation Comments UA Urobilinogen (test code = UA <=1.0 mg/dL 0.1-1.0 Urobilinogen) [facility] AND [id number] 03:35:48 Test Item Value Reference Range Interpretation Comments UA Color (test code = UA Color) Ltyellow [facility] AND [id number] 03:35:48 Test Item Value Reference Range Interpretation Comments UA Sq Epi (test code = UA Sq Epi) None Seen [facility] AND [id number] 03:35:48 Test Item Value Reference Range Interpretation Comments UA Spec Grav (test code = UA Spec Grav) 1.012 [facility] AND [id number] 03:35:48 Test Item Value Reference Range Interpretation Comments UA Turbidity (test code = Clear (12/16/13 10:35 UA Turbidity) PM) [facility] AND [id number] 03:35:48 Test Item Value Reference Range Interpretation Comments UA Leuk Est (test Negative (12/16/13 10:35 code = UA Leuk Est) PM) [facility] AND [id number] 03:35:48 Test Item Value Reference Range Interpretation Comments UA Nitrite (test code Negative (12/16/13 10:35 = UA Nitrite) PM) [facility] AND [id number] 03:35:48 Test Item Value Reference Range Interpretation Comments UA RBC (test code = 2 See_Comment [Automa concha message] The UA RBC) system which ge nerated this result transmit concha reference range : <=2. The reference range was not used to interpr et this result as juancarlos l/abnormal. [facility] AND [id number] 03:35:48 Test Item Value Reference Range Interpretation Comments UA WBC (test code = 1 See_Comment [Automa concha message] The UA WBC) system which ge nerated this result transmit concha reference range : <=5. The reference range was not used to interpr et this result as juancarlos l/abnormal. [facility] AND [id number] 03:35:48 Test Item Value Reference Range Interpretation Comments UA Bili (test code = Negative *NA*(12/16/13 UA Bili) 10:35 PM) [facility] AND [id number] 03:35:48 Test Item Value Reference Range Interpretation Comments UA Ketones (test code = UA Trace mg/dL Ketones) [facility] AND [id number] 03:35:48 Test Item Value Reference Range Interpretation Comments UA pH (test code = UA pH) 5.0 5.0-8.0 [facility] AND [id number] 03:35:48 Test Item Value Reference Range Interpretation Comments UA Glucose (test code = UA Negative mg/dL Glucose) [facility] AND [id number] 03:35:48 Test Item Value Reference Range Interpretation Comments UA Protein (test code = UA Negative mg/dL Protein) [facility] AND [id number] 03:35:48 Test Item Value Reference Range Interpretation Comments UA Blood (test code = Moderate *ABN*(12/16/13 UA Blood) 10:35 PM) [facility]2014-09-17 03:34:00 Test Item Value Reference Range Interpretation Comments eGFR (test code = eGFR) 90 [facility]2014-09-17 03:34:00 Test Item Value Reference Range Interpretation Comments Alk Phos (test code = Alk Phos) 79 39-136 [facility]2014-09-17 03:34:00 Test Item Value Reference Range Interpretation Comments AST (test code = AST) 16 See_Comment [Auto mated message] The system which ge nerated this result transmit concha reference range : <=37. The reference range was not used to interpr et this result as juancarlos l/abnormal. [facility]2014-09-17 03:34:00 Test Item Value Reference Range Interpretation Comments ALT (test code = ALT) 33 See_Comment [Auto mated message] The system which ge nerated this result transmit concha reference range : <=65. The reference range was not used to interpr et this result as juancarlos l/abnormal. [facility]2014-09-17 03:34:00 Test Item Value Reference Range Interpretation Comments Bili Total (test code = Bili Total) 0.7 0.2-1.3 [facility]2014-09-17 03:34:00 Test Item Value Reference Range Interpretation Comments Total Protein (test code = Total 7.8 6.4-8.4 Protein) [facility]2014-09-17 03:34:00 Test Item Value Reference Range Interpretation Comments Calcium Lvl (test code = Calcium Lvl) 9.3 8.5-10.5 [facility]2014-09-17 03:34:00 Test Item Value Reference Range Interpretation Comments Albumin Lvl (test code = Albumin Lvl) 4.2 3.5-5.0 [facility]2014-09-17 03:34:00 Test Item Value Reference Range Interpretation Comments CO2 (test code = CO2) - [facility]2014-09-17 03:34:00 Test Item Value Reference Range Interpretation Comments Sodium Lvl (test code = Sodium Lvl) 136 135-145 [facility]2014-09-17 03:34:00 Test Item Value Reference Range Interpretation Comments Creatinine Lvl (test code = Creatinine 1.0 0.5-1.4 Lvl) [facility]2014-09-17 03:34:00 Test Item Value Reference Range Interpretation Comments BUN (test code = BUN) 10-21 [facility]2014-09-17 03:34:00 Test Item Value Reference Range Interpretation Comments Chloride Lvl (test code = Chloride Lvl) 102 95-109 [facility]2014-09-17 03:34:00 Test Item Value Reference Range Interpretation Comments Potassium Lvl (test code = Potassium 3.7 3.5-5.1 Lvl) [facility]2014-09-17 03:34:00 Test Item Value Reference Range Interpretation Comments Glucose Lvl (test code = Glucose Lvl) 100 70-99 [facility]2014-09-17 03:34:00 Test Item Value Reference Range Interpretation Comments A/G Ratio (test code = A/G Ratio) 1.2 0.7-1.6 [place] [id number] 03:34:00 Test Item Value Reference Range Interpretation Comments B/C Ratio (test code = B/C Ratio) 12 09-24 [facility]2014-09-17 03:34:00 Test Item Value Reference Range Interpretation Comments Globulin (test code = Globulin) 3.6 2.0-4.0 [facility]2014-09-17 03:34:00 Test Item Value Reference Range Interpretation Comments AGAP (test code = AGAP) 10.7 10.0-20.0 [facility] Cent[id number] 03:34:00 Test Item Value Reference Range Interpretation Comments Lymphocytes # (test code = Lymphocytes 1.5 1.0-5.5 #) [facility] CenterHlqskmzIJSOPNCSEE9656-08-16 03:34:00 Test Item Value Reference Range Interpretation Comments Monocytes # (test code 0.8 See_Comment [Aut omated message] The = Monocytes #) system which generated this result tra nsmitted reference range : <=0.8. The reference r charlee was not used to int erpret this result as normal/abnormal . [facility] CenterBxdersyAFEQHBPVVA0228-92-07 03:34:00 Test Item Value Reference Range Interpretation Comments Segs-Bands # (test code = Segs-Bands #) 9.9 1.5-8.1 [facility] CenterIavtrxeNZQCWVSCSS8690-38-64 03:34:00 Test Item Value Reference Range Interpretation Comments Basophils (test code = 0.3 See_Comment [Aut omated message] The Basophils) system which ge nerated this result tra nsmitted reference range : <=1.0. The reference r charlee was not used to int erpret this result as normal/abnormal . [facility] CenterSqwvtnrUUCDDEQGIG3612-23-34 03:34:00 Test Item Value Reference Range Interpretation Comments Eosinophils (test code = 0.4 See_Comment [A utomated message] The Eosinophils) system which ge nerated this result tra nsmitted reference range : <=4.0. The reference r charlee was not used to int erpret this result as normal/abnormal . [facility] CenterJwuativGSFTLMDKYA0785-07-25 03:34:00 Test Item Value Reference Range Interpretation Comments Monocytes (test code = Monocytes) 6.4 2.0-12.0 [facility] CenterTrvvprzNBQSWZGKBL6764-43-09 03:34:00 Test Item Value Reference Range Interpretation Comments Lymphocytes (test code = Lymphocytes) 12.5 20.0-40.0 [place] [id number] 03:34:00 Test Item Value Reference Range Interpretation Comments Segs (test code = Segs) 80.4 45.0-75.0 [facility] CenterPxalgpbTQRORWKQET1394-41-11 03:34:00 Test Item Value Reference Range Interpretation Comments MCV (test code = MCV) 85.6 80.0-94.0 [facility] CenterJnnsjzxJHGUSRLHZO5715-96-06 03:34:00 Test Item Value Reference Range Interpretation Comments Hct (test code = Hct) 43.7 42.0-54.0 [facility] CenterUxbvlgaJXICAUVDVY3578-27-62 03:34:00 Test Item Value Reference Range Interpretation Comments Hgb (test code = Hgb) 14.9 14.0-18.0 [facility] CenterZawixswRNBTRSUZVZ4540-87-65 03:34:00 Test Item Value Reference Range Interpretation Comments RBC (test code = RBC) 5.10 4.70-6.10 [facility] CenterKtttclkDHQJISXZUV6806-89-47 03:34:00 Test Item Value Reference Range Interpretation Comments WBC (test code = WBC) 12.3 3.7-10.4 [facility] CenterYtvlqujZUYZBNTEXL5467-71-74 03:34:00 Test Item Value Reference Range Interpretation Comments Platelet (test code = Platelet) 277 133-450 [facility] CenterCglqfzwSTNEOMCAPF1875-76-90 03:34:00 Test Item Value Reference Range Interpretation Comments MCH (test code = MCH) 29.1 pg 27.0-31.0 [facility] CenterSrpimkyRLUYCGMKWB6866-07-55 03:34:00 Test Item Value Reference Range Interpretation Comments MCHC (test code = MCHC) 34.0 32.0-36.0 [facility] CenterRkxjdcuVTJDSARVTP6445-51-57 03:34:00 Test Item Value Reference Range Interpretation Comments MPV (test code = MPV) 9.0 7.4-10.4 [facility] CenterFhgarglOCUCZHXLHX5593-79-26 03:34:00 Test Item Value Reference Range Interpretation Comments RDW (test code = RDW) 12.9 11.5-14.5 [facility]
[2021-11-09 19:07] LABS: SARS-CoV-2 Antigen Rapid Res Negative (Negative)
[2021-11-09 20:12] LABS: Urine Blood Negative (Negative); Urine Glucose Negative (Negative); Urine Protein Negative (Negative); Urine Specific Gravity 1.025 (1.005-1.030); Urine pH 5.5 (5.0-7.0)
[2021-11-09 20:13] LABS: Absolute Lymphocytes (CBC) 1.7 K/uL (0.7-4.9); Hematocrit 42.7 % (39.6-49.0); Lymphocytes % 30.6 % (15.3-44.8); MCV 83.9 fL (80-100); MPV 8.5 fL (7.6-11.3); RBC Red Blood Cell Count 5.09 M/uL (4.33-5.43)
[2021-11-09 20:28] LABS: Albumin 4.2 g/dL (3.4-5.0); Potassium 4.4 mmol/L (3.5-5.1)
[2021-11-09 20:32] LABS: Bilirubin Total 0.6 mg/dL (0.2-1.0); Protein, Total 7.7 g/dL (6.4-8.2)
[2021-11-09] MEDS ORDERED: PROMETHAZINE INJ 25 MG/ML AMP IV PRN (21:24)
[2021-11-09] MEDS ORDERED: MORPHINE 2 MG/ML SYR IV PRN (21:24)
[2021-11-09] MEDS ORDERED: SODIUM CHLORIDE 0.9% 10ML INJ IV PRN (21:29)
[2021-11-09] MEDS ORDERED: Levofloxacin500mg IV 500 MG/100 ML BAG IV SCH (22:00)
[2021-11-09] MEDS ORDERED: D5 0.9 NS 1,000 ML IV SCH (22:00)
[2021-11-09 22:18] LABS: Magnesium 2.3 mg/dL (1.8-2.4)
[2021-11-10 02:02] LABS: Urine Bilirubin Negative (Negative); Urine Blood Negative (Negative); Urine Clarity Clear (Clear); Urine Color Yellow (Yellow); Urine Glucose Negative (Negative); Urine Protein Negative (Negative); Urine Urobilinogen 0.2 mg/dL (0.2-1.0); Urine pH 5.5 (5.0-7.0)
[2021-11-10 02:09] LABS: Urine Bacteria <20 /HPF (<20); Urine RBC <5 /HPF (None Seen)
[2021-11-10 05:34] LABS: Magnesium 2.4 mg/dL (1.8-2.4); Potassium 4.1 mmol/L (3.5-5.1)
[2021-11-10 06:24] VITALS: BMI 25.7
--- NOTE | 2021-11-10 07:48 | ER ---
Nurse's Notes [facility] Name: Kenji Case Age: 56 yrs Sex: Male : 1965 Arrival Date: 11/09/2021 Time: 18:13 Bed External Waiting [facility] MD: Francesca Ibarra C Diagnosis: Right lower quadrant abdominal tenderness Presentation: 11/09 18:23 Chief complaint: Patient states: RLQ pain X 1 week. Coronavirus screen: At this time, 3 the client does not indicate any symptoms associated with coronavirus-19. Ebola Screen: No symptoms or risks identified at this time. Initial Sepsis Screen: Does the patient meet any 2 criteria? No. Patient's initial sepsis screen is negative. Does the patient have a suspected source of infection? No. Patient's initial sepsis screen is negative. Risk Assessment: Do you want to hurt yourself or someone else? Patient reports no desire to harm self or others. Onset of symptoms was November 09, 2021. 18:23 Method Of Arrival: Ambulatory [facility] 18:23 Acuity: MARCIA 3 eh3 Triage Assessment: 18:23 General: Appears in no apparent distress. comfortable, Behavior is calm, cooperative, eh3 appropriate for age. Pain: Complains of pain in right lower quadrant Pain does not radiate. Pain currently is 8 out of 10 on a pain scale. Quality of pain is described as squeezing, Pain began 7 days ago Is continuous. EENT: No signs and/or symptoms were reported regarding the EENT system. Neuro: Level of Consciousness is awake, alert, obeys commands, Oriented to person, place, time, situation. Cardiovascular: Capillary refill < 3 seconds Patient's skin is warm and dry. Respiratory: Airway is patent Respiratory effort is even, unlabored. GI: Abdomen is round non-distended, Reports lower abdominal pain. : No signs and/or symptoms were reported regarding the genitourinary system. Derm: No signs and/or symptoms reported regarding the dermatologic system. Musculoskeletal: No signs and/or symptoms reported regarding the musculoskeletal system. Historical: - Allergies: 18:23 Codeine; nausea; eh3 18:23 Iodine; eh3 18:23 PENICILLINS; eh3 - PMHx: 18:23 carpal tunnel; Diverticulitis; GERD; High Cholesterol; Hypertension; mesenteric eh3 necrosis; - PSHx: 18:23 Cholecystectomy; Partial colon surgery; eh3 - Immunization history:: Adult Immunizations up to date, Client reports receiving the 2nd dose of the Covid vaccine. - Social history:: Smoking status: Patient denies any tobacco usage or history of. Patient/guardian denies using alcohol. Vital Signs: 18:23 BP 133 / 90; Pulse 62; Resp 18; Temp 97.7(TE); Pulse Ox 96% on R/A; Weight 80.29 kg; eh3 Height 5 ft. 11 in. (180.34 cm); Pain 5/10; 18:23 Body Mass Index 24.69 (80.29 kg, 180.34 cm) eh3 ED Course: 18:13 Patient arrived in ED. as 18:13 Francesca Ibarra MD is Private Physician. as 18:23 Arm band placed on right wrist. eh3 18:25 Triage completed. eh3 19:37 Inserted saline lock: 20 gauge in right antecubital area, using aseptic technique. ld1 Blood collected. 11/10 07:46 Francesca Ibarra MD is Hospitalizing Provider. eb Administered Medications: No medications were administered Outcome: 07:47 Decision to Hospitalize by Provider. eb 07:48 Patient left the ED. eb Signatures: Dennise Moralez Elizabeth eb Shazia Wood, RN RN ld1 Angelica Roberson RN RN eh3
[2021-11-10 08:00] VITALS: TEMP 97.7; O2SAT 96
[2021-11-10 09:00] VITALS: BP 116/80
[2021-11-10] MEDS ORDERED: PANTOPRAZOLE 40 MG INJ IVP SCH (09:00)
--- NOTE | 2021-11-10 09:17 | P.CNS ---
Date of Consult: 11/10/21 Reason for consult: No pain History of present illness: Patient is a 56-year-old gentleman who presented to the emergency room with 1 week history of increasing right lower quadrant abdominal pain. Patient denies nausea, vomiting, diarrhea, constipation, bleeding per rectum, dysuria or hematuria. Patient denies sore throat, runny n ose, cough, headaches, dizziness, chest pain, fever or chills. Pain does not radiate. Review of systems: Otherwise unremarkable Past medical history: Hypertension, hypercholesterolemia and history of diverticulitis Past surgical history: Cholecystectomy and partial colon resection Allergies: Penicillin, iodine and codeine Social history: Patient denies drinking alcohol or smoking cigarettes Family history: Noncontributory Vital signs: Stable, afebrile Awake alert oriented x3 Physical exam: Head and neck exam: Cranial nerves II through XII grossly within normal limits, no neck masses, no JVD, throat clear and neck is supple Chest: Clear Heart: S1-S2 Abdomen: Soft, nondistended, nontender, positive bowel sounds with no evidence of peritonitis Extremity: Neurovascular intact and nontender Neuro: Nonfocal Diagnostic data: White count is normal and CAT scan of the abdomen and pelvis reviewed with the radiologist-- no acute findings seen Assessment: Abdominal pain etiology unknown -could be scar tissue Plan/recommendation: Begin diet, if tolerated patient can be discharged to home for outpatient work-up. Patient will need a colonoscopy. If patient continues to have recurrent abdominal pain, diagnostic laparoscopy may be indicated. Plan of care discussed with the patient and Dr. Ibarra. CC: Dr. Ibarra's office
[2021-11-10] MEDS ORDERED: Levofloxacin 750mg IV 750 MG/150 ML BAG IV SCH (15:00)
--- NOTE | 2021-11-10 17:38 | RAD REPORT ---
EXAM DESCRIPTION: CT - Abdomen Pelvis Wo Contrast - 11/10/2021 5:48 am CLINICAL HISTORY: The patient is 56 years old and is Male; RLQ pain TECHNIQUE: Axial computed tomography images of the abdomen and pelvis without intravenous contrast. Sagittal and coronal reformatted images were created and reviewed. This CT exam was performed usi ng one or more of the following dose reduction techniques: automated exposure control, adjustment o f the mA and/or kV according to patient size, and/or use of iterative reconstruction technique. COMPARISON: No relevant prior studies available. FINDINGS: Lung bases: Unremarkable. No mass. No consolidation. ABDOMEN: Liver: Unremarkable. Gallbladder and bile ducts: Gallbladder is surgically absent. No ductal dilation. Pancreas: Unremarkable. No ductal dilation. Spleen: Unremarkable. No splenomegaly. Adrenals: Unremarkable. No mass. Kidneys and ureters: Unremarkable. No obstructing stones. No hydronephrosis. Stomach and bowel: Scattered colonic diverticula. No obstruction. No mucosal thickening. Postsurgical changes in the bowel. PELVIS: Appendix: The appendix is normal. Bladder: Unremarkable. No stones. Reproductive: Unremarkable as visualized. ABDOMEN and PELVIS: Intraperitoneal space: Unremarkable. No free air. No significant fluid collection. Bones/joints: No acute fracture. No dislocation. Soft tissues: Unremarkable. Vasculature: Unremarkable. No abdominal aortic aneurysm. Lymph nodes: Unremarkable. No enlarged lymph nodes. IMPRESSION: No acute finding in the abdomen/pelvis. Electronically signed by: Darien Benito MD 11/10/2021 1:58 AM CDT Due to temporary technical issues with the PACS/Fluency reporting system, reports are being signed by the in house radiologists without review as a courtesy to insure prompt reporting. The interpreting radiologist is fully responsible for the content of the report.
--- NOTE | 2021-11-10 18:09 | HP ---
Date of Admission: 11/09/2021 Chief Complaint: Abdominal pain. History Of Present Illness: This is a 56-year-old pleasant male patient, who came into office today with his for right-sided abdominal pain for last 5 days or so. The patient says that his pain h as gotten worse over period of time. The pain is intermittent. No aggravating or relieving factors. No radiation of pain anywhere. No associated symptoms like fever, chills, nausea, vomiting, consti pation, or diarrhea. No urinary complaints. No blood in stool. The patient was evaluated at the [facility]. He was admitted to the hospital for further evaluation and management of this problem. Allergies: TO PENICILLIN, DETAILS UNKNOWN. CODEINE CAUSING NAUSEA, VOMITING. IODINE CAUSING HIVES. Medications: Aspirin 81 mg daily, Nexium 40 mg daily, lovastatin 20 mg daily, metoprolol 50 mg daily , Levsin 0.125 mg sublingual tablet as needed for stomach cramps. Review of Systems: GI: As mentioned above. All other systems reviewed and negative. Past Medical History: Significant for hypertension, hyperlipidemia, gastroesophageal reflux disease. Past Surgical History: Cholecystectomy, partial resection of colon, surgery. Family History: Father , had coronary artery disease, diabetes, hypertension. Social History: Negative for smoking. Use of alcohol occasional. Physical Examination: Vital Signs: Blood pressure was 129/84, pulse 60, temperature 98.1, respiratory rate 16, weight 177 pounds, height 71 inches. General: Awake, alert, oriented, not in distress. HEENT: Head atraumatic, normocephalic. Conjunctivae nonerythematous. Sclerae white. Mouth, no thr ush or edema noted. Ears/Nose, no mass, lesion, discharge noted. Neck: Supple. No JVD, lymph nodes, bruit, thyromegaly noted. Lungs: Bilateral good equal air entry. Clear to auscultation. No rhonchi. No rales. Heart: Normal heart sounds, no murmur or gallop. Abdomen: Soft. No distention. No guarding, rigidity or rebound tenderness. The patient has signif icant tenderness in the right lower quadrant at McBurney's point. Extremities: No leg edema. No calf tenderness. Skin: No rash, ulcer, cellulitis. Lymphatics: No lymph node enlargement in neck, supraclavicular, infraclavicular region. Neuro: No focal neurological deficit. Chest: Unremarkable. External Genitalia: Deferred. Rectal: Deferred. Laboratory Data: COVID-19 test negative. Urinalysis negative. Liver function test unremarkable. L ipase 102. Sodium 139, potassium 4.4, chloride 102, bicarb 31, BUN 14, creatinine 0.97, glucose 85. White count 5.6, hemoglobin 14.6, platelets 251. Impression: 1.Right lower quadrant abdominal pain. 2.Hypertension. 3.Hyperlipidemia. 4.Gastroesophageal reflux disease. Plan: We will go ahead and admit the patient to hospital for further evaluation and management of th is problem. I have explained it to the patient and the patient's regarding different possible d iagnosis including acute appendicitis is probably our most important concern at this time. We will k eep the patient n.p.o. IV fluid will be started. SCD was ordered for DVT prophylaxis and empiric an tibiotic, Levaquin will be started and CAT scan of abdomen and pelvis will be done. Further plan of treatment will depend on that. Pain medications will be ordered for pain control. Plan and treatment were discussed with the patient and the patient's wi fe at office today. TAMMIE/DORA Voice ID: [id number]
== END 2021-11-10 11:02 | disposition home or self-care (01) ==
LOC: ER 18:11 → INTOOBSV 20:13 → 3RD-ICU 20:13
PROVIDERS: ADMIT Internal Medicine; ATTEND Internal Medicine
DX: R10.31 Right lower quadrant pain (principal); I10 Essential (primary) hypertension; E78.5 Hyperlipidemia, unspecified; K21.9 Gastro-esophageal reflux disease without esophagitis; E78.00 Pure hypercholesterolemia, unspecified; Z87.19 Personal history of other diseases of the digestive system; Z90.49 Acquired absence of other specified parts of digestive tract; Z20.822 Contact with and (suspected) exposure to COVID-19; Z79.82 Long term (current) use of aspirin; Z88.0 Allergy status to penicillin; Z79.899 Other long term (current) drug therapy; Z88.5 Allergy status to narcotic agent; Z91.041 Radiographic dye allergy status; Z82.49 Family history of ischemic heart disease and other diseases of the circulatory system; Z83.3 Family history of diabetes mellitus
CPT/HCPCS: 36415; 74176; 80048; 80053; 81001; 81003; 83690; 83735; 85025; 87811; C9113; J2270; J2550; J7042

== ENCOUNTER 2023-12-06 11:53 | Emergency (ER) | payer BC ==
[2023-12-06] MEDS ORDERED: MORPHINE 4 MG/ML SYR ONE (12:53)
[2023-12-06 13:01] LABS: Absolute Eosinophils 0.1 K/uL (0-0.5); Absolute Lymphocytes (CBC) 1.6 K/uL (0.7-4.9); Absolute Monocytes 0.4 K/uL (0.1-1.3); Absolute Neutrophil 3.3 K/uL (1.8-8.0); Basophils % 0.6 % (0-1.3); Eosinophils % 1.5 % (0-4.4); Hematocrit 43.3 % (39.6-49.0); Hemoglobin 14.2 g/dL (13.6-17.9); MCH 28.2 pg (27.0-35.0); MCHC 32.9 g/dL (32.0-36.0); MCV 85.9 fL (80-100); MPV 8.2 fL (7.6-11.3); Monocytes % 6.9 % (3.3-12.3); Platelets 270 thou/uL (152-406); RBC Red Blood Cell Count 5.03 M/uL (4.33-5.43)
[2023-12-06 13:24] LABS: Albumin 4.1 g/dL (3.4-5.0); Albumin/Globulin Ratio 1.1 (1.1-1.8); Anion Gap 7.9 mEq/L (5.0-15.0); Bilirubin Total 0.7 mg/dL (0.2-1.0); Globulin 3.7 g/dL (2.3-3.5); Potassium 3.9 mEq/L (3.5-5.1); Protein, Total 7.8 g/dL (6.4-8.2)
--- NOTE | 2023-12-06 13:29 | RAD REPORT ---
EXAM DESCRIPTION: CT - Abdomen Pelvis Wo Contrast - 12/06/2023 1:08 pm CLINICAL HISTORY: ABD PAIN COMPARISON: Abdomen Pelvis Wo Contrast dated 11/10/2021; Abdomen Pelvis W Contrast dated ; Abdomen Pelvis Wo Contrast dated 01/21/2018; Abdomen Pelvis Wo Contrast dated 02/27/2017 TECHNIQUE: Thin cut axial CT imaging of the abdomen and pelvis was performed without IV contrast. Mu ltiplanar reformats were generated and reviewed. All CT scans are performed using dose optimization technique as appropriate and may include automated exposure control or mA/KV adjustment according to patient size. FINDINGS: No suspicious findings in the lung bases. The liver, spleen, adrenal glands, and pancreas show no suspicious findings. Gallbladder was surgical ly removed. Symmetric renal contour, without suspicious parenchymal findings within limits of noncontrast techniq ue. No evidence of radiopaque calculi or hydroureteronephrosis. No dilated bowel loops or bowel wall thickening. Sequelae of distal colectomy and small bowel resecti on noted. No free air, free fluid or inflammatory stranding. No hernia, mass or bulky lymphadenopathy . The urinary bladder is without significant finding. No suspicious bony findings. IMPRESSION: No acute intra-abdominal process.
[2023-12-06] MEDS ORDERED: KETOROLAC 30 MG/ML INJ ONE (14:42)
[2023-12-06 14:55] LABS: Specific Gravity 1.016 (1.005-1.030); Sqamous Epithelial None Seen /HPF (None Seen); Urine Bacteria <20 /HPF (<20); Urine Bilirubin NEGATIVE (Negative); Urine Blood Negative (Negative); Urine Clarity Clear (Clear); Urine Color Light-Yellow (Yellow); Urine Culture Reflex Order NOT NEEDED; Urine Glucose NEGATIVE (Negative); Urine Ketones NEGATIVE (Negative); Urine Microscopic Reflex YN ORDER UMIC; Urine Nitrite NEGATIVE (Negative); Urine Protein NEGATIVE (Negative); Urine RBC <5 /HPF (None Seen); Urine Urobilinogen Normal (Normal); Urine WBC None Seen /HPF (<5); Urine pH 5.5 (5.0-7.0)
--- NOTE | 2023-12-06 17:07 | RAD REPORT ---
EXAM DESCRIPTION: RAD - Ribs Left - 12/06/2023 4:13 pm CLINICAL HISTORY: PAIN COMPARISON: Chest Single View dated 08/01/2016 TECHNIQUE: Left ribs, 3 views. FINDINGS: No displaced rib fracture is evident. No aggressive rib lesion. No underlying pneumothorax, effusion, infiltrate or pulmonary contusion. IMPRESSION: Negative left rib series.
--- NOTE | 2023-12-06 17:17 | EDPHYS ---
Physician Documentation [facility] Name: Kenji Case Age: 58 yrs Sex: Male : 1965 Arrival Date: 12/06/2023 Time: 11:53 Bed 11 Private MD: ED Physician Ameya Sosa HPI: 12/05 12:59 This 58 yrs old Male presents to ER via Ambulatory with complaints of Flank Pain. ms3 12:59 58-year-old male with past medical history of carpal tunnel, diverticulitis, GERD, ms3 hyperlipidemia, hypertension, mesenteric necrosis presents to the emergency department for left upper quadrant and left flank pain that began on Sunday. Patient states the pain became worse last night. He rates the pain a 6/10. He denies nausea, vomiting, fevers, chills.. Historical: - Allergies: 12:39 Codeine; nausea; dd2 12:39 Iodine; dd2 12:39 PENICILLINS; dd2 - PMHx: 12:39 carpal tunnel; Diverticulitis; GERD; High Cholesterol; Hypertension; mesenteric dd2 necrosis; - PSHx: 12:39 Cholecystectomy; Partial colon surgery; dd2 - Immunization history:: Adult Immunizations unknown. - Infectious Disease History:: Denies. - Social history:: Smoking status: Patient denies any tobacco usage or history of. ROS: 16:14 Constitutional: Negative for fever, and chills. Cardiovascular: Negative for chest ms3 pain, and palpitations. Respiratory: Negative for shortness of breath, cough, wheezing, and pleuritic chest pain, 16:14 MS/Extremity: Negative for injury and deformity, Skin: Negative for injury, rash, and discoloration, 16:14 Abdomen/GI: Positive for abdominal pain, Exam: 16:14 Constitutional: This is a well developed, well nourished patient who is awake, alert, ms3 and in no acute distress. Head/Face: Normocephalic, atraumatic. Cardiovascular: Regular rate and rhythm with a normal S1 and S2. No gallops, murmurs, or rubs. Normal PMI, no JVD. No pulse deficits. Respiratory: Lungs have equal breath sounds bilaterally, clear to auscultation and percussion. No rales, rhonchi or wheezes noted. No increased work of breathing, no retractions or nasal flaring. Abdomen/GI: Soft, non-tender, with normal bowel sounds. No distension or tympany. No guarding or rebound. No evidence of tenderness throughout. Skin: Warm, dry with normal turgor. Normal color with no rashes, no lesions, and no evidence of cellulitis. Vital Signs: 12:37 BP 138 / 84; Pulse 63; Resp 16; Temp 98(O); Pulse Ox 97% ; Weight 85.28 kg; Height 5 dd2 ft. 11 in. ; 14:42 BP 123 / 79; Pulse 65; Resp 16 S; Pulse Ox 98% on R/A; aa5 16:30 BP 122 / 77; Pulse 62; Resp 18 S; Pulse Ox 98% on R/A; aa5 12:37 Body Mass Index 26.22 (85.28 kg, 180.34 cm) dd2 MDM: 12:38 Patient medically screened. ms3 15:37 ED course: Discussed case with Dr Ibarra and recommends Left rib series. If negative ms3 patient can follow up outpatient. 16:14 Differential diagnosis: nephrolithiasis, pyelonephritis, UTI, Diverticulitis. ms3 17:42 Data reviewed: vital signs, nurses notes, lab test result(s), radiologic studies, and ms3 as a result, I will discharge patient. Management of patient was discussed with the following: Primary Care Provider: Dr Ibarra. I considered the following discharge prescriptions or medication management in the emergency department Medications were administered in the Emergency Department. See MAR. Counseling: I had a detailed discussion with the patient and/or guardian regarding the historical points, exam findings, and any diagnostic results supporting the discharge/admit diagnosis, lab results, radiology results, the need for outpatient follow up, to return to the emergency department if symptoms worsen or persist or if there are any questions or concerns that arise at home. Special discussion: Based on the patient's Hx, exam, and Dx evaluation, there is no indication for emergent surgery or inpatient Tx. It is understood by the patient/guardian that if the Sx's persist or worsen they need to return immediately for re-evaluation. ED course: Discussed labs, imaging with patient and his . Patient to follow-up Dr. Ibarra in 2 to 3 days. Patient understands and agrees with plan. All questions were answered. Return precautions discussed include worsening symptoms, fevers, or any other concerns. On reevaluation patient is alert and oriented x 4, no apparent distress, nontoxic-appearing, ambulatory emerged department, speaking full sentences, symptoms improved. 12/05 12:38 Order name: CBC with Diff; Complete Time: 13:38 ms3 12/05 12:38 Order name: CMP; Complete Time: 13:38 ms3 12/05 12:38 Order name: Lipase; Complete Time: 13:38 ms3 12/05 13:41 Order name: Urinalysis w/ reflexes; Complete Time: 15:35 ms3 12/05 13:02 Order name: Abdomen ; Complete Time: 13:38 EDMS 12/05 15:38 Order name: Ribs Left XRAY; Complete Time: 17:16 ms3 12/05 12:38 Order name: IV Saline Lock; Complete Time: 12:59 ms3 12/05 12:38 Order name: Labs collected and sent; Complete Time: 12:59 ms3 Administered Medications: 12:59 Drug: morphine IVP or IV 4 mg IVP once over 4 mins Route: IVP; Infused Over: 4 mins; dd2 Site: right antecubital; 13:15 Follow up: Response: No adverse reaction aa5 14:42 Drug: Ketorolac IVP 10 mg 10 mg IVP once Route: IVP; Site: right antecubital; aa5 14:50 Follow up: Response: No adverse reaction aa5 Disposition Summary: 12/06/23 17:16 Discharge Ordered Notes: Location: Home ms3 Condition: Stable ms3 Diagnosis - Abdominal pain, unspecified ms3 Followup: ms3 - With: Francesca Ibarra MD - When: 2 - 3 days - Reason: Recheck today's complaints Discharge Instructions: - Discharge Summary Sheet ms3 - Abdominal Pain, Adult ms3 Forms: - Medication Reconciliation Form ms3 - Antibiotic Education ms3 - Prescription Opioid Use ms3 - Patient Portal Instructions ms3 - Leadership Thank You Letter ms3 Signatures: Dispatcher [employer] EDTerese Lake, RN RN aa5 Ameya Sosa DO DO ms3 LOPEZ MILLS RN RN dd2 Corrections: (The following items were deleted from the chart) 13:02 12:38 Abdomen Pelvis W Con+CT.RAD.BRZ ordered. EDMS EDMS
--- NOTE | 2023-12-06 17:17 | ER ---
Nurse's Notes [facility] Name: Kenji Case Age: 58 yrs Sex: Male : 1965 Arrival Date: 12/06/2023 Time: 11:53 Bed 11 Private MD: Diagnosis: Abdominal pain, unspecified Presentation: 12/05 12:37 Chief complaint: Patient states: Pt states left upper abdominal pain and lt flank pain dd2 x1 week. Coronavirus screen: At this time, the client does not indicate any symptoms associated with coronavirus-19. Ebola Screen: No symptoms or risks identified at this time. Initial Sepsis Screen: Does the patient meet any 2 criteria? No. Patient's initial sepsis screen is negative. Does the patient have a suspected source of infection? No. Patient's initial sepsis screen is negative. Risk Assessment: Do you want to hurt yourself or someone else? Patient reports no desire to harm self or others. Onset of symptoms is unknown. 12:37 Method Of Arrival: Ambulatory dd2 12:37 Acuity: MARCIA 3 dd2 Triage Assessment: 12:39 General: Appears uncomfortable, Behavior is calm, cooperative, appropriate for age. dd2 Pain: Complains of pain in anterior aspect of left lateral abdomen and left upper quadrant Pain currently is 10 out of 10 on a pain scale. Pain began x1 week ago. Historical: - Allergies: 12:39 Codeine; nausea; dd2 12:39 Iodine; dd2 12:39 PENICILLINS; dd2 - PMHx: 12:39 carpal tunnel; Diverticulitis; GERD; High Cholesterol; Hypertension; mesenteric dd2 necrosis; - PSHx: 12:39 Cholecystectomy; Partial colon surgery; dd2 - Immunization history:: Adult Immunizations unknown. - Infectious Disease History:: Denies. - Social history:: Smoking status: Patient denies any tobacco usage or history of. Screenin:00 [facility] ED Fall Risk Assessment (Adult) History of falling in the last 3 months, aa5 including since admission No falls in past 3 months (0 pts) Confusion or Disorientation No (0 pts) Intoxicated or Sedated No (0 pts) Impaired Gait No (0 pts) Mobility Assist Device Used No (0 pt) Altered Elimination No (0 pt) Score/Fall Risk Level 0 - 2 = Low Risk Oriented to surroundings, Maintained a safe environment, Educated pt \T\ family on fall prevention, incl call for assistance when getting out of bed. Abuse screen: Denies threats or abuse. Nutritional screening: No deficits noted. Tuberculosis screening: No symptoms or risk factors identified. Assessment: 13:00 General: Appears uncomfortable, Behavior is calm, cooperative. Pain: Complains of pain aa5 in left upper quadrant and anterior aspect of left lateral abdomen Pain currently is 8 out of 10 on a pain scale. Neuro: Level of Consciousness is awake, alert, obeys commands, Oriented to person, place, time, situation. Cardiovascular: Patient's skin is warm and dry. Respiratory: Airway is patent Respiratory effort is even, unlabored, Respiratory pattern is regular, symmetrical. GI: Abdomen is round non-distended, Bowel sounds present X 4 quads. Abd is soft and non tender X 4 quads. Patient currently denies nausea, vomiting. : Denies burning with urination, inability to void. EENT: No signs and/or symptoms were reported regarding the EENT system. Derm: Skin is pink, warm \T\ dry. Musculoskeletal: Range of motion: intact in all extremities. 13:14 Reassessment: Pt back from CT scan . aa5 13:15 Reassessment: Patient is alert, oriented x 3, equal unlabored respirations, skin aa5 warm/dry/pink. Patient states feeling better. Patient states symptoms have improved. Pain: Pain currently is 1 out of 10 on a pain scale. 14:15 Reassessment: Patient is alert, oriented x 3, equal unlabored respirations, skin aa5 warm/dry/pink. General: Appears comfortable. 14:42 Reassessment: Patient is alert, oriented x 3, equal unlabored respirations, skin aa5 warm/dry/pink. 15:25 Reassessment: MD at bedside . aa5 15:25 Reassessment: Patient is alert, oriented x 3, equal unlabored respirations, skin aa5 warm/dry/pink. 17:20 Reassessment: Patient is alert, oriented x 3, equal unlabored respirations, skin aa5 warm/dry/pink. Vital Signs: 12:37 BP 138 / 84; Pulse 63; Resp 16; Temp 98(O); Pulse Ox 97% ; Weight 85.28 kg; Height 5 dd2 ft. 11 in. ; 14:42 BP 123 / 79; Pulse 65; Resp 16 S; Pulse Ox 98% on R/A; aa5 16:30 BP 122 / 77; Pulse 62; Resp 18 S; Pulse Ox 98% on R/A; aa5 12:37 Body Mass Index 26.22 (85.28 kg, 180.34 cm) dd2 ED Course: 12:04 Patient arrived in ED. mg5 12:14 Enma Travis MD is Attending Physician. sp3 12:21 Attending Physician role handed off by Enma Travis MD ms3 12:21 Ameya Sosa DO is Attending Physician. ms3 12:39 Triage completed. dd2 12:39 Arm band placed on right wrist. Patient placed in an exam room, on a stretcher, on dd2 pulse oximetry, Patient notified of wait time. 12:59 CBC with Diff Sent. dd2 12:59 CMP Sent. dd2 13:00 Patient has correct armband on for positive identification. Bed in low position. Call aa5 light in reach. Side rails up X 1. Pulse ox on. NIBP on. 13:00 Lipase Sent. dd2 13:00 Initial lab(s) drawn, by me, sent to lab. Inserted saline lock: 20 gauge in right dd2 antecubital area, using aseptic technique. Blood collected. Flushed with 10 mL NS. 13:07 Abdomen In Process Unspecified. EDMS 13:15 Terese Chaudhari, RN is Primary Nurse. aa5 13:25 No provider procedures requiring assistance completed. aa5 16:15 Ribs Left XRAY In Process Unspecified. EDMS 17:16 Francesca Ibarra MD is Referral Physician. ms3 17:20 IV discontinued, intact, bleeding controlled, No redness/swelling at site. Pressure aa5 dressing applied. Administered Medications: 12:59 Drug: morphine IVP or IV 4 mg IVP once over 4 mins Route: IVP; Infused Over: 4 mins; dd2 Site: right antecubital; 13:15 Follow up: Response: No adverse reaction aa5 14:42 Drug: Ketorolac IVP 10 mg 10 mg IVP once Route: IVP; Site: right antecubital; aa5 14:50 Follow up: Response: No adverse reaction aa5 Medication: 13:24 VIS not applicable for this client. aa5 Outcome: 17:16 Discharge ordered by . ms3 17:20 Discharged to home ambulatory, with significant other, aa5 17:20 Condition: improved 17:20 Discharge instructions given to patient, Instructed on discharge instructions, follow up and referral plans. Demonstrated understanding of instructions, follow-up care, 17:30 Patient left the ED. aa5 Signatures: Dispatcher [employer] EDTerese Lake RN RN aa5 Ameya Sosa DO DO ms3 Enma Travis MD MD 3 Venessa Newton mg5 LOPEZ MILLS RN RN dd2 Corrections: (The following items were deleted from the chart) 18:45 18:01 Patient left the ED. aa5 aa5
[2023-12-06 18:32] VITALS: TEMP 98
[2023-12-06 18:34] VITALS: BP 123/79; O2SAT 98
== END 2023-12-06 18:01 | disposition home or self-care (01) ==
LOC: ER 11:53
DX: R10.12 Left upper quadrant pain (principal); I10 Essential (primary) hypertension; E78.00 Pure hypercholesterolemia, unspecified
CPT/HCPCS: 36415; 74176; 80053; 81001; 83690; 85025; 96374; 96375; 99284

== ENCOUNTER 2024-04-03 01:52 | Inpatient (IN) | payer BC ==
[2024-04-03] MEDS ORDERED: DICYCLOMINE HCL 20 MG/2 ML AMP IM ONE (02:14)
[2024-04-03] MEDS ORDERED: KETOROLAC 30 MG/ML INJ ONE (02:14)
[2024-04-03] MEDS ORDERED: ONDANSETRON 4 MG/2 ML VIAL ONE (02:14)
[2024-04-03] MEDS ORDERED: NA CHLORIDE 0.9% 2,000 ML ONE (02:15)
[2024-04-03] MEDS ORDERED: MORPHINE 4 MG/ML SYR ONE (02:15)
[2024-04-03 02:38] LABS: Absolute Basophils 0.1 K/uL (0-0.5); Absolute Eosinophils 0.1 K/uL (0-0.5); Absolute Lymphocytes (CBC) 1.6 K/uL (0.7-4.9); Absolute Monocytes 0.6 K/uL (0.1-1.3); Absolute Neutrophil 6.1 K/uL (1.8-8.0); Basophils % 0.6 % (0-1.3); Eosinophils % 1.5 % (0-4.4); Hematocrit 42.4 % (39.6-49.0); Hemoglobin 14.2 g/dL (13.6-17.9); MCH 27.9 pg (27.0-35.0); MCHC 33.4 g/dL (32.0-36.0); MCV 83.4 fL (80-100); Monocytes % 6.6 % (3.3-12.3); Neutrophils % 72.3 % (41.7-73.7); Platelets 301 thou/uL (152-406); RBC Red Blood Cell Count 5.09 M/uL (4.33-5.43); Red Cell Distribution Width 13.6 % (12.1-15.2)
[2024-04-03 02:47] LABS: Albumin 3.8 g/dL (3.4-5.0); Anion Gap 8.5 mEq/L (5.0-15.0); Bilirubin Total 0.3 mg/dL (0.2-1.0); Globulin 3.7 g/dL (2.3-3.5); Potassium 4.5 mEq/L (3.5-5.1); Protein, Total 7.5 g/dL (6.4-8.2)
[2024-04-03 03:42] LABS: Specific Gravity 1.016 (1.005-1.030); Sqamous Epithelial None Seen /HPF (None Seen); Urine Bacteria None Seen /HPF (<20); Urine Bilirubin NEGATIVE (Negative); Urine Blood Negative (Negative); Urine Clarity Extremely Turbid (Clear); Urine Color Yellow (Yellow); Urine Culture Reflex Order NOT NEEDED; Urine Glucose NEGATIVE (Negative); Urine Ketones NEGATIVE (Negative); Urine Microscopic Reflex YN ORDER UMIC; Urine Nitrite NEGATIVE (Negative); Urine Protein NEGATIVE (Negative); Urine RBC <5 /HPF (None Seen); Urine Urobilinogen Normal (Normal); Urine WBC <5 /HPF (<5); Urine pH 7.5 (5.0-7.0)
--- NOTE | 2024-04-03 04:24 | EDPHYS ---
Physician Documentation [facility] Name: Kenji Case Age: 59 yrs Sex: Male : 1965 Arrival Date: 04/03/2024 Time: 01:52 Bed 8 Private MD: ED Physician Marciano Mark HPI: 04/03 01:57 This 59 yrs old Male presents to ER via Unassigned with complaints of sp4 Abdominal Pain, Abdominal Swelling. 04:24 59-year-old male with history of multiple abdominal surgeries specifically partial sp4 colectomy secondary to diverticulitis, ileostomy with ileostomy reversal [place] [address] [facility], presents with acute onset right lower quadrant abdominal pain moderate to severe. Associated with nausea. Patient reported feeling of abdominal swelling and distention.. Historical: - Allergies: 02:12 Codeine; nausea; vc1 02:12 Iodine; vc1 02:12 PENICILLINS; vc1 - PMHx: 02:12 carpal tunnel; Diverticulitis; GERD; High Cholesterol; Hypertension; mesenteric vc1 necrosis; - PSHx: 02:12 Cholecystectomy; Partial colon surgery; vc1 - Immunization history:: Client reports receiving the 1st dose of the Covid vaccine, Flu vaccine is not up to date. - Infectious Disease History:: Denies. - Social history:: Smoking status: Patient reports the use of cigarette tobacco products, denies chronic smoking, but will smoke occasionally, cigars. - Family history:: not pertinent. ROS: 04:25 Constitutional: Negative for fever, chills, and weight loss, positive for right lower sp4 quadrant abdominal pain with nausea 04:25 All other systems are negative, Exam: 04:25 Constitutional: This is a well developed, well nourished patient who is awake, alert, sp4 uncomfortable appearing male Head/Face: Normocephalic, atraumatic. Eyes: Pupils equal round and reactive to light, extra-ocular motions intact. Lids and lashes normal. Conjunctiva and sclera are not injected. Cornea within normal limits. Periorbital areas with no swelling, redness, or edema. ENT: Nares patent. No nasal discharge, no septal abnormalities noted. Tympanic membranes are normal and external auditory canals are clear. Oropharynx with no redness, swelling, or masses, exudates, or evidence of obstruction, uvula midline. Mucous membranes moist. Neck: Trachea midline, no thyromegaly or masses palpated, and no cervical lymphadenopathy. Supple, full range of motion without nuchal rigidity, or vertebral point tenderness. Chest/axilla: Normal chest wall appearance and motion. Nontender with no deformity. No lesions are appreciated. Cardiovascular: Regular rate and rhythm with a normal S1 and S2. No gallops, murmurs, or rubs. Normal PMI, no JVD. No pulse deficits. Respiratory: Lungs have equal breath sounds bilaterally, clear to auscultation and percussion. No rales, rhonchi or wheezes noted. No increased work of breathing, no retractions or nasal flaring. Abdomen/GI: Soft, with normal bowel sounds. No distension or tympany. Positive right lower quadrant abdominal tenderness without rebound Back: No spinal tenderness. No costovertebral tenderness. Skin: Warm, dry with normal turgor. Normal color with no rashes, no lesions, and no evidence of cellulitis. MS/ Extremity: Pulses equal, no cyanosis. Neurovascular intact. Full, normal range of motion. Neuro: Awake and alert, GCS 15, oriented to person, place, time, and situation. Cranial nerves II-XII grossly intact. Motor strength 5/5 in all extremities. Sensory grossly intact. Vital Signs: 02:09 BP 120 / 97; Pulse 79; Resp 18; Temp 97.7; Pulse Ox 100% ; Weight 86.18 kg; Height 5 vc1 ft. 11 in. ; Pain 8/10; 03:25 BP 120 / 69; Pulse 64; Resp 18 S; Pulse Ox 96% on R/A; Pain 3/10; br2 04:20 BP 116 / 67; Pulse 68; Resp 17; Pulse Ox 98% ; Pain 1/10; jj7 05:30 BP 112 / 70; Pulse 66; Resp 20; Temp 97.9; Pulse Ox 95% ; jj7 02:09 Body Mass Index 26.50 (86.18 kg, 180.34 cm) vc1 02:09 Pain Scale: Adult vc1 03:25 Pain Scale: Adult br2 04:20 Pain Scale: Adult jj7 Nell Coma Score: 04:25 Eye Response: spontaneous(4). Motor Response: obeys commands(6). Verbal Response: sp4 oriented(5). Total: 15. MDM: 01:58 Medical Screening Exam initiated sp4 04:10 ED course: EXAM DESCRIPTION: CT CHESTABDOMEN PELVIS WITHOUT IV CONTRAST 04/03/2024 3:41 sp4 AM [facility] CLINICAL HISTORY: 59 years, Male, Abdominal distention. COMPARISON: CTAbdomen pelvis and XR Ribs with chest 12/06/2023. PROCEDURE: Axial images through the chest, abdomen and pelvis were generated utilizing 2 mm slice thickness at 2 mm interval reconstruction without the administration of IV contrast. In addition multiplanar reformats in the coronal and sagittal plane were obtained and reviewed. An individualized dose optimization technique, Automated Exposure Control, was utilized for the performed procedure. FINDINGS: CHEST: Lower neck: Visualized thyroid gland and soft tissues are normal. No adenopathy. Lungs: The lung parenchyma demonstrate minimal dependent atelectatic changes. No evidence of airspace or interstitial process. No significant pulmonary nodules and/or masses identified. No focal areas of consolidation. Airways: The trachea mainstem bronchus demonstrate to be unremarkable. Pleural: There are no pleural effusion. No evidence for pneumothorax. Hemidiaphragms are normally positioned. Mediastinum and lymph nodes: No significant mediastinal and/or hilar lymphadenopathy. The axillary regions demonstrate to be clear. Heart: Normal size. No pericardial thickening or effusion. Coronary: No significant coronary artery calcifications. Aorta: The thoracic aorta demonstrate to be within normal limits. No evidence for aneurysm. Pulmonary arteries: The pulmonary arteries were not evaluated due to lack of IV contrast. Osseous structures and chest wall: The thoracic spine demonstrate to be within normal limits. No evidence for compression deformities and/or significant skeletal lesions. ABDOMEN AND PELVIS: Liver: Grossly the unopacified liver demonstrates to be normal, no focal lesions are identified. Gallbladder: Surgical clips within the gallbladder fossa corresponding to previous cholecystectomy. No significant biliary duct dilatation. Adrenal glands: The adrenal glands demonstrate to be normal. Pancreas: Grossly the unopacified pancreas demonstrate to be unremarkable. Spleen: Grossly the unopacified spleen demonstrate to be unremarkable. Kidneys: The kidneys demonstrate normal uptake of contrast media. Grossly the unopacified kidneys demonstrate to be within normal limits. There is no evidence for nephrolithiasis and/or hydronephrosis. GI: Grossly the unopacified stomach demonstrate to be within normal limits. There are surgical changes within the right lower quadrant with slight distention of bowel loops on axial image 84-100 with associated the distal small bowel is decompressed. Large bowel demonstrate to be unremarkable. The appendix is normal. The left-sided colon/sigmoid colon demonstrates presence of minimal diverticulosis. There are surgical changes within the mid sigmoid colon. : The urinary bladder demonstrate to be unremarkable. Genitalia: The prostate gland is normal. Abdominal aorta: The aorta demonstrate to be within normal limits. Retroperitoneum:There is no retroperitoneal lymphadenopathy. There is no evidence for ascites and/or abnormal fluid collections. Bones: The bony structures demonstrate to be within normal limits. No evidence for compression deformity and/or significant skeletal lesions. Soft tissues: The soft tissues demonstrate to be unremarkable. IMPRESSION: Postsurgical changes within the right lower quadrant with slight distention of bowel loops on axial with associated the distal small bowel is decompressed. Findings could correspond to ileus and/or partial bowel obstruction. Postsurgical changes within the mid sigmoid colon. Status post cholecystectomy. Otherwise unremarkable CT scan of the chest, abdomen and pelvis without contrast. Electronically signed by: Torres Portillo MD 04/03/2024 04:06 AM [facility] . 04:27 Differential diagnosis: appendicitis, bowel obstruction, diverticulitis, gastritis. sp4 Data reviewed: vital signs, nurses notes, lab test result(s), radiologic studies, CT scan. Consideration of Admission/Observation Escalation of care including admission/observation considered. ED course: CT reveals postsurgical changes right lower quadrant distention of small bowel loops consistent with either ileus or partial small bowel obstruction. General surgeon was consulted Dr. Moralez requested admission to hospitalist with consultation to him in the morning. 04/03 01:58 Order name: CBC with Diff; Complete Time: 03:48 sp4 04/03 01:58 Order name: CMP; Complete Time: 03:48 sp4 04/03 01:58 Order name: Lipase; Complete Time: 03:48 sp4 04/03 01:58 Order name: Urinalysis w/ reflexes; Complete Time: 03:48 sp4 04/03 02:09 Order name: CRP; Complete Time: 03:48 sp4 04/03 04:38 Order name: Magnesium EDMS 04/03 04:38 Order name: Phosphorus EDMS 04/03 04:38 Order name: Urinalysis w/ reflexes EDMS 04/03 04:38 Order name: Urinalysis w/ reflexes EDMS 04/03 04:38 Order name: Basic Metabolic Panel EDMS 04/03 04:38 Order name: Basic Metabolic Panel EDMS 04/03 04:38 Order name: CBC with Automated Diff EDMS 04/03 04:38 Order name: CBC with Automated Diff EDMS 04/03 02:10 Order name: CT Chest Abdomen Pelvis W/O Contrast sp4 04/03 01:58 Order name: IV Saline Lock; Complete Time: 02:18 sp4 04/03 01:58 Order name: Labs collected and sent; Complete Time: 02:19 sp4 04/03 04:28 Order name: NPO sp4 Administered Medications: 02:28 Drug: morphine IVP or IV 8 mg IVP once over 4 mins Route: IVP; Infused Over: 4 mins; br2 Site: right antecubital; 03:30 Follow up: Response: No adverse reaction; Pain is decreased br2 02:28 Drug: Ketorolac IVP 30 mg IVP once Route: IVP; Site: right antecubital; br2 03:30 Follow up: Response: No adverse reaction; Pain is decreased br2 05:47 Follow up: Response: Marked relief of symptoms; Pain is decreased jj7 02:28 Drug: NS 0.9% IV 1000 ml IV at 1 bolus Per protocol; to be given as a bolus over 60 br2 minutes Route: IV; Rate: 1 bolus; Site: right antecubital; 03:30 Follow up: Response: No adverse reaction; IV Status: Completed infusion; IV Intake: br2 1000ml 03:30 Follow up: IV Status: Completed infusion jj7 02:28 Drug: NS 0.9% IV 1000 ml IV at 125 bolus Per protocol; to be given as a bolus over 60 br2 minutes Route: IV; Rate: 125 bolus; Site: right antecubital; 05:47 Follow up: IV Status: Infusion continued upon admission jj7 02:28 Drug: Ondansetron IVP 8 mg IVP once; over 2 minutes Route: IVP; Site: right antecubital;br2 05:47 Follow up: Response: Nausea is decreased jj7 02:28 Drug: Dicyclomine IM 20 mg IM once Route: IM; Site: left gluteus; br2 05:47 Follow up: Response: Marked relief of symptoms; Pain is decreased jj7 Disposition Summary: 04/03/24 04:24 Hospitalization Ordered Notes: Hospitalization Status: Inpatient Admission sp4 Location: Telemetry/MedSurg (Inpatient) sp4 Condition: Stable sp4 Problem: new sp4 Symptoms: have improved sp4 Bed/Room Type: Standard sp4 Room Assignment: 220(04/03/24 04:50) vc1 Provider: Tre Ibarra(04/03/24 05:45) sp4 Diagnosis - Partial Small Bowel Obstruction sp4 Forms: - Medication Reconciliation Form sp4 - SBAR form sp4 - Leadership Thank You Letter sp4 Signatures: Dispatcher [employer] EDMS Gloria Mccarty RN RN vc1 Marciano Mark MD MD sp4 Sharon Wilkerson RN RN br2 Chyna Colunga RN jj7 Corrections: (The following items were deleted from the chart) 01:59 01:59 CBC+H.LAB.BRZ ordered. EDMS EDMS 01:59 01:59 COMPREHENSIVE METABOLIC PANEL+C.LAB.BRZ ordered. EDMS EDMS 01:59 01:59 LIPASE+C.LAB.BRZ ordered. EDMS EDMS 01:59 01:59 Urinalysis+U.LAB.BRZ ordered. EDMS EDMS 02:28 02:03 Chest Abdomen Pelvis W Con+CT.RAD.BRZ ordered. EDMS EDMS 04:50 04:24 sp4 vc1 05:45 04:24 [place] sp4 sp4
--- NOTE | 2024-04-03 04:24 | ER ---
Nurse's Notes [facility] Name: Kenji Case Age: 59 yrs Sex: Male : 1965 Arrival Date: 04/03/2024 Time: 01:52 Bed 8 Private MD: Diagnosis: Partial Small Bowel Obstruction Presentation: 04/03 02:09 Chief complaint: Patient states: right sided abdominal pain that radiates to left. vc1 Coronavirus screen: Vaccine status: Patient reports receiving the 1st dose of the Covid vaccine. Client denies travel out of the [place] in the last 14 days. At this time, the client does not indicate any symptoms associated with coronavirus-19. Ebola Screen: Patient negative for fever greater than or equal to 101.5 degrees Fahrenheit, and additional compatible Ebola Virus Disease symptoms Patient denies exposure to infectious person. Patient denies travel to an Ebola-affected area in the 21 days before illness onset. No symptoms or risks identified at this time. Initial Sepsis Screen: Does the patient meet any 2 criteria? No. Patient's initial sepsis screen is negative. Does the patient have a suspected source of infection? No. Patient's initial sepsis screen is negative. Risk Assessment: Do you want to hurt yourself or someone else? Patient reports no desire to harm self or others. Note Multiple abdominal surgerys. Onset of symptoms was April 02, 2024 at 19:30. Care prior to arrival: None. Activity prior to arrival: None. Mechanism of Injury: No Mechanism of Injury. Transition of care: patient was not received from another setting of care. 02:09 Method Of Arrival: Ambulatory vc1 02:09 Acuity: MARCIA 3 vc1 Triage Assessment: 02:18 General: Appears in no apparent distress. uncomfortable, slender, well groomed, well vc1 developed, well nourished, Behavior is cooperative, restless. Pain: Complains of pain in right upper quadrant and right lower quadrant Pain radiates to left upper quadrant and left lower quadrant Pain currently is 8 out of 10 on a pain scale. at worst was 10 out of 10 on a pain scale. Quality of pain is described as radiating, sharp, Pain began suddenly, 1930 last night Is continuous, Aggravated by laying flat Noted to be grimacing, restless. EENT: No deficits noted. No signs and/or symptoms were reported regarding the EENT system. Neuro: Level of Consciousness is awake, alert, obeys commands. Cardiovascular: Capillary refill < 3 seconds Patient's skin is warm and dry. Respiratory: Airway is patent Respiratory effort is even, unlabored, Respiratory pattern is regular, symmetrical, Breath sounds are clear bilaterally. GI: Abdomen is distended, Abdomen is tender to palpation X 4 quads. Reports lower abdominal pain, upper abdominal pain, bloating, nausea, Pain is 8 out of 10 on a pain scale. Patient currently denies diarrhea, vomiting. : No deficits noted. No signs and/or symptoms were reported regarding the genitourinary system. Derm: Skin is intact, is healthy with good turgor, Skin is dry, Skin is normal, Skin temperature is warm. Musculoskeletal: Circulation, motion, and sensation intact. Range of motion: intact in all extremities. Historical: - Allergies: 02:12 Codeine; nausea; vc1 02:12 Iodine; vc1 02:12 PENICILLINS; vc1 - PMHx: 02:12 carpal tunnel; Diverticulitis; GERD; High Cholesterol; Hypertension; mesenteric vc1 necrosis; - PSHx: 02:12 Cholecystectomy; Partial colon surgery; vc1 - Immunization history:: Client reports receiving the 1st dose of the Covid vaccine, Flu vaccine is not up to date. - Infectious Disease History:: Denies. - Social history:: Smoking status: Patient reports the use of cigarette tobacco products, denies chronic smoking, but will smoke occasionally, cigars. - Family history:: not pertinent. Screenin:13 [facility] ED Fall Risk Assessment (Adult) History of falling in the last 3 months, vc1 including since admission No falls in past 3 months (0 pts) Confusion or Disorientation No (0 pts) Intoxicated or Sedated No (0 pts) Impaired Gait No (0 pts) Mobility Assist Device Used No (0 pt) Altered Elimination No (0 pt) Score/Fall Risk Level 0 - 2 = Low Risk Oriented to surroundings, Maintained a safe environment, Educated pt \T\ family on fall prevention, incl call for assistance when getting out of bed. Abuse screen: Denies threats or abuse. Nutritional screening: No deficits noted. Tuberculosis screening: No symptoms or risk factors identified. Assessment: 02:12 General: Appears in no apparent distress. uncomfortable, Behavior is calm, cooperative, jj7 appropriate for age. Pain: Complains of pain in abdomen Pain currently is 8 out of 10 on a pain scale. at worst was 10 out of 10 on a pain scale. GI: Abd is rigid X 4 quads. Reports lower abdominal pain, nausea, Patient currently denies diarrhea, vomiting. 03:25 Reassessment: Patient and/or family updated on plan of care and expected duration. Pain br2 level reassessed. Patient is alert, oriented x 3, equal unlabored respirations, skin warm/dry/pink. Patient states feeling better. Patient states symptoms have improved. 03:25 GI: Bowel sounds present X 4 quads. br2 Vital Signs: 02:09 BP 120 / 97; Pulse 79; Resp 18; Temp 97.7; Pulse Ox 100% ; Weight 86.18 kg; Height 5 vc1 ft. 11 in. ; Pain 8/10; 03:25 BP 120 / 69; Pulse 64; Resp 18 S; Pulse Ox 96% on R/A; Pain 3/10; br2 04:20 BP 116 / 67; Pulse 68; Resp 17; Pulse Ox 98% ; Pain 1/10; jj7 05:30 BP 112 / 70; Pulse 66; Resp 20; Temp 97.9; Pulse Ox 95% ; jj7 02:09 Body Mass Index 26.50 (86.18 kg, 180.34 cm) vc1 02:09 Pain Scale: Adult vc1 03:25 Pain Scale: Adult br2 04:20 Pain Scale: Adult jj7 Nell Coma Score: 04:25 Eye Response: spontaneous(4). Motor Response: obeys commands(6). Verbal Response: sp4 oriented(5). Total: 15. ED Course: 01:53 Patient arrived in ED. jj6 01:57 Marciano Mark MD is Attending Physician. sp4 02:12 Triage completed. vc1 02:12 Patient has correct armband on for positive identification. Bed in low position. Call jj7 light in reach. Adult w/ patient. Provided Education on: USE OF CALL CULLEN. 02:12 Inserted saline lock: 20 gauge in right antecubital area, using aseptic technique. jj7 Blood collected. Flushed with 10 mL NS. 02:13 Chyna Colunga RN is Primary Nurse. jj7 02:13 Arm band placed on right wrist. vc1 02:15 Patient has correct armband on for positive identification. Bed in low position. Call vc1 light in reach. Provided Education on: call light, CT. Pulse ox on. NIBP on. 02:19 CRP Sent. jj7 02:55 CT Chest Abdomen Pelvis W/O Contrast In Process Unspecified. EDMS 04:20 Prince Peralta MD is Hospitalizing Provider. sp4 05:45 Hospitalizing Provider role handed off by Prince Peralta MD sp4 05:45 Tre Ibarra MD is Hospitalizing Provider. sp4 05:45 No provider procedures requiring assistance completed. Patient admitted, IV remains in br2 place. Administered Medications: 02:28 Drug: morphine IVP or IV 8 mg IVP once over 4 mins Route: IVP; Infused Over: 4 mins; br2 Site: right antecubital; 03:30 Follow up: Response: No adverse reaction; Pain is decreased br2 02:28 Drug: Ketorolac IVP 30 mg IVP once Route: IVP; Site: right antecubital; br2 03:30 Follow up: Response: No adverse reaction; Pain is decreased br2 05:47 Follow up: Response: Marked relief of symptoms; Pain is decreased jj7 02:28 Drug: NS 0.9% IV 1000 ml IV at 1 bolus Per protocol; to be given as a bolus over 60 br2 minutes Route: IV; Rate: 1 bolus; Site: right antecubital; 03:30 Follow up: Response: No adverse reaction; IV Status: Completed infusion; IV Intake: br2 1000ml 03:30 Follow up: IV Status: Completed infusion jj7 02:28 Drug: NS 0.9% IV 1000 ml IV at 125 bolus Per protocol; to be given as a bolus over 60 br2 minutes Route: IV; Rate: 125 bolus; Site: right antecubital; 05:47 Follow up: IV Status: Infusion continued upon admission jj7 :28 Drug: Ondansetron IVP 8 mg IVP once; over 2 minutes Route: IVP; Site: right antecubital;br2 05:47 Follow up: Response: Nausea is decreased jj7 :28 Drug: Dicyclomine IM 20 mg IM once Route: IM; Site: left gluteus; br2 05:47 Follow up: Response: Marked relief of symptoms; Pain is decreased jj7 Medication: 02:15 VIS not applicable for this client. vc1 Intake: 03:30 IV: 1000ml; Total: 1000ml. br2 Outcome: 04:24 Decision to Hospitalize by Provider. sp4 05:45 Admitted to Med/surg accompanied by tech, via wheelchair, room 220, br2 05:45 Condition: improved 05:45 Instructed on the need for admit, Demonstrated understanding of instructions, 05:48 Patient left the ED. br2 Signatures: Dispatcher [employer] EDMS Judie Khan jj6 Gloria Mccarty RN RN vc1 Chyna Colunga RN RN jj7 Marciano Mark MD MD sp4 Sharon Wilkerson RN RN br2
--- NOTE | 2024-04-03 04:26 | RAD REPORT ---
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 COMPARISON: CT Abdomen pelvis and XR Ribs with chest 12/06/2023. PROCEDURE: Axial images through the chest, abdomen and pelvis were generated utilizing 2 mm slice thickness at 2 mm interval reconstruction without the administration of IV contrast. In addition multiplanar reformats in the coronal and sagittal plane were obtained and reviewed. An individualized dose optimization technique, Automated Exposure Control, was utilized for the perfo rmed procedure. FINDINGS: CHEST: Lower neck: Visualized thyroid gland and soft tissues are normal. No adenopathy. Lungs: The lung parenchyma demonstrate minimal dependent atelectatic changes. No evidence of airspace or interstitial process. No significant pulmonary nodules and/or masses identified. No focal areas of consolidation. Airways: The trachea mainstem bronchus demonstrate to be unremarkable. Pleural: There are no pleural effusion. No evidence for pneumothorax. Hemidiaphragms are normally pos itioned. Mediastinum and lymph nodes: No significant mediastinal and/or hilar lymphadenopathy. The axillary re gions demonstrate to be clear. Heart: Normal size. No pericardial thickening or effusion. Coronary: No significant coronary artery calcifications. Aorta: The thoracic aorta demonstrate to be within normal limits. No evidence for aneurysm. Pulmonary arteries: The pulmonary arteries were not evaluated due to lack of IV contrast. Osseous structures and chest wall: The thoracic spine demonstrate to be within normal limits. No evid ence for compression deformities and/or significant skeletal lesions. ABDOMEN AND PELVIS: Liver: Grossly the unopacified liver demonstrates to be normal, no focal lesions are identified. Gallbladder: Surgical clips within the gallbladder fossa corresponding to previous cholecystectomy. N o significant biliary duct dilatation. Adrenal glands: The adrenal glands demonstrate to be normal. Pancreas: Grossly the unopacified pancreas demonstrate to be unremarkable. Spleen: Grossly the unopacified spleen demonstrate to be unremarkable. Kidneys: The kidneys demonstrate normal uptake of contrast media. Grossly the unopacified kidneys d emonstrate to be within normal limits. There is no evidence for nephrolithiasis and/or hydronephrosis. GI: Grossly the unopacified stomach demonstrate to be within normal limits. There are surgical changes within the right lower quadrant with slight distention of bowel loops on a xial image 84-100 with associated the distal small bowel is decompressed. Large bowel demonstrate to be unremarkable. The appendix is normal. The left-sided colon/sigmoid colon demonstrates presence of minimal diverticulosis. There are surgical changes within the mid sigmoid colon. : The urinary bladder demonstrate to be unremarkable. Genitalia: The prostate gland is normal. Abdominal aorta: The aorta demonstrate to be within normal limits. Retroperitoneum: There is no retroperitoneal lymphadenopathy. There is no evidence for ascites and/or abnormal fluid collections. Bones: The bony structures demonstrate to be within normal limits. No evidence for compression deform ity and/or significant skeletal lesions. Soft tissues: The soft tissues demonstrate to be unremarkable. IMPRESSION: Postsurgical changes within the right lower quadrant with slight distention of bowel loops on axial w ith associated the distal small bowel is decompressed. Findings could correspond to ileus and/or partial bowel obstruction. Postsurgical changes within the mid sigmoid colon. Status post cholecystectomy. Otherwise unremarkable CT scan of the chest, abdomen and pelvis without contrast. Electronically signed by: Torres Portillo MD 04/03/2024 04:06 AM [facility] Due to temporary technical issues with the [employer] reporting system, reports are being natalee d by the in-house radiologist without review as a courtesy to ensure prompt reporting the interpreting radiologist is fully responsible for the content of the report. Transcribed Date/Time: 04/03/2024 4:26 AM
[2024-04-03] MEDS ORDERED: ONDANSETRON 4 MG/2 ML VIAL IV PRN (04:35)
[2024-04-03] MEDS: PANTOPRAZOLE 40 MG INJ IVP SCH (04:40)
[2024-04-03] MEDS ORDERED: SODIUM CHLORIDE 0.9% 10ML INJ IV PRN (04:40)
--- NOTE | 2024-04-03 04:40 | P.HP ---
Certification for Inpatient Patient admitted to: Inpatient With expected LOS: >2 Midnights Practitioner: I am a practitioner with admitting privileges, knowledge of patient current condition, hospital course, and medical plan of care. Services: Services provided to patient in accordance with Admission requirements found in Title 42 Section 412.3 of the Code of Federal Regulations Patient History Date of Service: 04/03/24 Reason for admission: Partial small bowel History of Present Illness: Patient is a 59-year-old male with a past medical history of type 2 diabetes mellitus, bowel resection for severe diverticulitis postop course complicated by multiple episodes of bowel obstruction. He is presenting to the ER today accompanied by with an acutely worsening episode of abdominal pain and distention. Patient has been feeling bloated. He tried ambulating to alleviate his symptoms as he has been told before. He was able to have small bowel movement but his symptoms remain for the most part. He denies nausea or vomiting. Patient is here for worsening abdominal distention and discomfort. CT abdomen and pelvis in the ER revealed partial small bowel obstruction. Dr. Moralez from surgery has been consulted. Allergies Penicillins Allergy (Unknown, Verified 01/21/18 16:54) unknown iodine Allergy (Verified 01/21/18 16:54) Itching/Hives/Rash codeine Adverse Reaction (Verified 01/21/18 16:54) Itching/Hives/Rash Home Medications: Aspirin [Aspirin EC 81 MG] 81 mg PO DAILY 01/21/18 Esomeprazole Magnesium [Nexium 24Hr] 40 mg PO DAILY 01/21/18 Lovastatin 20 mg PO DAILY 01/21/18 Metoprolol Succinate [Toprol Xl] 50 mg PO DAILY 01/21/18 Loratadine 10 mg PO DAILY 11/09/21 - Past Medical/Surgical History Diabetic: No -: reflux -: diverticulitis -: Hypertension -: Hyperlipidemia -: bowel obstruction -: mesenteric necrosis -: Ileostomy january 2016 -: Ileostomy reversal, april 2016 -: abena 06/30/[address] gardner -: colon resection, SBO 01/2016 -: pinky multiple ortho surgery pinky wrist and arms Psychosocial/ Personal History: He is of 10 years. He has 2 children. 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 - Family History Father -: Heart disease, Hypertension, Diabetes Mother Notes: no medical history. fibromyalgia - Social History Alcohol use: Yes CD- Drugs: No Caffeine use: Yes Physical Examination - Physical Exam General: Alert, Acute distress HEENT: Atraumatic, Normocephalic Respiratory: Clear to auscultation bilaterally, Normal air movement Cardiovascular: No edema, Normal pulses, Regular rate/rhythm, Normal S1 S2 Gastrointestinal: Other (Decreased bowel sounds), Distended, Tenderness Musculoskeletal: No clubbing, No swelling, No contractures, No erythema, No tenderness, No warmth Neurological: Normal speech, Normal strength at 5/5 x4 extr - Studies Laboratory Data (last 24 hrs) 04/03/24 04/03/24 02:10 02:10 WBC 8.50 Hgb 14.2 Hct 42.4 Plt Count 301 Sodium 140 Potassium 4.5 BUN 18 Creatinine 0.98 Glucose 148 H Total Bilirubin 0.3 AST 11 L ALT 28 Alkaline Phosphatase 72 Lipase 46 Assessment and Plan - Problems (Diagnosis) (1) Partial small bowel obstruction Current Visit: Yes Status: Acute (2) Alcohol use Onset Date: 10/05/15 Current Visit: No Status: Chronic (3) Hypertension Onset Date: 10/05/15 Current Visit: No Status: Chronic - Plan Assessment This is a 59-year-old male with a past medical history of hypertension, type 2 diabetes mellitus and bowel resection for severe diverticulitis with postop course complicated by multiple episodes of bowel obstruction. He is presenting to the ER with acutely worsening abdominal pain and distention. Patient has been found to have a small bowel obstruction. Partial small bowel obstruction Hypertension Type 2 diabetes mellitus Hyperlipidemia Plan: Will admit inpatient Patient be kept strict n.p.o. for bowel rest IV fluid infusion Antiemetics Consult general surgery PPI for GI prophylaxis - Advance Directives Does patient have a Living Will: No Does patient have a Durable POA for Healthcare: No
[2024-04-03] MEDS: NA CHLORIDE 0.9% 1,000 ML IV SCH (05:00)
[2024-04-03] MEDS: HYDROMORPHONE HCL 1 MG/ML INJ IV PRN (06:28)
[2024-04-03 06:32] VITALS: BMI 26.4
[2024-04-03] MEDS: D5 0.9 NS 1,000 ML IV SCH (08:10)
[2024-04-03] MEDS: METRONIDAZOLE 500mg IVPB 500 MG/100 ML BAG IV SCH (08:11)
[2024-04-03] MEDS: Levofloxacin500mg IV 500 MG/100 ML BAG IV SCH (08:12)
[2024-04-03] MEDS: ENOXAPARIN 40 MG/0.4 ML SQ SCH (08:16)
[2024-04-03 09:50] LABS: Magnesium 2.6 mg/dL (1.6-2.4); Phosphorus 2.3 mg/dL (2.5-4.9)
[2024-04-03 11:43] VITALS: O2SAT 66
[2024-04-03] MEDS: POTASS/SODIUM PHOSPHATE 1 PKT POWD.PACK PO SCH (12:00)
[2024-04-03] MEDS: POTASSIUM PHOS IN 0.9 % NACL 15 MMOL/250 ML BAG IV ONE (13:09)
--- NOTE | 2024-04-03 13:53 | CON ---
Date of Consultation: 04/03/2024 Diagnosis: Small bowel obstruction. History Of Present Illness: This is a case of a 59-year-old patient who comes to us with abdominal p ain to the ER. He has history of a bowel resection for severe diverticulitis in a few years ago and from there, he has been having intermittent bowel obstructions, every now and then. He was eating so me cabbage, not too long ago, about 2 days ago and then after that developed this abdominal distentio n. He came to the ER. He denies any dysuria, hematuria, hematochezia, melena. Denies any recent tr aveling out of the country. Denies any family member sick at home. Denies any blood per rectum. Review of Systems: Ten points otherwise unremarkable. Allergies: PENICILLIN, IODINE, AND CODEINE. Medications: Aspirin, Toprol, Nexium. Medical Problems: Include diverticulitis, hypertension, hyperlipidemia, and bowel obstructions. Past Surgical History: Surgeries include hemicolectomy for diverticulitis and then reversal of loop ileostomy in [address] Padilla did a cholecystectomy in 2017. Social History: He does not smoke. He does not drink alcohol. Family History: Noncontributory. Physical Examination: Vital Signs: Reviewed. General: The patient is awake, alert. HEENT: Pupils are equal and reactive. Anicteric. Neck: Supple. Chest: Clear. Abdomen: Softly distended. No guarding or rebound. Extremities: Good capillary refill. Laboratory Data: Blood work shows WBC count of 8.5, hemoglobin of 14.2, and platelets of 301. Potas sium is 4.5. CAT scan of the abdomen and pelvis reviewed with the patient with the possibility of sm all bowel obstruction. Assessment: 59-year-old patient who comes to us with small bowel obstruction. He feels better. Pas sing flatus. No guarding or rebound. No peritonitis. We are going to encourage ambulation. We are going to start clear liquid diet. He had been through this before. He understands if he gets nause ous to stop immediately. He understand also his surgical options if he does not improve on his own. HM/MODL Voice ID: [id number] Report ID: [id number]
[2024-04-03] MEDS: ACETAMINOPHEN 500 MG TAB PO PRN (17:18)
[2024-04-03] MEDS ORDERED: GLUCAGON 1 MG/VIAL IM PRN (17:21)
[2024-04-03] MEDS ORDERED: D10W 125 ML IV PRN (17:21)
--- NOTE | 2024-04-03 20:26 | HP ---
Date of Admission: 04/03/2024 Chief Complaint: Abdominal pain. History Of Present Illness: This is a 59-year-old very pleasant male patient who was doing fine in h is normal usual state of health until last night. He started to have abdominal pain. All day yester day, he was feeling fine. Denies any fever, chills, nausea, vomiting. No constipation or diarrhea. Last night, he started to have this abdominal pain all across his lower abdomen and pain did not get any better, and as the night progressed, it got worse, so he was brought into our emergency room, an d after he was evaluated in the ER, he was admitted to the hospital with partial small bowel obstruct ion. He denies any fever or chills. No blood in stool. Allergies: TO PENICILLIN, IODINE, AND CODEINE. Medications: List reviewed. Review of Systems: GI: As mentioned above. All other systems reviewed are negative. Past Medical History: Significant for hypertension, hyperlipidemia, gastroesophageal reflux disease. Past Surgical History: Significant for cholecystectomy, partial resection of colon. Family History: Father ; had coronary artery disease, diabetes, and hypertension. Social History: Negative for smoking. Use of alcohol occasional. Physical Examination: Vital Signs: Temperature 97.7, pulse 64, respiratory rate 18, blood pressure 120/69, oxygen saturati on 96%. Height 5 feet 11 inches, weight 190 pounds. General: Awake, alert, oriented, not in distress. HEENT: Head atraumatic, normocephalic. Conjunctivae nonerythematous. Sclerae white. Mouth, no thr ush or edema noted. Ears/Nose, no mass, lesion, discharge noted. Neck: Supple. No JVD, lymph nodes, bruit, thyromegaly noted. Lungs: Bilateral good equal air entry. Clear to auscultation. No rhonchi. No rales. Heart: Normal heart sounds, no murmur or gallop. Abdomen: Shows mild tenderness in the right lower quadrant and suprapubic region. No rebound tender ness. Bowel sounds normal. No hepatosplenomegaly. No bruit. No abdominal distention. Extremities: No leg edema. No calf tenderness. Skin: No rash, ulcer, cellulitis. Lymphatics: No lymph node enlargement in neck, supraclavicular, infraclavicular region. Neuro: No focal neurological deficit. Chest: Unremarkable. External Genitalia: Deferred. Rectal: Deferred. Laboratory Data: WBC 8.50, hemoglobin 14.2, platelets 301. Sodium 140, potassium 4.5, chloride 109, bicarb 27, BUN 18, creatinine 0.98, glucose 148. Liver function tests unremarkable. Lipase 46. Ur inalysis negative. CAT scan of chest, abdomen, pelvis shows postsurgical changes in the right lower quadrant with slight distention of bowel loops. No free air. Impression: 1.Partial small bowel obstruction. 2.Hypertension. 3.Hyperlipidemia. 4.Gastroesophageal reflux disease. Plan: We will go ahead and admit the patient to hospital for further evaluation and management of th is problem. The patient is appropriate for inpatient and is expected to spend 2 midnights in [facility]. We will keep the patient n.p.o. except oral medication and ice chips. Continue IV fluid, but herman nge it to D5 normal saline at 75 cc/hour. Pain medication will be given per order. Nausea medicine also will be given per order. Ambulation was encouraged and we will consult Dr. Moralez from [facility] surgery. DVT prophylaxis will be given using Lovenox per order. We will give empiric antibiotics, Levaquin and metronidazole per order. For hypertension, we will continue his antihypertensive medic ation and no need for further intervention. For hyperlipidemia, continue his medication per order. No need for any further intervention. For gastroesophageal reflux disease, we will continue his medi cation and no need for further intervention. Total time spent today was 80 minutes including communication with the emergency room providersom of emergency room visit record, review of last hospital admission record visit from 11/09/2021 and performing today's evaluation and management. I will see him tomorrow for followup. TAMMIE/MODL Voice ID: [id number]
[2024-04-03] MEDS: INSULIN REGULAR (HUMAN) 100 UNIT/ML SQ SCH (21:00)
[2024-04-04 04:37] LABS: Absolute Eosinophils 0.1 K/uL (0-0.5); Absolute Monocytes 0.5 K/uL (0.1-1.3); Absolute Neutrophil 2.8 K/uL (1.8-8.0); Basophils % 0.5 % (0-1.3); Eosinophils % 3.1 % (0-4.4); Hematocrit 36.1 % (39.6-49.0); Hemoglobin 12.2 g/dL (13.6-17.9); Lymphocytes % 22.8 % (15.3-44.8); MCH 28.1 pg (27.0-35.0); MCHC 33.7 g/dL (32.0-36.0); MCV 83.5 fL (80-100); Monocytes % 10.2 % (3.3-12.3); Neutrophils % 63.4 % (41.7-73.7); Nucleated Red Blood Cells % 0.1 % (0-0); Platelets 248 thou/uL (152-406); RBC Red Blood Cell Count 4.32 M/uL (4.33-5.43); Red Cell Distribution Width 13.6 % (12.1-15.2)
[2024-04-04 04:43] LABS: Anion Gap 5.9 mEq/L (5.0-15.0); Potassium 3.9 mEq/L (3.5-5.1)
--- NOTE | 2024-04-04 11:08 | DS ---
Date of Discharge: 04/04/2024 Disposition: Discharged to go home. Physical Examination: HEENT: Unremarkable. Lungs: Clear to auscultation. Heart: Sounds normal. Abdomen: Soft. Bowel sounds normal. No guarding, rigidity, distention. Very minimal tenderness in right lower quadrant, significantly better today than yesterday. No rebound tenderness. Bowel soun ds normoactive. No abdominal distention. No rebound tenderness. Extremities: No leg edema. Final Diagnoses: 1.Partial small bowel obstruction. 2.Hypertension. 3.Hyperlipidemia. 4.Gastroesophageal reflux disease. Laboratory Data: Upon admission yesterday, white count 8.5, hemoglobin 14.2, platelets 301. Today, white count 4.4, hemoglobin 12.2, platelets 248. For chemistry upon admission, sodium 140, potassium 4.5, chloride 109, bicarb 27, BUN 18, creatinine 0.98, glucose 148. Liver function tests unremarkab le. Lipase 46. Today, sodium 138, potassium 3.9, chloride 108, bicarb 28, BUN 10, creatinine 0.88, glucose 131. Hospital Course: This is a 59-year-old pleasant male patient, who came into emergency room with comp laints of abdominal pain. Please see dictated H and P for more information. After the patient was e valuated in the ER, he was admitted to the hospital with partial small bowel obstruction. Dr. Go madsen from General Surgery was consulted. The patient was started on empiric antibiotic which was Levaq uin and Flagyl. IV fluid was started and IV pain medication was given. Yesterday, the patient was s tarted on clear liquid diet by Dr. Moralez and the patient was already passing flatus and as the day progressed yesterday, he started to have bowel movement and in fact, this morning the patient report ed that he had 2 to 3 diarrhea type of bowel movement this morning. No nausea, no vomiting. His abd ominal pain has significantly improved. Last time he used pain medication was yesterday around noon time. After that, he has not required any pain medication. He is ambulating very well, has tolerate d clear liquid diet very well, so at lunch time, we will advance his diet to soft diet and after that if he tolerates that well, plan is to discharge him to go home. I have instructed him that upon dis charge, he should stay on soft diet and liquid diet for next 2 to 3 days and then slowly advance his diet as he tolerates. He was instructed to make sure to keep himself well hydrated and to start taki ng stool softener like Metamucil fiber gummies and the patient was instructed to take 3 fiber gummies on a daily basis to avoid any constipation or hard stool. Discharge Medications And Instructions: 1.Continue all prior home medication. 2.Metamucil fiber gummies, take 3 fiber gummies daily. 3.Levaquin 500 mg take 1 tablet daily for 1 week. 4.Metronidazole 500 mg take 1 tablet 3 times a day for 1 week. 5.Follow up at my office next week on Sunday which is April 08, 2023. TAMMIE/MODL Voice ID: [id number] Report ID: [id number]
[2024-04-04 12:12] VITALS: BP 151/83; TEMP 98.1
== END 2024-04-04 14:47 | disposition home or self-care (01) | DRG 390 ==
LOC: ER 01:52 → 2ND 04:33
PROVIDERS: ADMIT Internal Medicine; ATTEND Internal Medicine
DX: K56.600 Partial intestinal obstruction, unspecified as to cause (principal); I10 Essential (primary) hypertension; E11.9 Type 2 diabetes mellitus without complications; E78.00 Pure hypercholesterolemia, unspecified; K21.9 Gastro-esophageal reflux disease without esophagitis; F17.210 Nicotine dependence, cigarettes, uncomplicated; Z93.2 Ileostomy status; Z88.0 Allergy status to penicillin; Z88.5 Allergy status to narcotic agent; Z90.49 Acquired absence of other specified parts of digestive tract; Z28.311 Partially vaccinated for COVID-19; Z79.82 Long term (current) use of aspirin; Z79.899 Other long term (current) drug therapy
CPT/HCPCS: 36415; 71250; 74176; 80048; 80053; 81001; 82947; 83690; 83735; 84100; 85025; 86140; 96361; 96372; 96374; 96375; 99285; J0500; J1171; J1650; J2405; J2470; J7030; J7042